=== PATIENT | female | born 1965 | race Caucasian/White ===

== ENCOUNTER 2020-09-10 19:05 | Emergency (ER) | payer BC, SELFPAY | END 2020-09-10 19:37 | disposition left against medical advice (07) | LOC: ANHED 19:25 | DX: Z53.21 Procedure and treatment not carried out due to patient leaving prior to being seen by health care provider (principal) | CPT/HCPCS: 99199 ==

== ENCOUNTER → 2021-09-25 09:57 | Outpatient (CLI) | payer BC, SELFPAY ==
--- NOTE | ~2021-09-25 | MR_ITS ---
EXAMINATION: MR knee LT wo con DATE: 09/25/2021 10:29 INDICATION: Medial left knee pain TECHNIQUE: Magnetic resonance imaging (MRI) of the left knee was performed without intravenous contra st. Sequences included coronal PD-weighted FSE, coronal PD-weighted FS FSE, sagittal T2-weighted FSE , sagittal PD-weighted FS FSE and axial PD weighted fat saturated FSE. COMPARISON: None. FINDINGS: Medial compartment: Complex medial meniscal tear with longitudinal horizontal tear plane extending to the intra-articular surface at the inner third of the posterior horn and posterior body of the medial meniscus. There is a small meniscal flap extending approximately 6 mm anteriorly from the lateral aspect of the posteri or horn along the lateral margin of the anterior weightbearing medial femoral condyle suggesting a se condary tear plane of indeterminate morphology. Partial-thickness chondral fissuring involving approx imately 50% the cartilage thickness along the anterior third of the weightbearing medial femoral cond yle. Cartilage along the medial tibial plateau remains normal. Lateral compartment: Lateral meniscus is normal. Mild partial-thickness chondral fissuring involving less than 50% the car tilage thickness along the posterior aspect lateral tibial plateau. Mild partial-thickness cartilage loss with minimal chondral surface irregularity along the posterior weightbearing lateral femoral con dyle. Patellofemoral compartment: Chondral surface regularity with underlying heterogeneous cartilage signal suggesting deeper fissurin g at the central aspect of the lateral trochlea. Extensive cartilage loss along the patella with scat tered deep fissuring most prominent at the patellar apical ridge where there is mild underlying edema -like marrow signal change. Ligaments and tendons: Anterior and posterior cruciate ligaments are normal. The medial collateral ligament and fibular quin ateral ligament complex are normal. The extensor mechanism is normal. The visualized medial and later al hamstring tendons as well as the iliotibial band are normal. Fluid: Minimal joint effusion at the lateral gutter of the suprapatellar pouch. No loose osteochondral giuseppe s identified. Osseous/other: Normal marrow signal aside from the previous noted tiny foci of minimal subarticular edema-like signa l change at the patella. No fracture or pathologic marrow replacing process. IMPRESSION: 1. Complex tear of the posterior horn of the medial meniscus. 2. 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 Reviewed, dictated and finalized at location A. IMPRESSION: 1. Complex tear of the posterior horn of the medial meniscus. 2. Mild tricompartmental osteoarthritis with moderate to high-grade chondromala yen the patella and regions of moderate grade chondromalacia at the trochlea an d medial lateral compartments.
== END ==
PROVIDERS: PCP Family Medicine; Visit Provider Orthopaedic Surgery
DX: M17.12 Unilateral primary osteoarthritis, left knee (principal); S83.232A Complex tear of medial meniscus, current injury, left knee, initial encounter; X58.XXXA Exposure to other specified factors, initial encounter
CPT/HCPCS: 73721

== ENCOUNTER 2021-11-02 20:33 | Emergency (ER) | payer BC, SELFPAY ==
--- NOTE | ~2021-11-02 | CT_ITS ---
EXAMINATION: CTA chest PE abdomen pel DATE: 11/02/2021 22:14 INDICATION: Low chest pain, upper abdominal pain. Recent surgery. TECHNIQUE: Computed tomography (CT) of the chest, abdomen, and pelvis was performed with 100 CC Omnip aque 350 intravenous contrast. Automated exposure control and iterative reconstruction technique were employed. Exam dose: 1727.24 mGy-cm total exam DLP. COMPARISON: None FINDINGS: CHEST CT: Status post partial right lower lobe lung, left upper lobe and lingular resection. Bilateral pulmonar y discoid atelectasis or more likely scarring. 3 mm calcified left apical pulmonary granuloma (series 6 image 18) 4 mm high attenuation anterior left apical nodule, likely a small calcified pulmonary granuloma (imag e 20). Several millimeter calcified anterior segment right upper lobe pulmonary granuloma (image 55) No pulmonary infiltrate or consolidation or pulmonary mass lesion is noted otherwise. There is mild right lower lobe pulmonary embolism (series 4 images 158-162). Cardiomegaly. No thoracic aortic aneurysm or dissection. No hilar or mediastinal mass lesion or lymphadenopathy. Small pericardial effusion. No pleural effusion. ABDOMEN/PELVIS CT: Status post cholecystectomy. No bile duct or pancreatic duct dilatation. No hepatic or pancreatic spa ce-occupying mass lesion. Normal splenic size. Normal morphology of the adrenal glands. Mild bilateral renal scarring likely due to mild chronic pyelonephritis. Scattered bilateral renal cy sts, measuring up to 15 mm on the right, 14 mm on the left. Status post cystectomy and ileal conduit. No hydronephrosis or hydroureter. Prominent abdominal aortic calcification. No abdominal aortic aneurysm. No intraperitoneal or retrope ritoneal or pelvic mass lesion or adenopathy or ascites. Left colostomy. There is thickening of the wall of the gastric antrum and duodenum, possibly due to gastritis, duoden itis and/or peptic ulcer disease. No bowel obstruction or intraperitoneal free air is detected. Approximately 2 cm wide fat-containing umbilical hernia. Degenerative changes of the lower thoracic and lumbar spine, including severe degenerative disc disea se and minimal retrolisthesis at L5-S1. L3 limbus vertebra. Bilateral hip osteoarthritis. Partial resection of right acetabulum and the resection of right shoulder and inferior pubic ramus. IMPRESSION: Mild right lower lobe pulmonary embolism Status post bilateral lung resections Old pulmonary granulomatous disease Cardiomegaly, small pericardial effusion Status post cholecystectomy Bilateral mild chronic pyelonephritis Bilateral renal cysts Thickening of the wall of the gastric antrum and duodenum suggesting gastritis, duodenitis and/or pep tic ulcer disease Status post diverting ureterostomy/ileal conduit; status post cystectomy Left colostomy Dr. Jean Baptiste telephoned the finding of mild right lower lobe pulmonary embolism to emergency room physici an Dr. Borges on 11/03/2021 at 0842 hours. Reviewed, dictated and finalized at [facility]. Reviewed, dictated and finalized at location B. IMPRESSION: Mild right lower lobe pulmonary embolism Status post bilateral lung resections Old pulmonary granulomatous disease Cardiomegaly, small pericardial effusion Status post cholecystectomy Bilateral mild chronic pyelonephritis Bilateral renal cysts Thickening of the wall of the gastric antrum and duodenum suggesting gastritis, duodenitis and/or peptic ulcer disease Status post diverting ureterostomy/ileal conduit; status post cystectomy Left colostomy Dr. Jean Baptiste telephoned the finding of mild right lower lobe pulmonary embolism to emergency room physician Dr. Borges on 11/03/2021 at 0842 hour
[2021-11-02 20:43] VITALS: BP 122/49; PULSE 65; RESP 14; TEMP 36.4; O2SAT 99
[2021-11-02 21:14] LABS: Basophils Percent Auto 0.3 % (0.2-1.2); Eosinophils Absolute Auto 0.1 K/mm3 (0-0.3); Eosinophils Percent Auto 1.3 % (0-4.4); Hematocrit 40.1 % (37.0-47.0); Immature Granulocyte Absolute 0.04 K/mm3 (0.00-0.031); Immature Granulocyte Percent A 0.5 % (0-0.5); Lymphocytes Absolute Auto 1.77 K/mm3 (0.9-3.2); Lymphocytes Percent Auto 23.6 % (18.3-44.2); Mean Corpuscular HGB Conc 32.4 g/dl (32-36); Mean Corpuscular Hemoglobin 30.5 pg (26-34); Mean Corpuscular Volume 94.1 fl (80-100); Mean Platelet Volume 9.4 fl (7.4-10.4); Monocytes Absolute Auto 0.6 K/mm3 (0.1-0.6); Monocytes Percent Auto 8.4 % (2.6-8.5); Neutrophils Absolute Auto 4.9 K/mm3 (1.3-6.7); Neutrophils Percent Auto 65.9 % (45.5-73.1); Platelet Count Result 298 k/mm3 (150-375); Red Blood Count 4.26 M/mm3 (4.2-5.4); Red Cell Distribution Width 13.4 % (11.5-14.5); White Blood Count 7.5 K/mm3 (4.5-10.0)
[2021-11-02 21:25] LABS: Alanine Aminotransferase 28 U/L (6-35); Albumin Level 4.4 g/dL (3.5-5.1); Alkaline Phosphatase 93 U/L (38-126); Anion Gap 14 mmol/L (8-16); Aspartate Amino Transferase 30 U/L (14-36); Bilirubin,Total 0.5 mg/dL (0.2-1.3); Blood Urea Nitrogen 15 mg/dL (7-17); Calcium 10.8 mg/dL (8.4-10.2); Carbon Dioxide 27 mmol/L (22-30); Chloride 100 mmol/L (98-107); Estimated CRCL calculation 57 ml/min; Estimated Glomerular Filt Rate 57; Glucose 114 mg/dL (65-110); Lipase 47 U/L (23-300); Potassium 4.1 mmol/L (3.4-5.0); Sodium 141 mmol/L (137-145)
[2021-11-02 21:45] VITALS: BP 136/88; PULSE 74; RESP 16; O2SAT 7
--- NOTE | 2021-11-02 21:51 | PC.NURSE ---
PT RELUCTANT TO ALLOW FOR URINE COLLECTION, PT STATED THAT SHE JUST EMPTIED HER COLLECTION BAG.
[2021-11-02 22:14] LABS: Troponin I < 0.012 ng/mL (0.000-0.034)
[2021-11-02 22:23] LABS: Add Urine Microscopic? YES; Appearance Urine Cloudy (Clear); Bilirubin Urine Negative (Negative); Blood Urine 1+ (Negative); Color Urine Yellow (Yellow); Glucose Urine UA Negative (Negative); Ketones Urine Negative (Negative); Leukocyte Esterase Ur 3+ LEU/UL (Negative); Nitrate Urine Positive (Negative); Protein Urine 1+ mg/dL (Negative); Urobilinogen Urine 0.2 mg/dL (<2.0); pH Urine 7.5 (5.0-9.0)
[2021-11-02] MEDS: SODIUM CHLORIDE 0.9% IV 1,000 ML 999 ML IV CONT (22:25)
[2021-11-02] MEDS: MORPHINE SULFATE (*CRX) 4 MG/ML INJ IV PUSH (22:26)
[2021-11-02] MEDS: ONDANSETRON INJ 4 MG/2 ML VIAL IV PUSH (22:26)
[2021-11-02 22:32] LABS: Bacteria Urine Trace /hpf; Mucus Urine Rare /lpf; Squamous Epithelial Cell Urine Rare /hpf (Few); WBC Urine >75 /hpf
[2021-11-02 22:33] VITALS: BP 158/61; PULSE 97; RESP 18; O2SAT 95
--- NOTE | 2021-11-02 22:33 | ED.GENADULT ---
HPI - General Adult General Chief complaint: Abdominal Pain Stated complaint: RLQ pain Time Seen by Provider: 11/02/21 21:19 History of Present Illness HPI narrative: Patient is a 35-year-old female who presents the emergency department with chief complaint of abdominal pain. Patient states that yesterday she started having pain in the epigastric region that she states the pain travels across her transverse colon. Patient states that has a cramping-like pain and also has a sharp component is worse with inspiration and improved with rest. Patient reports that she has had a recent knee surgery on her left knee reports that she is currently not on any anticoagulants is takes an aspirin and reports that she has been wearing compression stockings on her left leg. Patient denies shortness of breath denies vomiting denies diarrhea. Patient reports has had a cholecystectomy and an appendectomy Related Data Allergies Allergy/AdvReac Type Severity Reaction Status Date / Time CHLORPROMAZINE HCL Allergy Other Uncoded 11/02/21 21:08 Review of Systems Review of Systems: A 10 system review of systems was completed on the patient and is negative except for what is stated in the HPI. Nursing and ancillary documentation was reviewed. PMFSH Comments Cholecystectomy, appendectomy, knee surgery Exam Narrative: GENERAL: Well-appearing, well-nourished, and in no acute distress. HEAD: Normocephalic, atraumatic. EYES: PERRLA and EOMI. ENT: Nares clear, no rhinorrhea or epistaxis. Mucous membranes moist. NECK: Supple. CHEST: Clear to auscultation. No respiratory distress. HEART: Regular rate and rhythm. No murmur heard. Normal peripheral pulses. ABDOMEN: Soft, tender to palpation in the epigastric and right upper quadrant, nondistended, normal active bowel sounds. EXTREMITIES: Normal range of motion. No edema. SKIN: Warm, dry, no rash. NEURO: No focal deficits. Alert and oriented x3. PSYCH: Normal mood and affect. Course Vital Signs Vital signs: Vital Signs Temperature 36.4 C 11/02/21 20:43 Pulse Rate 65 11/02/21 20:43 Respiratory Rate 14 11/02/21 20:43 Blood Pressure 122/49 L 11/02/21 20:43 Pulse Oximetry 99 11/02/21 20:43 Oxygen Delivery Room Air 11/02/21 20:43 Temperature 36.4 C 11/02/21 20:43 Pulse Rate 97 11/02/21 22:33 Respiratory Rate 18 11/02/21 22:33 Blood Pressure 158/61 H 11/02/21 22:33 Pulse Oximetry 95 11/02/21 22:33 Oxygen Delivery Room Air 11/02/21 20:43 Medical Decision Making Vital Signs Vital Signs: Vital Signs Temperature 36.4 C 11/02/21 20:43 Pulse Rate 65 11/02/21 20:43 Respiratory Rate 14 11/02/21 20:43 Blood Pressure 122/49 L 11/02/21 20:43 Pulse Oximetry 99 11/02/21 20:43 Oxygen Delivery Room Air 11/02/21 20:43 Temperature 36.4 C 11/02/21 20:43 Pulse Rate 97 11/02/21 22:33 Respiratory Rate 18 11/02/21 22:33 Blood Pressure 158/61 H 11/02/21 22:33 Pulse Oximetry 95 11/02/21 22:33 Oxygen Delivery Room Air 11/02/21 20:43 Lab Data Result diagrams: 11/02/21 21:01 11/02/21 21:01 Labs: Lab Results 11/02/21 11/02/21 11/02/21 Range/Units 21:01 21:01 21:01 WBC 7.5 (4.5-10.0) K/mm3 RBC 4.26 (4.2-5.4) M/mm3 Hgb 13.0 (12.0-15.0) g/dL Hct 40.1 (37.0-47.0) % MCV 94.1 (80-100) fl MCH 30.5 (26-34) pg MCHC 32.4 (32-36) g/dl RDW 13.4 (11.5-14.5) % Plt Count 298 (150-375) k/mm3 MPV 9.4 (7.4-10.4) fl Immature Gran % (Auto) 0.5 (0-0.5) % Neut % (Auto) 65.9 (45.5-73.1) % Lymph % (Auto) 23.6 (18.3-44.2) % [place] % (Auto) 8.4 (2.6-8.5) % Eos % (Auto) 1.3 (0-4.4) % Baso % (Auto) 0.3 (0.2-1.2) % Lymph # (Auto) 1.77 (0.9-3.2) K/mm3 [place] # (Auto) 0.6 (0.1-0.6) K/mm3 Eos # (Auto) 0.1 (0-0.3) K/mm3 Baso # (Auto) 0.0 (0.0-0.1) K/mm3 Abs Immat Gran (auto) 0.04 H (0.00-0.031) K/mm3 Absolute Neuts
--- NOTE | 2021-11-02 23:28 | PC.NURSE ---
Report received from KAYLEE Cordero. Assumed care of patient at this time.
[2021-11-03] MEDS: BELLADONNA ALK/PHENOB ELIX 10 ML, MAG HYDROX/ALUMINUM HYD/SIMETH 30 ML, LIDOCAINE HCL 2... PO (00:08)
[2021-11-03] MEDS: CEPHALEXIN 500 MG CAPSULE PO (00:09)
[2021-11-03 00:45] VITALS: BP 132/69; PULSE 59; RESP 16; O2SAT 93
== END 2021-11-03 00:47 | disposition home or self-care (01) ==
PROVIDERS: Emergency Medicine; Emergency Provider Emergency Medicine
DX: K29.70 Gastritis, unspecified, without bleeding (principal); N39.0 Urinary tract infection, site not specified; I26.99 Other pulmonary embolism without acute cor pulmonale; Z98.890 Other specified postprocedural states; I51.7 Cardiomegaly; N11.9 Chronic tubulo-interstitial nephritis, unspecified; N28.1 Cyst of kidney, acquired; Z93.3 Colostomy status; Z93.6 Other artificial openings of urinary tract status
CPT/HCPCS: 36415; 71275; 74177; 80053; 81001; 83690; 84484; 85025; 87077; 87086; 87186; 96361; 96374; 96375; 99284; A9270; J2270; J2405; J7030; Q9967

== ENCOUNTER 2021-11-03 12:15 | Emergency (ER) | payer BC, SELFPAY ==
--- NOTE | ~2021-11-03 | XR_ITS ---
EXAMINATION: XR chest 2V DATE: 11/03/2021 13:33 INDICATION: Cough, shortness of breath and right-sided chest pain TECHNIQUE: frontal and lateral views of the chest were obtained. COMPARISON: Chest radiograph dated 11/02/2021 FINDINGS: Postoperative changes including a suture line in the right lower lung zone and multiple suture lines in the left mid and upper lung zones. Left sixth rib thoracotomy defect. There are peripheral linear and bandlike opacities in bilateral mid and lower lung zones which on prior CT correspond to residual pleural parenchymal scarring because it was removed and replaced with discoid atelectasis. No pulmon igno edema, pleural effusion or pneumothorax. Mild cardiomegaly. Mild thoracic spondylosis. Cholecyste ctomy clips in right upper quadrant. IMPRESSION: 1. Postoperative changes and pleural parenchymal scarring/atelectasis in the bilateral lungs. 2. Cardiomegaly. Reviewed, dictated and finalized at location A. IMPRESSION: 1. Postoperative changes and pleural parenchymal scarring/atelectasis in the bi lateral lungs. 2. Cardiomegaly.
--- NOTE | ~2021-11-03 | US_ITS ---
EXAMINATION: US venous doppler [facility] DATE: 11/03/2021 14:32 INDICATION: PE . TECHNIQUE: Grayscale images without and with compression and Doppler images of the bilateral lower ex tremity veins were obtained. COMPARISON: None FINDINGS: The right common femoral vein, profunda (deep) femoral vein, femoral vein, popliteal vein, peroneal v ein, posterior tibial veins, gastrocnemius vein, and greater saphenous vein are patent. The left common femoral vein, profunda femoral vein, femoral vein, popliteal vein, peroneal vein, pos terior tibial veins, gastrocnemius vein, and greater saphenous vein are patent. IMPRESSION: 1. Patent bilateral lower extremity veins. No evidence of deep venous thrombosis. Reviewed, dictated and finalized at location K. IMPRESSION: 1. Patent bilateral lower extremity veins. No evidence of deep venous thrombos is.
[2021-11-03 12:17] VITALS: BP 98/50; PULSE 66; RESP 18; TEMP 36.6; O2SAT 99
[2021-11-03 12:33] VITALS: BP 105/54; PULSE 67; RESP 17; O2SAT 96
[2021-11-03 12:36] VITALS: PULSE 66
--- NOTE | 2021-11-03 12:41 | ED.GENADULT ---
HPI - General Adult General Chief complaint: Unspecified Stated complaint: i have a blood clot in my lung Time Seen by Provider: 11/03/21 12:34 History of Present Illness HPI narrative: Pt presents today for follow up after CT overead this morning noted a small PE in RLL. Pt seen here last night for RUQ abdominal pain, had CT abd/pelvis and chest. Pt had recent knee surgery. Pt denies SOB. Pt does have some mild pain in RLL/RUQ area that is unchanged since onset. Related Data Allergies Allergy/AdvReac Type Severity Reaction Status Date / Time CHLORPROMAZINE HCL Allergy Other Uncoded 11/03/21 12:36 Review of Systems Review of Systems: All systems reviewed & are unremarkable except as noted in HPI and below Exam Const: General: cooperative, healthy appearing and no acute distress Orientation/consciousness: patient oriented x3 Chest: Chest palpation & inspection: normal inspection of the chest Resp: Effort & Inspection: normal respiratory effort and able to speak in complete sentences Auscultation: clear to auscultation bilaterally Cardio: Rate: regular rate Rhythm: regular rhythm GI: Inspection: normal to inspection GI Palp: Yes Soft to palpation Percussion: Yes normal to percussion Auscultation: normal bowel sounds Back/Spine/Pelvis: Back: no CVA tenderness Skin: General skin exam: normal color and no rashes or lesions noted Neuro: General: patient oriented x3 and no focal motor deficits Speech: normal speech Motor exam (neuro): 5/5 motor strength present throughout Sensory Exam: normal sensation Extrem: General: normal to inspection and full ROM Psych: Appearance: grossly normal Speech and movement: Normal speech and movement present Affect: normal affect Attitude: cooperative Thought process: Normal thought process present Thought content: Yes Normal thought content present Insight: Good insight present (Psych) Judgement: Good judgement present (Psych) Course Course Emergency Course: discussed with dr Murphy said would like venous dopplers ad BNP and to follow up with dr llanes. discussed with Dr Llanes, will see pt in follow up Vital Signs Vital signs: Vital Signs Temperature 97.9 F 11/03/21 12:17 Pulse Rate 66 11/03/21 12:17 Respiratory Rate 18 11/03/21 12:17 Blood Pressure 98/50 L 11/03/21 12:17 Pulse Oximetry 99 11/03/21 12:17 Oxygen Delivery Room Air 11/03/21 12:17 Temperature 97.9 F 11/03/21 12:17 Pulse Rate 65 11/03/21 15:29 Respiratory Rate 16 11/03/21 15:29 Blood Pressure 100/50 L 11/03/21 15:29 Pulse Oximetry 95 11/03/21 15:29 Oxygen Delivery Room Air 11/03/21 12:33 Medical Decision Making Vital Signs Vital Signs: Vital Signs Temperature 97.9 F 11/03/21 12:17 Pulse Rate 66 11/03/21 12:17 Respiratory Rate 18 11/03/21 12:17 Blood Pressure 98/50 L 11/03/21 12:17 Pulse Oximetry 99 11/03/21 12:17 Oxygen Delivery Room Air 11/03/21 12:17 Temperature 97.9 F 11/03/21 12:17 Pulse Rate 65 11/03/21 15:29 Respiratory Rate 16 11/03/21 15:29 Blood Pressure 100/50 L 11/03/21 15:29 Pulse Oximetry 95 11/03/21 15:29 Oxygen Delivery Room Air 11/03/21 12:33 Lab Data Labs: Lab Results 11/03/21 11/03/21 Range/Units 13:24 13:24 PT 14.2 (11.1-14.7) Seconds INR 1.1 APTT 27.8 (22.3-36.8) SECONDS NT-Pro-B Natriuret Pep 2720 H (5-100) pg/mL Discharge Plan Discharge Clinical Impression: Pulmonary embolus Patient Disposition: Home, Self-Care Condition: Stable Instructions: Antibiotic Form, Pulmonary Embolism (ED) Prescriptions: New Eliquis 5 mg tablet 5 mg PO BID Qty: 60 0RF No Action cephalexin 500 mg capsule 500 mg PO Q12H 7 Days Qty: 14 0RF pantoprazole [Protonix] 40 mg tablet,delayed release (DR/EC) 40 mg PO HS 28 Days Qty: 28 0RF Follow-up/Referrals: Oscar Llanes MD [Physician] - PHYSICIAN NOT ON STAFF,NONSTAFF [Primary C
[2021-11-03] MEDS: ENOXAPARIN 80 MG/0.8 ML SYRINGE SUB-Q (13:11)
[2021-11-03 13:12] VITALS: BP 99/55; PULSE 62; RESP 13; O2SAT 97
[2021-11-03 13:56] LABS: INR 1.1; Prothrombin Time 14.2 Seconds (11.1-14.7)
[2021-11-03 13:57] LABS: Partial Thromboplastin Time 27.8 SECONDS (22.3-36.8)
[2021-11-03 14:08] LABS: NT Pro B Type Natriuretic Pept 2720 pg/mL (5-100)
[2021-11-03 15:29] VITALS: BP 100/50; PULSE 65; RESP 16; O2SAT 95
== END 2021-11-03 15:30 | disposition home or self-care (01) ==
PROVIDERS: Emergency Provider Emergency Medicine
DX: I26.99 Other pulmonary embolism without acute cor pulmonale (principal); I51.7 Cardiomegaly; Z98.890 Other specified postprocedural states
CPT/HCPCS: 36415; 71046; 83880; 85610; 85730; 93970; 99199; J1650

== ENCOUNTER 2021-12-15 01:30 | Day surgery (SDC) | payer BC, SELFPAY ==
[2021-12-11 14:12] VITALS: BMI 31.0
[2021-12-15 11:52] VITALS: BP 125/75; PULSE 79; RESP 18; TEMP 36.6; O2SAT 99; BMI 31.2
[2021-12-15] MEDS: LACTATED RINGERS 1,000 ML 150 ML IV CONT (12:21)
--- NOTE | 2021-12-15 12:40 | WPDANESEPPF ---
Anes - Initial Pre Proc Eval Procedure: Operation Date: 12/15/21 12:30 Proposed Procedures p Esophagogastroduodenoscopy EGD - Alfa Acevedo MD Date/Time: 12/15/21 12:40 Surgeon: Alfa Acevedo MD Pre Op Diagnosis: EPIGASTRIC PAIN, ABNORMAL CT SCAN Patient Data Age: 56 Gender: F Height: 1.63 m Weight: 82.5 kg Last Vital Signs Temp 97.9 F 12/15/21 11:52 Pulse 79 12/15/21 11:52 Resp 18 12/15/21 11:52 BP 125/75 12/15/21 11:52 Pulse Ox 99 12/15/21 11:52 O2 Del Method Room Air 12/15/21 11:52 Allergies Allergy/AdvReac Type Severity Reaction Status Date / Time chlorpromazine Allergy Unknown Unknown Verified 12/15/21 11:50 Home Medications Medication Instructions Recorded Confirmed Type pantoprazole 40 mg tablet,delayed 40 mg PO HS 4 weeks #28 tabs 11/02/21 12/15/21 Rx release (Protonix) aripiprazole 15 mg tablet (Abilify) 15 mg PO DAILY 11/24/21 12/15/21 History atenolol 100 mg tablet 100 mg PO DAILY 11/24/21 12/15/21 History cyanocobalamin (vitamin B-12) 100 mcg subcut MONTHLY 11/24/21 12/15/21 History 1,000 mcg/mL injection solution escitalopram oxalate 20 mg tablet 20 mg PO DAILY 11/24/21 12/15/21 History lamotrigine 100 mg tablet 100 mg PO DAILY 11/24/21 12/15/21 History (Lamictal) apixaban 5 mg tablet (Eliquis) 5 mg PO BID 12/15/21 12/15/21 History spironolactone 25 mg tablet 25 mg PO DAILY 12/15/21 12/15/21 History Patient hx anesthesia problems: none Family hx anesthesia problems: none Results Review: All pre-operative results and documents have been reviewed as part of the pre-operative evaluation. [facility] Past Medical History Medical History Colostomy in place History of blood clots History of cancer metastatic to bone History of malignant neoplasm metastatic to lung Hx of intestinal obstruction Obesity (BMI 30-39.9) Ovarian cancer Personal history of ovarian cancer Postoperative pelvic peritoneal adhesions Pulmonary embolism Tear of meniscus of left knee Surgical History Surgical History Colostomy status History of carpal tunnel surgery History of cholecystectomy History of cholecystectomy Family History Family History Father Heart disease Hypertension Cerebrovascular accident Cancer of kidney Mother Hypertension Heart disease Social History Social History (Updated 11/25/21 @ 10:58 by Katy Odonnell [facility]) Smoking status: Never smoker Second hand tobacco smoke exposure: No Alcohol intake: current Alcohol use details: once a month, maybe; socially only Substance use: never Substance use type: does not use Living arrangements: with family Gender identity (if verbalized by the patient): Female Spiritual care concerns: No Anes - Eval Final PreProcedure Day of Procedure 12/15/21 12:40 Patient weight: obese Heart: regular rate and rhythm Lungs: clear to auscultation Airway: Mallampati scale class II Neurological: alert and oriented Last oral intake: >/= 8 hours ASA classification: III Emergent: no Anesthetic plan: proceed Anesthesia type and monitoring: general GIVS and standard monitoring Results Review: All pre-operative results and documents have been reviewed as part of the pre-operative evaluation. Informed Consent: The patient's anesthetic plan and its attendant risks and benefits were discussed with the patient/family/POA. Questions were solicited and answers provided to the satisfaction of the patient/family/POA.
--- NOTE | 2021-12-15 12:52 | WPDHPUPDATE1 ---
History and Physical Update Update Date/Time: 12/15/21 12:52 History and Physical has been reviewed, including an updated exam of the patient. There are NO changes in the patient's condition. Risks, benefits, and alternatives have been discussed and questions answered. Patient agrees to proceed with procedure.
[2021-12-15 13:06] VITALS: BP 111/66; PULSE 65; RESP 19; O2SAT 99
[2021-12-15 13:16] VITALS: BP 117/64; PULSE 66; RESP 18; O2SAT 96
[2021-12-15 13:26] VITALS: BP 98/75; PULSE 65; RESP 18; O2SAT 96
== END 2021-12-15 13:40 | disposition home or self-care (01) ==
PROVIDERS: PCP Family Medicine; Visit Provider Internal Medicine Gastroenterology
PROC: 0DJ08ZZ Inspection of Upper Intestinal Tract, Via Natural or Artificial Opening Endoscopic (ICD-10-PCS; CPT 43235; principal; 2021-12-15 12:30)
DX: R10.13 Epigastric pain (principal); K29.50 Unspecified chronic gastritis without bleeding; Z79.01 Long term (current) use of anticoagulants; Z86.711 Personal history of pulmonary embolism; Z85.118 Personal history of other malignant neoplasm of bronchus and lung; Z85.830 Personal history of malignant neoplasm of bone; Z93.3 Colostomy status; R10.11 Right upper quadrant pain; I26.99 Other pulmonary embolism without acute cor pulmonale; Z85.43 Personal history of malignant neoplasm of ovary; Z85.89 Personal history of malignant neoplasm of other organs and systems; Z90.49 Acquired absence of other specified parts of digestive tract
CPT/HCPCS: 43239; 88305; 88342; J2704; J3010; J7120

== ENCOUNTER → 2021-12-29 09:00 | Outpatient (CLI) | payer BC, SELFPAY ==
--- NOTE | ~2021-12-29 | XR_ITS ---
XR lumbar spine min 4V DATE: 12/29/2021 09:28 INDICATION: Low back pain TECHNIQUE: AP, bilateral oblique, lateral, coned lateral lumbosacral views COMPARISON: None FINDINGS: There is minimal anterior wedging of L1, which may be due to mild old compression fracture or normal variant. L3 limbus vertebra. Mild degenerative disc disease at L1-2, moderate degenerative disease at L2-3. Mild degenerative dise ase at L3-4 and L4-5. Severe degenerative disc disease at L5-S1. No spondylolysis or spondylolisthesis. Degenerative change including spurring at the sacroiliac joints. Apparent surgical resection of a portion of the right superior pubic ramus and acetabulum. Degenerati ve change at the left hip. Abdominal aortic calcification, without evidence of aneurysm. Radiopaque sutures overlying left mid abdomen. Status post cholecystectomy. IMPRESSION: Multilevel degenerative disc disease, most severe at L5-S1 Reviewed, dictated and finalized at location A.
== END ==
PROVIDERS: PCP Family Medicine; Visit Provider Physician Assistant Medical
DX: M51.37 Other intervertebral disc degeneration, lumbosacral region (principal)
CPT/HCPCS: 72110

== ENCOUNTER 2022-02-03 15:27 | Outpatient (CLI) | payer OTHER, SELFPAY ==
[2022-02-06 02:43] LABS: Homocysteine 13.1 umol/L (<10.4)
[2022-02-06 11:37] LABS: Protein S Antigen, Free 133 % normal (50-147)
[2022-02-06 19:10] LABS: Antithrombin III Activity 80 % normal (80-135)
[2022-02-06 22:21] LABS: Antithrombin III Activity 83 % normal (80-135)
== END 2022-02-03 15:28 | disposition home or self-care (01) ==
PROVIDERS: PCP Family Medicine; Visit Provider Internal Medicine Hematology & Oncology
DX: I26.99 Other pulmonary embolism without acute cor pulmonale (principal)
CPT/HCPCS: 36415; 81240; 81241; 83090; 85300; 85303; 85306; 86146

== ENCOUNTER 2022-03-29 09:06 | Emergency (ER) | payer OTHER, SELFPAY ==
[2022-03-29 09:34] VITALS: BP 129/64; PULSE 70; RESP 16; TEMP 36.9; O2SAT 95
--- NOTE | 2022-03-29 10:34 | ED.ANIMALBIT ---
HPI - Animal Bite General Chief Complaint: Animal Bite Stated Complaint: cat bite yesterday Time Seen by Provider: 03/29/22 09:56 History of Present Illness HPI narrative: Patient is a 56-year-old female who presents ER with infection to the right hand. Patient was bit by her cat yesterday. She now has pus draining from it and is red in the area. She maintains range of motion of her fingers and wrist. No lymphangitic streaking. No fevers or chills or sweats. This is the patient's own cat and is fully vaccinated. Patient is up-to-date on her tetanus vaccination. Related Data Home Medications Medication Instructions Recorded Confirmed aripiprazole 15 mg tablet (Abilify) 15 mg PO DAILY 11/24/21 03/23/22 atenolol 100 mg tablet 100 mg PO DAILY 11/24/21 03/23/22 cyanocobalamin (vitamin B-12) 100 mcg subcut MONTHLY 11/24/21 03/23/22 1,000 mcg/mL injection solution escitalopram oxalate 20 mg tablet 20 mg PO DAILY 11/24/21 03/23/22 lamotrigine 100 mg tablet 100 mg PO DAILY 11/24/21 03/23/22 (Lamictal) spironolactone 25 mg tablet 25 mg PO DAILY 12/15/21 03/23/22 Allergies Allergy/AdvReac Type Severity Reaction Status Date / Time chlorpromazine Allergy Unknown Unknown Verified 03/23/22 14:24 Review of Systems Constitutional: Constitutional: Denies chills and Denies fever(s) Musculoskeletal: Musculoskeletal: Denies arthralgias and Denies joint swelling Integumentary/Breasts: Skin/Breast: Reports erythema Comments: Purulent drainage. [facility] Past Medical History Medical History (Updated 03/29/22 @ 10:34 by Sundar Oslon MD) Colostomy in place History of blood clots History of cancer metastatic to bone History of malignant neoplasm metastatic to lung Hx of intestinal obstruction Lumbar spine pain Obesity (BMI 30-39.9) Ovarian cancer Personal history of ovarian cancer Postoperative pelvic peritoneal adhesions Pulmonary embolism Tear of meniscus of left knee Surgical History Surgical History (Updated 03/23/22 @ 15:13 by Lesley Wilson MD) Colostomy status History of carpal tunnel surgery History of cholecystectomy History of cholecystectomy Status post ileal conduit Cystectomy with ileal conduit related to radiation Family History Family History Father Heart disease Hypertension Cerebrovascular accident Cancer of kidney Mother Hypertension Heart disease Social History Social History Smoking status: Never smoker Second hand tobacco smoke exposure: No Alcohol intake: current Alcohol use details: once a month, maybe; socially only Substance use: never Substance use type: does not use Lack of Transportation: No Lack of Food: Never True Current Housing: I Have Housing Concerned About Future Housing: No Difficulty Paying Gas/Electric Bills: No Difficulty Paying for Meds: No Currently Unemployed: No Education: Master's Degree or Higher Difficulty w/ Childcare or Family Care: No Living arrangements: alone Occupation/Education: retired Gender identity (if verbalized by the patient): Female Spiritual care concerns: No Agree to blood products: Yes Exam Narrative: GENERAL: Well-appearing, well-nourished, and in no acute distress. HEAD: Normocephalic, atraumatic. HEART: Regular rate and rhythm. Normal peripheral pulses. EXTREMITIES: Normal range of motion of the right hand and wrist. No edema. SKIN: Warm, dry, no rash. Developing cellulitis with puncture wound volar aspect of the right hand near the first MTP. Purulent drainage noted. No lymphangitic streaking. NEURO: Alert and oriented x3. PSYCH: Normal mood and affect. Course Vital Signs Vital signs: Vital Signs Temperature 98.5 F 03/29/22 09:34 Pulse Rate 70 03/29/22 09:34 Respiratory Rate 16 03/29/22 09:34 Blood Pressure 129/64 03/29/22 09:34 Pulse Oximetry 95
[2022-03-29 11:30] VITALS: BP 127/64; PULSE 64; RESP 16; TEMP 36.8; O2SAT 98
== END 2022-03-29 11:31 | disposition home or self-care (01) ==
LOC: ANHED 11:05
PROVIDERS: Emergency Provider Emergency Medicine; PCP Family Medicine
DX: S61.451A Open bite of right hand, initial encounter (principal); L08.9 Local infection of the skin and subcutaneous tissue, unspecified; W55.01XA Bitten by cat, initial encounter; Z85.118 Personal history of other malignant neoplasm of bronchus and lung; Z85.43 Personal history of malignant neoplasm of ovary; Z85.830 Personal history of malignant neoplasm of bone; Z86.711 Personal history of pulmonary embolism; E66.9 Obesity, unspecified; Z68.31 Body mass index [BMI] 31.0-31.9, adult; Z93.3 Colostomy status
CPT/HCPCS: 99283

== ENCOUNTER 2022-03-30 12:03 | Emergency (ER) | payer OTHER, SELFPAY ==
[2022-03-30 12:08] VITALS: BP 136/61; PULSE 71; RESP 16; TEMP 36.6; O2SAT 98
[2022-03-30 12:37] VITALS: TEMP 36.6
[2022-03-30 13:34] LABS: Basophils Absolute Auto 0.1 K/mm3 (0.0-0.1); Basophils Percent Auto 0.8 % (0.2-1.2); Eosinophils Absolute Auto 0.1 K/mm3 (0-0.3); Eosinophils Percent Auto 1.8 % (0-4.4); Hematocrit 44.1 % (37.0-47.0); Hemoglobin 14.4 g/dL (12.0-15.0); Immature Granulocyte Absolute 0.03 K/mm3 (0.00-0.031); Immature Granulocyte Percent A 0.5 % (0-0.5); Lymphocytes Absolute Auto 1.46 K/mm3 (0.9-3.2); Lymphocytes Percent Auto 23.7 % (18.3-44.2); Mean Corpuscular HGB Conc 32.7 g/dl (32-36); Mean Corpuscular Hemoglobin 31.2 pg (26-34); Mean Corpuscular Volume 95.5 fl (80-100); Mean Platelet Volume 9.1 fl (7.4-10.4); Monocytes Absolute Auto 0.6 K/mm3 (0.1-0.6); Monocytes Percent Auto 9.7 % (2.6-8.5); Neutrophils Absolute Auto 3.9 K/mm3 (1.3-6.7); Neutrophils Percent Auto 63.5 % (45.5-73.1); Platelet Count Result 253 k/mm3 (150-375); Red Blood Count 4.62 M/mm3 (4.2-5.4); Red Cell Distribution Width 13.5 % (11.5-14.5); White Blood Count 6.2 K/mm3 (4.5-10.0)
[2022-03-30 13:43] LABS: Anion Gap 10 mmol/L (8-16); Blood Urea Nitrogen 13 mg/dL (7-17); Calcium 8.9 mg/dL (8.4-10.2); Carbon Dioxide 24 mmol/L (22-30); Chloride 106 mmol/L (98-107); Estimated CRCL calculation 56 ml/min; Estimated Glomerular Filt Rate 57; Glucose 80 mg/dL (65-110); Potassium 4.1 mmol/L (3.4-5.0); Sodium 140 mmol/L (137-145)
--- NOTE | 2022-03-30 13:52 | ED.ANIMALBIT ---
HPI - Animal Bite General Chief Complaint: Animal Bite Stated Complaint: cat bite Time Seen by Provider: 03/30/22 12:37 History of Present Illness HPI narrative: Patient is a 56-year-old female who presents to the ER with concerns for infection to her right hand. She was bit by her cat couple days ago. She came to the ER yesterday and was placed on Augmentin. She has taken 3 doses with the last dose being this morning. She reports she has some redness and edema to her right hand. She has no lymphangitic streaking up her arm. She has no loss of range of motion to her hand or wrist. No numbness or tingling. She reports that when she woke up this morning the wound had closed itself so she opened it up and got a little bit more pus out but is not currently draining at this time. Patient and cats vaccinations are up-to-date. Patient has been soaking her wound with a warm cloth and trying to drain pus periodically throughout the day. Related Data Home Medications Medication Instructions Recorded Confirmed aripiprazole 15 mg tablet (Abilify) 15 mg PO DAILY 11/24/21 03/23/22 atenolol 100 mg tablet 100 mg PO DAILY 11/24/21 03/23/22 cyanocobalamin (vitamin B-12) 100 mcg subcut MONTHLY 11/24/21 03/23/22 1,000 mcg/mL injection solution escitalopram oxalate 20 mg tablet 20 mg PO DAILY 11/24/21 03/23/22 lamotrigine 100 mg tablet 100 mg PO DAILY 11/24/21 03/23/22 (Lamictal) spironolactone 25 mg tablet 25 mg PO DAILY 12/15/21 03/23/22 Allergies Allergy/AdvReac Type Severity Reaction Status Date / Time chlorpromazine Allergy Unknown Unknown Verified 03/23/22 14:24 Review of Systems Constitutional: Constitutional: Denies chills and Denies fever(s) Musculoskeletal: Musculoskeletal: Denies arthralgias and Denies joint swelling Integumentary/Breasts: Skin/Breast: Denies pruritus, Reports erythema and Denies rash Comments: Bite wound with drainage Neurologic: Denies focal weakness and Denies numbness PMFSH Past Medical History Medical History (Updated 03/30/22 @ 14:55 by Sundar Olson MD) Colostomy in place History of blood clots History of cancer metastatic to bone History of malignant neoplasm metastatic to lung Hx of intestinal obstruction Lumbar spine pain Obesity (BMI 30-39.9) Ovarian cancer Personal history of ovarian cancer Postoperative pelvic peritoneal adhesions Pulmonary embolism Tear of meniscus of left knee Surgical History Surgical History (Updated 03/23/22 @ 15:13 by Lesley Wilson MD) Colostomy status History of carpal tunnel surgery History of cholecystectomy History of cholecystectomy Status post ileal conduit Cystectomy with ileal conduit related to radiation Family History Family History (Reviewed 03/23/22 @ 14:23 by Jackie Ortega [facility]) Father Heart disease Hypertension Cerebrovascular accident Cancer of kidney Mother Hypertension Heart disease Social History Social History (Reviewed 03/23/22 @ 14:23 by Jackie Ortega [facility]) Smoking status: Never smoker Second hand tobacco smoke exposure: No Alcohol intake: current Alcohol use details: once a month, maybe; socially only Substance use: never Substance use type: does not use Lack of Transportation: No Lack of Food: Never True Current Housing: I Have Housing Concerned About Future Housing: No Difficulty Paying Gas/Electric Bills: No Difficulty Paying for Meds: No Currently Unemployed: No Education: Master's Degree or Higher Difficulty w/ Childcare or Family Care: No Living arrangements: alone Occupation/Education: retired Gender identity (if verbalized by the patient): Female Spiritual care concerns: No Agree to blood products: Yes Exam Narrative: GENERAL: Well-appearing, well-nourished, and in no acute distress. HEAD: Normocephalic, atraumatic. EXTREMITIES: Right hand with slight edema. Bite wound over the volar aspect near the first metatarsal. No drainage noted
== END 2022-03-30 15:00 | disposition home or self-care (01) ==
PROVIDERS: Emergency Provider Emergency Medicine; PCP Family Medicine
DX: S61.451A Open bite of right hand, initial encounter (principal); L08.9 Local infection of the skin and subcutaneous tissue, unspecified; E66.9 Obesity, unspecified; Z68.31 Body mass index [BMI] 31.0-31.9, adult; Z85.118 Personal history of other malignant neoplasm of bronchus and lung; Z85.43 Personal history of malignant neoplasm of ovary; Z85.830 Personal history of malignant neoplasm of bone; Z86.711 Personal history of pulmonary embolism; Z93.3 Colostomy status; W55.01XA Bitten by cat, initial encounter
CPT/HCPCS: 36415; 80048; 85025; 99283

== ENCOUNTER 2022-05-20 14:20 | Outpatient (CLI) | payer OTHER, SELFPAY ==
[2022-05-22 15:40] LABS: Homocysteine 9.6 umol/L (<10.4)
[2022-05-26 19:41] LABS: Factor V (Leiden) Mutation NEGATIVE
== END 2022-05-20 14:21 | disposition home or self-care (01) ==
LOC: ANHLAB 14:21
PROVIDERS: PCP Family Medicine; Visit Provider Internal Medicine Hematology & Oncology
DX: I26.99 Other pulmonary embolism without acute cor pulmonale (principal)
CPT/HCPCS: 36415; 81241; 83090

== ENCOUNTER 2022-06-05 10:43 | Outpatient (CLI) | payer OTHER, SELFPAY | END 2022-06-05 10:44 | disposition home or self-care (01) | LOC: ANHLAB 10:45 | PROVIDERS: Physician Assistant Medical; PCP Family Medicine; Visit Provider Internal Medicine Hematology & Oncology | DX: E53.8 Deficiency of other specified B group vitamins (principal) | CPT/HCPCS: 36415; 82607 ==

== ENCOUNTER → 2022-07-17 12:48 | Outpatient (CLI) | payer OTHER, SELFPAY ==
--- NOTE | ~2022-07-17 | XR_ITS ---
EXAMINATION: XR heel LT min 2V DATE: 07/17/2022 13:15 INDICATION: Left heel pain. TECHNIQUE: 2 views of left calcaneus were obtained. COMPARISON: None. FINDINGS: Bone alignment is normal. No fracture. Joint spaces are normal. There are enthesophytes at the posterior and plantar aspects of calcaneal tuberosity. IMPRESSION: 1. Enthesophytes at the posterior and plantar aspects of calcaneal tuberosity. Reviewed, dictated and finalized at location E.
== END ==
PROVIDERS: PCP Family Medicine; Visit Provider Physician Assistant Medical
DX: M79.672 Pain in left foot (principal); M77.52 Other enthesopathy of left foot and ankle
CPT/HCPCS: 73650

== ENCOUNTER → 2022-07-22 10:58 | Outpatient (CLI) | payer OTHER, SELFPAY ==
--- NOTE | ~2022-07-22 | MM_ITS ---
EXAMINATION: MM screening veronica BI w david HISTORY: Screening mammogram TECHNIQUE: Craniocaudal and mediolateral oblique 3-D tomosynthesis images were obtained and synthetic 2-D images were generated. CAD analysis was submitted and interpreted. COMPARISON: No prior mammogram is available for comparison at this institution. BREAST PARENCHYMAL COMPOSITION:There are scattered areas of fibroglandular density. FINDINGS: No suspicious mass, calcification, or architectural distortion are identified in either elda ast to suggest malignancy. IMPRESSION: No mammographic evidence of malignancy. Recommend routine screening mammography in one year. BI-RADS Category 1: Negative Reviewed, dictated and finalized at location .
--- NOTE | ~2022-07-22 | DEXA_ITS ---
Bone Density Report Name: ROJAS RIOS Age: 56 Sex: Female Ethnicity: White Date of : 1965 Indication: postmenopausal; screening for osteoporosis; hysterectomy; Referring Provider: MARISAEBL MARCANO Study: Bone densitometry was performed. Exam Date: July 22, 2022 Accession number: [id number] Bone Density: Region BMD T-score Z-score Classification AP Spine (L1-L4) 1.173 1.1 2.5 Normal Femoral Neck (Left) 0.830 -0.2 1.0 Normal Total Hip (Left) 0.985 0.4 1.2 Normal Femoral Neck (Right) 0.943 0.8 2.1 Normal Total Hip (Right) 0.918 -0.2 0.7 Normal Total Hip Mean 0.952 0.1 1.0 Normal World Health Organization criteria for BMD impression classify patients as: Normal (T-score at or above -1.0), Osteopenia (T-score between -1.0 and -2.5), or Osteoporosis (T-score at or below -2.5). 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 Discussion: BONE DENSITY IS ABOVE THE MINIMUM DESIRABLE LEVEL AT ALL SKELETAL SITES TESTED. This patient?s bone mineral density is above the minimum desirable level (T-score -1.0 or better) at all sites measured. The patient should follow a healthful lifestyle (good nutrition with adequate calcium and vitamin D, and appropriate weight-bearing exercise). Follow-Up: Consider repeating this study in 5 years or sooner if there is some new clinical indication. Reported by: [facility] on 07/22/2022 11:50:00 AM. Reviewed, dictated and finalized at location [facility]ANN
== END ==
PROVIDERS: PCP Family Medicine; Visit Provider Family Medicine
DX: Z12.31 Encounter for screening mammogram for malignant neoplasm of breast (principal); Z78.0 Asymptomatic menopausal state
CPT/HCPCS: 77063; 77067; 77080

== ENCOUNTER → 2022-08-18 08:18 | Outpatient (CLI) | payer OTHER, SELFPAY ==
--- NOTE | ~2022-08-18 | US_ITS ---
US breast RT complete DATE: 08/18/2022 08:59 INDICATION: Right breast pain TECHNIQUE: Real-time imaging of complete right breast: The all 4 quadrants and subareolar area COMPARISON: 07/22/2022 bilateral screening mammogram FINDINGS: No suspicious mass or shadowing is detected. No cyst is noted. IMPRESSION: BI-RADS Category 1: Negative Reviewed, dictated and finalized at Location A. Reviewed, dictated and finalized at location A.
== END ==
PROVIDERS: PCP Family Medicine; Visit Provider Family Medicine
DX: N64.4 Mastodynia (principal)
CPT/HCPCS: 76641

== ENCOUNTER → 2023-03-26 13:16 | Outpatient (CLI) | payer OTHER, SELFPAY ==
--- NOTE | ~2023-03-26 | MR_ITS ---
EXAMINATION: MR brain/brain stem wo/w con DATE: 03/26/2023 14:45 INDICATION: Dizziness and giddiness. TECHNIQUE: Magnetic resonance imaging (MRI) of the brain and brainstem was performed without and with 17 mL MultiHance intravenous contrast. COMPARISON: None. FINDINGS: There are scattered areas of nonspecific increased T2-weighted signal intensity in the cere bral white matter, which is within normal limits for the patient's age. There is no intracranial hemo rrhage, acute infarction, or abnormal intracranial mass lesion. The ventricles are normal in size. Th e orbits are normal. There is mild mucosal thickening in the paranasal sinuses. The mastoid air cells are normal. IMPRESSION: 1. Normal aging brain. Reviewed, dictated and finalized at location E. ATHLETE IMPRESSION: 1. Normal aging brain.
== END ==
PROVIDERS: PCP Family Medicine; Visit Provider Family Medicine
DX: R42 Dizziness and giddiness (principal); Z85.43 Personal history of malignant neoplasm of ovary
CPT/HCPCS: 70553; A9577

== ENCOUNTER 2023-08-14 07:16 | Outpatient (CLI) | payer OTHER, SELFPAY ==
--- NOTE | ~2023-08-14 | US_ITS ---
US abdomen limited DATE: 08/14/2023 07:46 INDICATION: Elevated liver function tests TECHNIQUE: Real-time imaging of the liver, pancreas, gallbladder fossa (status post cholecystectomy), common bile duct COMPARISON: 11/02/2021 CTA chest abdomen pelvis FINDINGS: No hepatic or pancreatic space-occupying mass lesion. Normal hepatopedal portal venous flow direction. The gallbladder is surgically absent. Common bile duct measures 3.8 mm. IMPRESSION: No significant abnormality of the liver or pancreas is demonstrated Status post cholecystectomy Normal common bile duct caliber 3.8 mm Reviewed, dictated and finalized at Location [facility]. Reviewed, dictated and finalized at location A.
== END 2023-08-14 07:17 ==
LOC: MICIMG 07:17
PROVIDERS: PCP Family Medicine; Visit Provider Physician Assistant Medical
DX: R79.89 Other specified abnormal findings of blood chemistry (principal); Z90.49 Acquired absence of other specified parts of digestive tract
CPT/HCPCS: 76705

== ENCOUNTER 2023-09-13 13:14 | Outpatient (CLI) | payer OTHER, SELFPAY ==
[2023-09-13 14:58] LABS: Hepatitis B Surface Antigen Negative (Negative)
[2023-09-13 15:15] LABS: HIV 1/2 Ab P24 Ag Result Negative (Negative); Hepatitis C Virus Antibody Negative (Negative)
== END 2023-09-13 13:15 | disposition home or self-care (01) ==
LOC: ANHLAB 13:20
PROVIDERS: PCP Family Medicine; Visit Provider Family Medicine
DX: T14.8XXA Other injury of unspecified body region, initial encounter (principal); W46.0XXA Contact with hypodermic needle, initial encounter
CPT/HCPCS: 36415; 86703; 86803; 87340; G0432

== ENCOUNTER 2023-11-11 13:08 | Outpatient (CLI) | payer OTHER, SELFPAY ==
--- NOTE | ~2023-11-11 | XR_ITS ---
EXAMINATION: XR lumbar spine 2-3V DATE: 11/11/2023 13:53 INDICATION: Low back pain, unspecified. TECHNIQUE: 3 views of lumbar spine including standing views were obtained. COMPARISON: Lumbar spine radiographs 12/29/2021 FINDINGS: Alignment is normal. Vertebral body heights are normal. There is mildly decreased disc heig ht at L2-L3, L3-L4, and L4-L5 and severely decreased disc height at L5-S1. There is multilevel facet joint osteoarthritis, severe in lower lumbar spine. Surgical clips in the right upper quadrant are stoney cary from cholecystectomy. IMPRESSION: 1. Severe lower lumbar spondylosis. Reviewed, dictated and finalized at location A.
== END 2023-11-11 13:09 | disposition home or self-care (01) ==
LOC: MICIMG 13:09
PROVIDERS: PCP Family Medicine; Visit Provider Student in an Organized Health Care Education/Training Program
DX: M47.896 Other spondylosis, lumbar region (principal)
CPT/HCPCS: 72100

== ENCOUNTER 2023-12-30 17:52 | Emergency (ER) | payer OTHER, SELFPAY ==
--- NOTE | ~2023-12-30 | CT_ITS ---
EXAMINATION: CT brain wo con DATE: 12/30/2023 20:15 INDICATION: Vertigo TECHNIQUE: Computed tomography (CT) of the head was performed without intravenous contrast. Sagittal and coronal reconstructions were performed. The mA was adjusted according to patient size. Iterative reconstruction technique was employed. The dose-length product was 681.00 mGy-cm. COMPARISON: Brain MR dated 03/26/2023 FINDINGS: No acute intracranial hemorrhage, acute infarction or abnormal extra axial fluid collection. Ventricl es are normal and symmetric. No mass/mass effect. The orbits, paranasal sinuses and mastoid air cells are normal. Mild hyperostosis frontalis. IMPRESSION: 1. Normal aging brain. No acute intracranial process. Reviewed, dictated and finalized at location A.
[2023-12-30 18:02] VITALS: BP 109/67; PULSE 66; RESP 16; TEMP 36.6; O2SAT 100
[2023-12-30 18:09] LABS: Glucose Point of Care 120 mg/dl (65-105)
[2023-12-30 19:36] VITALS: PULSE 68
[2023-12-30 19:37] VITALS: BP 104/88; PULSE 62; RESP 18; TEMP 36.6; O2SAT 99
--- NOTE | 2023-12-30 19:47 | ECG_ITS ---
Test Date: 2023-12-30 20:01:57 Measurements Intervals [place] Rate: 55 P: 6 [place]: 146 QRS: 79 QRSD: 86 T: 60 QT: 432 QTc: 416 Interpretive Statements SINUS BRADYCARDIA LOW QRS VOLTAGE IN PRECORDIAL LEADS [QRS DEFLECTION < 1.0 mV IN CHEST LEADS] No previous ECG available for comparison Electronically Signed On 12-31-2023 15:30:04 CDT by Dillan Delgadillo M.D.
[2023-12-30] MEDS: MECLIZINE HCL 25 MG TABLET PO (19:55)
--- NOTE | 2023-12-30 20:12 | ED.DIZZY ---
HPI - Dizziness General Chief Complaint: Dizziness Stated Complaint: dizzy, lightheaded, tingling Time Seen by Provider: 12/30/23 19:32 Source: patient Mode of arrival: ambulatory Limitations: no limitations History of Present Illness HPI Narrative: This is a 58-year-old female, with history of metastatic ovarian cancer, who presents to the emergency department complaining of vertigo beginning approximately 15:50 today. The patient states she was otherwise in her usual state of health when her symptoms began. She denies associated weakness/numbness, chest pain, shortness of breath or loss of consciousness. She states the vertigo is worsened with quick movements or walking. She has no other complaints at this time Related Data Home Medications Medication Instructions Recorded Confirmed cyanocobalamin (vitamin B-12) 100 mcg subcut MONTHLY 11/24/21 11/09/23 1,000 mcg/mL injection solution escitalopram oxalate 5 mg tablet 20 mg PO DAILY 12/30/23 Allergies Allergy/AdvReac Type Severity Reaction Status Date / Time chlorpromazine Allergy Unknown Unknown Verified 12/30/23 17:52 Review of Systems Review of Systems: All systems reviewed & are unremarkable except as noted in HPI and below PMFSH Past Medical History Medical History Colostomy in place History of blood clots History of cancer metastatic to bone History of malignant neoplasm metastatic to lung Hx of intestinal obstruction Lumbar spine pain Obesity (BMI 30-39.9) Ovarian cancer Personal history of ovarian cancer Postoperative pelvic peritoneal adhesions Pulmonary embolism Tear of meniscus of left knee Surgical History Surgical History Colostomy status History of carpal tunnel surgery History of cholecystectomy History of cholecystectomy Status post ileal conduit Cystectomy with ileal conduit related to radiation Family History Family History Father Heart disease Hypertension Cerebrovascular accident Cancer of kidney Mother Hypertension Heart disease Social History Social History Smoking status: Never smoker Second hand tobacco smoke exposure: No Alcohol intake: current Alcohol use details: once a month, maybe; socially only Substance use: never Substance use type: does not use Lack of Transportation: No Lack of Food: Never True Current Housing: I Have Housing Concerned About Future Housing: No Difficulty Paying Gas/Electric Bills: No Difficulty Paying for Meds: No Currently Unemployed: Decline to Answer Education: Master's Degree or Higher Difficulty w/ Childcare or Family Care: No Living arrangements: alone Additional living arrangements comments: Occupation/Education: retired Gender identity (if verbalized by the patient): Female Sexual Orientation (if Verbalized by the Patient): Lesbian, Gill, or Homosexual Spiritual care concerns: No Agree to blood products: Yes Exam Narrative: GENERAL: Well-developed, well-nourished, and in no acute distress. HEAD: Normocephalic, atraumatic. EYES: PERRLA and EOMI. ENT: Nares clear, no rhinorrhea or epistaxis. Mucous membranes moist. Oropharynx without tonsillar hypertrophy exudate or other lesions. Right TM pearly christianson though bulging, left TM pearly christ[place] and nonbulging NECK: Supple. No adenopathy or masses. No carotid bruits or JVD CHEST: Clear to auscultation. No respiratory distress. No wheezes rales or rhonchi HEART: Regular rate and rhythm. No murmur heard. Normal peripheral pulses. ABDOMEN: Soft, nontender, nondistended, normal active bowel sounds. EXTREMITIES: Normal range of motion. No edema. SKIN: Warm, dry, no rash. NEURO: Alert and oriented x3. No focal deficit. Strength 5/5 in the bilateral upper extremities and left lower extremity. Strength 4/5 on flexion of the right hip (the patient's baseline) strength 5/5 on flexion and extension of the right knee and ankle. HINTS exam unremarkable PSYCH: Normal mood and affect. Course Course Emergency Course: 21:27 - CBC unremarkable. Chemistries demonstrate mild hyponatremia sodium is 135 and mild hypomagnesemia of 1.5 but is otherwise unremarkable. CT head unremarkable. EKG unremarkable. The patient's blood pressure improved with IV fluids. She was able to ambulate with a steady gait a complaint of some lightheadedness. I suspect the patient's symptoms are secondary to peripheral vertigo related to viral upper respiratory infection and dehydration. Will discharge with meclizine, recommendations for oral hydration and primary care follow-up. I discussed the findings and recommendations with the patient. Discussed return and emergency precautions including signs/symptoms of ACS, respiratory distress stroke. The patient voiced understanding and agreement with the plan. All questions answered to her satisfaction. Vital Signs Vital signs: Vital Signs Temperature 97.9 F 12/30/23 18:02 Pulse Rate 66 12/30/23 18:02 Respiratory Rate 16 12/30/23 18:02 Blood Pressure 109/67 12/30/23 18:02 Pulse Oximetry 100 12/30/23 18:02 Temperature 97.5 F L 12/30/23 20:55 Pulse Rate 61 12/30/23 20:55 Respiratory Rate 16 12/30/23 20:55 Blood Pressure 137/65 12/30/23 20:55 Pulse Oximetry 99 12/30/23 20:55 MDM - Dizziness MDM Narrative Medical decision making narrative: Plan: Labs, EKG, IV fluids, imaging, reassess Differential Diagnosis Differential diagnosis: Likely benign paroxysmal positional vertigo and other (Viral URI, dehydration, metabolic abnormality, intracranial mass, intracranial hemorrhage, other) Lab Data 12/30/23 20:44 12/30/23 20:44 Labs: Lab Results 12/30/23 12/30/23 Range/Units 18:06 20:44 WBC 8.1 (4.5-10.0) K/mm3 RBC 3.98 L (4.2-5.4) M/mm3 Hgb 12.9 (12.0-15.0) g/dL Hct 37.9 (37.0-47.0) % MCV 95.2 (80-100) fl MCH 32.4 (26-34) pg MCHC 34.0 (32-36) g/dl RDW 13.1 (11.5-14.5) % Plt Count 237 (150-375) k/mm3 MPV 9.5 (7.4-10.4) fl Immature Gran % (Auto) 0.5 (0-0.5) % Neut % (Auto) 62.5 (45.5-73.1) % Lymph % (Auto) 26.5 (18.3-44.2) % [place] % (Auto) 8.4 (2.6-8.5) % Eos % (Auto) 1.6 (0-4.4) % Baso % (Auto) 0.5 (0.2-1.2) % Lymph # (Auto) 2.15 (0.9-3.2) K/mm3 [place] # (Auto) 0.7 H (0.1-0.6) K/mm3 Eos # (Auto) 0.1 (0-0.3) K/mm3 Baso # (Auto) 0.0 (0.0-0.1) K/mm3 Abs Immat Gran (auto) 0.04 H (0.00-0.031) K/mm3 Absolute Neuts (auto) 5.1 (1.3-6.7) K/mm3 Absolute Nucleated RBC 0.000 (0.0-0.012) K/mm3 Nucleated RBC % 0.0 (0.0-0.2) % Sodium 135 L (137-145) mmol/L Potassium 3.8 (3.4-5.0) mmol/L Chloride 102 (98-107) mmol/L Carbon Dioxide 22 (22-30) mmol/L Anion Gap 11 (4-12) mmol/L BUN 20 H (7-17) mg/dL Creatinine 1.00 (0.7-1.0) mg/dL Estim Creat Clear Calc 54 ml/min Estimated GFR 57 L (59 - ) Glucose 104 (65-110) mg/dL POC Capillary Glucose 120 H (65-105) mg/dl Calcium 9.2 (8.4-10.2) mg/dL Magnesium 1.5 L (1.6-2.3) mg/dL Total Bilirubin 0.5 (0.2-1.3) mg/dL AST 32 (14-36) U/L ALT 31 (6-35) U/L Alkaline Phosphatase 60 (38-126) U/L Total Protein 8.0 (6.3-8.2) g/dL Albumin 4.4 (3.5-5.1) g/dL ECG Data EKG #1: Attestation: I personally reviewed and interpreted this ECG as follows: ECG completion date: 12/30/23 ECG completion time: 20:01 Prior ECG tracings: not available for review Interpretation: Sinus bradycardia, rate 55, normal axis, no ST segment elevations or T-wave inversions concerning for ischemia, normal intervals with QTC of 416. Discharge Plan Discharge Clinical Impression: Vertigo, Acute dehydration Patient Disposition: Home, Self-Care Condition: Stable Instructions: Antibiotic Form, Benign Paroxysmal Positional Vertigo (ED) Additional Instructions: You were seen in the emergency department. A CT of the head was not concerning for fracture or bleeding in the brain. An EKG was not concerning for changes heart rhythm. Your liver kidney function tests were normal. Your given IV fluids with improvement of your blood pressure. I suspect your vertigo was related to a viral upper respiratory infection. I recommend decongestants and meclizine for dizziness. If you develop weakness/numbness, loss of consciousness, chest pain, shortness of breath, or if you have other emergent concerns for life, limb, or eyesight, return to the emergency department. Patient Language: Greek Prescriptions: New meclizine 25 mg tablet 25 mg PO TID Qty: 15 0RF No Action cyanocobalamin (vitamin B-12) 1,000 mcg/mL solution 100 mcg subcut MONTHLY atenolol 100 mg tablet 100 mg PO DAILY Qty: 90 2RF escitalopram oxalate 5 mg tablet 20 mg PO DAILY spironolactone 25 mg tablet 25 mg PO DAILY Qty: 90 1RF Rx Instructions: TAKE 1 TABLET BY MOUTH EVERY DAY ergocalciferol (vitamin D2) [Vitamin D2] 1,250 mcg (50,000 unit) capsule 1,250 mcg PO WEEKLY Qty: 12 2RF Follow-up/Referrals: Lesley Wilson MD [Primary Care Provider] - 2 Weeks Time of Disposition: 21:32
[2023-12-30] MEDS: SODIUM CHLORIDE 0.9% IV 1,000 ML 999 ML IV CONT (20:44)
[2023-12-30 20:49] LABS: Basophils Percent Auto 0.5 % (0.2-1.2); Eosinophils Absolute Auto 0.1 K/mm3 (0-0.3); Eosinophils Percent Auto 1.6 % (0-4.4); Hematocrit 37.9 % (37.0-47.0); Hemoglobin 12.9 g/dL (12.0-15.0); Immature Granulocyte Absolute 0.04 K/mm3 (0.00-0.031); Immature Granulocyte Percent A 0.5 % (0-0.5); Lymphocytes Absolute Auto 2.15 K/mm3 (0.9-3.2); Lymphocytes Percent Auto 26.5 % (18.3-44.2); Mean Corpuscular Hemoglobin 32.4 pg (26-34); Mean Corpuscular Volume 95.2 fl (80-100); Mean Platelet Volume 9.5 fl (7.4-10.4); Monocytes Absolute Auto 0.7 K/mm3 (0.1-0.6); Monocytes Percent Auto 8.4 % (2.6-8.5); Neutrophils Absolute Auto 5.1 K/mm3 (1.3-6.7); Neutrophils Percent Auto 62.5 % (45.5-73.1); Platelet Count Result 237 k/mm3 (150-375); Red Blood Count 3.98 M/mm3 (4.2-5.4); Red Cell Distribution Width 13.1 % (11.5-14.5); White Blood Count 8.1 K/mm3 (4.5-10.0)
[2023-12-30 20:55] VITALS: BP 137/65; PULSE 61; RESP 16; TEMP 36.4; O2SAT 99
[2023-12-30 21:08] LABS: Alanine Aminotransferase 31 U/L (6-35); Albumin Level 4.4 g/dL (3.5-5.1); Alkaline Phosphatase 60 U/L (38-126); Anion Gap 11 mmol/L (4-12); Aspartate Amino Transferase 32 U/L (14-36); Bilirubin,Total 0.5 mg/dL (0.2-1.3); Blood Urea Nitrogen 20 mg/dL (7-17); Calcium 9.2 mg/dL (8.4-10.2); Carbon Dioxide 22 mmol/L (22-30); Chloride 102 mmol/L (98-107); Estimated CRCL calculation 54 ml/min; Estimated Glomerular Filt Rate 57; Glucose 104 mg/dL (65-110); Magnesium 1.5 mg/dL (1.6-2.3); Potassium 3.8 mmol/L (3.4-5.0); Sodium 135 mmol/L (137-145)
== END 2023-12-30 21:37 | disposition home or self-care (01) ==
PROVIDERS: Emergency Provider Preventive Medicine Aerospace Medicine; PCP Family Medicine
DX: R42 Dizziness and giddiness (principal); E86.0 Dehydration; Z85.43 Personal history of malignant neoplasm of ovary; Z85.118 Personal history of other malignant neoplasm of bronchus and lung; Z85.830 Personal history of malignant neoplasm of bone; Z86.711 Personal history of pulmonary embolism; Z93.6 Other artificial openings of urinary tract status; Z90.49 Acquired absence of other specified parts of digestive tract; Z90.6 Acquired absence of other parts of urinary tract; Z79.899 Other long term (current) drug therapy; R00.1 Bradycardia, unspecified
CPT/HCPCS: 36415; 70450; 80053; 82948; 83735; 85025; 93005; 96360; 99284; A9270; J7030

== ENCOUNTER 2024-01-18 14:47 | Emergency (ER) | payer OTHER, SELFPAY ==
--- NOTE | ~2024-01-18 | CT_ITS ---
EXAMINATION: CTA chest PE abdomen pel DATE: 01/18/2024 19:06 CUT OFF [facility] INDICATION: Right upper quadrant pain for 48 hours worsening with inspiration with a history of pulmo nary embolus TECHNIQUE: Computed tomographic angiography (CTA) of the chest with contrast-enhanced imaging of the abdomen and pelvis was performed with 100 mL Omnipaque-350 intravenous contrast. The dose-length prod uct was 901.76 mGy-cm. Maximum intensity projection 3D-reconstructions of the aorta and other arterie s were constructed by the technologist on a separate workstation. FINDINGS/OBSERVATIONS: CTA: No filling defect is identified within the main or proximal pulmonary arteries. No filling defect is identified within the segmental or subsegmental branches. The punctate filling defect within the right lower lobe seen on the 2021 examination is no longer vis ualized on today's study. The heart is enlarged, without pericardial effusion. Postoperative changes identified within the bilateral lung roberts, consistent with patient's history. Liver: The liver is not in enlarged, and demonstrates diffuse fatty infiltration, unchanged from April ex . Gallbladder and biliary system: The gallbladder is surgically absent. Pancreas: Subtle irregular focus of decreased attenuation is identified within the body of pancreas, measuring 8.4 mm. This area of the pancreas was not included on the prior study. The remainder of the pancreas otherwise enhances homogeneously without ductal dilatation. Spleen: The spleen enhances homogeneously and is not enlarged measuring 8 cm in longitudinal dimension. Kidneys: Multiple well-circumscribed foci of decreased attenuation are identified within the bilateral kidneys , too small to characterize but likely representing cysts. The remainder of the bilateral kidneys otherwise enhance symmetrically without hydronephrosis or arlyn l calculi. Adrenal glands: Unremarkable. Gastrointestinal tract: Stoma within the left lower quadrant. Appendix: The appendix is not definitively visualized. However, no pericecal inflammatory change is identified suggest the presence of acute appendicitis. Vasculature: Bulky calcifications within the abdominal aorta without aneurysmal dilatation or dissection. Lymph nodes: No pathologically enlarged or morphologically suspicious lymph nodes within the retroperitoneum or at the root of the mesentery. Pelvic structures: Post cystectomy and ileal conduit without hydronephrosis or hydroureter. Ileal conduit exits through the right lower quadrant. The uterus is likely surgically absent. Body wall and musculoskeletal: Dehiscence of the pelvic floor anteriorly with a loop of fluid-filled small bowel herniating through the defect. Small fat-containing umbilical hernia. Moderate degenerative disease within the lower thoracic and lumbosacral spine with osteophyte formati on, disc space narrowing, endplate changes and vacuum phenomena. Facet arthropathy is also noted. IMPRESSION: No pulmonary embolus. No aortic dissection. Postoperative change within the bilateral lung roberts, consistent with patient's history. Right-sided ileal conduit, left-sided diverting colostomy. The presence of the pelvic floor anteriorly with a loop of fluid-filled small bowel herniating throug h the defect, without obstruction. Subcentimeter irregular focus of decreased attenuation within the body of the pancreas, not included on the previous examination for which dedicated CT or MRI of the pancreas may be performed (not emerg ently) with pancreatic mass protocol. Unless, this is a known finding. Reviewed, dictated and finalized at location A. [facility] IMPRESSION: No pulmonary embolus. No aortic dissection. Postoperative change within the bilateral lung roberts, consistent with patient' s history. Right-sided ileal conduit, left-sided diverting colostomy. The presence of the pelvic floor anteriorly with a loop of fluid-filled small b owel herniating through the defect, without obstruction. Subcentimeter irregular focus of decreased attenuation within the body of the p ancreas, not included on the previous examination for which dedicated CT or MRI of the pancreas may be performed (not emergently) with pancreatic mass protoco l. Unless, this is a known finding.
[2024-01-18 14:55] VITALS: BP 117/79; PULSE 69; RESP 16; TEMP 36.4; O2SAT 98
--- NOTE | 2024-01-18 15:22 | ED.ABDPAIN ---
HPI - Abdominal Pain General Chief Complaint: Abdominal Pain <RAFAEL Shannon Last Filed: 01/19/24 11:04> Stated Complaint: RUQ abd pain, pain with inspiration <Hillary Perkins PA-C - Last Filed: 01/19/24 11:04> Time Seen by Provider: 01/18/24 15:23 <Hillary Perkins PA-C - Last Filed: 01/19/24 11:04> Focused HPI: This is a 58 year old female that presents to the ER for right upper quadrant pain. Started about 2 days ago. It is constant in nature. Reports history of cholecystectomy. Pain is worse with inspiration. Reports history of PE. Denies fever, vomiting, diarrhea. GENERAL: Well-appearing, well-nourished, and in no acute distress. HEAD: Normocephalic, atraumatic. CHEST: Clear to auscultation. ?No respiratory distress. HEART: Regular rate and rhythm.? NEURO: ?Alert and oriented x3. Patient screened in triage and initial orders placed.? ?Additional care and disposition to be based upon?diagnostic testing and treatment. <RAFAEL Shannon Last Filed: 01/19/24 11:04> History of Present Illness HPI narrative: 58-year-old female with history of ovarian cancer when she was 13-year-old that resulted in a urostomy and colostomy, hypertension, depression, remote history of PE presents to the emergency department for right lower rib pain/right upper quadrant abdominal pain for the past couple of days. Patient states the pain is worse when she takes a deep breath and bends her torso. She otherwise cannot identify any aggravating or alleviating factors. She reports history of cholecystectomy and appendectomy. He has normal output in her urostomy and colostomy but does feel like she has not eaten well today. She denies fever, shortness of breath, cough or congestion, hemoptysis. She is not currently anticoagulated. <Marisa Hawkins PA-C - Last Filed: 01/19/24 01:14> Related Data Home Medications: Home Medications Medication Instructions Recorded Confirmed cyanocobalamin (vitamin B-12) 100 mcg subcut MONTHLY 11/24/21 11/09/23 1,000 mcg/mL injection solution escitalopram oxalate 5 mg tablet 20 mg PO DAILY 12/30/23 <Hillary Perkins PA-C - Last Filed: 01/19/24 11:04> Allergies/Adverse Reactions: Allergies Allergy/AdvReac Type Severity Reaction Status Date / Time chlorpromazine Allergy Unknown Unknown Verified 01/18/24 14:49 <Hillary Perkins PA-C - Last Filed: 01/19/24 11:04> Review of Systems Review of Systems: All systems reviewed & are unremarkable except as noted in HPI and below <Marisa Hawkins PA-C - Last Filed: 01/19/24 01:14> [facility] Past Medical History Medical History: Medical History Colostomy in place History of blood clots History of cancer metastatic to bone History of malignant neoplasm metastatic to lung Hx of intestinal obstruction Lumbar spine pain Obesity (BMI 30-39.9) Ovarian cancer Personal history of ovarian cancer Postoperative pelvic peritoneal adhesions Pulmonary embolism Tear of meniscus of left knee <Hillary Perkins PA-C - Last Filed: 01/19/24 11:04> Surgical History Surgical History: Surgical History Colostomy status History of carpal tunnel surgery History of cholecystectomy History of cholecystectomy Status post ileal conduit Cystectomy with ileal conduit related to radiation <Hillary Perkins PA-C - Last Filed: 01/19/24 11:04> Family History Family History: Family History Father Heart disease Hypertension Cerebrovascular accident Cancer of kidney Mother Hypertension Heart disease <Hillary Perkins PA-C - Last Filed: 01/19/24 11:04> Social History Social History: Social History Smoking status: Never smoker Second hand tobacco smoke exposure: No Alcohol intake: current Alcohol use details: once a month, maybe; socially only Substance use: never Substance use type: does not use Lack of Transportation: No Lack of Food: Never True Current Housing: I Have Housing Concerned About Future Housing: No Difficulty Paying Gas/Electric Bills: No Difficulty Paying for Meds: No Currently Unemployed: Decline to Answer Education: Master's Degree or Higher Difficulty w/ Childcare or Family Care: No Living arrangements: alone Additional living arrangements comments: Occupation/Education: retired Gender identity (if verbalized by the patient): Female Sexual Orientation (if Verbalized by the Patient): Lesbian, Gill, or Homosexual Spiritual care concerns: No Agree to blood products: Yes <Hillary Pekrins PA-C - Last Filed: 01/19/24 11:04> Exam Narrative: GENERAL: Well-appearing, well-nourished, and in no acute distress. HEAD: Normocephalic, atraumatic. EYES: EOMI. ENT: Nares clear, no rhinorrhea or epistaxis. Mucous membranes moist. NECK: Supple. CHEST: Clear to auscultation. No respiratory distress. HEART: Regular rate and rhythm. No murmur heard. Normal peripheral pulses. ABDOMEN: Normoactive bowel sounds. Abdomen soft tenderness in the right upper quadrant. No rebound, guarding or rigidity. Colostomy bag in the left lower quadrant with no surrounding skin changes and good output. Urostomy bag in the right lower quadrant with no surrounding skin changes and good output with clear yellow urine in the ostomy bag. EXTREMITIES: Normal range of motion. No edema. SKIN: Warm, dry, no rash. NEURO: No focal deficits. Alert and oriented x3 <Marisa Hawkins PA-C - Last Filed: 01/19/24 01:14> Course Vital Signs Vital signs: Vital Signs Temperature 97.6 F 01/18/24 14:55 Pulse Rate 69 01/18/24 14:55 Respiratory Rate 16 01/18/24 14:55 Blood Pressure 117/79 01/18/24 14:55 Pulse Oximetry 98 01/18/24 14:55 Oxygen Delivery Room Air 01/18/24 14:55 Temperature 97.8 F 01/18/24 19:15 Pulse Rate 70 01/18/24 19:15 Respiratory Rate 16 01/18/24 19:15 Blood Pressure 142/75 H 01/18/24 19:15 Pulse Oximetry 100 01/18/24 19:15 Oxygen Delivery Room Air 01/18/24 14:55 <Hillary Perkins PA-C - Last Filed: 01/19/24 11:04> Vital Signs Temperature 97.6 F 01/18/24 14:55 Pulse Rate 69 01/18/24 14:55 Respiratory Rate 16 01/18/24 14:55 Blood Pressure 117/79 01/18/24 14:55 Pulse Oximetry 98 01/18/24 14:55 Oxygen Delivery Room Air 01/18/24 14:55 Temperature 97.8 F 01/18/24 19:15 Pulse Rate 70 01/18/24 19:15 Respiratory Rate 16 01/18/24 19:15 Blood Pressure 142/75 H 01/18/24 19:15 Pulse Oximetry 100 01/18/24 19:15 Oxygen Delivery Room Air 01/18/24 14:55 <Marisa Hawkins PA-C - Last Filed: 01/19/24 01:14> MDM - Abdominal Pain MDM Narrative Medical decision making narrative: 4-year-old female presents to the emergency department for right upper quadrant abdominal pain/right inferior rib pain for the past couple of days. See HPI for further history. Triage vitals are stable. Exam significant for the above. Patient feels most her pain is in the right lower lung field, however on exam she does have more tenderness in the right upper quadrant. She did have lab work obtained in triage which included no leukocytosis or anemia on CBC. Her chemistries were with mild elevation in creatinine at 1.2 and BUN of 21, her creatinine is normally around 1. Will provide fluids. Urinalysis does reveal UTI with positive nitrates. Patient does have ostomy in place and this may be due to chronic contamination, urine culture sent. She did a D-dimer that was within normal limits, however given her history of PE and reported pleuritic right lower lung pain, she is considered high risk will obtain a CTA PE chest for further evaluation. Will also add on a CT of pelvis given abdominal exam findings. CT shows IMPRESSION: No pulmonary embolus. No aortic dissection. Postoperative change within the bilateral lung roberts, consistent with patient's history. Right-sided ileal conduit, left-sided diverting colostomy. Dehiscence of the pelvic floor anteriorly with a loop of fluid-filled small bowel herniating through the defect, without obstruction. Subcentimeter irregular focus of decreased attenuation within the body of the pancreas, not included on the previous examination for which dedicated CT or MRI of the pancreas may be performed (not emergently) with pancreatic mass protocol. Unless, this is a known finding. Patient updated on workup. Prior urine culture results reviewed which shows akbar sensitivity. Will start her on cefdinir, 1st dose provided. Advised to follow closely with her PCP regarding the pancreatic mass on exam for close follow-up. Additionally she has a known rectal prolapse which explains the above findings. Encouraged Tylenol ibuprofen as needed for pain and discuss strict ED return precautions. She is agreeable to plan verbalized understanding. Discharged in stable condition. <Marisa Hawkins PA-C - Last Filed: 01/19/24 01:14> Lab Data Result diagrams: 01/18/24 15:51 01/18/24 15:51 <Hillary Perkins PA-C - Last Filed: 01/19/24 11:04> Labs: Lab Results 01/18/24 Range/Units 15:51 WBC 9.4 (4.5-10.0) K/mm3 RBC 4.16 L (4.2-5.4) M/mm3 Hgb 13.7 (12.0-15.0) g/dL Hct 39.7 (37.0-47.0) % MCV 95.4 (80-100) fl MCH 32.9 (26-34) pg MCHC 34.5 (32-36) g/dl RDW 12.8 (11.5-14.5) % Plt Count 235 (150-375) k/mm3 MPV 9.4 (7.4-10.4) fl Immature Gran % (Auto) 0.7 H (0-0.5) % Neut % (Auto) 62.8 (45.5-73.1) % Lymph % (Auto) 26.9 (18.3-44.2) % [place] % (Auto) 7.9 (2.6-8.5) % Eos % (Auto) 1.2 (0-4.4) % Baso % (Auto) 0.5 (0.2-1.2) % Lymph # (Auto) 2.52 (0.9-3.2) K/mm3 [place]itt # (Auto) 0.7 H (0.1-0.6) K/mm3 Eos # (Auto) 0.1 (0-0.3) K/mm3 Baso # (Auto) 0.1 (0.0-0.1) K/mm3 Abs Immat Gran (auto) 0.07 H (0.00-0.031) K/mm3 Absolute Neuts (auto) 5.9 (1.3-6.7) K/mm3 Absolute Nucleated RBC 0.000 (0.0-0.012) K/mm3 Nucleated RBC % 0.0 (0.0-0.2) % PT 14.1 (11.1-14.7) Seconds INR 1.1 APTT 23.5 (22.3-36.8) Seconds D-Dimer 0.29 (<0.48) ug/mL Sodium 137 (137-145) mmol/L Potassium 4.6 (3.4-5.0) mmol/L Chloride 104 (98-107) mmol/L Carbon Dioxide 21 L (22-30) mmol/L Anion Gap 12 (4-12) mmol/L BUN 21 H (7-17) mg/dL Creatinine 1.20 H (0.7-1.0) mg/dL Estim Creat Clear Calc 45 ml/min Estimated GFR 46 L (59 - ) Glucose 99 (65-110) mg/dL Calcium 9.6 (8.4-10.2) mg/dL Total Bilirubin 0.6 (0.2-1.3) mg/dL AST 36 (14-36) U/L ALT 36 H (6-35) U/L Alkaline Phosphatase 61 (38-126) U/L Total Protein 9.0 H (6.3-8.2) g/dL Albumin 4.6 (3.5-5.1) g/dL Lipase 109 (23-300) U/L Urine Color Yellow (Yellow) Urine Appearance Cloudy H (Clear) Urine pH 6.0 (5.0-9.0) Ur Specific [place] 1.016 (1.001-1.035) Urine Protein 2+ H (Negative) mg/dL Urine Glucose (UA) Negative (Negative) mg/dL Urine Ketones Negative (Negative) mg/dL Ur Blood (Man) Negative (Negative) Urine Nitrate Positive H (Negative) Urine Bilirubin Negative (Negative) Urine Urobilinogen 0.2 (<2.0) mg/dL Add Ur Microanalysis Reviewed Leukocyte Esterase Rfl 1+ H (Negative) PRICILLA/UL Urine RBC 3-5 H (0-2) /hpf Urine WBC 21-50 H (0-3) /hpf Ur Squamous Epith Cells None seen (Few) /hpf Urine Bacteria 1+ H /hpf Urine Casts >20 <Hillary Perkins PA-C - Last Filed: 01/19/24 11:04> Lab Results 01/18/24 Range/Units 15:51 WBC 9.4 (4.5-10.0) K/mm3 RBC 4.16 L (4.2-5.4) M/mm3 Hgb 13.7 (12.0-15.0) g/dL Hct 39.7 (37.0-47.0) % MCV 95.4 (80-100) fl MCH 32.9 (26-34) pg MCHC 34.5 (32-36) g/dl RDW 12.8 (11.5-14.5) % Plt Count 235 (150-375) k/mm3 MPV 9.4 (7.4-10.4) fl Immature Gran % (Auto) 0.7 H (0-0.5) % Neut % (Auto) 62.8 (45.5-73.1) % Lymph % (Auto) 26.9 (18.3-44.2) % Dewitt % (Auto) 7.9 (2.6-8.5) % Eos % (Auto) 1.2 (0-4.4) % Baso % (Auto) 0.5 (0.2-1.2) % Lymph # (Auto) 2.52 (0.9-3.2) K/mm3 Dewitt # (Auto) 0.7 H (0.1-0.6) K/mm3 Eos # (Auto) 0.1 (0-0.3) K/mm3 Baso # (Auto) 0.1 (0.0-0.1) K/mm3 Abs Immat Gran (auto) 0.07 H (0.00-0.031) K/mm3 Absolute Neuts (auto) 5.9 (1.3-6.7) K/mm3 Absolute Nucleated RBC 0.000 (0.0-0.012) K/mm3 Nucleated RBC % 0.0 (0.0-0.2) % PT 14.1 (11.1-14.7) Seconds INR 1.1 APTT 23.5 (22.3-36.8) Seconds D-Dimer 0.29 (<0.48) ug/mL Sodium 137 (137-145) mmol/L Potassium 4.6 (3.4-5.0) mmol/L Chloride 104 (98-107) mmol/L Carbon Dioxide 21 L (22-30) mmol/L Anion Gap 12 (4-12) mmol/L BUN 21 H (7-17) mg/dL Creatinine 1.20 H (0.7-1.0) mg/dL Estim Creat Clear Calc 45 ml/min Estimated GFR 46 L (59 - ) Glucose 99 (65-110) mg/dL Calcium 9.6 (8.4-10.2) mg/dL Total Bilirubin 0.6 (0.2-1.3) mg/dL AST 36 (14-36) U/L ALT 36 H (6-35) U/L Alkaline Phosphatase 61 (38-126) U/L Total Protein 9.0 H (6.3-8.2) g/dL Albumin 4.6 (3.5-5.1) g/dL Lipase 109 (23-300) U/L Urine Color Yellow (Yellow) Urine Appearance Cloudy H (Clear) Urine pH 6.0 (5.0-9.0) Ur Specific [place] 1.016 (1.001-1.035) Urine Protein 2+ H (Negative) mg/dL Urine Glucose (UA) Negative (Negative) mg/dL Urine Ketones Negative (Negative) mg/dL Ur Blood (Man) Negative (Negative) Urine Nitrate Positive H (Negative) Urine Bilirubin Negative (Negative) Urine Urobilinogen 0.2 (<2.0) mg/dL Add Ur Microanalysis Reviewed Leukocyte Esterase Rfl 1+ H (Negative) PRICILLA/UL Urine RBC 3-5 H (0-2) /hpf Urine WBC 21-50 H (0-3) /hpf Ur Squamous Epith Cells None seen (Few) /hpf Urine Bacteria 1+ H /hpf Urine Casts >20 <Marisa Hawkins PA-C - Last Filed: 01/19/24 01:14> Imaging Data Radiologist's impression: ITS Impressions Chest/Abdomen/Pelvis CTA 01/18/24 19:05 IMPRESSION: No pulmonary embolus. No aortic dissection. Postoperative change within the bilateral lung roberts, consistent with patient's history. Right-sided ileal conduit, left-sided diverting colostomy. The presence of the pelvic floor anteriorly with a loop of fluid-filled small bowel herniating through the defect, without obstruction. Subcentimeter irregular focus of decreased attenuation within the body of the pancreas, not included on the previous examination for which dedicated CT or MRI of the pancreas may be performed (not emergently) with pancreatic mass protocol. Unless, this is a known finding. <RAFAEL Shannon Last Filed: 01/19/24 11:04> ITS Impressions Chest/Abdomen/Pelvis CTA 01/18/24 19:05 IMPRESSION: No pulmonary embolus. No aortic dissection. Postoperative change within the bilateral lung roberts, consistent with patient's history. Right-sided ileal conduit, left-sided diverting colostomy. The presence of the pelvic floor anteriorly with a loop of fluid-filled small bowel herniating through the defect, without obstruction. Subcentimeter irregular focus of decreased attenuation within the body of the pancreas, not included on the previous examination for which dedicated CT or MRI of the pancreas may be performed (not emergently) with pancreatic mass protocol. Unless, this is a known finding. <Marisa Hawkins PA-C - Last Filed: 01/19/24 01:14> Critical Care Time Critical Care Time Critical Care Time: No <RAFAEL Shannon Last Filed: 01/19/24 11:04> Discharge Plan Discharge Clinical Impression: Abdominal pain, RUQ, Pancreatic abnormality, UTI (urinary tract infection) <RAFAEL Shannon Last Filed: 01/19/24 11:04> Patient Disposition: Home, Self-Care <RAFAEL Shannon Last Filed: 01/19/24 11:04> Condition: Stable <RAFAEL Shannon Last Filed: 01/19/24 11:04> Instructions: Antibiotic Form, Urinary Tract Infection in Women (ED), Abdominal Pain (ED) <RAFAEL Shannon Last Filed: 01/19/24 11:04> Additional Instructions: Your evaluated in the emergency department for right upper quadrant and right lower rib pain. Your workup was significant for urinary tract infection. Please take antibiotics as directed. Your CT scan shows no evidence of a blood clot. There is evidence of a rectal prolapse which is known to you. Incidentally there was a subcentimeter irregular focus of decreased attenuation within the body of the pancreas which appears new. Please follow-up closely with her PCP regarding this issue may need an MRI or pancreatic mass protocol out on outpatient basis. Take Tylenol as needed for pain. Return to the emergency department if you develop significant worsening pain, chest pain or shortness of breath, fever, you are unable to tolerate food or fluids, or other concerning symptoms. <Hillary Perkins PA-C - Last Filed: 01/19/24 11:04> Prescriptions: New cefdinir 300 mg capsule 300 mg PO Q12H Qty: 14 0RF No Action cyanocobalamin (vitamin B-12) 1,000 mcg/mL solution 100 mcg subcut MONTHLY atenolol 100 mg tablet 100 mg PO DAILY Qty: 90 2RF escitalopram oxalate 5 mg tablet 20 mg PO DAILY meclizine 25 mg tablet 25 mg PO TID Qty: 15 0RF spironolactone 25 mg tablet 25 mg PO DAILY Qty: 90 1RF Rx Instructions: TAKE 1 TABLET BY MOUTH EVERY DAY ergocalciferol (vitamin D2) [Vitamin D2] 1,250 mcg (50,000 unit) capsule 1,250 mcg PO WEEKLY Qty: 12 2RF <Hillary Perkins PA-C - Last Filed: 01/19/24 11:04> Follow-up/Referrals: Lesley Wilson MD [Primary Care Provider] - <Hillary Perkins PA-C - Last Filed: 01/19/24 11:04>
[2024-01-18 15:59] LABS: Basophils Absolute Auto 0.1 K/mm3 (0.0-0.1); Basophils Percent Auto 0.5 % (0.2-1.2); Eosinophils Absolute Auto 0.1 K/mm3 (0-0.3); Eosinophils Percent Auto 1.2 % (0-4.4); Hematocrit 39.7 % (37.0-47.0); Hemoglobin 13.7 g/dL (12.0-15.0); Immature Granulocyte Absolute 0.07 K/mm3 (0.00-0.031); Immature Granulocyte Percent A 0.7 % (0-0.5); Lymphocytes Absolute Auto 2.52 K/mm3 (0.9-3.2); Lymphocytes Percent Auto 26.9 % (18.3-44.2); Mean Corpuscular HGB Conc 34.5 g/dl (32-36); Mean Corpuscular Hemoglobin 32.9 pg (26-34); Mean Corpuscular Volume 95.4 fl (80-100); Mean Platelet Volume 9.4 fl (7.4-10.4); Monocytes Absolute Auto 0.7 K/mm3 (0.1-0.6); Monocytes Percent Auto 7.9 % (2.6-8.5); Neutrophils Absolute Auto 5.9 K/mm3 (1.3-6.7); Neutrophils Percent Auto 62.8 % (45.5-73.1); Platelet Count Result 235 k/mm3 (150-375); Red Blood Count 4.16 M/mm3 (4.2-5.4); Red Cell Distribution Width 12.8 % (11.5-14.5); White Blood Count 9.4 K/mm3 (4.5-10.0)
[2024-01-18 16:08] LABS: Add Urine Microscopic? YES; Appearance Urine Cloudy (Clear); Bacteria Urine 1+ /hpf; Bilirubin Urine Negative (Negative); Blood Urine Negative (Negative); Color Urine Yellow (Yellow); Glucose Urine UA Negative (Negative); Ketones Urine Negative (Negative); Leukocyte Esterase Ur 1+ LEU/UL (Negative); Need Manual Microscopic Reviewed; Nitrate Urine Positive (Negative); Non Pathogenic Casts >20; Protein Urine 2+ mg/dL (Negative); Specific Grav Ur 1.016 (1.001-1.035); Squamous Epithelial Cell Urine None Seen /hpf (Few); Urobilinogen Urine 0.2 mg/dL (<2.0); WBC Urine 21-50 /hpf (0-3)
[2024-01-18 16:11] LABS: Alanine Aminotransferase 36 U/L (6-35); Albumin Level 4.6 g/dL (3.5-5.1); Alkaline Phosphatase 61 U/L (38-126); Anion Gap 12 mmol/L (4-12); Aspartate Amino Transferase 36 U/L (14-36); Bilirubin,Total 0.6 mg/dL (0.2-1.3); Blood Urea Nitrogen 21 mg/dL (7-17); Calcium 9.6 mg/dL (8.4-10.2); Carbon Dioxide 21 mmol/L (22-30); Chloride 104 mmol/L (98-107); Estimated CRCL calculation 45 ml/min; Estimated Glomerular Filt Rate 46; Glucose 99 mg/dL (65-110); Lipase 109 U/L (23-300); Potassium 4.6 mmol/L (3.4-5.0); Sodium 137 mmol/L (137-145)
[2024-01-18 16:21] LABS: INR 1.1; Prothrombin Time 14.1 Seconds (11.1-14.7)
[2024-01-18 16:22] LABS: Partial Thromboplastin Time 23.5 Seconds (22.3-36.8)
[2024-01-18 16:37] LABS: D Dimer 0.29 ug/mL (<0.48)
[2024-01-18 18:02] VITALS: BP 118/77; PULSE 66; RESP 18; O2SAT 99
[2024-01-18] MEDS: SODIUM CHLORIDE 0.9% IV 1,000 ML 999 ML IV CONT (18:45)
[2024-01-18 19:15] VITALS: BP 142/75; PULSE 70; RESP 16; TEMP 36.6; O2SAT 100
[2024-01-18] MEDS: CEFDINIR 300 MG CAPSULE PO (20:37)
== END 2024-01-18 20:41 | disposition home or self-care (01) ==
PROVIDERS: Physician Assistant; Emergency Provider Physician Assistant; PCP Family Medicine
DX: R10.11 Right upper quadrant pain (principal); D37.8 Neoplasm of uncertain behavior of other specified digestive organs; N39.0 Urinary tract infection, site not specified; Z93.3 Colostomy status; Z85.43 Personal history of malignant neoplasm of ovary; Z85.118 Personal history of other malignant neoplasm of bronchus and lung; Z85.830 Personal history of malignant neoplasm of bone; Z86.711 Personal history of pulmonary embolism
CPT/HCPCS: 36415; 71275; 74177; 80053; 81001; 83690; 85025; 85380; 85610; 85730; 87086; 96360; 99284; A9270; J7030; Q9967

== ENCOUNTER 2024-02-29 15:17 | Emergency (ER) | payer OTHER, SELFPAY ==
--- NOTE | ~2024-02-29 | XR_ITS ---
HISTORY: right 3rd toe pain/injury COMPARISON: None TECHNIQUE: 3 views of the right foot were performed FINDINGS: No acute or subacute fracture. Joint spaces are preserved and alignment is unremarkable. Soft tissues are unremarkable without foreign body or significant calcification. Normal mineralization. IMPRESSION: No acute or subacute fracture. Reviewed, dictated and finalized at location A. ITAL CLEANING SPECIALIST
--- NOTE | 2024-02-29 15:25 | ED_ITS ---
HPI - Extremity Injury (Lower) General Chief Complaint: Extremity Injury, Lower Stated Complaint: Injured Toe Right Foot Time Seen by Provider: 02/29/24 15:35 Source: patient Mode of arrival: ambulatory Limitations: no limitations History of Present Illness HPI Narrative: Wanda is a 58-year-old female patient presenting to the clinic today with complaints of a right 3rd toe injury. She reports yesterday she was walking and accidentally stubbed her toe on a piece of furniture. Has bruising and swelling to the distal right 3rd toe. Pain with flexion/extension over the PIP joint Related Data Home Medications ?Medication ?Instructions ?Recorded ?Confirmed ?Last Taken ?Type cyanocobalamin (vitamin B-12) 100 mcg subcut MONTHLY 11/24/21 01/27/24 Unknown History 1,000 mcg/mL injection solution escitalopram oxalate 5 mg tablet 20 mg PO DAILY 12/30/23 01/27/24 12/30/23 History Allergies Allergy/AdvReac Type Severity Reaction Status Date / Time chlorpromazine Allergy Unknown Unknown Verified 02/18/24 09:14 Review of Systems Review of Systems: Pertinent positives per HPI. Patient denies any fever, chills, rash, headache, visual changes, dizziness, cough, runny nose, sore throat, shortness of breath, chest pain, palpitations, nausea, vomiting, diarrhea, constipation, abdominal pain, or any urinary issues. FOR[facility], [facility] Past Medical History Medical History Colostomy in place History of blood clots History of cancer metastatic to bone History of malignant neoplasm metastatic to lung Hx of intestinal obstruction Lumbar spine pain Obesity (BMI 30-39.9) Ovarian cancer Personal history of ovarian cancer Postoperative pelvic peritoneal adhesions Pulmonary embolism Tear of meniscus of left knee Surgical History Surgical History Colostomy status History of carpal tunnel surgery History of cholecystectomy History of cholecystectomy Status post ileal conduit Cystectomy with ileal conduit related to radiation Family History Family History Father Heart disease Hypertension Cerebrovascular accident Cancer of kidney Mother Hypertension Heart disease Social History Social History Smoking status: Never smoker Second hand tobacco smoke exposure: No Alcohol intake: current Alcohol use details: once a month, maybe; socially only Substance use: never Substance use type: does not use Lack of Transportation: No Lack of Food: Never True Current Housing: I Have Housing Concerned About Future Housing: No Difficulty Paying Gas/Electric Bills: No Difficulty Paying for Meds: No Currently Unemployed: Decline to Answer Education: Master's Degree or Higher Difficulty w/ Childcare or Family Care: No Living arrangements: alone Additional living arrangements comments: Occupation/Education: retired Gender identity (if verbalized by the patient): Female Sexual Orientation (if Verbalized by the Patient): Lesbian, Gill, or Homosexual Spiritual care concerns: No Agree to blood products: Yes Comments At the time of my signature, I reviewed and agree with the nursing past medical, surgical, social, and family history. There is no relevant family history pertinent to the patient complaint. Exam Narrative: General: Well-developed, well nourished, in no apparent distress Head: Normocephalic, atraumatic. Cardio: Regular rate and rhythm, s1 and s2 normal, no murmur appreciated. Resp: Clear to auscultation bilaterally, no rhonchi, rales, wheezing or rubs. Musculoskeletal: No deformity, bruising and mild swelling noted over the right 3rd distal toe, tender to palpation over the dorsal distal right 3rd toe, pain with extension over the PIP joint against resistance, grossly normal range of motion, muscle strength strong and equal, peripheral pulse strong, no cyanosis, normal gait and station Course Course Emergency Course: Portions of this record may have been created with voice recognition software. Level of Care: Express Care Visit Vital Signs Vital signs: Vital Signs Temperature 36.4 C 02/29/24 15:26 Pulse Rate 65 02/29/24 15:26 Respiratory Rate 16 02/29/24 15:26 Blood Pressure 126/70 02/29/24 15:26 Pulse Oximetry 100 02/29/24 15:26 Temperature 36.4 C 02/29/24 15:26 Pulse Rate 65 02/29/24 15:26 Respiratory Rate 16 02/29/24 15:26 Blood Pressure 126/70 02/29/24 15:26 Pulse Oximetry 100 02/29/24 15:26 Vital signs reviewed MDM - Extremity Injury (Lower) MDM Narrative Medical decision making narrative: At the time of visit patient is resting comfortably on the exam table. Patient appears to be nontoxic. Diagnostics: X-ray of the right foot was performed and negative for any sign of fracture or malalignment. Plan: I suspect the patient has right 3rd toe contusion. Supportive measures were discussed with the patient and they voiced understanding discharge instructions and agrees to treatment plan. Return precautions reviewed Differential Diagnosis Differential diagnosis: Likely fracture of toe and other (Contusion, soft tissue injury, avulsion fracture) Imaging Data Radiologist's impression: ITS Impressions Foot X-Ray 02/29/24 16:11 IMPRESSION: No acute or subacute fracture. Discharge Plan Discharge Clinical Impression: Contusion of toe Qualifiers: Encounter type: initial encounter Toe: lesser toe Damage to nail status: without damage Laterality: right Qualified Code(s): S90.121A - Contusion of right lesser toe(s) without damage to nail, initial encounter Patient Disposition: Home, Self-Care Condition: Stable Instructions: Antibiotic Form, Contusion in Adults (ED) Additional Instructions: X-rays negative for any sign of fracture or malalignment of the right foot Rest, ice, elevate Tylenol/motrin for pain as discussed. Gradually bear weight No running or sports until healed. Follow up with your PCP if symptoms persist more than 1 week. Patient Language: Luxembourgish Prescriptions: No Action cyanocobalamin (vitamin B-12) 1,000 mcg/mL solution 100 mcg subcut MONTHLY atenolol 100 mg tablet 100 mg PO DAILY Qty: 90 2RF escitalopram oxalate 5 mg tablet 20 mg PO DAILY spironolactone 25 mg tablet 25 mg PO DAILY Qty: 90 1RF Rx Instructions: TAKE 1 TABLET BY MOUTH EVERY DAY ergocalciferol (vitamin D2) [Vitamin D2] 1,250 mcg (50,000 unit) capsule 1,250 mcg PO WEEKLY Qty: 12 2RF Follow-up/Referrals: Lesley Wilson MD [Primary Care Provider] - Time of Disposition: 16:26 Quality NIHSS Nursing Documentation ED NIHSS nursing documentation: reviewed/agree
[2024-02-29 15:26] VITALS: BP 126/70; PULSE 65; RESP 16; TEMP 36.4; O2SAT 100
== END 2024-02-29 16:30 | disposition home or self-care (01) ==
PROVIDERS: Emergency Provider Nurse Practitioner Family; PCP Family Medicine
DX: S90.121A Contusion of right lesser toe(s) without damage to nail, initial encounter (principal); W22.03XA Walked into furniture, initial encounter; Z86.711 Personal history of pulmonary embolism; Z85.43 Personal history of malignant neoplasm of ovary; Z85.830 Personal history of malignant neoplasm of bone
CPT/HCPCS: 73630; 99213; G0463

== ENCOUNTER 2024-05-02 14:11 | Outpatient (CLI) | payer OTHER, SELFPAY ==
--- NOTE | ~2024-05-02 | XR_ITS ---
AP view of the pelvis Clinical history: Pain COMPARISON: 08/08/2010 Findings: No acute fracture or dislocation is seen. Most of the right ischium and inferior pubic shahram s, as well as the lateral portion of the right superior pubic ramus are all absent, stable from prior exam. Bilateral hip joint spaces are preserved, with mild degenerative changes. There is minimal SI joint degenerative change bilaterally. Soft tissues are unremarkable. Impression: No acute abnormality. 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 This is stable dating back to 2010. Mild bilateral hip joint degenerative change. Reviewed, dictated and finalized at location M. N RESOURCES EXECUTIVE Impression: No acute abnormality. 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 This is stable dating back to 2010. Mild bilateral hip joint degenerative change.
== END 2024-05-02 14:12 | disposition home or self-care (01) ==
LOC: MICIMG 14:12
PROVIDERS: PCP Family Medicine; Visit Provider Student in an Organized Health Care Education/Training Program
DX: M16.0 Bilateral primary osteoarthritis of hip (principal)
CPT/HCPCS: 72170

== ENCOUNTER 2024-06-22 20:14 | Emergency (ER) | payer OTHER, SELFPAY ==
--- NOTE | ~2024-06-22 | CT_ITS ---
CT of the Abdomen and Pelvis: Indication: Right flank pain Technique: 2.5 mm axial scans were obtained through the abdomen and pelvis following intravenous adm inistration of 100 cc of Omnipaque 350. Dose reduction technique was used on this scan by utilizing a utomated exposure control and iterative reconstruction technique. The dose-length product (DLP) was 5 16.37 mGy-cm. COMPARISON: 01/18/2024 Findings: Scans through the lung bases demonstrate bibasilar areas of pulmonary scarring. The liver, spleen, pancreas, adrenals and kidneys are within normal limits, aside from renal cysts. C holecystectomy clips are present. There are atherosclerotic calcifications of the aorta. No lymphade nopathy. No bowel obstruction or bowel wall thickening. Evidence of distal colectomy with left lower quadrant ostomy. There is a 2.5 x 2.2 cm enhancing mass in the left pelvic sidewall region, possibly arising f rom or abutting the distal sigmoid colon (axial image 144). Images through the pelvis were performed. Urinary bladder absent. Probable ileal conduit present. No ascites. Impression: No acute abnormality. 2.5 x 2.2 cm mass likely arising from the sigmoid colon the left pelvis, as detailed above. This is s table in appearance since 11/02/2021, therefore likely benign. Status post cystectomy with ileal conduit. Status post partial colectomy with left lower quadrant ost craig. Reviewed, dictated and finalized at location . Impression: No acute abnormality. 2.5 x 2.2 cm mass likely arising from the sigmoid colon the left pelvis, as det aisha above. This is stable in appearance since 11/02/2021, therefore likely ana laura ign. Status post cystectomy with ileal conduit. Status post partial colectomy with l eft lower quadrant ostomy.
--- OUTSIDE RECORDS SUMMARY | 2024-06-22 20:16 | XMS_ITS | Clinical Summary ---
Author Organization [facility] Address [address] [address] Care Team Providers Care Scheduling Analyst Name Role Phone Lesley Wilson MD Primary Care Provider [phone] Source Comments [facility],non-owned Affiliates and Associated Physician Practices is amultiple site organization consisting of ambulatory clinics and hospital sitesin [place], [place], [place] and [place]. This disclosure is being madepursuant to the Care Everywhere program and may not contain all information available regarding this patient. Last updated 17.[facility] Allergies Active Allergy Reactions Criticality Noted Date Comments Chlorpromazine Myalgias,Unknown,Other Medium 9 Reaction: EYES ROLLED BACK-NO NECK CONTROL, lethargic Reaction: EYES ROLLED BACK-NO NECK CONTROL, , lethargic Other reaction(s): Fatigue Reaction: EYES ROLLED BACK-NO NECK CONTROL, lethargic Medications * Be aware that medications may not be up to date on this document. Alwaysverify current medications with the patient. Atenolol (TENORMIN PO) Active escitalopram (Lexapro) 10 MG tablet Take 2 (two) tablets by mouth once daily Active LaMICtal 100 MG tablet Take 1 tablet every day by oral route. Active spironolactone (Aldactone) 25 MG tablet Take 1 (one) tablet by mouth once daily Active vitamin D, ergocalciferol, (Drisdol) 1.25 MG (62262 UT) capsule Take 1 (one) capsule by mouth every 7 days 4 Active Cyanocobalamin (B-12 IJ) by Injection route every 30 days Active Encounters Date Type Department Care Team Description 04/17/2024 1:30 PM ACCOUNTS PAYABLE PAYROLL COORDINATOR - 04/17/2024 11:59 PM ACCOUNTS PAYABLE PAYROLL COORDINATOR Hospital Encounter [facility] CAT SCAN [address] [place] [id number] Agustin Posadas MD Discharge Disposition: Home or Self Care from Last 3 Months Social History Tobacco Use Types Packs/Day Years Used Date Smoking Tobacco: Never Smokeless Tobacco: Never Tobacco Cessation:Counseling Given: Not Answered Alcohol Use Standard Drinks/Week Comments Yes 0 (1 standard drink = 0.6 oz pur e alcohol) occ Comments No Sex and Gender Information Value Date Recorded Sex Assigned at Not on file Legal Sex Female 6:29 AM CDT Gender Identity Not on file Sexual Orientation Not on file Last Filed Vital Signs Vital Sign Reading Time Taken Comments Blood Pressure 115/75 03/10/2024 10:50 AM ACCOUNTS PAYABLE PAYROLL COORDINATOR Pulse 59 03/10/2024 10:50 AM ACCOUNTS PAYABLE PAYROLL COORDINATOR Temperature 36.8 C (98.3 F) 03/10/2024 10:21 AM ACCOUNTS PAYABLE PAYROLL COORDINATOR Respiratory Rate 20 03/10/2024 10:50 AM ACCOUNTS PAYABLE PAYROLL COORDINATOR Oxygen Saturation 94% 03/10/2024 10:50 AM ACCOUNTS PAYABLE PAYROLL COORDINATOR Inhaled Oxygen Concentration - - Weight 78.5 kg (173 lb) 03/10/2024 8:28 AM ACCOUNTS PAYABLE PAYROLL COORDINATOR Height 162.6 cm (5' 4 ) 03/10/2024 8:28 AM ACCOUNTS PAYABLE PAYROLL COORDINATOR Body Mass Index 29.7 03/10/2024 8:28 AM ACCOUNTS PAYABLE PAYROLL COORDINATOR Plan of Treatment Health Maintenance Due Date Last Done Comments COLOGUARD (AGES 45-75) - COL ON CA SCREENING [address] COLONOGRAPHY - COLON CA SCREENING 1963 FIT - COLON CA SCREENING 1963 FLEX SIG - COLON CA SCREENING 1963 LIPID TESTING 1965 MAMMOGRAM 1963 PAP SMEAR 1963 HIV SCREENING 12/08/1978 HEPATITIS C SCREENING 12/04/1981 DTAP/TDAP/TD VACCINES (1 - Tdap) 12/08/1982 PNEUMOCOCCAL VACCINE 50+ (1 of 1 - PCV) 12/08/2013 ZOSTER VACCINE (1 of 2) 12/08/2013 COVID-19 VACCINE (1 - 2023-2 5 season) 2023 DEPRESSION SCREENING 03/08/2024 INFLUENZA VACCINE (Season Ended) 2024 12/21/19 COLONOSCOPY - COLON CA SCREENING 08/28/2032 08/29/19 Colorectal Cancer Screening 08/28/2032 Respiratory Syncytial Virus (RSV) Vaccine Pt: or over 60 yrs (1 - 1-dose 75+ series) 12/08/2038 HEPATITIS B VACCINE Aged Out No longe r eligible based on patient's age to complete this topic HIB VACCINE Aged Out No longer eligi ble based on patient's age to complete this topic HPV VACCINE Aged Out No longer eligi ble based on patient's age to complete this topic MENINGOCOCCAL (Group B) VACC INE SHARED DECISION-MAKING Aged Out No longer eligibl e based on patient's age to complete this topic MENINGOCOCCAL GROUPS A/C/Y/W VACCINE Aged Out No longer eligible b ased on patient's age to complete this topic Procedures Procedure Name Priority Date/Time Associated Diagnosis Comments CT PANCREAS WWO CONTRAST Routine 04/17/2024 2:26 PM ACCOUNTS PAYABLE PAYROLL COORDINATOR Lesion of pancreas Abnormal finding of diagnostic imaging CREATININE - POCT INTERFACED Routine 04/17/2024 1:45 PM ACCOUNTS PAYABLE PAYROLL COORDINATOR from Last 3 Months Results * CT Pancreas Wwo Contrast (04/17/2024 2:26 PM ACCOUNTS PAYABLE PAYROLL COORDINATOR) Anatomical Region Laterality Modality Abdomen Computed Tomogra phy 04/17/2024 3:46 PM ACCOUNTS PAYABLE PAYROLL COORDINATOR Impressions 04/17/2024 6:01 PM ACCOUNTS PAYABLE PAYROLL COORDINATOR Impression: 1.Mild atrophy of the pancreatic tail with fatty infiltration. Otherwise, no discrete pancreatic lesion is seen. There is no pancreatic ductal dilatation. The comparison exams are not available at this time and an addendum can be performed if made available. > Dictated by Damian Moore MD, (vice president business & corporate development). I, Jay Khan MD have personally reviewed and interpreted this examination/study. > Interpreting Provider: Jay Khan MD on 04/17/2024 6:01 PM Narrative 04/17/2024 6:01 PM ACCOUNTS PAYABLE PAYROLL COORDINATOR PROCEDURE: CT PANCREAS WWO CONTRAST, DATE/TIME OF EXAM: 04/17/2024 2:26 PM, LOCATION [facility] INDICATION: K86.9: Lesion of pancreas (HCC) R93.89: Abnormal finding of diagnostic imaging ADDITIONAL CLINICAL INFORMATION: Ordering Provider Reason For Exam: surveillance for pancreas cyst Additional history: EUS 03/10/2024 normal pancreas. Gastric polyp. COMPARISON: Prior images are not available for comparison. TECHNIQUE: CT of the abdomen was performed prior to and following the uneventful administration of 100 mL of Isovue 370 intravenous contrast according to a pancreas protocol. Findings: Lower Chest: Bilateral subsegmental atelectasis. Emphysematous changes at lung bases. Liver: The liver appears normal without focal hepatic lesions. Gallbladder and Bile Ducts: The gallbladder is absent. There is no intra or extrahepatic bile duct dilatation. Spleen: Normal. Pancreas Pancreas morphology: Normal. Pancreatic lesions: There is mild atrophy of the pancreatic tail with fatty infiltration. No discrete pancreatic lesion is seen. There is an ill-defined hypoattenuating area in the body of the pancreas (image 32, series 4) without evidence of pancreatic ductal dilatation, likely representing fatty infiltration. Subcentimeter peripancreatic lymph nodes are seen (image 90, series 7). Adrenals: Normal. Kidneys: Multiple variable sized simple appearing renal cysts. Bilateral renal cortical scarring is seen. Gastrointestinal: Changes of partial colectomy with right anterior abdominal wall colostomy, partially imaged. There is also suggestion of ostomy in the left lower quadrant incompletely visualized. The appendix is not seen; however, no inflammatory changes are seen in the right lower quadrant. Mesentery/Peritoneum/Retroperitoneum: Subcentimeter periportal and portacaval lymph nodes are seen measuring up to 1 cm (image 99, series 7). There is a fat-containing umbilical hernia. Abdominal Vasculature: Atherosclerotic calcification of the aorta and its branch vessels. Bones: Bone windows demonstrate no suspicious lytic or blastic lesions. The visible osseous structures are intact. Degenerative changes are present in the lower thoracic and lumbar spine. Significant narrowing of the L5/S1 disc space. Soft tissues: Normal. Procedure Note Mouna Khan MD - 04/17/2024 PROCEDURE: CT PANCREAS WWO CONTRAST, DATE/TIME OF EXAM: 04/17/2024 2:26 PM, LOCATION [facility] INDICATION: K86.9: Lesion of pancreas (HCC) R93.89: Abnormal finding of diagnostic imaging ADDITIONAL CLINICAL INFORMATION: Ordering Provider Reason For Exam: surveillance for pancreas cyst Additional history: EUS 03/10/2024 normal pancreas. Gastric polyp. COMPARISON: Prior images are not available for comparison. TECHNIQUE: CT of the abdomen was performed prior to and following the uneventful administration of 100 mL of Isovue 370 intravenous contrast according to a pancreas protocol. Findings: Lower Chest: Bilateral subsegmental atelectasis. Emphysematous changes at lung bases. Liver: The liver appears normal without focal hepatic lesions. Gallbladder and Bile Ducts: The gallbladder is absent. There is no intra or extrahepatic bile duct dilatation. Spleen: Normal. Pancreas Pancreas morphology: Normal. Pancreatic lesions: There is mild atrophy of the pancreatic tail withfatty infiltration. No discrete pancreatic lesion is seen. There is an ill-defined hypoattenuating area in the body of the pancreas (image 32, series 4) without evidence of pancreatic ductal dilatation, likely representing fatty infiltration. Subcentimeter peripancreatic lymphnodes are seen (image 90, series 7). Adrenals: Normal. Kidneys: Multiple variable sized simple appearing renal cysts. Bilateral renal cortical scarring is seen. Gastrointestinal: Changes of partial colectomy with right anterior abdominal wallcolostomy, partially imaged. There is also suggestion of ostomy in the left lower quadrant incompletely visualized. The appendix is not seen; however, no inflammatory changes are seen in the right lower quadrant. Mesentery/Peritoneum/Retroperitoneum: Subcentimeter periportal and portacaval lymph nodes are seen measuringup to 1 cm (image 99, series 7). There is a fat-containing umbilicalhernia. Abdominal Vasculature: Atherosclerotic calcification of the aorta and its branch vessels. Bones: Bone windows demonstrate no suspicious lytic or blastic lesions. The visible osseous structures are intact. Degenerative changes are presentin the lower thoracic and lumbar spine. Significant narrowing of the L5/S1 disc space. Soft tissues: Normal. Impression: 1.Mild atrophy of the pancreatic tail with fatty infiltration.Otherwise, no discrete pancreatic lesion is seen. There is no pancreatic ductal dilatation. The comparison exams are not available at this time and an addendum can be performed if made available. > Dictated by Damian Moore MD, (vice president business & corporate development). IJay MD have personally reviewed and interpreted this examination/study. > Interpreting Provider: Jay Khan MD on 04/17/2024 6:01 PM Agustin Osman MD CT ORDERABLES Gretta l Result * (ABNORMAL) CREATININE - POCT INTERFACED (04/17/2024 1:45 PM ACCOUNTS PAYABLE PAYROLL COORDINATOR) [facility] Creatinine POCT 1.33(H) 0.30 - 1.30 mg/dL 04/17/2024 1:46 PM ACCOUNTS PAYABLE PAYROLL COORDINATOR [facility] eGFR 46(L) >=90 mL/min/1.7 3 m2 04/17/2024 1:46 PM ACCOUNTS PAYABLE PAYROLL COORDINATOR [facility] Blood BLOOD SPECIMEN / Unknown 04/17/2024 1:45 PM ACCOUNTS PAYABLE PAYROLL COORDINATOR 04/17/2024 1:46 PM ACCOUNTS PAYABLE PAYROLL COORDINATOR Agustin Osman MD LAB - POINT OF CARE ORDERABLES Final Result Performing Organization Address City/State/[facility] de Phone Number [facility] [address] [place] [address], [facility] [phone] from Last 3 Months Insurance [employer] Care Teams Scheduling Analyst Relationship Specialty Start Date End Date Lesley Wilson MD [address] [place] [address] PCP - General 12/30/21
--- OUTSIDE RECORDS SUMMARY | 2024-06-22 20:16 | XMS_ITS | Clinical Summary ---
Author Organization [address] Address [address] [place] [id number] Care Team Providers Care Inoculator Name Role Phone Ady Lock MD Unavailable [phone] Lesley Wilson MD Primary Care Provider [phone] Allergies Active Allergy Reactions Criticality Noted Date Comments Chlorpromazine Fatigue,Other (See comments) Medium 10/26/2018 Reaction: EYES ROLLED BACK-NO NECK CONTROL, lethargic Reaction: EYES ROLLED BACK-NO NECK CONTROL, , lethargic Other reaction(s): Fatigue Reaction: EYES ROLLED BACK-NO NECK CONTROL, lethargic Medications atenoloL (TENORMIN) 100 mg tablet Take 1 tablet (100 mg total) by mouth daily Active spironolactone (ALDACTONE) 25 mg tablet Take 1 tablet (25 mg total) by mouth daily Active escitalopram (LEXAPRO) 10 mg tablet Take 1 tablet (10 mg total) by mouth daily Active ARIPiprazole (ABILIFY) 15 mg tablet Take 15 mg by mouth daily 2 Active lamoTRIgine (LaMICtal) 200 mg tablet Take 1 tablet (200 mg total) by mouth nightly 2 Active cyanocobalamin, vitamin B-12, 1,000 mcg/mL kitIndications: Prevention of Vitamin B12 Deficiency Inject 1,000 mcg as directed every 30 (thirty) days 1 kit 12 2 Active Additional Information Patient not taking.Reported on 06/15/2024 Vraylar 1.5 mg capsule Take by mouth daily 3 Active aspirin 81 mg chewable tablet aspirin 81 mg chewable tablet TAKE 1 TABLET BY MOUTH TWICE DAILY Active ergocalciferol (VITAMIN D) 50,000 unit capsule TAKE 1 CAPSULE BY MOUTH WEEKLY 3 Active apixaban (ELIQUIS) 5 mg tablet 1 tablet (5 mg total) Active cyclobenzaprine (FLEXERIL) 5 mg tablet Take 1 tablet (5 mg total) by mouth 3 (three) times a day as needed Active Active Problems Problem Noted Date Diagnosed Date 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 Hx of recurrence in 1986 ans 1994. in remission. 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 (06/12/2016): Anal sphincter incontinence Polyp of colon 08/30/2014 Overview (06/12/2016): Colon polyp Encounters Date Type Department Care Team Description 06/15/2024 2:15 PM CDT Office Visit [facility] Surgery [address] [place] [phone] Andrew Sue MD Colostomy in place (HCC) (Primary Dx); Complication of colostomy (HCC); Pseudoepitheliomatou s hyperplasia from Last 3 Months Immunizations Immunization Administration Dates Next Due Hep B Vaccine 01/18/2007 Influenza, Quadrivalent, Wendy l Culture-based MDCK, Preservative Free, Antibiotic Free, Intramuscular 12/21/2019 Tdap 08/23/2021 Surgical History Surgery Date Site/Laterality Comments HYSTERECTOMY BLADDER SURGERY 04/08/1980 - 05/05/1980 urostomy done at time of pelvic exenteration COLONOSCOPY COLON SURGERY THORACOTOMY 11/06/1986 - 12/05/1986 Right ovarian cancer met HEMIPELVECTOMY 09/05/1986 - 10/05/1986 Right ovarian cancer met to right socket and ischium - had removal of ischium and 2/3 of acetabulum (partial internal hemiplvectomy) with repeat surgery needed for post-op skin necrosis of incision. chronic right thigh numbness and weakness to hip as residual CARPAL TUNNEL RELEASE Bilateral 02/2006, 03/2006 CHOLECYSTECTOMY 08/06/1993 - 09/04/1993 SHOULDER ARTHROSCOPY 03/08/2020 - 03/07/2021 Right Intra-substance supraspinatus tear - Dr. Wolf APPENDECTOMY done during prior surgeries for ovarian cancers COLOSTOMY 03/08/2012 - 03/07/2013 bowel degreaded due to late complication of priro pelvic radiation. surgery by Dr. Sue at [facility] LAPAROTOMY OOPHERECTOMY 08/07/1979 - 09/05/1979 x2 w/ D xof ovarian cancer PELVIC EXENTERATION 04/08/1980 - 05/05/1980 anterior pelvic exenteration at [facility] w/ surgery needed for post-op bowel obstruction THORACOTOMY 08/06/1994 - 09/04/1994 Left recurrent ovarian cancer met SHOULDER ARTHROSCOPY 03/08/2021 - 03/07/2022 biceps reattachement after prior post-op rupture. - dr. Wolf Medical History Medical History Date Comments Ovarian cancer (HCC) 08/1979 at age 13. surgery w/ 6 lb ovarian cyst, but had post-op bleeding and on repeat surgery found ovarian cancer. Chemo August-Nov 1979 (cisplatin and adriamycin). Radiation dec-feb 1980 Colon polyp Hypertension Asthma Anxiety and depression Colostomy present (HCC) History of urostomy Family History Medical History Relation Name Comments Atrial fibrillation Father Stroke Father Valvular heart disease Father Breast cancer Maternal Grandmother Benign Breast Condition Mother Valvular heart disease Mother Breast cancer Paternal Grandmother Relation Name Status Comments Father Maternal Grandmother Mother Paternal Grandmother Social History Tobacco Use Types Packs/Day Years Used Date Smoking Tobacco: Never Smokeless Tobacco: Never Alcohol Use Standard Drinks/Week Comments Yes 0 (1 standard drink = 0.6 oz pur e alcohol) AUDIT-C Answer Date Recorded Q1: How often do you have a drink containing alc ohol? Monthly or less 06/15/2024 Q2: How many drinks containi ng alcohol do you have on a typical day when you are drinking? 1 or 2 06/15/2024 Q3: How often do you have si x or more drinks on one occasion? Never 06/15/2024 PHQ-2 Answer Date Recorded PHQ-2 Total Score (If total score is 3 or more points, staff should administer the PHQ-9) 1 10/14/2021 Personal Safety Answer Date Recorded Have you ever been in or are you currently in a harmful physical or emotional relationship or is someone making you feel afraid or unsafe? 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 Gender Identity Not on file Sexual Orientation Not on file Obstetrics History Last Filed Vital Signs Vital Sign Reading Time Taken Comments Blood Pressure 123/76 06/15/2024 2:37 PM CDT Pulse 76 06/15/2024 2:37 PM CDT Temperature 36.8 C (98.2 F) 06/15/2024 2:37 PM CDT Respiratory Rate 17 08/28/2022 12:5 0 PM CDT Oxygen Saturation 97% 08/28/2022 12: 50 PM CDT Inhaled Oxygen Concentration - - Weight 78.3 kg (172 lb 11.2 oz) 06/15/2024 2:37 PM CDT Height 162.6 cm (5' 4 ) 06/15/2024 2:37 PM CDT Body Mass Index 29.64 06/15/2024 2:37 PM CDT Plan of Treatment Health Maintenance Due Date Last Done Comments Breast Cancer Screening-Mammogram 1965 Hepatitis C Screening 1965 Regular Well Visit/Exam 18-64 12/08/1981 Zoster Vaccine (1 of 2) 12/08/2013 Depression Screening 10/14/2022 10/14/2021 Covid-19 Vaccine ( season) 2023 01/11/2021, 04/27/2020, 03/30/2020 Influenza Vaccine (Season Ended) 2024 12/21/2019 Colon Cancer Screening-Colonoscopy 08/29/2027 08/28/2022, 09/15/2019 DTaP/Tdap/Td Vaccine (2 - Td or Tdap) 08/24/2031 08/23/2021 Hepatitis B Screening Completed 01/18/2007 Colon Cancer Screening-CT Colonography Discontinued 08/28/2022 Colon Cancer Screening-DNA Stool Discontinued 08/28/2022 Colon Cancer Screening-FIT Discontinued 08/28/2022 Colon Cancer Screening-Sigmoidoscopy Discontinued 08/28/2022 Pneumococcal vaccine <65 Aged Out No longer eligible based on patient's age to complete this topic Procedures Procedure Name Priority Date/Time Associated Diagnosis Comments COLONOSCOPY 08/28/2022 11:44 AM CDT from Last 3 Months or Most Recently Relevant to Health Maintenance Results * COLONOSCOPY (08/28/2022 11:44 AM CDT) Anatomical Region Laterality Modality Other Narrative Procedure Note Andrew Sue MD - 08/28/2022 11:44 AM CDT ENDOSCOPY LAB Patient Name: Wanda Nolen Procedure Date: 08/28/2022 11:44 AM Admit Type: Outpatient Room: [facility] 2 Date of : 1965 Instrument Name: [id number]-[id number] Gender: Female Note Status: Finalized Procedure: Colonoscopy via Stoma with Endoscopy of HartmannPouch Providers: Andrew Sue M.D. Referring MD: Lesley Wilson M.D. Estimated Blood Loss: Estimated blood loss was minimal. Estimated blood loss was minimal. Procedure: After obtaining informed consent, the endoscope was passed under direct vision. Throughout theprocedure, the patient's blood pressure, pulse, and oxygen saturations were monitored continuously. The Colonoscope was introduced through the descending colostomy and advanced to the cecum, identified by appendiceal orifice and ileocecal valve. Impression: - No specimens collected. Electronically signed by Andrew Sue M.D. Andrew Sue M.D. 08/28/2022 12:33:29 PM Number of Addenda: 0 Note Initiated On: 08/28/2022 11:44 AM Scope In: Scope Out: Andrew Sue MD ENDOSCOPY PROCEDURES Fin al Result from Last 3 Months or Most Recently Relevant to Health Maintenance Insurance [facility] [place] [address] Advance Directives For more information, please contact: [phone] * Full Code (Latest Code Status on File) Date Activated Date Inactivated Comments 08/28/2022 11:10 AM 08/28/2022 5:18 PM * Full Code Date Activated Date Inactivated Comments 09/15/2019 10:08 AM 09/15/2019 6:13 PM Care Teams Inoculator Relationship Specialty Start Date End Date Lesley Wilson MD [address] [place] [address] PCP - General Family Medicine 08/19/22 Ady Lock MD [address] [place] [address] Referring Physician Psychiatry 10/14/21
--- OUTSIDE RECORDS SUMMARY | 2024-06-22 20:16 | XMS_ITS | Referral Summary ---
Author Organization [facility] [address] Address [address] [place] [address] Care Team Providers Care Transport Corps Officer Name Role Phone Ady Lock MD Unavailable [phone] Lesley Wilson MD Primary Care Provider [phone] Encounters Date Type Department Care Team Description 06/15/2024 2:15 PM CDT Office Visit [facility] Surgery [address] [place] [address] Andrew Sue MD Colostomy in place (HCC) (Primary Dx); Complication of colostomy (HCC); Pseudoepitheliomatou s hyperplasia from Last 3 Months Allergies Active Allergy Reactions Criticality Noted Date [...] (08/09/2019): Added automatically from request for surgery [id number] Incontinence of sphincter ani 08/30/2014 Overview (06/12/2016): Anal sphincter incontinence Polyp of colon 08/30/2014 Overview (06/12/2016): Colon polyp Immunizations Immunization Administration Dates Next Due Hep B Vaccine 01/18/2007 Influenza, Quadrivalent, Wendy l Culture-based MDCK, Preservative Free, Antibiotic Free, Intramuscular 12/21/2019 Tdap 08/23/2021 Social History Tobacco Use Types Packs/Day Years [...] on file 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 Date of : 1965 Instrument Name: [id number]-[id number] [...] Most Recently Relevant to Health Maintenance Insurance [facility] Advance Directives For more information, please contact: [phone] * Full Code (Latest Code Status on File) Date Activated Date Inactivated Comments 08/28/2022 11:10 AM 08/28/2022 5:18 PM * Full Code Date Activated Date Inactivated Comments 09/15/2019 10:08 AM 09/15/2019 6:13 PM Care Teams Transport Corps Officer Relationship Specialty Start Date End Date Lesley Wilson MD [address] [place], [place] [id number] PCP - General Family Medicine 08/19/22 Ady Lock MD [address] [place] [address] Referring Physician Psychiatry 10/14/21
--- OUTSIDE RECORDS SUMMARY | 2024-06-22 20:17 | XMS_ITS | Data Portability ---
Author Organization [employer] Address [address] [place] [phone] Assessment No assessment recorded. Plan of Treatment Reminders Order Date Submit Date Provider Last Modified By Organization Details Last Modified Time Details Appointments None record ed. Lab None record ed. Referral None record ed. Procedures None record ed. Surgeries None record ed. Imaging XR, calcan eus, 2 or more view 023 09/11/19 23 [email or web address] Not available 3 08:35:39 Medication Orders None record ed. Patient TargetsNo targets recorded. Patient InstructionsNo instructions recorded. Reason for Referral None Reported. Results Created Date Observation Date Name Description Value Unit Range Abnormal Flag Note LastModifiedBy Organization Detail LastModifiedTime 10/09/19 23 10/13/2022 CBC (INCL UDES DIFF/ PLT) white blood cell count 5.9 thous and/u L 3.8-10 .8 normal Not Available [employer] [address], [address], 10/13/2022 15:52:16 10/09/19 23 10/13/2022 CBC (INCL UDES DIFF/ PLT) red blood cell count 4.27 isaac on/uL 3.80-5 .10 normal Not Available [employer] [address], [address], 10/13/2022 15:52:16 10/09/19 23 10/13/2022 CBC (INCL UDES DIFF/ PLT) hemoglobin 13.7 g/dL 11.7-1 5.5 normal Not Available [employer] [address], [address], 10/13/2022 15:52:16 10/09/19 23 10/13/2022 CBC (INCL UDES DIFF/ PLT) hematocrit 40.0 % 35.0-4 5.0 normal Not Available [address], [address], 10/13/2022 15:52:16 10/09/19 23 10/13/2022 CBC (INCL UDES DIFF/ PLT) MCV 93.7 fL 80.0-1 00.0 normal Not Available [address], [address], 10/13/2022 15:52:16 10/09/19 23 10/13/2022 CBC (INCL UDES DIFF/ PLT) MCH 32.1 pg 27.0-3 3.0 normal Not Available [address], [address], 10/13/2022 15:52:16 10/09/19 23 10/13/2022 CBC (INCL UDES DIFF/ PLT) MCHC 34.3 g/dL 32.0-3 6.0 normal Not Available [address], [address], 10/13/2022 15:52:16 10/09/19 23 10/13/2022 CBC (INCL UDES DIFF/ PLT) RDW 12.4 % 11.0-1 5.0 normal Not Available [address], [address], 10/13/2022 15:52:16 10/09/19 23 10/13/2022 CBC (INCL UDES DIFF/ PLT) platelet count 221 thous and/u L 140-40 0 normal Not Available [address], [address], 10/13/2022 15:52:16 10/09/19 23 10/13/2022 CBC (INCL UDES DIFF/ PLT) MPV 9.7 fL 7.5-12 .5 normal Not Available [address], [address], 10/13/2022 15:52:16 10/09/19 23 10/13/2022 CBC (INCL UDES DIFF/ PLT) absolute neutrophils 3747 cells /uL 1500-7 800 normal Not Available [address], [address], 10/13/2022 15:52:16 10/09/19 23 10/13/2022 CBC (INCL UDES DIFF/ PLT) absolute lymphocytes 1534 cells /uL 850-39 00 normal Not Available [address], [address], 10/13/2022 15:52:16 10/09/19 23 10/13/2022 CBC (INCL UDES DIFF/ PLT) absolute monocytes 531 cells /uL 200-95 0 normal Not Available [address], [address], 10/13/2022 15:52:16 10/09/19 23 10/13/2022 CBC (INCL UDES DIFF/ PLT) absolute eosinophils 71 cells /uL 15-500 normal Not Available [facility] [address], [address], 10/13/2022 15:52:16 10/09/19 23 10/13/2022 CBC (INCL UDES DIFF/ PLT) absolute basophils 18 cells /uL 0-200 normal Not Available [facility] [address], [address], 10/13/2022 15:52:16 10/09/19 23 10/13/2022 CBC (INCL UDES DIFF/ PLT) neutrophils 63.5 % normal Not Available [address], [address], 10/13/2022 15:52:16 10/09/19 23 10/13/2022 CBC (INCL UDES DIFF/ PLT) lymphocytes 26.0 % normal Not Available [address], [address], 10/13/2022 15:52:16 10/09/19 23 10/13/2022 CBC (INCL UDES DIFF/ PLT) monocytes 9.0 % normal Not Available [address], [address], 10/13/2022 15:52:16 10/09/19 23 10/13/2022 CBC (INCL UDES DIFF/ PLT) eosinophils 1.2 % normal Not Available [address], [address], 10/13/2022 15:52:16 10/09/19 23 10/13/2022 CBC (INCL UDES DIFF/ PLT) basophils 0.3 % normal Not Available [address], [address], 10/13/2022 15:52:16 10/09/1910/13/2022 HS CRP hs CRP 5.7 mg/L high Refer ence Range Optim al <1.0 Laila BOSTON et al. Endoc r Pract .2017 ;23(S uppl 2):1- 87. For ages >17 Years : hs-CR P mg/L Risk Accor ding to AHA/C DC Guide lines <1.0 Lower relat meliza cardi ovasc ular risk. 1.0-3 .0 Parks ge relat meliza cardi ovasc ular risk. 3.1-1 0.0 Highe r relat meliza cardi ovasc ular risk. Consi mohnider retes ting in 1 to 2 weeks to exclu de a benig n trans ient eleva tion in the basel ine CRP value secon leroy to infec tion or infla mmati on. >10.0 Persi stent eleva tion, upon retes ting, may be assoc iated with infec tion and infla mmati on. Not Available [facility] [address] [place], [address], 10/13/2022 15:52:16 10/09/19 23 10/13/2022 VITAM IN D,25- OH,TO OMAR,I A vitamin D,25-oh,tota l,ia 36 NG/mL 30-100 normal Vitam in D Statu s 25-OH Vitam in D: Defic iency : <20 ng/mL Insuf ficie ncy: 20 - 29 ng/mL Optim al: > or = 30 ng/mL For 25-OH Vitam in D testi ng on patie nts on D2-johnson pplem entat ion and patie nts for whom quant itati on of D2 and D3 fract ions is requi red, the [facility] Assur eD(TM ) 25-OH VIT D, (D2,D 3), LC/MS /MS is recom matthew d: order code 23413 (major ents >2yrs ). See Note 1 Note 1 For addit ional infor jeni simon e refer to http: //[facility] heath Floyd stDia gnost ics.c om/fa q/FAQ 199 (This link is being provi ded for infor javed hitchcock/ educbobby roy l purpo ses only. ) Not Available [facility] [address] [place], [address], 10/13/2022 15:52:17 10/09/19 23 10/13/2022 HEMOG LOBIN A1C hemoglobin A1C 5.4 %_of_ total _HGB <5.7 normal For the purpo se of scree easton for the prese nce of diabe yanni: <5.7% Consi stent with the absen ce of diabe yanni 5.7-6 .4% Consi stent with incre ased risk for diabe yanni (pred iabet es) > or =6.5% Consi stent with diabe yanni This assay resul t is consi stent with a decre ased risk of diabe yanni. Curre ntly, no conse nsus exist s regar ding use of hemog lobin A1c for diagn osis of diabe yanni in child sarahi. Accor ding to Ameri can Diabe yanni Assoc iatio n (ADA) guide lines , hemog lobin A1c <7.0% repre sents optim al contr ol in non-p regna nt diabe tic patie nts. Diffe rent metri cs may apply to speci fic patie nt popul ation s. Stand ards of Medic al Care in Diabe yanni(A DA). Not Available [facility] [address] [place], [address], 10/13/2022 15:52:17 10/09/19 23 10/13/2022 TESTO STERO NE, FREE (DIAL YSIS) AND TOTAL ,MS testosterone , total, MS 17 NG/dL 2-45 For addit ional infor matjuliet njeni e refer to https ://ed ati on.qu samuelSoundstache. com/f aq/FA Q165 (This link is being provi ded for infor matio nal/e ducat ional purpo ses only. ) (Note ) This test was devel oped and its simran tical perfo rmanc e marii cteri stics have been deter mined by [employer]. It has not been clear ed or appro dena by the FDA. This assay has been valid ated pursu ant to the CLIA regul ation s and is used for clini conrado purpo ses. Not Available [facility] [address] [place], [address], 10/13/2022 15:52:18 10/09/19 23 10/13/2022 TESTO STERO NE, FREE (DIAL YSIS) AND TOTAL ,MS testosterone , free 2.6 pg/mL 0.1-6. 4 (Note ) This test was devel oped and its simran tical perfo rmanc e marii cteri stics have been deter mined by [employer]. It has not been clear ed or appro dean by the FDA. This assay has been valid ated pursu ant to the CLIA regul ation s and is used for clini conrado purpo ses. [facility] med fusio n [address] [facility] [address] [place] [address] [phone] Luther rivas MD Not Available [employer] [address], [place], [address], 10/13/2022 15:52:18 09/12/19 23 08/11/2022 MRI, ankle + foot, w/o contr ast No observ ation record ed. [facility] Not Available 2022 08:51:34 Result Notes None recorded. Problems No Known Problems Procedures Surgical History None recorded. Imaging Results Imaging Date Name Status LastModified by Organiz ation Details LastModified Time 08/11/2022 MRI, ankle + foot, w/o contrast completed [facility] Information not available 09/11/2022 08:51:34 Procedure Notes None recorded. Medical Equipment None Reported. Allergies No known drug allergies Medications Name Sig Start Date Stop Date Status Note LastModified by Organization Details LastModified Time lamotrigine 200 mg tablet TAKE 1 TABLET BY MOUTH ONCE A DAY active Not Available Not Available No t Available atenolol 100 mg tablet TAKE 1 TABLET BY MOUTH DAILY active Not Available Not Available No t Available hydrocodone 10 mg-acetaminophe n 325 mg tablet TAKE 1 TABLET BY MOUTH EVERY 8 HOURS NEEDED FOR 7 DAYS active Not Available Not Available No t Available spironolactone 25 mg tablet TAKE 1 TABLET BY MOUTH EVERY DAY active Not Available Not Available No t Available Lamictal 100 mg tablet Take 1 tablet every day by oral route. active Not Available Not Available No t Available ergocalciferol (vitamin D2) 1,250 mcg (50,000 unit) capsule TAKE 1 CAPSULE BY MOUTH WEEKLY active Not Available Not Available No t Available escitalopram 20 mg tablet TAKE 1 TABLET BY MOUTH EVERY DAY active Not Available Not Available No t Available spironolactone active Not Available No t Available Not Available atenolol active Not Available Not Avai lable Not Available B12 active Not Available Not Availa ble Not Available Multi Vitamin active Not Available Not Available Not Available Vraylar 1.5 mg capsule Take 1 capsule every day by oral route. active Not Available Not Available No t Available Vraylar 3 mg capsule TAKE 1 CAPSULE BY MOUTH EVERY DAY active Not Available Not Available No t Available aspirin 81 mg capsule Take 1 capsule every day by oral route. active Not Available Not Available No t Available vit D3 50 mcg-vitamin K1 500 mcg-MK4 1,500 mcg-MK7 180 mcg capsule Take by oral route. active Not Available Not Available No t Available Vitals Date Recorded Heart rate Systolic blood pressure Diastolic blood pressure Provider Name and Address Organization Details Last Updated DateTime 12/28/2022 65 /min 125 mm[Hg] 71 mm[Hg] Maty Romo [facility] [employer] [facility] 12/28/2022 16:24:00 Social History None recorded. Functional Status None recorded. Mental Status None recorded. Family History Nothing Reported. Medical History No medical history recorded. Gynecological HistoryNo gynecological history recorded. Obstetrics History GPAL:G 0 P 0 0 0 0 Past Encounters Encounter ID Performer Location Encounter Start Date Encounter Closed Date Diagnosis/Indication Diagnosis SNOMED-CT Code Diagnosis ICD10 Code Diagnosis Note [id number] [facility] [address] [place] [id number] 09/10/2022 15:46:02 09/11/2022 08:35:39 Pain of left heel 5668490085 [id number] M79.672 [id number] [facility] [address] [place] [id number] 12/28/2022 16:06:27 12/29/2022 09:05:49 Health Concerns Section Related Observation LastModified by Organization Detai ls LastModified Time None Recorded Concern Status LastModified by Organization Details LastModified Time None Recorded Advance Directives Directive None Recorded Payers Encounter Date Sequence Insurance Name Policy Number Policy Bella Covered Member ID Bella Member ID Guarantor Name 09/10/2022 1 [employer] - CHOICE (POS II) [id number] Wanda Nolen [id number] Wanda Nolen 12/28/2022 1 [employer] - CHOICE (POS II) [id number] Wanda Nolen [id number] Wanda Nolen OBGyn Episode No OBEpisode recorded.
--- OUTSIDE RECORDS SUMMARY | 2024-06-22 20:17 | XMS_ITS | Clinical Summary ---
Author Organization [address] Address [address] [place] [address] Care Team Providers Care Take Away Attendant Name Role Phone Lesley Wilson MD Primary Care Provider [phone] Allergies Active Allergy Reactions Criticality Noted Date Comments Chlorpromazine Other (See Comments) Medium 10/26/2018 Reaction: EYES ROLLED BACK-NO NECK CONTROL, , lethargic Other reaction(s): Fatigue Reaction: EYES ROLLED BACK-NO NECK CONTROL, lethargic Medications atenoloL (TENORMIN) 100 mg tablet atenolol 100 mg tablet 1 Active spironolactone (ALDACTONE) 25 mg tablet spironolactone 25 mg tablet 1 Active escitalopram oxalate (Lexapro) 20 mg tablet every 24 hours. Acti ve apixaban (Eliquis) 5 mg tablet Eliquis 5 mg tablet TAKE 1 TABLET BY MOUTH TWICE DAILY Active lamoTRIgine (LaMICtal) 200 mg tablet lamotrigine 200 mg tablet TAKE 1 TABLET BY MOUTH EVERY NIGHT AT BEDTIME Active cyclobenzaprin e (FLEXERIL) 5 mg Tablet Take 5 mg by mouth 3 times daily as needed for Spasm. Active cariprazine (Vraylar) 1.5 mg Capsule capsule Take by mouth daily. Active Active Problems Problem Noted Date Diagnosed Date Acute pulmonary embolism 12/05/2021 Family History Medical History Relation Name Comments Heart Disease Father Hypertension Father Kidney Disease Father Stroke Father Unknown Maternal Grandfather Breast Cancer Maternal Grandmother Stroke Maternal Grandmother Heart Disease Mother Hypertension Mother Unknown Paternal Grandfather Breast Cancer Paternal Grandmother No Known Problems Sister Relation Name Status Comments Father Maternal Grandfather Maternal Grandmother Mother Paternal Grandfather Paternal Grandmother Sister Alive Social History Tobacco Use Types Packs/Day Years Used Date Smoking Tobacco: Never Smokeless Tobacco: Never Tobacco Cessation:Counseling Given: Not Answered Alcohol Use Standard Drinks/Week Comments Yes 0 (1 standard drink = 0.6 oz pur e alcohol) occasionally Comments Unknown Sex and Gender Information Value Date Recorded Sex Assigned at Not on file Legal Sex Female 10:52 PM CDT Gender Identity Not on file Sexual Orientation Not on file Last Filed Vital Signs Vital Sign Reading Time Taken Comments Blood Pressure 114/66 06/05/2022 10:17 AM CDT Pulse 65 06/05/2022 10:17 AM CDT Temperature 36.1 C (97 F) 06/05/2022 10:17 AM CDT Respiratory Rate 10 06/05/2022 10:17 AM CDT Oxygen Saturation 95% 06/05/2022 10:17 AM CDT Inhaled Oxygen Concentration - - Weight 87.1 kg (192 lb) 06/05/2022 10:17 AM CDT Height 162.6 cm (5' 4 ) 01/05/2022 2:15 PM CDT Body Mass Index 32.96 01/05/2022 2:15 PM CDT Plan of Treatment Health Maintenance Due Date Last Done Comments BREAST CANCER SCREENING 2003 COLORECTAL SCREENING 12/08/2008 Colorectal Cancer Screening 12/08/2008 FIT-DNA Q 3 years 12/08/2008 FIT/FOBT Q 1 year 12/08/2008 Flex Sig/CT Colonography Q 5 years 12/08/2008 ZOSTER VACCINE (1 of 2) 12/08/2013 INFLUENZA VACCINE (#1) 2023 12/21/2019 RSV VACCINE (60+ or ) (1 - Risk 60-74 years 1-dose series) 2023 DTAP/TDAP/TD VACCINES (2 - T d or Tdap) 08/24/2031 08/23/2021 HEPATITIS B VACCINES Aged Out 01/18/2007 No long er eligible based on patient's age to complete this topic Insurance AETNA CHOICE POS II AETNA CHOICE POS II Care Teams Take Away Attendant Relationship Specialty Start Date End Date Lesley Wilson MD [address] [place] [address] PCP - [facility] Family [facility] 12/05/21
--- OUTSIDE RECORDS SUMMARY | 2024-06-22 20:17 | XMS_ITS | Data Portability ---
Author Organization [place] [facility], Main Office Address [address] [place] [address] Assessment Encounter Date Assessment Date Assessment LastModified by Organization Details LastModified Time 11/12/2023 11/12/2023 57 yo patient presents today with right shoulder pain that has been going on for about 4-6 months. She denies any injury, but did have surgery on this shoulder twice in the past for rotator cuff repair and biceps tenodesis. She states that she has a sharp pain and snapping in the front of the shoulder when she does repetitive movements like driving. The pain is relieved with rest. She also uses ice and ibuprofen, which sometimes helps. She is right handed. She states she never regained her strength in this arm after her surgeries. Imaging: Xrays reviewed show no acute bony abnormality or fracture. Preserved joint space. Physical exam: Tenderness with palpitation over biceps tendon. No issues with ROM. 5/5 rotator cuff strength. Sensation intact. We will start with a course of shoulder therapy exercises. She does not want to attend therapy so we will provide her with a handout. We will also order meloxicam for anti-inflammat ories. We can see her back as needed for pain. [email or web address] Not available 11/12/2023 10:00:36 Plan of Treatment Reminders Order Date Submit Date Provider Last Modified By Organization Details Last Modified Time Details Appointments None recorded. Lab None recorded. Referral None recorded. Procedures None recorded. Surgeries None recorded. Imaging XR, shoulder, 2 or more view 2023 024 [email or web address] [facility] [place], [address], [place], [address], 4 12:13:39 Medication Orders meloxicam 15 mg tablet 2023 024 [facility] [id number] [facility], [address], [place], [address], 4 10:00:50 Patient TargetsNo targets recorded. Patient InstructionsNo instructions recorded. Reason for Referral None Reported. Results Created Date Observation Date Name Description Value Unit Range Abnormal Flag Note LastModifiedBy Organization Detail LastModifiedTime 09/26/19 22 09/25/2021 MRI, shoul mohinder, w/o contr ast No observ ation record ed. [id number] [facility] [address] [facility], [place], [address], 05/06/2022 20:24:13 09/27/19 22 09/25/2021 MRI, knee, w/o contr ast No observ ation record ed. [id number] Not Available 05/06/2022 20:24:13 11/12/19 24 XR, shoul mohinder, 2 or more view No observ ation record ed. [email or web address] [facility] [place] [address], [place], [address], 11/12/2023 10:00:45 Result Notes None recorded. Problems Name Problem SNOMED Code Status Onset Date Resolution Date Notes Provider Name and Address Organization Details Recorded Time Pain of right shoulder joint 6223230861582 9100 Active 2021 Not Available [facility] 3 20:23:14 Partial thickness rotator cuff tear 199808740 Active 2021 Not Available [facility] 3 20:23:14 Tear of medial meniscus of knee 921111036 Active 2021 Not Available [facility] 3 20:23:14 Osteoarthr itis 253462300 Active Not Available [facility] 3 20:23:14 Pain of left knee joint 9846261042488 07 Active 2021 Not Available [facility] 3 20:23:15 Problem Notes None recorded. Procedures Surgical History Date Name Laterality Status Provider Name and Address Organization Details Recorded Time Shoulder joint surgery completed Leela EMI Vinson [place] [facility] [employer] [facility] 11/12/2023 09:07:51 Carpal tunnel surgery completed EMI Moreno [facility] 11/12/2023 09:09:08 Imaging Results Imaging Date Name Status LastModified by [facility]iz [facility] Details LastModified Time 09/25/2021 MRI, knee, w/o contrast completed [id number] Information not available 05/06/2022 20:24:13 09/25/2021 MRI, shoulder, w/o contrast completed [id number] [facility] [address], [place], [address], 05/06/2022 20:24:13 11/12/2023 XR, shoulder, 2 or more view completed [email or web address] [facility] [place] [address], [place], [address], 11/12/2023 10:00:45 Procedure Notes None recorded. Medical Equipment None Reported. Allergies Allergen ID Allergen Name Allergen Category Reaction Reaction Severity Criticality Documentation Date Start Date Code Code System Note Provider Name and Address Organization Details Recorded Time 54222 chlorprom azine hydrochlo ride medicatio n Not available Not available Not available 05/06/2022 11283 8 RxNorm Not Available [facility] 20:24:09 Medications Name Sig Start Date Stop Date Status Note LastModified by Organization Details LastModified Time quetiapine 25 mg tablet Take one or two tablets at bedtime for insomnia 06/10 completed Not Available Not Available Not Available cyclobenzap rine 10 mg tablet TAKE 1 TABLET BY MOUHT THREE TIMES A DAY NEEDED FOR MUSCLE SPASM active Not Available Not Available No t Available buspirone 5 mg tablet TAKE 1 TABLET BY MOUTH EVERY 12 HOURS DAILY. 05/22 completed Not Available Not Available Not Available lamotrigine 200 mg tablet TAKE 1 TABLET BY MOUTH EVERY NIGHT AT BEDTIME 11/11 completed Not Available Not Available Not Available nabumetone 750 mg tablet TAKE 1 TABLET EVERY 12 HOURS DAILY. 06/10 completed Not Available Not Available Not Available trazodone 50 mg tablet TAKE 1 TABLET AT BEDTIME. 05/22 completed Not Available Not Available Not Available atenolol 100 mg tablet TAKE 1 TABLET BY MOUTH EVERY DAY 11/11 completed Not Available Not Available Not Available hydrocodone 5 mg-acetamin ophen 325 mg tablet TAKE 1 TABLET BY MOUTH EVERY 4 HOURS NEEDED 11/11 completed Not Available Not Available Not Available meloxicam 15 mg tablet TAKE 1 TABLET BY MOUTH EVERY DAY active Not Available Not Available No t Available prednisone 20 mg tablet 05/22 completed Not Available Not Available Not Available dextroamphe tamine-amph etamine 10 mg tablet Take 1 tablet twice a day 06/10 completed Not Available Not Available Not Available methylpheni date ER 10 mg tablet,exte nded release TAKE 1 TABLET DAILY 06/10 completed Not Available Not Available Not Available ciprofloxac in 250 mg tablet TAKE 1 TABLET BY MOUTH TWO TIMES A DAY 06/10 completed Not Available Not Available Not Available ciprofloxac in 500 mg tablet TAKE 1 TABLET TWO TIMES A DAY 06/10 completed Not Available Not Available Not Available sulfamethox azole 800 mg-trimetho prim 160 mg tablet TAKE 1 TABLET TWICE DAILY UNTIL FINISHED. 05/22 completed Not Available Not Available Not Available tramadol 50 mg tablet TAKE 1 TABLET BY MOUTH EVERY SIX HOURS NEEDED PAIN 06/10 completed Not Available Not Available Not Available triamterene 37.5 mg-hydrochl orothiazide 25 mg capsule 05/22 completed Not Available Not Available Not Available triamcinolo ne acetonide 0.1 % topical cream APPLY AND RUB IN A THIN FILM TO AFFECTED AREAS TWICE DAILY.(AM AND PM). 05/22 completed Not Available Not Available Not Available spironolact one 25 mg tablet TAKE 1 TABLET BY MOUTH EVERY DAY 11/11 completed Not Available Not Available Not Available lamotrigine 25 mg tablet TAKE 1 TABLET BY MOUTH DAILY FOR 30 DAYS active Not Available Not Available No t Available amoxicillin 875 mg tablet TAKE 1 TABLET BY MOUTH TWICE A DAY active Not Available Not Available No t Available potassium chloride ER 20 mEq tablet,exte nded release(par t/cryst) 05/22 completed Not Available Not Available Not Available lorazepam 0.5 mg tablet TAKE 1 TABLET TWO TIMES A DAY NEEDED FOR ANXIETY 05/22 completed Not Available Not Available Not Available Kenalog 10 mg/mL suspension for injection In office injection administe red by the provider 09/15 completed [facility]: 0003- 0494- 20 Not Available Not Available Not Available meclizine 25 mg tablet TAKE 1 TABLET BY MOUTH THREE TIMES A DAY NEEDED FOR DIZZINESS active Not Available Not Available No t Available doxycycline monohydrate 100 mg capsule 05/22 completed Not Available Not Available Not Available hydrocodone 7.5 mg-acetamin ophen 325 mg tablet Take 1 tablet every 6 hours by oral route. active Not Available Not Available No t Available cephalexin 500 mg capsule TAKE 1 CAPSULE BY MOUTH EVERY 12 HOURS FOR 7 DAYS 11/11 completed Not Available Not Available Not Available pantoprazol e 40 mg tablet,raina yed release TAKE 1 TABLET BY MOUTH AT BEDTIME FOR 4 WEEKS 11/11 completed Not Available Not Available Not Available buspirone 10 mg tablet 05/22 completed Not Available Not Available Not Available clotrimazol e-betametha sone 1 %-0.05 % topical cream APPLY AND RUB IN A THIN FILM TO AFFECTED AREAS TWICE DAILY.(AM AND PM). 05/22 completed Not Available Not Available Not Available aspirin 81 mg chewable tablet TAKE 1 TABLET BY MOUTH TWICE DAILY 11/11 completed Not Available Not Available Not Available mupirocin 2 % topical ointment APPLY SPARINGLY TO AFFECTED AREA(S) 3 TIMES A DAY 05/22 completed Not Available Not Available Not Available zolpidem 5 mg tablet 05/22 completed Not Available Not Available Not Available furosemide 20 mg tablet 05/22 completed Not Available Not Available Not Available ergocalcife rol (vitamin D2) 1,250 mcg (50,000 unit) capsule TAKE 1 CAPSULE BY MOUTH WEEKLY active Not Available Not Available No t Available methylpredn isolone 4 mg tablets in a dose pack Take medrol dose pack as directed 06/26 completed Not Available Not Available Not Available cefdinir 300 mg capsule TAKE 1 CAPSULE BY MOUTH TWICE A DAY FOR 7 DAYS active Not Available Not Available No t Available fluoxetine 20 mg capsule 05/22 completed Not Available Not Available Not Available lamotrigine 100 mg tablet Take 1 tablet every night at bedtime active Not Available Not Available No t Available naproxen 500 mg tablet TAKE 1 TABLET BY MOUTH TWO TIMES A DAY 06/10 completed Not Available Not Available Not Available amoxicillin 875 mg-potassiu m clavulanate 125 mg tablet 05/22 completed Not Available Not Available Not Available escitalopra m 10 mg tablet TAKE 2 TABLETS BY MOUTH DAILY active Not Available Not Available No t Available escitalopra m 20 mg tablet TAKE 1 TABLET BY MOUTH EVERY DAY 11/11 completed Not Available Not Available Not Available aripiprazol e 10 mg tablet TAKE 1 TABLET BY MOUTH EVERY DAY 10/03 completed Not Available Not Available Not Available aripiprazol e 15 mg tablet TAKE 1 TABLET BY MOUTH EVERY DAY 11/11 completed Not Available Not Available Not Available cyclobenzap rine 5 mg tablet TAKE 1 TABLET BY MOUTH THREE TIMES A DAY NEEDED 06/10 completed Not Available Not Available Not Available aripiprazol e 5 mg tablet TAKE 1 TABLET DAILY 10/03 completed Not Available Not Available Not Available escitalopra m 5 mg tablet TAKE 1 TABLET BY MOUTH EVERY DAY active Not Available Not Available No t Available lidocaine (PF) 10 mg/mL (1 %) injection solution In office injection administe red by the provider 06/10 completed [facility]: 0409- 4276- 17 Not Available Not Available Not Available lidocaine (PF) 5 mg/mL (0.5 %) injection solution In office injection administe red by the provider 09/15 completed Not Available Not Available Not Available ProAir HFA 90 mcg/actuati on aerosol inhaler INHALE 2 PUFFS EVERY 4-6 HOURS NEEDED. 05/22 completed Not Available Not Available Not Available Symbicort 80 mcg-4.5 mcg/actuati on HFA aerosol inhaler USE 2 PUFFS TWO TIMES A DAY 05/22 completed Not Available Not Available Not Available diclofenac 1 % topical gel 4 GM OF GEL TO AFFECTED AREA 4 TIMES DAILY. DO NOT APPLY MORE THAN 16 GM DAILY TO ANY ONE AFFECTED JOINT. 05/22 completed Not Available Not Available Not Available quetiapine ER 50 mg tablet,exte nded release 24 hr Take 1 tablet at bedtime for two days and then increase to two tablets at bedtime 06/10 completed Not Available Not Available Not Available Eliquis 5 mg tablet TAKE 1 TABLET BY MOUTH TWICE DAILY 11/11 completed Not Available Not Available Not Available Vraylar 3 mg capsule TAKE 1 CAPSULE BY MOUTH EVERY DAY active Not Available Not Available No t Available Vitals Date Recorded Body mass index (BMI) Body height Body weight Provider Name and Address Organization Details Last Updated DateTime 10/03/2021 31.4 kg/m2 162.56 cm 03492.4 g Not Available [facility] 05/06/2022 20:23:02 Date Recorded Body height Provider Name an d Address Organization Details Last Updated DateTime 09/15/2021 160.02 cm Not Available [facility] 3 20:23:01 Date Recorded Body height Provider Name an d Address Organization Details Last Updated DateTime 09/19/2021 160.02 cm Not Available [facility] 3 20:23:01 Date Recorded Body height Provider Name an d Address Organization Details Last Updated DateTime 11/07/2021 162.56 cm Not Available [facility] 3 20:23:01 Date Recorded Body height Body mass index (BMI) Body weight Pain severity - 0-10 verbal numeric rating [Score] - Reported Provider Name and Address Organization Details Last Updated DateTime 11/12/2023 162.56 cm 29.4 kg/m2 38281.3 g 0 EMI Moreno [place] [facility] [place] [employer] [facility] 11/12/2023 09:00:53 Social History Question Answer Notes LastModified by Organizat ion Details LastModified Time Tobacco Smoking Status Never Smoker Not Available [facility] 05/06/2022 20:22:36 What Is Your Level Of Alcohol Consumption? Occasional [id number] Information not available 05/06/2022 What Was The Date Of Your Most Recent Tobacco Screening? 11/12/2023 [email or web address] Information not available 11/12/2023 Sex: Unknown Functional Status None recorded. Mental Status None recorded. Family History Relationship Description Onset Age of this Age Resolved Age Notes LastModified by Organization Details LastModified Time Father Family history of stroke [id number] Not available 05/06/2022 20:22:40 Father Family history of malignant neoplasm [id number] Not available 05/06/2022 20:22:40 Father Hypertensive disorder [id number] Not available 05/06/2022 20:22:40 Mother Hypertensive disorder [id number] Not available 05/06/2022 20:22:40 Medical History Condition Response CANCER: SPECIFY Y HYPERTENSION Y Gynecological HistoryNo gynecological history recorded. Obstetrics History GPAL:G 0 P 0 0 0 0 Past Encounters Encounter ID Performer Location Encounter Start Date Encounter Closed Date Diagnosis/Indication Diagnosis SNOMED-CT Code Diagnosis ICD10 Code Diagnosis Note [id number] [facility] [address] [place] [address] 05/22/2020 00:00:00 05/22/2020 12:20:15 [id number] [facility] [address] [place] [address] 06/12/2020 00:00:00 06/13/2020 11:38:37 [id number] [facility] [address] [place] [address] 06/26/2020 00:00:00 07/21/2020 18:54:36 [id number] [facility] [address] [address] 06/26/2020 00:00:00 06/26/2020 17:07:43 [id number] [facility] [address] [place] [address] 07/23/2020 00:00:00 07/23/2020 15:32:23 [id number] [facility] [address] [place] [address] 08/27/2020 00:00:00 08/27/2020 16:32:14 [id number] [facility] [address] [place] [address] 09/03/2020 00:00:00 09/03/2020 15:01:01 [id number] [facility] [address] [place] [address] 10/01/2020 00:00:00 10/01/2020 17:02:48 [id number] [facility] [address] [place] [address] 11/12/2020 00:00:00 11/12/2020 16:25:48 [id number] [facility] [address] [place] [address] 12/24/2020 00:00:00 12/24/2020 16:58:37 [id number] [facility] [address] [place] [address] 02/18/2021 00:00:00 02/18/2021 16:35:04 [id number] [facility] [address] [place] [address] 03/19/2021 00:00:00 03/19/2021 16:50:17 [id number] [facility] [address] [place] [address] 03/26/2021 00:00:00 03/26/2021 17:03:06 [id number] [facility] [address] [place] [address] 04/02/2021 00:00:00 04/02/2021 14:23:10 [id number] [facility] [address] [place] [address] 04/29/2021 00:00:00 04/29/2021 16:52:58 [id number] [facility] [address] [place] [address] 06/10/2021 00:00:00 06/10/2021 16:58:55 [id number] [facility] [address] [place] [address] 07/22/2021 00:00:00 07/22/2021 17:02:27 [id number] [facility] [address] [place] [address] 08/13/2021 00:00:00 08/14/2021 15:13:10 [id number] [facility] [address] [place] [address] 09/15/2021 00:00:00 09/15/2021 15:31:39 [id number] [facility] [address] [place] [address] 09/19/2021 00:00:00 09/19/2021 09:28:33 [id number] [facility] [address] [place] [address] 10/03/2021 00:00:00 10/04/2021 18:36:00 [id number] [facility] [address] [place] [address] 11/07/2021 00:00:00 11/07/2021 10:31:04 [id number] Rosie Chawla, TERRITORY REPRESENTATIVE [facility] [address] [place] [address] 11/12/2023 08:59:06 11/12/2023 09:57:20 Pain of right shoulder joint 1874919739 6982463 M25.511 Partial th ickness rotator cuff tear 757265268 M75.101 Health Concerns Section Related Observation LastModified by Organization Detai ls LastModified Time None Recorded Concern Status LastModified by Organization Details LastModified Time None Recorded Advance Directives Directive None Recorded Payers Encounter Date Sequence Insurance Name Policy Number Policy Bella Covered Member ID Bella Member ID Guarantor Name 11/12/2023 1 [employer] [id number] Wanda Nolen [id number] Wanda Nolen OBGyn Episode No OBEpisode recorded.
[2024-06-22 20:19] VITALS: BP 120/52; PULSE 68; RESP 17; TEMP 36.4; O2SAT 96
--- NOTE | 2024-06-22 21:56 | ED.GENADULT ---
HPI - General Adult General Chief complaint: Unspecified Stated complaint: kidney pain Time Seen by Provider: 06/22/24 21:34 History of Present Illness HPI narrative: Patient is a 58-year-old female who presents to the emergency department this evening complaining of right flank pain for the past week. Patient went to her primary care physician and had a UA performed revealing no evidence of urinary tract infection. Patient states that the culture came back normal. Patient states that she continues to have the right flank pain and finally she decided to come to the emergency department for further evaluation. Patient states that she has both a urostomy and colostomy and has had them for a long time after developing ovarian cancer as a child. Patient denies any fevers or chills at home, any nausea vomiting or abdominal pain. No additional symptoms or concerns at this time. Related Data Home Medications ?Medication ?Instructions ?Recorded ?Confirmed ?Last Taken ?Type cyanocobalamin (vitamin B-12) 100 mcg subcut MONTHLY 11/24/21 01/27/24 Unknown History 1,000 mcg/mL injection solution escitalopram oxalate 5 mg tablet 20 mg PO DAILY 12/30/23 01/27/24 12/30/23 History lamotrigine 200 mg tablet 200 mg PO DAILY 05/02/24 Unknown History Allergies Allergy/AdvReac Type Severity Reaction Status Date / Time chlorpromazine Allergy Unknown Unknown Verified 06/22/24 20:15 Review of Systems Review of Systems: All systems are reviewed and are negative unless stated otherwise in the HPI. [facility] Past Medical History Medical History Lumbar spine pain Tear of meniscus of left knee Postoperative pelvic peritoneal adhesions Hx of intestinal obstruction History of malignant neoplasm metastatic to lung History of cancer metastatic to bone Personal history of ovarian cancer Obesity (BMI 30-39.9) Pulmonary embolism Colostomy in place Ovarian cancer History of blood clots Surgical History Surgical History Status post ileal conduit Cystectomy with ileal conduit related to radiation History of cholecystectomy Colostomy status History of carpal tunnel surgery History of cholecystectomy Family History Family History Father Heart disease Hypertension Cerebrovascular accident Cancer of kidney Mother Hypertension Heart disease Social History Social History Smoking status: Never smoker Second hand tobacco smoke exposure: No Alcohol intake: current Alcohol use details: once a month, maybe; socially only Substance use: never Substance use type: does not use Lack of Transportation: No Lack of Food: Never True Current Housing: I Have Housing Concerned About Future Housing: No Difficulty Paying Gas/Electric Bills: No Difficulty Paying for Meds: No Currently Unemployed: Decline to Answer Education: Master's Degree or Higher Difficulty w/ Childcare or Family Care: No Living arrangements: alone Additional living arrangements comments: Occupation/Education: retired Gender identity (if verbalized by the patient): Female Sexual Orientation (if Verbalized by the Patient): Lesbian, Gill, or Homosexual Spiritual care concerns: No Agree to blood products: Yes Exam Narrative: General: Alert, awake, afebrile, in no acute distress. HEENT: PERRL, no rhinorrhea, no post nasal drip, oropharynx clear. Neck: Trachea midline, no JVD, no lymphadenopathy. Cardiovascular: Regular rate and rhythm, no murmurs, rubs or gallops, no peripheral edema. Respiratory: Clear to auscultation bilaterally, no tachypnea, no wheezing, no rhonchi, no rubs, no respiratory distress. Abdomen: Soft, nontender, nondistended, no rebound, no guarding, no peritoneal signs. Musculoskeletal: No joint swelling or deformity, normal muscle tone. Skin: No rashes or petechia, no signs of infection. Psychiatric: Alert and oriented, normal behavior and judgment for situation. Neurological: Alert and oriented to person, place, and time. Follows all commands. No focal deficits, speech is clear and fluent. Course Vital Signs Vital signs: Vital Signs Temperature 97.5 F L 06/22/24 20:19 Pulse Rate 68 06/22/24 20:19 Respiratory Rate 17 06/22/24 20:19 Blood Pressure 120/52 L 06/22/24 20:19 Pulse Oximetry 96 06/22/24 20:19 Oxygen Delivery Room Air 06/22/24 20:19 Temperature 97.5 F L 06/22/24 20:19 Pulse Rate 76 06/23/24 00:25 Respiratory Rate 14 06/23/24 00:25 Blood Pressure 110/55 L 06/23/24 00:25 Pulse Oximetry 97 06/23/24 00:25 Oxygen Delivery Room Air 06/22/24 20:19 Medical Decision Making MDM Narrative Medical decision making narrative: The patient was evaluated by myself in the emergency department. History is obtained from patient who is an independent historian and physical exam was performed. External medical records were reviewed at this time. IV was established and pertinent tests were ordered. Patient was administered 1 L IV fluid bolus with normal saline. Laboratory results obtained revealing no acute process. Urinalysis revealed nitrate positive urine with 6-10 white blood cells. Imaging studies obtained included CT abdomen pelvis with IV contrast which was independently interpreted by me revealing: Mildly nodular contour of the liver concerning for cirrhosis, otherwise remaining solid organs are within normal limits. No bowel obstruction. Bilateral lower quadrant ostomies are noted. No fractures. Patient was informed of these findings at bedside, denies an history of cirrhosis. Differential diagnosis considerations include urinary tract infection, pyelonephritis, musculoskeletal strain, sciatica. Comorbidities impacting this visit include none. I have evaluated and discussed social determinants of health with the patient that could potentially impact subsequent diagnosis and treatment plans. On repeat assessment of the patient, reevaluation revealed that the patient is doing well and is in no acute distress. Patient symptoms have improved since she arrived to our emergency department. Repeat vital signs were all reviewed and noted to be stable. Differential diagnosis and treatment plan were discussed with the patient at bedside. Patient agrees with discussion and after shared medical decision making agrees with discharge. All questions were answered to the patient's satisfaction. Patient will follow up with her PCP in 3-5 days. A script for cephalexin was sent to patient's pharmacy to take as prescribed for UTI. Patient was provided with strict return precautions and instructed to return to the emergency department if any new or worsening symptoms develop. The patient was discharged in stable condition. Vital Signs Vital Signs: Vital Signs Temperature 97.5 F L 06/22/24 20:19 Pulse Rate 68 06/22/24 20:19 Respiratory Rate 17 06/22/24 20:19 Blood Pressure 120/52 L 06/22/24 20:19 Pulse Oximetry 96 06/22/24 20:19 Oxygen Delivery Room Air 06/22/24 20:19 Temperature 97.5 F L 06/22/24 20:19 Pulse Rate 76 06/23/24 00:25 Respiratory Rate 14 06/23/24 00:25 Blood Pressure 110/55 L 06/23/24 00:25 Pulse Oximetry 97 06/23/24 00:25 Oxygen Delivery Room Air 06/22/24 20:19 Lab Data 06/22/24 21:53 06/22/24 21:53 Labs: Lab Results 06/22/24 Range/Units 21:53 WBC 7.0 (4.5-10.0) K/mm3 RBC 4.05 L (4.2-5.4) M/mm3 Hgb 12.7 (12.0-15.0) g/dL Hct 39.1 (37.0-47.0) % MCV 96.5 (80-100) fl MCH 31.4 (26-34) pg MCHC 32.5 (32-36) g/dl RDW 12.6 (11.5-14.5) % Plt Count 209 (150-375) k/mm3 MPV 9.3 (7.4-10.4) fl Immature Gran % (Auto) 0.6 H (0-0.5) % Neut % (Auto) 58.5 (45.5-73.1) % Lymph % (Auto) 28.3 (18.3-44.2) % Windham % (Auto) 10.6 H (2.6-8.5) % Eos % (Auto) 1.6 (0-4.4) % Baso % (Auto) 0.4 (0.2-1.2) % Lymph # (Auto) 1.98 (0.9-3.2) K/mm3 Windham # (Auto) 0.7 H (0.1-0.6) K/mm3 Eos # (Auto) 0.1 (0-0.3) K/mm3 Baso # (Auto) 0.0 (0.0-0.1) K/mm3 Abs Immat Gran (auto) 0.04 H (0.00-0.031) K/mm3 Absolute Neuts (auto) 4.1 (1.3-6.7) K/mm3 Absolute Nucleated RBC 0.000 (0.0-0.012) K/mm3 Nucleated RBC % 0.0 (0.0-0.2) % Sodium 138 (137-145) mmol/L Potassium 4.3 (3.4-5.0) mmol/L Chloride 104 (98-107) mmol/L Carbon Dioxide 22 (22-30) mmol/L Anion Gap 12 (4-12) mmol/L BUN 26 H (7-17) mg/dL Creatinine 0.98 (0.7-1.0) mg/dL Estim Creat Clear Calc 54 ml/min Estimated GFR 58 L (59 - ) Glucose 98 (65-110) mg/dL Calcium 8.8 (8.4-10.2) mg/dL Total Bilirubin 0.4 (0.2-1.3) mg/dL AST 34 (14-36) U/L ALT 42 H (6-35) U/L Alkaline Phosphatase 61 (38-126) U/L Total Protein 8.0 (6.3-8.2) g/dL Albumin 4.4 (3.5-5.1) g/dL Lipase 95 (23-300) U/L Urine Color Yellow (Yellow) Urine Appearance Clear (Clear) Urine pH 8.5 (5.0-9.0) Ur Specific Dresser 1.014 (1.001-1.035) Urine Protein Trace (Negative) mg/dL Urine Glucose (UA) Negative (Negative) mg/dL Urine Ketones Negative (Negative) mg/dL Ur Blood (Man) Negative (Negative) Urine Nitrate Positive H (Negative) Urine Bilirubin Negative (Negative) Urine Urobilinogen 0.2 (<2.0) mg/dL Leukocyte Esterase Rfl Negative (Negative) PRICILLA/UL Urine RBC 0-2 (0-2) /hpf Urine WBC 6-10 H (0-3) /hpf Ur Squamous Epith Cells None seen (Few) /hpf Urine Bacteria Rare /hpf Urine Casts 0-2 Discharge Plan Discharge Clinical Impression: Acute right flank pain, UTI (urinary tract infection) Patient Disposition: Home Condition: Improved Instructions: Antibiotic Form, Urinary Tract Infection in Women (ED), Flank Pain (ED) Additional Instructions: Please follow-up with your family doctor within the next 3-5 days. Return to the emergency department if any new or worsening symptoms develop. Please take the prescribed antibiotic as instructed for UTI. Patient Language: Northern Irish Prescriptions: New cephalexin 500 mg capsule 500 mg PO Q12H 7 Days Qty: 14 0RF No Action cyanocobalamin (vitamin B-12) 1,000 mcg/mL solution 100 mcg subcut MONTHLY lamotrigine 200 mg tablet 200 mg PO DAILY nitrofurantoin monohyd/m-cryst [Macrobid] 100 mg capsule 100 mg PO Q12H 7 Days Qty: 14 0RF Rx Instructions: must administer with a meal/food escitalopram oxalate 5 mg tablet 20 mg PO DAILY ergocalciferol (vitamin D2) [Vitamin D2] 1,250 mcg (50,000 unit) capsule 1,250 mcg PO WEEKLY Qty: 12 2RF spironolactone 25 mg tablet 25 mg PO DAILY Qty: 90 1RF Rx Instructions: TAKE 1 TABLET BY MOUTH EVERY DAY atenolol 100 mg tablet 100 mg PO DAILY Qty: 90 2RF Follow-up/Referrals: Lesley Wilson MD [Primary Care Provider] - 3 Days Time of Disposition: 05:10
[2024-06-22 21:57] VITALS: PULSE 61; RESP 15; O2SAT 97
[2024-06-22 21:59] LABS: Basophils Percent Auto 0.4 % (0.2-1.2); Eosinophils Absolute Auto 0.1 K/mm3 (0-0.3); Eosinophils Percent Auto 1.6 % (0-4.4); Hematocrit 39.1 % (37.0-47.0); Hemoglobin 12.7 g/dL (12.0-15.0); Immature Granulocyte Absolute 0.04 K/mm3 (0.00-0.031); Immature Granulocyte Percent A 0.6 % (0-0.5); Lymphocytes Absolute Auto 1.98 K/mm3 (0.9-3.2); Lymphocytes Percent Auto 28.3 % (18.3-44.2); Mean Corpuscular HGB Conc 32.5 g/dl (32-36); Mean Corpuscular Hemoglobin 31.4 pg (26-34); Mean Corpuscular Volume 96.5 fl (80-100); Mean Platelet Volume 9.3 fl (7.4-10.4); Monocytes Absolute Auto 0.7 K/mm3 (0.1-0.6); Monocytes Percent Auto 10.6 % (2.6-8.5); Neutrophils Absolute Auto 4.1 K/mm3 (1.3-6.7); Neutrophils Percent Auto 58.5 % (45.5-73.1); Platelet Count Result 209 k/mm3 (150-375); Red Blood Count 4.05 M/mm3 (4.2-5.4); Red Cell Distribution Width 12.6 % (11.5-14.5)
[2024-06-22 22:04] LABS: Add Urine Microscopic? YES; Appearance Urine Clear (Clear); Bacteria Urine Rare /hpf; Bilirubin Urine Negative (Negative); Blood Urine Negative (Negative); Color Urine Yellow (Yellow); Glucose Urine UA Negative (Negative); Ketones Urine Negative (Negative); Leukocyte Esterase Ur Negative LEU/UL (Negative); Nitrate Urine Positive (Negative); Non Pathogenic Casts 0-2; Protein Urine Trace mg/dL (Negative); RBC Urine 0-2 /hpf (0-2); Specific Grav Ur 1.014 (1.001-1.035); Squamous Epithelial Cell Urine None Seen /hpf (Few); Urobilinogen Urine 0.2 mg/dL (<2.0); pH Urine 8.5 (5.0-9.0)
[2024-06-22 22:13] LABS: Alanine Aminotransferase 42 U/L (6-35); Albumin Level 4.4 g/dL (3.5-5.1); Alkaline Phosphatase 61 U/L (38-126); Anion Gap 12 mmol/L (4-12); Aspartate Amino Transferase 34 U/L (14-36); Bilirubin,Total 0.4 mg/dL (0.2-1.3); Blood Urea Nitrogen 26 mg/dL (7-17); Calcium 8.8 mg/dL (8.4-10.2); Carbon Dioxide 22 mmol/L (22-30); Chloride 104 mmol/L (98-107); Estimated CRCL calculation 54 ml/min; Estimated Glomerular Filt Rate 58; Glucose 98 mg/dL (65-110); Lipase 95 U/L (23-300); Potassium 4.3 mmol/L (3.4-5.0); Sodium 138 mmol/L (137-145)
[2024-06-22] MEDS: SODIUM CHLORIDE 0.9% IV 1,000 ML 999 ML IV CONT (22:22)
--- OUTSIDE RECORDS SUMMARY | 2024-06-22 22:28 | XMS_ITS | Referral Summary ---
Author Organization [facility] [address] Address [address] [place] [address] Care Team Providers Care Automatic Blocker Name Role Phone Ady Lock MD Unavailable [phone] Lseley Wilson MD Primary Care Provider [phone] Encounters Date Type Department Care Team Description 06/15/2024 2:15 PM CDT Office Visit [facility] Surgery [address] [place] [address] Andrew Sue MD Colostomy in [...] (08/09/2019): Added automatically from request for surgery [id number] Incontinence of sphincter ani 08/30/2014 Overview (06/12/2016): [...] on file 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 Date of : 1965 Instrument Name: [id number] [...] Most Recently Relevant to Health Maintenance Insurance [facility] Advance Directives For more information, please contact: [phone] * Full Code (Latest Code Status on File) Date Activated Date Inactivated Comments 08/28/2022 11:10 AM 08/28/2022 5:18 PM * Full Code Date Activated Date Inactivated Comments 09/15/2019 10:08 AM 09/15/2019 6:13 PM Care Teams Automatic Blocker Relationship Specialty Start Date End Date Lesley Wilson MD [address] [place], [place] [id number] PCP - General Family Medicine 08/19/22 Ady Lock MD [address] [place] [address] Referring Physician Psychiatry 10/14/21
--- OUTSIDE RECORDS SUMMARY | 2024-06-22 22:28 | XMS_ITS | Clinical Summary ---
Author Organization [address] Address [address] [place] [address] Care Team Providers Care Director Of Managed Care Name Role Phone Lesley Wilson MD Primary Care Provider [phone] Allergies Active Allergy Reactions Criticality Noted Date [...] II [employer] CHOICE POS II Care Teams Director Of Managed Care Relationship Specialty Start Date End Date Lesley Wilson MD [address] [place] [address] PCP - General Family Practice 12/05/21
--- OUTSIDE RECORDS SUMMARY | 2024-06-22 22:28 | XMS_ITS | Clinical Summary ---
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 surgery by Dr. 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 Gender Identity Not on file Sexual Orientation [...] 08/28/2022 11:44 AM Admit Type: Outpatient Room: [facility] 2 Date of : 1965 Instrument [...] Most Recently Relevant to Health Maintenance Insurance [facility] [place] [id number] Advance Directives For more information, please contact: [phone] * Full Code (Latest Code Status on File) Date Activated Date Inactivated Comments 08/28/2022 11:10 AM 08/28/2022 5:18 PM * Full Code Date Activated Date Inactivated Comments 09/15/2019 10:08 AM 09/15/2019 6:13 PM Care Teams Research Professor Relationship Specialty Start Date End Date Lesley Wilson MD [address] [place] [address] PCP - General Family Medicine 08/19/22 Ady Lock MD [address] [place] [address] Referring Physician Psychiatry 10/14/21
--- OUTSIDE RECORDS SUMMARY | 2024-06-22 22:28 | XMS_ITS | Clinical Summary ---
Author Organization [facility] Address [address] [place] [address] Care Team Providers Care Small Order Cutter Name Role Phone Lesley Wilson MD Primary Care Provider [phone] Source Comments [facility],non-owned Affiliates and Associated Physician Practices is amultiple site organization consisting of ambulatory clinics and hospital sitesin [place], [place], [place] and [place]. This disclosure is being madepursuant to the Care Everywhere program and may not contain all information available regarding this patient. Last updated 17.[facility] Allergies Active Allergy Reactions Criticality Noted Date [...] Active vitamin D, ergocalciferol, (Drisdol) 1.25 MG (34251 UT) capsule Take 1 (one) capsule by mouth every 7 days 4 Active Cyanocobalamin (B-12 IJ) by Injection route every 30 days Active Encounters Date Type Department Care Team Description 04/17/2024 1:30 PM TEMPERING MACHINE OPERATOR - 04/17/2024 11:59 PM TEMPERING MACHINE OPERATOR Hospital Encounter [facility] [address] [place] [id number] Agustin Posadas MD Discharge Disposition: Home or [...] Comments Blood Pressure 115/75 03/10/2024 10:50 AM TEMPERING MACHINE OPERATOR Pulse 59 03/10/2024 10:50 AM TEMPERING MACHINE OPERATOR Temperature 36.8 C (98.3 F) 03/10/2024 10:21 AM TEMPERING MACHINE OPERATOR Respiratory Rate 20 03/10/2024 10:50 AM TEMPERING MACHINE OPERATOR Oxygen Saturation 94% 03/10/2024 10:50 AM TEMPERING MACHINE OPERATOR Inhaled Oxygen Concentration - - Weight 78.5 kg (173 lb) 03/10/2024 8:28 AM TEMPERING MACHINE OPERATOR Height 162.6 cm (5' 4 ) 03/10/2024 8:28 AM TEMPERING MACHINE OPERATOR Body Mass Index 29.7 03/10/2024 8:28 AM TEMPERING MACHINE OPERATOR Plan of Treatment Health Maintenance Due Date [...] PANCREAS WWO CONTRAST Routine 04/17/2024 2:26 PM TEMPERING MACHINE OPERATOR Lesion of pancreas Abnormal finding of diagnostic imaging CREATININE - POCT INTERFACED Routine 04/17/2024 1:45 PM TEMPERING MACHINE OPERATOR from Last 3 Months Results * CT Pancreas Wwo Contrast (04/17/2024 2:26 PM TEMPERING MACHINE OPERATOR) Anatomical Region Laterality Modality Abdomen Computed Tomogra phy 04/17/2024 3:46 PM TEMPERING MACHINE OPERATOR Impressions 04/17/2024 6:01 PM TEMPERING MACHINE OPERATOR Impression: 1.Mild atrophy of the pancreatic tail with fatty infiltration. Otherwise, no discrete pancreatic lesion is seen. There is no pancreatic ductal dilatation. The comparison exams are not available at this time and an addendum can be performed if made available. > Dictated by Damian Moore MD, (residential green building designer). I, Jay Khan MD have personally reviewed and interpreted this examination/study. > Interpreting Provider: Jay Khan MD on 04/17/2024 6:01 PM Narrative 04/17/2024 6:01 PM TEMPERING MACHINE OPERATOR PROCEDURE: CT PANCREAS WWO CONTRAST, DATE/TIME OF EXAM: 04/17/2024 2:26 PM, LOCATION [facility] INDICATION: K86.9: Lesion of pancreas (HCC) R93.89: [...] DATE/TIME OF EXAM: 04/17/2024 2:26 PM, LOCATION [facility] INDICATION: K86.9: Lesion of pancreas (HCC) R93.89: [...] available. > Dictated by Damian Moore MD, (residential green building designer). IJay MD have personally reviewed and interpreted this examination/study. > Interpreting Provider: Jay Khan MD on 04/17/2024 6:01 PM Agustin Osman MD CT ORDERABLES Gretta l Result * (ABNORMAL) CREATININE - POCT INTERFACED (04/17/2024 1:45 PM TEMPERING MACHINE OPERATOR) [facility] Creatinine POCT 1.33(H) 0.30 - 1.30 mg/dL 04/17/2024 1:46 PM TEMPERING MACHINE OPERATOR [facility] eGFR 46(L) >=90 mL/min/1.7 3 m2 04/17/2024 1:46 PM TEMPERING MACHINE OPERATOR [facility] Blood BLOOD SPECIMEN / Unknown 04/17/2024 1:45 PM TEMPERING MACHINE OPERATOR 04/17/2024 1:46 PM TEMPERING MACHINE OPERATOR Agustin Osman MD LAB - POINT OF CARE ORDERABLES Final Result Performing Organization Address City/State/[facility] de Phone Number [facility] [address] [place] [address], [facility] [phone] from Last 3 Months Insurance [employer] Care Teams Small Order Cutter Relationship Specialty Start Date End Date Lesley Wilson MD [address] [place] [address] PCP - General 12/30/21
[2024-06-23 00:25] VITALS: BP 110/55; PULSE 76; RESP 14; O2SAT 97
== END 2024-06-23 03:00 | disposition home or self-care (01) ==
PROVIDERS: Emergency Provider Emergency Medicine; PCP Family Medicine
DX: R10.9 Unspecified abdominal pain (principal); N39.0 Urinary tract infection, site not specified; Z85.43 Personal history of malignant neoplasm of ovary; Z86.711 Personal history of pulmonary embolism; Z85.118 Personal history of other malignant neoplasm of bronchus and lung; Z85.830 Personal history of malignant neoplasm of bone
CPT/HCPCS: 36415; 74177; 80053; 81001; 83690; 85025; 87086; 96360; 99284; A9270; J7030; Q9967

== ENCOUNTER 2024-07-27 11:42 | Outpatient (CLI) | payer OTHER, SELFPAY ==
--- NOTE | ~2024-07-27 | MM_ITS ---
EXAMINATION: MM screening veronica BI w david HISTORY: Screening TECHNIQUE: Craniocaudal and mediolateral oblique 3-D tomosynthesis images were obtained and synthetic 2-D images were generated. CAD analysis was submitted and interpreted. COMPARISON: 07/22/2022 BREAST PARENCHYMAL COMPOSITION: Not dense: There are scattered areas of fibroglandular density. FINDINGS: There is no evidence of suspicious mass, calcification, or architectural distortion to sugg est malignancy in either breast. There has been no suspicious interval change. IMPRESSION: 1. No mammographic evidence of malignancy. 2. Recommend routine screening mammography in one year. BI-RADS Category 1: Negative Reviewed, dictated and finalized at location B.
--- NOTE | ~2024-07-27 | DEXA_ITS ---
Bone Density Report Name: ROJAS RIOS Age: 58 Sex: Female Ethnicity: White Date of : 1965 Indication: hyperparathyroidism; height loss; inflammatory bowel disease; cancer; asthma or emphysema; end stage renal disease; hysterectomy; Referring Provider: BOBBY MILLER Study: Bone densitometry was performed. Exam Date: July 27, 2024 Accession number: [id number] Bone Density: Region BMD T-score Z-score Classification AP Spine(L1-L4) 1.202 1.4 2.9 Normal Femoral Neck (Left) 0.868 0.2 1.5 Normal Total Hip (Left) 1.002 0.5 1.5 Normal Femoral Neck (Right) 0.945 0.9 2.2 Normal Total Hip (Right) 1.017 0.6 1.6 Normal Femoral Neck Mean 0.906 0.5 1.8 Normal Total Hip Mean 1.010 0.6 1.5 Normal World Health Organization criteria for BMD impression classify patients as: Normal (T-score at or above -1.0), Osteopenia (T-score between -1.0 and -2.5), or Osteoporosis (T-score at or below -2.5). 10-year Fracture Risk: FRAX not reported because: All T-scores for Spine Total, Hip Total, Femoral Neck at or above -1.0 Clinical Information Provided by Patient: Has used the following medications: Vitamin D Has the following medical conditions: Asthma or Emphysema, Cancer, End stage renal disease, Inflammatory bowel diseases, Hyperparathyroidism, Hysterectomy Patient maximum height was 69 No regular weight bearing exercise Drinks caffeinated beverages Onset of menses at age 8 Number of children 0 Impression: The patient has normal bone mass. Discussion: BONE DENSITY IS ABOVE THE MINIMUM DESIRABLE LEVEL AT ALL SKELETAL SITES TESTED. This patient?s bone mineral density is above the minimum desirable level (T-score -1.0 or better) at all sites measured. The patient should follow a healthful lifestyle (good nutrition with adequate calcium and vitamin D, and appropriate weight-bearing exercise). Follow-Up: Consider repeating this study in 5 years or sooner if there is some new clinical indication. Reported by: JANEEN on 07/27/2024 12:39:00 PM. Reviewed, dictated and finalized at location A.
--- OUTSIDE RECORDS SUMMARY | 2024-07-27 11:44 | XMS_ITS | Clinical Summary ---
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 surgery by Dr. 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 Gender Identity Not on file Sexual Orientation [...] 08/28/2022 11:44 AM Admit Type: Outpatient Room: [facility] 2 Date of : 1965 Instrument Name: [...] Most Recently Relevant to Health Maintenance Insurance [facility] [place] [id number] Advance Directives For more information, please contact: [phone] * Full Code (Latest Code Status on File) Date Activated Date Inactivated Comments 08/28/2022 11:10 AM 08/28/2022 5:18 PM * Full Code Date Activated Date Inactivated Comments 09/15/2019 10:08 AM 09/15/2019 6:13 PM Care Teams Fire Hydrant Operator Relationship Specialty Start Date End Date Lesley Wilson MD [address] [place] [address] PCP - General Family Medicine 08/19/22 Ady Lock MD [address] [facility] [facility] [facility] [place] [address] Referring Physician Psychiatry 10/14/21
--- OUTSIDE RECORDS SUMMARY | 2024-07-27 11:44 | XMS_ITS | Clinical Summary ---
Author Organization [facility] Address [address] [place] [address] Care Team Providers Care Water/Wastewater Engineer Name Role Phone Lesley Wilson MD Primary Care Provider [phone] Source Comments [facility],non-owned Affiliates and Associated Physician Practices is amultiple site organization consisting of ambulatory clinics and hospital sitesin [place], [place], [place] and [place]. This disclosure is being madepursuant to the Care Everywhere program and may not contain all information available regarding this patient. Last updated 17.[facility] Allergies Active Allergy Reactions Criticality Noted Date [...] Active vitamin D, ergocalciferol, (Drisdol) 1.25 MG (99982 UT) capsule Take 1 (one) capsule by mouth every 7 days 4 Active Cyanocobalamin (B-12 IJ) by Injection route every 30 days Active Social History Tobacco Use Types Packs/Day Years [...] Comments Blood Pressure 115/75 03/10/2024 10:50 AM EDUCATIONAL ADVISOR Pulse 59 03/10/2024 10:50 AM EDUCATIONAL ADVISOR Temperature 36.8 C (98.3 F) 03/10/2024 10:21 AM EDUCATIONAL ADVISOR Respiratory Rate 20 03/10/2024 10:50 AM EDUCATIONAL ADVISOR Oxygen Saturation 94% 03/10/2024 10:50 AM EDUCATIONAL ADVISOR Inhaled Oxygen Concentration - - Weight 78.5 kg (173 lb) 03/10/2024 8:28 AM EDUCATIONAL ADVISOR Height 162.6 cm (5' 4 ) 03/10/2024 8:28 AM EDUCATIONAL ADVISOR Body Mass Index 29.7 03/10/2024 8:28 AM EDUCATIONAL ADVISOR Plan of Treatment Health Maintenance Due Date [...] VACCINE (1 of 2) 12/08/2013 COVID-19 VACCINE ( - 2023-2 5 season) 2023 DEPRESSION SCREENING [...] age to complete this topic Insurance AETNA Care Teams Water/Wastewater Engineer Relationship Specialty Start Date End Date Lesley Wilson MD [address] [place] [address] PCP - General 12/30/21
--- OUTSIDE RECORDS SUMMARY | 2024-07-27 11:45 | XMS_ITS | Data Portability ---
Author Organization [place] - [facility] [employer], Main Office Address [address] [place] [address] Assessment Encounter Date Assessment Date Assessment LastModified [...] 2 or more view 2023 024 [email or web address] [facility] [place], [address], [place], [address], 4 12:13:39 Medication Orders meloxicam 15 mg tablet 2023 024 [facility] [address] In [facility], [address], [place], [address], 4 10:00:50 Patient TargetsNo targets recorded. Patient InstructionsNo instructions recorded. Reason for Referral None Reported. Results Created Date Observation Date Name Description Value Unit Range Abnormal Flag Note LastModifiedBy Organization Detail LastModifiedTime 09/26/19 22 09/25/2021 MRI, shoul mohinder, w/o contr ast No observ ation record ed. [id number] [facility] 2022 [address] Fern[address]dez [facility], [place], [address], 05/06/2022 20:24:13 09/27/19 22 09/25/2021 MRI, knee, w/o contr ast No observ ation record ed. [id number] Not Available 05/06/2022 20:24:13 11/12/19 24 XR, shoul mohinder, 2 or more view No observ ation record ed. [email or web address] [facility] [place] [address], [place], [address], 11/12/2023 10:00:45 Result Notes None recorded. Problems Name Problem SNOMED Code Status Onset Date Resolution Date Notes Provider Name and Address Organization Details Recorded Time Pain of right shoulder joint 0222165278559 9100 Active 2021 Not Available [facility] 3 20:23:14 Partial thickness rotator cuff tear 999794248 Active 2021 Not Available [facility] 3 20:23:14 Tear of medial meniscus of knee 547741370 Active 2021 Not Available [facility] 3 20:23:14 Osteoarthr itis 316468795 Active Not Available [facility] 3 20:23:14 Pain of left knee joint 0961380495095 07 Active 2021 Not Available [facility] 3 20:23:15 Problem Notes None recorded. Procedures Surgical History Date Name Laterality Status Provider Name and Address Organization Details Recorded Time Shoulder joint surgery completed Leela EMI Vinson [place] - [facility] [employer] [facility] 11/12/2023 09:07:51 Carpal tunnel surgery completed EMI Moreno [facility] 11/12/2023 09:09:08 Imaging Results Imaging Date Name Status LastModified by [facility] Details LastModified Time 09/25/2021 MRI, knee, w/o contrast completed [id number] Information not available 05/06/2022 20:24:13 09/25/2021 MRI, shoulder, w/o contrast completed [id number] [facility] [address], [place], [address], 05/06/2022 20:24:13 11/12/2023 XR, shoulder, 2 or more view completed [email or web address] [facility] [place] [address], [place], [address], 11/12/2023 10:00:45 Procedure Notes None recorded. Medical Equipment None Reported. Allergies Allergen ID Allergen Name Allergen Category Reaction Reaction Severity Criticality Documentation Date Start Date Code Code System Note Provider Name and Address Organization Details Recorded Time 00345 chlorprom azine hydrochlo ride medicatio n Not available Not available Not available 05/06/2022 09765 8 RxNorm Not Available [facility] 20:24:09 Medications Name Sig Start [...] administe red by the provider 09/15 completed [facility]: 0003- 0494- 20 Not Available Not Available [...] administe red by the provider 06/10 completed [facility]: 0409- 4276- 17 Not Available Not Available [...] Updated DateTime 10/03/2021 31.4 kg/m2 162.56 cm 59463.4 g Not Available [facility] 05/06/2022 20:23:02 Date Recorded Body height Provider Name an d Address Organization Details Last Updated DateTime 09/15/2021 160.02 cm Not Available [facility] 3 20:23:01 Date Recorded Body height Provider Name an d Address Organization Details Last Updated DateTime 09/19/2021 160.02 cm Not Available [facility] 3 20:23:01 Date Recorded Body height Provider Name an d Address Organization Details Last Updated DateTime 11/07/2021 162.56 cm Not Available [facility] 3 20:23:01 Date Recorded Body height Body mass index (BMI) Body weight Provider Name and Address Organization Details Last Updated DateTime 11/12/2023 162.56 cm 29.4 kg/m2 32147.3 g EMI Moreno [place] [facility] [place] [employer] [facility] 11/12/2023 09:00:30 Social History Question Answer Notes LastModified by CONEXANCE MD Details LastModified Time Tobacco Smoking Status Never Smoker Not Available [facility] 05/06/2022 20:22:36 What Was The Date Of Your Most Recent Tobacco Screening? 11/12/2023 [email or web address] Information not available 11/12/2023 Sex: Unknown Functional Status Question Answer Note LastModified by CONEXANCE MD Details LastModified Time What is your level of alcohol consumption? Occasional [id number] Information not available 05/06/2022 Mental Status None recorded. Family History Relationship Description Onset Age of this Age Resolved Age Notes LastModified by Organization Details LastModified Time Father Family history of stroke [id number] Not available 05/06/2022 20:22:40 Father Family history of malignant neoplasm [id number] Not available 05/06/2022 20:22:40 Father Hypertensive disorder [id number] Not available 05/06/2022 20:22:40 Mother Hypertensive disorder [id number] Not available 05/06/2022 20:22:40 Medical History Condition Response HYPERTENSION Y CANCER: SPECIFY Y Gynecological HistoryNo gynecological history recorded. Obstetrics History GPAL:G 0 P 0 0 0 0 Past Encounters Encounter ID Performer Location Encounter Start Date Encounter Closed Date Diagnosis/Indication Diagnosis SNOMED-CT Code Diagnosis ICD10 Code Diagnosis Note [id number] Gregorio Ruby MD [facility] [place] [address] [place] [address] 05/22/2020 00:00:00 05/22/2020 12:20:15 [id number] Gregorio Ruby MD [facility] [place] [address] [place] [address] 06/12/2020 00:00:00 06/13/2020 11:38:37 [id number] Gregorio Ruby MD [facility] [place] [address] [place] [address] 06/26/2020 00:00:00 07/21/2020 18:54:36 [id number] Percy Wolf MD [facility]_[address] [address] 06/26/2020 00:00:00 06/26/2020 17:07:43 [id number] Percy Wolf MD [facility] [place] [address] [place] [address] 07/23/2020 00:00:00 07/23/2020 15:32:23 [id number] Percy Wolf MD [facility] [place] [address] [place] [address] 08/27/2020 00:00:00 08/27/2020 16:32:14 [id number] Percy Wolf MD [facility] [place] [address] [place] [address] 09/03/2020 00:00:00 09/03/2020 15:01:01 [id number] Percy Wolf MD [facility] [place] [address] [place] [address] 10/01/2020 00:00:00 10/01/2020 17:02:48 [id number] Percy Wolf MD [facility] [place] [address] [place] [address] 11/12/2020 00:00:00 11/12/2020 16:25:48 [id number] Percy Wolf MD [facility] [place] [address] [place] [address] 12/24/2020 00:00:00 12/24/2020 16:58:37 [id number] Percy Wolf MD [facility] [place] [address] [place] [address] 02/18/2021 00:00:00 02/18/2021 16:35:04 [id number] Percy Wolf MD [facility] [place] [address] [place] [address] 03/19/2021 00:00:00 03/19/2021 16:50:17 [id number] Percy Wolf MD [facility] [place] [address] [place] [address] 03/26/2021 00:00:00 03/26/2021 17:03:06 [id number] Percy Wolf MD [facility] [place] [address] [place] [address] 04/02/2021 00:00:00 04/02/2021 14:23:10 [id number] Percy Wolf MD [facility] [place] [address] [place] [address] 04/29/2021 00:00:00 04/29/2021 16:52:58 [id number] MD SILVINO [facility] [place] [address] [place] [address] 06/10/2021 00:00:00 06/10/2021 16:58:55 [id number] Percy Wolf MD [facility] [place] [address] [place] [address] 07/22/2021 00:00:00 07/22/2021 17:02:27 [id number] Gregorio Ruby MD [facility] [place] [address] [place] [address] 08/13/2021 00:00:00 08/14/2021 15:13:10 [id number] Gregorio Ruby MD [facility] [place] [address] [place] [address] 09/15/2021 00:00:00 09/15/2021 15:31:39 [id number] Percy Wolf MD [facility] [place] [address] [place] [address] 09/19/2021 00:00:00 09/19/2021 09:28:33 [id number] Gregorio Ruby MD [facility] [place] [address] [place] [address] 10/03/2021 00:00:00 10/04/2021 18:36:00 [id number] Gregorio Ruby MD [facility] [place] [address] [place] [address] 11/07/2021 00:00:00 11/07/2021 10:31:04 [id number] Ilia Romero MD [facility] [place] [address] [place] [address] 11/12/2023 08:59:06 11/12/2023 09:57:20 Pain of right shoulder joint 7656676831 5916716 M25.511 Partial th ickness rotator cuff tear 268308744 M75.101 Health Concerns Section Related Observation LastModified by Organization Detai ls LastModified Time None Recorded Concern Status LastModified by Organization Details LastModified Time None Recorded Advance Directives Directive None Recorded Payers Encounter Date Sequence Insurance Name Policy Number Policy Bella Covered Member ID Bella Member ID Guarantor Name 11/12/2023 1 [employer] [id number] Wanda Nolen [id number] Wanda Nolen OBGyn Episode No OBEpisode recorded.
--- OUTSIDE RECORDS SUMMARY | 2024-07-27 11:45 | XMS_ITS | Data Portability ---
Author Organization [employer], [facility] Address [address] [place] [address] Assessment No assessment recorded. Plan of Treatment [...] and/u L 3.8-10 .8 normal Not Available [email or web address] [address], [address], 10/13/2022 15:52:16 10/09/19 23 10/13/2022 CBC (INCL UDES DIFF/ PLT) red blood cell count 4.27 isaac on/uL 3.80-5 .10 normal Not Available [email or web address] [address], [address], 10/13/2022 15:52:16 10/09/19 23 10/13/2022 CBC (INCL UDES DIFF/ PLT) hemoglobin 13.7 g/dL 11.7-1 5.5 normal Not Available [email or web address] [address], [address], 10/13/2022 15:52:16 10/09/19 23 10/13/2022 CBC (INCL UDES DIFF/ PLT) hematocrit 40.0 % 35.0-4 5.0 normal Not Available [address], [address], 10/13/2022 15:52:16 10/09/19 23 10/13/2022 CBC (INCL UDES DIFF/ PLT) MCV 93.7 fL 80.0-1 00.0 normal Not Available [address], [address], 10/13/2022 15:52:16 10/09/19 23 10/13/2022 CBC (INCL UDES DIFF/ PLT) MCH 32.1 pg 27.0-3 3.0 normal Not Available [address], [address], 10/13/2022 15:52:16 10/09/19 23 10/13/2022 CBC (INCL UDES DIFF/ PLT) MCHC 34.3 g/dL 32.0-3 6.0 normal Not Available [address], [address], 10/13/2022 15:52:16 10/09/19 23 10/13/2022 CBC (INCL UDES DIFF/ PLT) RDW 12.4 % 11.0-1 5.0 normal Not Available [address], [address], 10/13/2022 15:52:16 10/09/19 23 10/13/2022 CBC (INCL UDES DIFF/ PLT) platelet count 221 thous and/u L 140-40 0 normal Not Available [address], [address], 10/13/2022 15:52:16 10/09/19 23 10/13/2022 CBC (INCL UDES DIFF/ PLT) MPV 9.7 fL 7.5-12 .5 normal Not Available [address], [address], 10/13/2022 15:52:16 10/09/19 23 10/13/2022 CBC (INCL UDES DIFF/ PLT) absolute neutrophils 3747 cells /uL 1500-7 800 normal Not Available [address], [address], 10/13/2022 15:52:16 10/09/19 23 10/13/2022 CBC (INCL UDES DIFF/ PLT) absolute lymphocytes 1534 cells /uL 850-39 00 normal Not Available [address], [address], 10/13/2022 15:52:16 10/09/19 23 10/13/2022 CBC (INCL UDES DIFF/ PLT) absolute monocytes 531 cells /uL 200-95 0 normal Not Available [address], [address], 10/13/2022 15:52:16 10/09/19 23 10/13/2022 CBC (INCL UDES DIFF/ PLT) absolute eosinophils 71 cells /uL 15-500 normal Not Available [facility] [address], [address], 10/13/2022 15:52:16 10/09/19 23 10/13/2022 CBC (INCL UDES DIFF/ PLT) absolute basophils 18 cells /uL 0-200 normal Not Available [facility] [address], [address], 10/13/2022 15:52:16 10/09/19 23 10/13/2022 CBC (INCL UDES DIFF/ PLT) neutrophils 63.5 % normal Not Available [address], [address], 10/13/2022 15:52:16 10/09/19 23 10/13/2022 CBC (INCL UDES DIFF/ PLT) lymphocytes 26.0 % normal Not Available [address], [address], 10/13/2022 15:52:16 10/09/19 23 10/13/2022 CBC (INCL UDES DIFF/ PLT) monocytes 9.0 % normal Not Available [address], [address], 10/13/2022 15:52:16 10/09/19 23 10/13/2022 CBC (INCL UDES DIFF/ PLT) eosinophils 1.2 % normal Not Available [address], [address], 10/13/2022 15:52:16 10/09/19 23 10/13/2022 CBC (INCL UDES DIFF/ PLT) basophils 0.3 % normal Not Available [address], [address], 10/13/2022 15:52:16 10/09/1910/13/2022 HS CRP hs CRP 5.7 mg/L high Refer ence Range Optim al <1.0 Laila BOSTON et al. Endoc r Pract .2017 ;23(S uppl 2):1- 87. For ages >17 Years : hs-CR P mg/L Risk Accor ding to AHA/C DC Guide lines <1.0 Lower relat meliza cardi ovasc ular risk. 1.0-3 .0 Reva ge relat meliza cardi ovasc ular risk. 3.1-1 0.0 Highe r relat meliza cardi ovasc ular risk. Consi mohinder retes ting in 1 to 2 weeks to exclu de a benig n trans ient eleva tion in the basel ine CRP value secon leroy to infec tion or infla mmati on. >10.0 Persi stent eleva tion, upon retes ting, may be assoc iated with infec tion and infla mmati on. Not Available [facility] [address] [place], [address], 10/13/2022 15:52:16 10/09/19 23 10/13/2022 VITAM IN [...] /MS is recom matthew d: order code 11842 (major ents >2yrs ). See Note 1 Note 1 For addit ional infor jeni simon e refer to http: //[facility] Floyd stDia gnost ics.c om/fa q/FAQ 199 (This link is being provi ded for infor javed hitchcock/ educbobby roy l purpo ses only. ) Not Available [facility] [address] [place], [address], 10/13/2022 15:52:17 10/09/19 23 10/13/2022 HEMOG LOBIN [...] Diabe yanni(A DA). Not Available [facility] [address] [place], [address], 10/13/2022 15:52:17 10/09/19 23 10/13/2022 TESTO STERO NE, FREE (DIAL YSIS) AND TOTAL ,MS testosterone , total, MS 17 NG/dL 2-45 For addit ional infor matjuliet njeni e refer to https ://ed ati on.qu samuelWundrbar. com/f aq/FA Q165 (This link is being provi ded for infor matio nal/e ducat ional purpo ses only. ) (Note ) This test was devel oped and its simran tical perfo rmanc e marii cteri stics have been deter mined by [employer]. It has not been clear ed or appro dean by the FDA. This assay has been valid ated pursu ant to the CLIA regul ation s and is used for clini conrado purpo ses. Not Available [facility] [address], [place], [address], 10/13/2022 15:52:18 10/09/19 23 10/13/2022 TESTO STERO [...] purpo ses. MDF med fusio n [address] [place] [address] [phone] Luther rivas MD Not Available [email or web address] [facility] [address], [place], [address], 10/13/2022 15:52:18 09/12/19 23 08/11/2022 MRI, ankle [...] /min 125 mm[Hg] 71 mm[Hg] Maty Romo [facility] [employer] [facility] 12/28/2022 16:24:00 Social History None recorded. Functional Status None recorded. Mental Status None recorded. Family History Nothing Reported. Medical History No medical history recorded. Gynecological HistoryNo gynecological history recorded. Obstetrics History GPAL:G 0 P 0 0 0 0 Past Encounters Encounter ID Performer Location Encounter Start Date Encounter Closed Date Diagnosis/Indication Diagnosis SNOMED-CT Code Diagnosis ICD10 Code Diagnosis Note [id number] Erwin Sánchez MD [facility] [address] [facility] [place] [place] [address] 09/10/2022 15:46:02 09/11/2022 08:35:39 Pain of left heel 1661291680 197961 M79.672 [id number] Erwin Sánchez MD [facility] [address] [facility] [address] [place] [address] 12/28/2022 16:06:27 12/29/2022 09:05:49 Health Concerns Section Related Observation LastModified by Organization Detai ls LastModified Time None Recorded Concern Status LastModified by Organization Details LastModified Time None Recorded Advance Directives Directive None Recorded Payers Encounter Date Sequence Insurance Name Policy Number Policy Bella Covered Member ID Bella Member ID Guarantor Name 09/10/2022 1 [employer] - CHOICE (POS II) [id number] Wanda Nolen [id number] Wanda Nolen 12/28/2022 1 [employer] - CHOICE (POS II) [id number] Wanda Nolen [id number] Wanda Nolen OBGyn Episode No OBEpisode recorded.
--- OUTSIDE RECORDS SUMMARY | 2024-07-27 11:45 | XMS_ITS | Clinical Summary ---
Author Organization [employer] Address [address] [place] [address] Care Team Providers Care Utilities Estimator And Drafter Name Role Phone Lesley Wilson MD Primary Care Provider [phone] Allergies Active Allergy Reactions Criticality Noted Date [...] 2) 12/08/2013 INFLUENZA VACCINE (#1) 2023 12/21/2019 DTAP/TDAP/TD VACCINES (2 - T d or Tdap) 08/24/2031 08/23/2021 RSV VACCINE (60+ or ) (1 - 1-dose 75+ series) 12/08/2038 HEPATITIS B VACCINES Aged Out 01/18/2007 No long er eligible based on patient's age to complete this topic Insurance [employer]ET[employer] CHOICE POS II AETNA CHOICE POS II Care Teams Utilities Estimator And Drafter Relationship Specialty Start Date End Date Lesley Wilson MD [address] [place] [address] PCP - General Family Practice 12/05/21
--- OUTSIDE RECORDS SUMMARY | 2024-07-27 11:45 | XMS_ITS | Referral Summary ---
Author Organization [facility] [address] Address [address] [place] [address] Care Team Providers Care Public Affairs Specialist Name Role Phone Ady Lock MD Unavailable [phone] Lesley [place] MD Primary Care Provider [phone] Encounters Date Type Department Care Team Description 06/15/2024 2:15 PM CDT Office Visit [facility] [address] [place] [address] Andrew Sue MD Colostomy in [...] (08/09/2019): Added automatically from request for surgery [id number] Incontinence of sphincter ani 08/30/2014 Overview (06/12/2016): [...] on file 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 Gender Identity Not on file Sexual Orientation [...] 08/28/2022 11:44 AM Admit Type: Outpatient Room: [facility] Date of : 1965 Instrument Name: [id number] [...] Most Recently Relevant to Health Maintenance Insurance [facility] Advance Directives For more information, please contact: [phone] * Full Code (Latest Code Status on File) Date Activated Date Inactivated Comments 08/28/2022 11:10 AM 08/28/2022 5:18 PM * Full Code Date Activated Date Inactivated Comments 09/15/2019 10:08 AM 09/15/2019 6:13 PM Care Teams Public Affairs Specialist Relationship Specialty Start Date End Date Lesley Wilson MD [address] [place], [place] [id number] PCP - General Family Medicine 08/19/22 Ady Lock MD [address] [place] [place] [address] Referring Physician Psychiatry 10/14/21
== END 2024-07-27 11:43 | disposition home or self-care (01) ==
LOC: CHSIMG 11:43
PROVIDERS: PCP Family Medicine; Visit Provider Student in an Organized Health Care Education/Training Program
DX: Z12.31 Encounter for screening mammogram for malignant neoplasm of breast (principal); Z78.0 Asymptomatic menopausal state
CPT/HCPCS: 77063; 77067; 77080

== ENCOUNTER 2024-09-25 11:20 | Outpatient (CLI) | payer OTHER, SELFPAY ==
--- NOTE | ~2024-09-25 | XR_ITS ---
EXAM/ PROCEDURE: XR hand RT 2V - 09/25/2024 11:26 CDT HISTORY: 58 years old Female with M79.641 - Pain in right hand COMPARISON: None available TECHNIQUE: Three view(s) FINDINGS/ IMPRESSION: There are no fractures or dislocations.Joint space narrowing, subchondral sclerosis, subchondral cyst formation and osteophyte formation, compatible with mild osteoarthritis. Reviewed, dictated and finalized at location A.
--- NOTE | ~2024-09-25 | XR_ITS ---
XR hand LT 2V 09/25/2024 11:46 Indication: Right hand pain Procedure: 2 views right hand Comparison: No prior studies for comparison. Findings: No fracture, subluxation or dislocation. There is mild polyarticular osteoarthritis. No sof t tissue abnormality. No foreign bodies. Impression: 1: No acute fracture. 2 1 mild polyarticular osteoarthritis. Reviewed, dictated and finalized at location A. Impression: 1: No acute fracture. 2 1 mild polyarticular osteoarthritis.
== END 2024-09-25 11:21 | disposition home or self-care (01) ==
LOC: MICIMG 11:22
PROVIDERS: PCP Family Medicine; Visit Provider Student in an Organized Health Care Education/Training Program
DX: M79.641 Pain in right hand (principal); M19.042 Primary osteoarthritis, left hand
CPT/HCPCS: 73120

== ENCOUNTER 2024-12-12 18:06 | Emergency (ER) | payer OTHER, SELFPAY ==
[2024-12-12] VITALS (29 sets, daily range): BP systolic 98–126; BP diastolic 70–92; PULSE 73–86; RESP 12–25; O2SAT 94–100
--- NOTE | ~2024-12-12 | XR_ITS ---
Examination: XR chest 1V portable Clinical History: AMS Comparison: CTA chest 01/18/2024 Technique: Portable AP Findings: Heart size normal. Bilateral operative changes with associated scarring. No acute bony abnormality. IMPRESSION: 1. No acute cardiopulmonary findings given portable technique. Reviewed, dictated and finalized at location R.
--- NOTE | 2024-12-12 18:43 | PC.NURSE ---
patient has a urostomy and colostomy; at this time patient stated that she does not have enough output to collect a UA.
[2024-12-12 19:13] LABS: Hematocrit 42.2 % (37.0-47.0); Hemoglobin 14.5 g/dL (12.0-15.0); Immature Granulocyte Percent A 0.4 % (0-0.5); Lymphocytes Absolute Auto 1.24 K/mm3 (0.9-3.2); Mean Corpuscular HGB Conc 34.4 g/dl (32-36); Mean Corpuscular Hemoglobin 31.7 pg (26-34); Mean Corpuscular Volume 92.3 fl (80-100); Nucleated Red Blood Cells Absolute Auto 0.000 K/mm3 (0.0-0.012); Nucleated Red Blood Cells Perc 0.0 % (0.0-0.2); Platelet Count Result 262 k/mm3 (150-375); Red Blood Count 4.57 M/mm3 (4.2-5.4); White Blood Count 10.9 K/mm3 (4.5-10.0)
--- NOTE | 2024-12-12 19:18 | ED.GENADULT ---
HPI - General Adult General Chief complaint: Weakness <Giancarlo Polo MD - Last Filed: 12/13/24 17:44> Stated complaint: decreased urine output, altered mental status <Giancarlo Polo MD - Last Filed: 12/13/24 17:44> Time Seen by Provider: 12/12/24 18:14 <Giancarlo Polo MD - Last Filed: 12/13/24 17:44> History of Present Illness HPI narrative: 59-year-old female presents to the emergency department for evaluation for suspected dehydration. Patient reports she has had diarrhea/increased output from her ostomy over the last 24 hours. She states she began having some increased generalized weakness last night and since that time she has been drinking water and has had very watery ostomy output. Patient states she does have intermittent abdominal cramping but denies any significant abdominal pain. Patient reports she has had decreased urostomy output. Patient is tired appearing but in no distress at time of evaluation. In 1979 patient did have a history of cancer and did receive radiation therapy so this was the cause of requiring a urostomy. Patient was then having many side effects and rectal incontinence and and 2012 she had the colostomy placed. <Giancarlo Polo MD - Last Filed: 12/13/24 17:44> 59-year-old female presents emergency department for evaluation for suspected dehydration. Patient reports she has had diarrhea/increased output from her ostomy over the last 24 hours. She states she began having some increased generalized weakness last night and since that time she has been drinking water and has had very watery ostomy output. Patient states he does have intermittent abdominal cramping but denies any significant abdominal pain. Patient reports she has had decreased urostomy output. Patient is tired appearing but in no distress at time of evaluation. In 1979 patient did have a history of cancer and did receive radiation therapy so this was the cause of requiring a urostomy. Patient was then having many side effects and rectal incontinence and and 2012 she had the colostomy placed. <Hillary Perkins PA-C - Last Filed: 12/13/24 00:02> Related Data Home medications: Home Medications ?Medication ?Instructions ?Recorded ?Confirmed ?Last Taken ?Type cyanocobalamin (vitamin B-12) 100 mcg subcut MONTHLY 11/24/21 09/20/24 Unknown History 1,000 mcg/mL injection solution escitalopram oxalate 5 mg tablet 20 mg PO DAILY 12/30/23 09/20/24 12/30/23 History lamotrigine 200 mg tablet 200 mg PO DAILY 05/02/24 09/20/24 Unknown History <Giancarlo Polo MD - Last Filed: 12/13/24 17:44> Allergies/adverse reactions: Allergies Allergy/AdvReac Type Severity Reaction Status Date / Time chlorpromazine Allergy Unknown Unknown Verified 09/20/24 10:04 <Giancarlo Polo MD - Last Filed: 12/13/24 17:44> Review of Systems Review of Systems: All systems reviewed & are unremarkable except as noted in HPI and below <Giancarlo Polo MD - Last Filed: 12/13/24 17:44> PMFSH Past Medical History Medical History: Medical History (Updated 12/13/24 @ 00:01 by Hillary Perkins PA-C) Lumbar spine pain Tear of meniscus of left knee Postoperative pelvic peritoneal adhesions Hx of intestinal obstruction History of malignant neoplasm metastatic to lung History of cancer metastatic to bone Personal history of ovarian cancer Obesity (BMI 30-39.9) Pulmonary embolism Colostomy in place Ovarian cancer History of blood clots <Giancarlo Polo MD - Last Filed: 12/13/24 17:44> Surgical History Surgical History: Surgical History (Updated 07/24/24 @ 11:20 by Addis Wright PA-C) H/O hysterectomy with oophorectomy ~ Status post ileal conduit Cystectomy with ileal conduit related to radiation History of cholecystectomy Colostomy status History of carpal tunnel surgery History of cholecystectomy <Giancarlo Polo MD - Last Filed: 12/13/24 17:44> Family History Family History: Family History Father Heart disease Hypertension Cerebrovascular accident Cancer of kidney Mother Hypertension Heart disease <Giancarlo Polo MD - Last Filed: 12/13/24 17:44> Social History Social History: Social History Smoking status: Never smoker Second hand tobacco smoke exposure: No Alcohol intake: current Alcohol use details: once a month, maybe; socially only Substance use: never Substance use type: does not use Lack of Transportation: No Lack of Food: Never True Current Housing: I Have Housing Concerned About Future Housing: No Difficulty Paying Gas/Electric Bills: No Difficulty Paying for Meds: No Currently Unemployed: Decline to Answer Education: Master's Degree or Higher Difficulty w/ Childcare or Family Care: No Living arrangements: alone Additional living arrangements comments: Occupation/Education: retired Gender identity (if verbalized by the patient): Female Sexual Orientation (if Verbalized by the Patient): Lesbian, Gill, or Homosexual Spiritual care concerns: No Agree to blood products: Yes <Giancarlo Polo MD - Last Filed: 12/13/24 17:44> Exam Narrative: APPEARANCE: Well appearing, no pain, no distress, well-nourished. HEAD: normocephalic, atraumatic. EYES: PERRLA/EOMI, conjunctivae clear. NOSE: Normal no drainage EARS:TMS clear with good light reflex. THROAT: Pharynx clear, no exudate. NECK: Supple. No adenopathy, no masses. RESPIRATORY: Airway patent, respirations nonlabored. Clear to auscultation bilaterally, no rales, rhonchi, wheezing. CARDIOVASCULAR: Regular rate and rhythm without murmurs rubs or gallops. ABDOMINAL: Soft, nontender, nondistended, normal bowel sounds MUSCULOSKELETAL: Moves all extremities. Strength/ROM intact, No edema, No calf tenderness. NEURO: Alert. Cranial nerves II through XII intact. Grossly int SKIN: Warm, dry. Normal Color <Giancarlo Polo MD - Last Filed: 12/13/24 17:44> Course Course Emergency Course: Care taken over at shift change pending repeat metabolic panel, re-evaluation. Patient feeling much better at this time. Ambulatory in the ED with a steady gait. Blood work is improved. Reports she would like to be discharged <Hillary Perkins PA-C - Last Filed: 12/13/24 00:02> Vital Signs Vital signs: Vital Signs Pulse Rate 80 12/12/24 18:18 Respiratory Rate 16 12/12/24 18:18 Blood Pressure 98/86 L 12/12/24 18:18 Pulse Oximetry 100 12/12/24 18:18 Oxygen Delivery Room Air 12/12/24 18:18 Pulse Rate 81 12/13/24 00:02 Respiratory Rate 12 12/13/24 00:02 Blood Pressure 120/86 12/13/24 00:02 Pulse Oximetry 98 12/13/24 00:02 Oxygen Delivery Room Air 12/12/24 18:18 <Giancarlo Polo MD - Last Filed: 12/13/24 17:44> Vital Signs Pulse Rate 80 12/12/24 18:18 Respiratory Rate 16 12/12/24 18:18 Blood Pressure 98/86 L 12/12/24 18:18 Pulse Oximetry 100 12/12/24 18:18 Oxygen Delivery Room Air 12/12/24 18:18 Pulse Rate 81 12/13/24 00:02 Respiratory Rate 12 12/13/24 00:02 Blood Pressure 120/86 12/13/24 00:02 Pulse Oximetry 98 12/13/24 00:02 Oxygen Delivery Room Air 12/12/24 18:18 <Hillary Perkins PA-C - Last Filed: 12/13/24 00:02> Medical Decision Making [facility] Narrative Medical decision making narrative: 59-year-old female presents emergency department for evaluation for increased ostomy output and dehydration. Patient is currently afebrile but does have a leukocytosis of 10.9 hemoglobin 14.5. Patient has an INR of 1.2. Patient does have a mild hyponatremia with a sodium of 130, creatinine of 2.03 but a repeat of 1.67 after rehydration. Patient's urine was nitrite negative but did have leukocyte Estrace. Red and white blood cells with +4 bacteria, urine culture was ordered, sample was collected from her ostomy and could represent colonization, patient will not be treated for a UTI and till the cultures resulted. Patient was negative for C diff. Patient was negative for influenza RSV and for COVID pending re-evaluation patient states she does feel improved. Patient's blood pressure was improved. Patient was educated on reasons to return to the emergency department. All questions concerns were addressed. Patient's potassium was replaced both IV and p.o.. <Giancarlo Polo MD - Last Filed: 12/13/24 17:44> Differential Diagnosis Differential Diagnosis: Colitis, diverticulitis, UTI, COVID, RSV, influenza, dehydration <Giancarlo Polo MD - Last Filed: 12/13/24 17:44> Vital Signs Vital Signs: Vital Signs Pulse Rate 80 12/12/24 18:18 Respiratory Rate 16 12/12/24 18:18 Blood Pressure 98/86 L 12/12/24 18:18 Pulse Oximetry 100 12/12/24 18:18 Oxygen Delivery Room Air 12/12/24 18:18 Pulse Rate 81 12/13/24 00:02 Respiratory Rate 12 12/13/24 00:02 Blood Pressure 120/86 12/13/24 00:02 Pulse Oximetry 98 12/13/24 00:02 Oxygen Delivery Room Air 12/12/24 18:18 <Giancarlo Polo MD - Last Filed: 12/13/24 17:44> Vital Signs Pulse Rate 80 12/12/24 18:18 Respiratory Rate 16 12/12/24 18:18 Blood Pressure 98/86 L 12/12/24 18:18 Pulse Oximetry 100 12/12/24 18:18 Oxygen Delivery Room Air 12/12/24 18:18 Pulse Rate 81 12/13/24 00:02 Respiratory Rate 12 12/13/24 00:02 Blood Pressure 120/86 12/13/24 00:02 Pulse Oximetry 98 12/13/24 00:02 Oxygen Delivery Room Air 12/12/24 18:18 <Hillary Perkins PA-C - Last Filed: 12/13/24 00:02> Lab Data Lab results reviewed: Yes I reviewed the patient's lab results. <Hillary Perkins PA-C - Last Filed: 12/13/24 00:02> Result diagrams: 12/12/24 18:47 12/12/24 23:39 <Giancarlo Polo MD - Last Filed: 12/13/24 17:44> Labs: Lab Results 12/12/24 12/12/24 12/12/24 Range/Units 18:47 18:49 19:35 WBC 10.9 H (4.5-10.0) K/mm3 RBC 4.57 (4.2-5.4) M/mm3 Hgb 14.5 (12.0-15.0) g/dL Hct 42.2 (37.0-47.0) % MCV 92.3 (80-100) fl MCH 31.7 (26-34) pg MCHC 34.4 (32-36) g/dl RDW 12.8 (11.5-14.5) % Plt Count 262 (150-375) k/mm3 MPV 9.4 (7.4-10.4) fl Immature Gran % (Auto) 0.4 (0-0.5) % Neut % (Auto) 82.0 H (45.5-73.1) % Lymph % (Auto) 11.4 L (18.3-44.2) % [place] % (Auto) 5.9 (2.6-8.5) % Eos % (Auto) 0.0 (0-4.4) % Baso % (Auto) 0.3 (0.2-1.2) % Lymph # (Auto) 1.24 (0.9-3.2) K/mm3 [place] # (Auto) 0.6 (0.1-0.6) K/mm3 Eos # (Auto) 0.0 (0-0.3) K/mm3 Baso # (Auto) 0.0 (0.0-0.1) K/mm3 Abs Immat Gran (auto) 0.04 H (0.00-0.031) K/mm3 Absolute Neuts (auto) 8.9 H (1.3-6.7) K/mm3 Absolute Nucleated RBC 0.000 (0.0-0.012) K/mm3 Nucleated RBC % 0.0 (0.0-0.2) % PT 14.8 H (11.1-14.7) Seconds INR 1.2 APTT 27.9 (22.3-36.8) Seconds Sodium 130 L (137-145) mmol/L Potassium 3.0 L (3.4-5.0) mmol/L Chloride 92 L (98-107) mmol/L Carbon Dioxide 20 L (22-30) mmol/L Anion Gap 18 H (4-12) mmol/L BUN 25 H (7-17) mg/dL Creatinine 2.03 H (0.7-1.0) mg/dL Estim Creat Clear Calc 26 ml/min Estimated GFR 25 L (59 - ) Glucose 136 H (65-110) mg/dL Calcium 9.7 (8.4-10.2) mg/dL Total Bilirubin 1.2 (0.2-1.3) mg/dL AST 40 H (14-36) U/L ALT 37 H (6-35) U/L Alkaline Phosphatase 66 (38-126) U/L Total Protein 9.7 H (6.3-8.2) g/dL Albumin 5.0 (3.5-5.1) g/dL Urine Color (Yellow) Urine Appearance (Clear) Urine pH (5.0-9.0) Ur Specific [place] (1.001-1.035) Urine Protein (Negative) mg/dL Urine Glucose (UA) (Negative) mg/dL Urine Ketones (Negative) mg/dL Ur Blood (Man) (Negative) Urine Nitrate (Negative) Urine Bilirubin (Negative) Urine Urobilinogen (<2.0) mg/dL Add Ur Microanalysis Leukocyte Esterase Rfl (Negative) PRICILLA/UL Urine RBC (0-2) /hpf Urine WBC (0-3) /hpf Ur Squamous Epith Cells (Few) /hpf Triple Phos Crystals (None) /hpf Amorphous Sediment (None) Urine Bacteria /hpf Urine Casts C. difficile (PCR) Negative (NEGATIVE) Influenza A (RT-PCR) Negative (Negative) Influenza B (RT-PCR) Negative (Negative) RSV (RT-PCR) Negative (Negative) SARS-CoV-2 RNA (RT-PCR) Negative (Negative) 12/12/24 12/12/24 Range/Units 19:44 23:39 WBC (4.5-10.0) K/mm3 RBC (4.2-5.4) M/mm3 Hgb (12.0-15.0) g/dL Hct (37.0-47.0) % MCV (80-100) fl MCH (26-34) pg MCHC (32-36) g/dl RDW (11.5-14.5) % Plt Count (150-375) k/mm3 MPV (7.4-10.4) fl Immature Gran % (Auto) (0-0.5) % Neut % (Auto) (45.5-73.1) % Lymph % (Auto) (18.3-44.2) % [place] % (Auto) (2.6-8.5) % Eos % (Auto) (0-4.4) % Baso % (Auto) (0.2-1.2) % Lymph # (Auto) (0.9-3.2) K/mm3 [place] # (Auto) (0.1-0.6) K/mm3 Eos # (Auto) (0-0.3) K/mm3 Baso # (Auto) (0.0-0.1) K/mm3 Abs Immat Gran (auto) (0.00-0.031) K/mm3 Absolute Neuts (auto) (1.3-6.7) K/mm3 Absolute Nucleated RBC (0.0-0.012) K/mm3 Nucleated RBC % (0.0-0.2) % PT (11.1-14.7) Seconds INR APTT (22.3-36.8) Seconds Sodium 130 L (137-145) mmol/L Potassium 3.9 (3.4-5.0) mmol/L Chloride 95 L (98-107) mmol/L Carbon Dioxide 21 L (22-30) mmol/L Anion Gap 14 H (4-12) mmol/L BUN 26 H (7-17) mg/dL Creatinine 1.67 H (0.7-1.0) mg/dL Estim Creat Clear Calc 31 ml/min Estimated GFR 31 L (59 - ) Glucose 132 H (65-110) mg/dL Calcium 9.2 (8.4-10.2) mg/dL Total Bilirubin (0.2-1.3) mg/dL AST (14-36) U/L ALT (6-35) U/L Alkaline Phosphatase (38-126) U/L Total Protein (6.3-8.2) g/dL Albumin (3.5-5.1) g/dL Urine Color Dark yellow (Yellow) Urine Appearance Turbid H (Clear) Urine pH >=9.0 H (5.0-9.0) Ur Specific [place] 1.017 (1.001-1.035) Urine Protein 3+ H (Negative) mg/dL Urine Glucose (UA) Trace H (Negative) mg/dL Urine Ketones Negative (Negative) mg/dL Ur Blood (Man) Negative (Negative) Urine Nitrate Negative (Negative) Urine Bilirubin Negative (Negative) Urine Urobilinogen 1.0 (<2.0) mg/dL Add Ur Microanalysis Reviewed Leukocyte Esterase Rfl 2+ H (Negative) PRICILLA/UL Urine RBC 6-10 H (0-2) /hpf Urine WBC 6-10 H (0-3) /hpf Ur Squamous Epith Cells Occasional (Few) /hpf Triple Phos Crystals Present H (None) /hpf Amorphous Sediment Moderate H (None) Urine Bacteria 4+ H /hpf Urine Casts >20 C. difficile (PCR) (NEGATIVE) Influenza A (RT-PCR) (Negative) Influenza B (RT-PCR) (Negative) RSV (RT-PCR) (Negative) SARS-CoV-2 RNA (RT-PCR) (Negative) <Giancarlo Polo MD - Last Filed: 12/13/24 17:44> Lab Results 12/12/24 12/12/24 12/12/24 Range/Units 18:47 18:49 19:35 WBC 10.9 H (4.5-10.0) K/mm3 RBC 4.57 (4.2-5.4) M/mm3 Hgb 14.5 (12.0-15.0) g/dL Hct 42.2 (37.0-47.0) % MCV 92.3 (80-100) fl MCH 31.7 (26-34) pg MCHC 34.4 (32-36) g/dl RDW 12.8 (11.5-14.5) % Plt Count 262 (150-375) k/mm3 MPV 9.4 (7.4-10.4) fl Immature Gran % (Auto) 0.4 (0-0.5) % Neut % (Auto) 82.0 H (45.5-73.1) % Lymph % (Auto) 11.4 L (18.3-44.2) % [place] % (Auto) 5.9 (2.6-8.5) % Eos % (Auto) 0.0 (0-4.4) % Baso % (Auto) 0.3 (0.2-1.2) % Lymph # (Auto) 1.24 (0.9-3.2) K/mm3 [place] # (Auto) 0.6 (0.1-0.6) K/mm3 Eos # (Auto) 0.0 (0-0.3) K/mm3 Baso # (Auto) 0.0 (0.0-0.1) K/mm3 Abs Immat Gran (auto) 0.04 H (0.00-0.031) K/mm3 Absolute Neuts (auto) 8.9 H (1.3-6.7) K/mm3 Absolute Nucleated RBC 0.000 (0.0-0.012) K/mm3 Nucleated RBC % 0.0 (0.0-0.2) % PT 14.8 H (11.1-14.7) Seconds INR 1.2 APTT 27.9 (22.3-36.8) Seconds Sodium 130 L (137-145) mmol/L Potassium 3.0 L (3.4-5.0) mmol/L Chloride 92 L (98-107) mmol/L Carbon Dioxide 20 L (22-30) mmol/L Anion Gap 18 H (4-12) mmol/L BUN 25 H (7-17) mg/dL Creatinine 2.03 H (0.7-1.0) mg/dL Estim Creat Clear Calc 26 ml/min Estimated GFR 25 L (59 - ) Glucose 136 H (65-110) mg/dL Calcium 9.7 (8.4-10.2) mg/dL Total Bilirubin 1.2 (0.2-1.3) mg/dL AST 40 H (14-36) U/L ALT 37 H (6-35) U/L Alkaline Phosphatase 66 (38-126) U/L Total Protein 9.7 H (6.3-8.2) g/dL Albumin 5.0 (3.5-5.1) g/dL Urine Color (Yellow) Urine Appearance (Clear) Urine pH (5.0-9.0) Ur Specific [place] (1.001-1.035) Urine Protein (Negative) mg/dL Urine Glucose (UA) (Negative) mg/dL Urine Ketones (Negative) mg/dL Ur Blood (Man) (Negative) Urine Nitrate (Negative) Urine Bilirubin (Negative) Urine Urobilinogen (<2.0) mg/dL Add Ur Microanalysis Leukocyte Esterase Rfl (Negative) PRICILLA/UL Urine RBC (0-2) /hpf Urine WBC (0-3) /hpf Ur Squamous Epith Cells (Few) /hpf Triple Phos Crystals (None) /hpf Amorphous Sediment (None) Urine Bacteria /hpf Urine Casts C. difficile (PCR) Negative (NEGATIVE) Influenza A (RT-PCR) Negative (Negative) Influenza B (RT-PCR) Negative (Negative) RSV (RT-PCR) Negative (Negative) SARS-CoV-2 RNA (RT-PCR) Negative (Negative) 12/12/24 12/12/24 Range/Units 19:44 23:39 WBC (4.5-10.0) K/mm3 RBC (4.2-5.4) M/mm3 Hgb (12.0-15.0) g/dL Hct (37.0-47.0) % MCV (80-100) fl MCH (26-34) pg MCHC (32-36) g/dl RDW (11.5-14.5) % Plt Count (150-375) k/mm3 MPV (7.4-10.4) fl Immature Gran % (Auto) (0-0.5) % Neut % (Auto) (45.5-73.1) % Lymph % (Auto) (18.3-44.2) % [place] % (Auto) (2.6-8.5) % Eos % (Auto) (0-4.4) % Baso % (Auto) (0.2-1.2) % Lymph # (Auto) (0.9-3.2) K/mm3 [place] # (Auto) (0.1-0.6) K/mm3 Eos # (Auto) (0-0.3) K/mm3 Baso # (Auto) (0.0-0.1) K/mm3 Abs Immat Gran (auto) (0.00-0.031) K/mm3 Absolute Neuts (auto) (1.3-6.7) K/mm3 Absolute Nucleated RBC (0.0-0.012) K/mm3 Nucleated RBC % (0.0-0.2) % PT (11.1-14.7) Seconds INR APTT (22.3-36.8) Seconds Sodium 130 L (137-145) mmol/L Potassium 3.9 (3.4-5.0) mmol/L Chloride 95 L (98-107) mmol/L Carbon Dioxide 21 L (22-30) mmol/L Anion Gap 14 H (4-12) mmol/L BUN 26 H (7-17) mg/dL Creatinine 1.67 H (0.7-1.0) mg/dL Estim Creat Clear Calc 31 ml/min Estimated GFR 31 L (59 - ) Glucose 132 H (65-110) mg/dL Calcium 9.2 (8.4-10.2) mg/dL Total Bilirubin (0.2-1.3) mg/dL AST (14-36) U/L ALT (6-35) U/L Alkaline Phosphatase (38-126) U/L Total Protein (6.3-8.2) g/dL Albumin (3.5-5.1) g/dL Urine Color Dark yellow (Yellow) Urine Appearance Turbid H (Clear) Urine pH >=9.0 H (5.0-9.0) Ur Specific [place] 1.017 (1.001-1.035) Urine Protein 3+ H (Negative) mg/dL Urine Glucose (UA) Trace H (Negative) mg/dL Urine Ketones Negative (Negative) mg/dL Ur Blood (Man) Negative (Negative) Urine Nitrate Negative (Negative) Urine Bilirubin Negative (Negative) Urine Urobilinogen 1.0 (<2.0) mg/dL Add Ur Microanalysis Reviewed Leukocyte Esterase Rfl 2+ H (Negative) PRICILLA/UL Urine RBC 6-10 H (0-2) /hpf Urine WBC 6-10 H (0-3) /hpf Ur Squamous Epith Cells Occasional (Few) /hpf Triple Phos Crystals Present H (None) /hpf Amorphous Sediment Moderate H (None) Urine Bacteria 4+ H /hpf Urine Casts >20 C. difficile (PCR) (NEGATIVE) Influenza A (RT-PCR) (Negative) Influenza B (RT-PCR) (Negative) RSV (RT-PCR) (Negative) SARS-CoV-2 RNA (RT-PCR) (Negative) <Hillary Perkins PA-C - Last Filed: 12/13/24 00:02> Imaging Data Radiologist's impression: Impressions Chest X-Ray 12/12/24 18:55 IMPRESSION: 1. No acute cardiopulmonary findings given portable technique. <Giancarlo Polo MD - Last Filed: 12/13/24 17:44> Critical Care Time Critical Care Time Critical Care Time: No <Hillary Perkins PA-C - Last Filed: 12/13/24 00:02> Discharge Plan Discharge Clinical Impression: Acute dehydration, Hypokalemia <Giancarlo Polo MD - Last Filed: 12/13/24 17:44> Patient Disposition: Home <Giancarlo Polo MD - Last Filed: 12/13/24 17:44> Condition: Improved <Giancarlo Polo MD - Last Filed: 12/13/24 17:44> Instructions: Dehydration (ED), Hypokalemia (ED) <Giancarlo Polo MD - Last Filed: 12/13/24 17:44> Additional Instructions: Return to the ER if you experience fever, abdominal pain with nausea and vomiting, you are unable to keep down liquids or solids, or any other symptoms that are concerning to you Remain well hydrated Follow up with primary care doctor <Giancarlo Polo MD - Last Filed: 12/13/24 17:44> Patient Language: Stateless <Giancarlo Polo MD - Last Filed: 12/13/24 17:44> Prescriptions: No Action cyanocobalamin (vitamin B-12) 1,000 mcg/mL solution 100 mcg subcut MONTHLY lamotrigine 200 mg tablet 200 mg PO DAILY nystatin 100,000 unit/gram powder 1 applic topical BID Qty: 30 0RF escitalopram oxalate 5 mg tablet 20 mg PO DAILY atenolol 100 mg tablet 100 mg PO DAILY Qty: 90 2RF ergocalciferol (vitamin D2) [Vitamin D2] 1,250 mcg (50,000 unit) capsule 1,250 mcg PO WEEKLY Qty: 12 2RF spironolactone 25 mg tablet See Rx Instructions .ROUTE .COMPLEX Qty: 90 1RF Dose Instruction: TAKE 1 TABLET BY MOUTH EVERY DAY Rx Instructions: TAKE 1 TABLET BY MOUTH EVERY DAY <Giancarlo Polo MD - Last Filed: 12/13/24 17:44> Follow-up/Referrals: Lesley Wilson MD [Primary Care Provider, Family Practice] <Giancarlo Ploo MD - Last Filed: 12/13/24 17:44>
[2024-12-12 19:24] LABS: Alanine Aminotransferase 37 U/L (6-35); Albumin Level 5.0 g/dL (3.5-5.1); Alkaline Phosphatase 66 U/L (38-126); Anion Gap 18 mmol/L (4-12); Aspartate Amino Transferase 40 U/L (14-36); Bilirubin,Total 1.2 mg/dL (0.2-1.3); Blood Urea Nitrogen 25 mg/dL (7-17); Calcium 9.7 mg/dL (8.4-10.2); Carbon Dioxide 20 mmol/L (22-30); Chloride 92 mmol/L (98-107); Estimated CRCL calculation 26 ml/min; Estimated Glomerular Filt Rate 25; Glucose 136 mg/dL (65-110); Potassium 3.0 mmol/L (3.4-5.0); Sodium 130 mmol/L (137-145); Total Protein 9.7 g/dL (6.3-8.2)
[2024-12-12 19:34] LABS: INR 1.2; Partial Thromboplastin Time 27.9 Seconds (22.3-36.8); Prothrombin Time 14.8 Seconds (11.1-14.7)
[2024-12-12 19:44] LABS: Influenza A QL RT-PCR Negative (Negative); Influenza B QL RT-PCR Negative (Negative); RSV RNA, RT-PCR Negative (Negative); SARS-CoV-2 RNA PCR Negative (Negative)
[2024-12-12] MEDS: LACTATED RINGERS 1,000 ML 999 ML IV CONT ×2 (19:53→20:27)
[2024-12-12] MEDS: KCL 20 MEQ/SW 100 ML 100 ML 50 MEQ IVPB (19:53)
--- OUTSIDE RECORDS SUMMARY | 2024-12-12 20:09 | XMS_ITS | Clinical Summary ---
Author Organization [address] Address [address] 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 Name Role Phone Lesley Wilson MD Primary Care Provider [phone] Allergies Active Allergy Reactions Criticality Noted Date [...] 10:17 AM CDT Height 162.6 cm (5' 4) 01/05/2022 2:15 PM CDT Body Mass Index 32.96 01/05/2022 2:15 PM CDT Plan of Treatment Health Maintenance Due Date Last Done Comments BREAST CANCER SCREENING 2003 COLORECTAL SCREENING 12/08/2008 Colorectal Cancer Screening 12/08/2008 FIT-DNA Q 3 years 12/08/2008 FIT/FOBT Q 1 year 12/08/2008 Flex Sig/CT Colonography Q 5 years 12/08/2008 ZOSTER VACCINE (1 of 2) 12/08/2013 INFLUENZA VACCINE (#1) 2024 12/21/2019 DTAP/TDAP/TD VACCINES (2 - Td or Tdap) 08/24/2031 RSV VACCINE (60+ or ) (1 - 1-dose 75+ series) 12/08/2038 Insurance [employer] CHOICE POS II [employer] CHOICE POS II Care Teams [employer]age Plant Att[employer] Relationship Specialty Start Date End Date Lesley Wilson MD [address] [place] [id number] PCP - General Family Practice 12/05/21
--- OUTSIDE RECORDS SUMMARY | 2024-12-12 20:09 | XMS_ITS | Data Portability ---
Author Organization [place] [facility] [place], Main Office Address [address] [place] [address] Assessment Encounter Date Assessment Date Assessment LastModified [...] 2 or more view 2023 024 [email or web address] [facility] [place], [address], [place], [address], 09/06/202 4 12:13:39 Medication Orders meloxicam 15 mg tablet 2023 024 [place] [id number] In [facility], [address], [place], [address], 4 10:00:50 Patient TargetsNo targets recorded. Patient InstructionsNo instructions recorded. Reason for Referral None Reported. Results Created Date Observation Date Name Description Value Unit Range Abnormal Flag Note LastModifiedBy Organization Detail LastModifiedTime 09/26/19 22 09/25/2021 MRI, shoul mohinder, w/o contr ast No observ ation record ed. [id number] [facility] [address] [address], [place], [address], 05/06/2022 20:24:13 09/27/19 22 09/25/2021 MRI, knee, w/o contr ast No observ ation record ed. [id number] Not Available 05/06/2022 20:24:13 11/12/19 24 XR, shoul mohinder, 2 or more view No observ ation record ed. [email or web address] [facility] [place] [address], [place], [address], 11/12/2023 10:00:45 Result Notes None recorded. Problems Name Problem SNOMED Code Status Onset Date Resolution Date Notes Provider Name and Address Organization Details Recorded Time Osteoarthr itis 393723727 Active Not Available [facility] 3 20:23:14 Pain of right shoulder joint 3768024770930 9100 Active 2021 Not Available [facility] 3 20:23:14 Partial thickness rotator cuff tear 857788514 Active 2021 Not Available [facility] 3 20:23:14 Pain of left knee joint 5395615502940 07 Active 2021 Not Available [facility] 3 20:23:15 Tear of medial meniscus of knee 635015661 Active 2021 Not Available [facility] 3 20:23:14 Problem Notes None recorded. Procedures Surgical History Date Name Laterality Status Provider Name and Address Organization Details Recorded Time Shoulder joint surgery completed Leela EMI Vinson [facility] [employer] [facility] 11/12/2023 09:07:51 Carpal tunnel surgery completed Leela EMI Vinson [facility] [employer] [facility] 11/12/2023 09:09:08 Imaging Results None recorded. Procedure Notes None recorded. Medical Equipment None Reported. Allergies Allergen ID Allergen Name Allergen Category Reaction Reaction Severity Criticality Documentation Date Start Date Code Code System Note Provider Name and Address Organization Details Recorded Time 95330 chlorprom azine hydrochlo ride medicatio n Not available Not available Not available 05/06/2022 54195 8 RxNorm Not Available [facility] 20:24:09 Medications Name Sig Start Date Stop [...] administe red by the provider 09/15 completed [facility]: 0003- 0494- 20 Not Available Not Available [...] administe red by the provider 06/10 completed [facility]: 0409- 4276- 17 Not Available Not Available [...] No t Available Vitals Date Recorded Body height Provider Name an d Address Organization Details Last Updated DateTime 09/15/2021 160.02 cm Not Available [facility] 3 20:23:01 Date Recorded Body height Provider Name an d Address Organization Details Last Updated DateTime 09/19/2021 160.02 cm Not Available [facility] 3 20:23:01 Date Recorded Body mass index (BMI) Body height Body weight Provider Name and Address Organization Details Last Updated DateTime 10/03/2021 31.4 kg/m2 162.56 cm 99375.4 g Not Available [facility] 05/06/2022 20:23:02 Date Recorded Body height Provider Name an d Address Organization Details Last Updated DateTime 11/07/2021 162.56 cm Not Available [facility] 20:23:01 Date Recorded Body height Body mass index (BMI) Body weight Pain severity - 0-10 verbal numeric rating [Score] - Reported Provider Name and Address Organization Details Last Updated DateTime 11/12/2023 162.56 cm 29.4 kg/m2 18861.3 g 0 EMI Moreno [place] [facility] 11/12/2023 09:00:53 Social History Question Answer Notes LastModified by [employer] Details LastModified Time Tobacco Smoking Status Never Smoker Not Available [facility] 05/06/2022 20:22:36 What Was The Date Of Your Most Recent Tobacco Screening? 11/12/2023 [email or web address] Information not available 11/12/2023 Sex: Unknown Functional Status Question Answer Note LastModified by [employer] Details LastModified Time What is your level of alcohol consumption? Occasional [id number] Information not available 05/06/2022 Mental Status None recorded. Family History Relationship Description Onset Age of this Age Resolved Age Notes LastModified by Organization Details LastModified Time Father Family history of stroke [email or web address] [id number] Not available 05/06/2022 20:22:40 Father Family history of malignant neoplasm [email or web address] [id number] Not available 05/06/2022 20:22:40 Father Hypertensive disorder [id number] Not available 05/06/2022 20:22:40 Mother Hypertensive disorder [id number] Not available 05/06/2022 20:22:40 Medical History Condition Response CANCER: SPECIFY Y HYPERTENSION Y Gynecological HistoryNo gynecological history recorded. Obstetrics History GPAL:G 0 P 0 0 0 0 Past Encounters Encounter ID Performer Location Encounter Start Date Encounter Closed Date Diagnosis/Indication Diagnosis SNOMED-CT Code Diagnosis ICD10 Code Diagnosis IMO Codes Diagnosis Note [id number] Gregorio Ruby MD [facility] [place] [address] [place] [address] 05/22/2020 00:00:00 05/22/2020 12:20:15 [id number] Gregorio Ruby MD [facility] [place] [address] [place] [address] 06/12/2020 00:00:00 06/13/2020 11:38:37 [id number] Gregorio Ruby MD [facility] [place] [address] [place] [address] 06/26/2020 00:00:00 07/21/2020 18:54:36 [id number] Percy Wolf MD [facility] [address] [place] [address] 06/26/2020 00:00:00 06/26/2020 17:07:43 [id number] MD SILVINO [facility] [place] [address] [place] [address] 07/23/2020 00:00:00 07/23/2020 15:32:23 [id number] Percy Wolf MD [facility] [place] [address] [place] [address] 08/27/2020 00:00:00 08/27/2020 16:32:14 [id number] MD SILVINO [facility] [place] [address] [place] [address] 09/03/2020 00:00:00 09/03/2020 15:01:01 [id number] Percy Wolf MD [facility] [place] [address] [place] [address] 10/01/2020 00:00:00 10/01/2020 17:02:48 [id number] MD SILVINO [facility] [place] [address] [place] [address] 11/12/2020 00:00:00 11/12/2020 16:25:48 [id number] MD SILVINO [facility] [place] [address] [place] [address] 12/24/2020 00:00:00 12/24/2020 16:58:37 [id number] Percy Wolf MD [facility] [place] [address] [place] [address] 02/18/2021 00:00:00 02/18/2021 16:35:04 [id number] Percy Wolf MD [facility] [place] [address] [place] [address] 03/19/2021 00:00:00 03/19/2021 16:50:17 [id number] Percy Wolf MD [facility] [place] [address] [place] [address] 03/26/2021 00:00:00 03/26/2021 17:03:06 [id number] Percy Wolf MD [facility] [place] [address] [place] [address] 04/02/2021 00:00:00 04/02/2021 14:23:10 [id number] Percy Wolf MD [facility] [place] [address] [place] [address] 04/29/2021 00:00:00 04/29/2021 16:52:58 [id number] Percy Wolf MD [facility] [place] [address] [place] [address] 06/10/2021 00:00:00 06/10/2021 16:58:55 [id number] Percy Wolf MD [facility] [place] [address] [place] [address] 07/22/2021 00:00:00 07/22/2021 17:02:27 [id number] Gregorio Ruby MD [facility] [place] [address] [place] [address] 08/13/2021 00:00:00 08/14/2021 15:13:10 [id number] Gregorio Ruby MD [facility] [place] [address] [place] [address] 09/15/2021 00:00:00 09/15/2021 15:31:39 [id number] Percy Wolf MD [facility] [place] [address] [place] [address] 09/19/2021 00:00:00 09/19/2021 09:28:33 [id number] Gregorio Ruby MD [facility] [place] [address] [place] [address] 10/03/2021 00:00:00 10/04/2021 18:36:00 [id number] Gregorio Ruby MD [facility] [place] [address] [place] [address] 11/07/2021 00:00:00 11/07/2021 10:31:04 [id number] Ilia Romero MD [facility] [place] [address] [place] [address] 11/12/2023 08:59:06 11/12/2023 09:57:20 Pain of right shoulder joint 0458806460 7370638 M25.511 Partial th ickness rotator cuff tear 568269043 M75.101 Health Concerns Section Related Observation LastModified by Organization Detai ls LastModified Time None Recorded Concern Status LastModified by Organization Details LastModified Time None Recorded Advance Directives Directive None Recorded Payers Insurance Date Sequence Insurance Name Policy Number Policy Bella Covered Member ID Bella Member ID Guarantor Name 11/12/2023 1 [place] [id number] Wanda Nolen [id number] Wanda Nolen 11/12/2023 1 [employer] [id number] Wanda Nolen [id number] Wanda Nolen OBGyn Episode No OBEpisode recorded.
--- OUTSIDE RECORDS SUMMARY | 2024-12-12 20:09 | XMS_ITS | Clinical Summary ---
Author Organization [address] Address [address] [place] [address] Care Team Providers Care Salvage Engineering Technician Name Role Phone Ady Lock MD Unavailable [phone] Lesley Wilson MD Primary Care Provider [phone] Allergies Active Allergy Reactions Criticality Noted Date [...] (08/09/2019): Added automatically from request for surgery [id number] Incontinence of sphincter ani 08/30/2014 Overview (06/12/2016): [...] pelvic radiation. surgery by Dr. 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 Gender Identity Not on file Sexual [...] 2:37 PM CDT Height 162.6 cm (5' 4) 06/15/2024 2:37 PM CDT Body Mass Index 29.64 06/15/2024 2:37 PM CDT Plan of Treatment Health Maintenance Due Date Last Done Comments Breast Cancer Screening-Mammogram 1965 Hepatitis C Screening 1965 Regular Well Visit/Exam 18-64 12/08/1981 Zoster Vaccine (1 of 2) 12/08/2013 Depression Screening 10/14/2022 10/14/2021 Covid-19 Vaccine ( season) 2024 01/11/2021, 04/27/2020, 03/30/2020 Influenza Vaccine (#1) 2024 12/21/2019 Colon Cancer Screening-Colonoscopy 08/29/2027 08/28/2022, [...] 08/28/2022 11:44 AM Admit Type: Outpatient Room: [facility] Date of : 1965 Instrument Name: [id number]-[id number] [...] Most Recently Relevant to Health Maintenance Insurance [facility] H[facility]/PPO Address: [facility] [id number] [place] [id number] [facility] Advance Directives For more information, please contact: [phone] * Full Code (Latest Code Status on File) Date Activated Date Inactivated Comments 08/28/2022 11:10 AM 08/28/2022 5:18 PM * Full Code Date Activated Date Inactivated Comments 09/15/2019 10:08 AM 09/15/2019 6:13 PM Care Teams Salvage Engineering Technician Relationship Specialty Start Date End Date Lesley Wilson MD [address] [place] [address] PCP - General Family Medicine 08/19/22 Ady Lock MD [address] [place] [address] Referring Physician Psychiatry 10/14/21
[2024-12-12 20:14] LABS: Add Urine Microscopic? YES; Appearance Urine Turbid (Clear); Glucose Urine UA Trace mg/dL (Negative); Leukocyte Esterase Ur 2+ LEU/UL (Negative); Need Manual Microscopic Reviewed; Nitrate Urine Negative (Negative); Non Pathogenic Casts >20; Specific Grav Ur 1.017 (1.001-1.035)
[2024-12-12] MEDS: POTASSIUM CHLORIDE 20 MEQ PACKET (FOR LIQUID) 40 MEQ PO (20:27)
[2024-12-12 20:32] LABS: Toxigenic C. Diff NEGATIVE (NEGATIVE)
[2024-12-12 23:52] LABS: Anion Gap 14 mmol/L (4-12); Blood Urea Nitrogen 26 mg/dL (7-17); Calcium 9.2 mg/dL (8.4-10.2); Carbon Dioxide 21 mmol/L (22-30); Chloride 95 mmol/L (98-107); Estimated CRCL calculation 31 ml/min; Estimated Glomerular Filt Rate 31; Glucose 132 mg/dL (65-110); Potassium 3.9 mmol/L (3.4-5.0); Sodium 130 mmol/L (137-145)
[2024-12-13] VITALS: PULSE 76; RESP 24; O2SAT 92
[2024-12-13 00:02] VITALS: BP 120/86; PULSE 81; RESP 12; O2SAT 98
== END 2024-12-13 00:20 | disposition home or self-care (01) ==
PROVIDERS: Emergency Provider Emergency Medicine; PCP Family Medicine
DX: E86.0 Dehydration (principal); E87.6 Hypokalemia; Z20.822 Contact with and (suspected) exposure to COVID-19; Z93.3 Colostomy status; Z93.6 Other artificial openings of urinary tract status; Z92.3 Personal history of irradiation; Z85.43 Personal history of malignant neoplasm of ovary; Z85.118 Personal history of other malignant neoplasm of bronchus and lung; Z85.830 Personal history of malignant neoplasm of bone; Z86.711 Personal history of pulmonary embolism; Z90.710 Acquired absence of both cervix and uterus; Z90.49 Acquired absence of other specified parts of digestive tract; Z79.899 Other long term (current) drug therapy
CPT/HCPCS: 36415; 71045; 80048; 80053; 81001; 85025; 85610; 85730; 87045; 87046; 87086; 87427; 87493; 87637; 96365; 96366; 99284; A9270; J3480; J7120

== ENCOUNTER 2024-12-14 09:37 | Inpatient (IN) | payer OTHER, SELFPAY ==
[2024-12-14] VITALS (7 sets, daily range): BP systolic 84–123; BP diastolic 56–110; PULSE 61–73; RESP 14–22; TEMP 35–36.6; O2SAT 95–99; BMI 26.1
--- NOTE | ~2024-12-14 | CT_ITS ---
CT ABDOMEN AND PELVIS WITHOUT CONTRAST Clinical History: Abdominal discomfort, diarrhea Comparison: 06/22/2024 Technique: Unenhanced axial images lung bases to symphysis pubis Coronal, sagittal reformats CT images acquired with automatic exposure control for dose reduction DLP: 341 mGy-cm Findings: Without intravenous contrast, sensitivity for detecting visceral parenchymal abnormalities decreased. Lung bases: Scarring. Visualized heart and pericardium: Small pericardial fluid. Liver: Cirrhosis. Gallbladder: Removed. Spleen: Unremarkable. Pancreas: Unremarkable. Adrenal glands: Unremarkable. Kidneys: Right kidney- No hydronephrosis. No renal stones. A few cysts. Left kidney- No hydronephrosis. No renal stones. Cyst. Distal esophagus/stomach: Unremarkable. Small bowel loops: Normal caliber and wall thickness. Right lower quadrant neobladder. Right lower quadrant abdominal wall urostomy. Colon: Denis pouch. Unchanged left hemipelvis sigmoid diverticula with a few gas locules. Left lower quadrant end colostomy. Diffuse colonic wall thickening. Nodes: No enlarged nodes. Peritoneum: No ascites. No free intraperitoneal air. Urinary bladder: Absent. Reproductive organs: Absent. Bones: Absent right posterior hemipelvis as before, with significant hip degenerative changes. Soft tissues: Unremarkable. Unopacified abdominal aorta: No aneurysmal dilatation. Atherosclerotic disease. IMPRESSION: 1. Colitis of remnant proximal colon. 2. No other acute abnormality. 3. Additional findings as above. Reviewed, dictated and finalized at location R.
--- NOTE | ~2024-12-14 | XR_ITS ---
Examination: XR chest 2V Clinical History: weakness Comparison: 12/12/2024 Technique: PA and Lateral Findings: Cardiomediastinal silhouette normal size and configuration. Bilateral operative changes with associated scarring. No acute bony abnormality. IMPRESSION: 1. No acute cardiopulmonary findings. Reviewed, dictated and finalized at location R.
--- NOTE | 2024-12-14 10:31 | ECG_ITS ---
Test Date: 2024-12-14 11:21:39 Measurements Intervals [place] Rate: 73 P: 57 NH: 162 QRS: 71 QRSD: 78 T: 37 QT: 409 QTc: 451 Interpretive Statements SINUS RHYTHM CONSIDER INFERIOR INFARCT, AGE INDETERMINATE BORDERLINE ST-T WAVE ABNORMALITY- ANTERIOR LEADS BASELINE WANDER- AVR, AVF ABNORMAL ECG Compared to ECG 12/30/2023 20:01:57 HEART RATE HAS INCREASED Electronically Signed On 12-14-2024 11:45:57 CDT by Nate Ness D.O.
--- OUTSIDE RECORDS SUMMARY | 2024-12-14 11:54 | XMS_ITS | Clinical Summary ---
Author Organization [address] Address [address] [place] [address] Care Team Providers Care Part Maker Name Role Phone Ady Lock MD Unavailable [phone] Lesley Wilson MD Primary Care Provider [phone] Allergies Active Allergy Reactions Criticality Noted Date [...] (08/09/2019): Added automatically from request for surgery [id number] Incontinence of sphincter ani 08/30/2014 Overview (06/12/2016): [...] pelvic radiation. surgery by [facility]. 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 Gender Identity Not on file Sexual Orientation [...] 08/28/2022 11:44 AM Admit Type: Outpatient Room: [facility] Date of : 1965 Instrument [...] Most Recently Relevant to Health Maintenance Insurance [facility] Advance Directives For more information, please contact: [phone] * Full Code (Latest Code Status on File) Date Activated Date Inactivated Comments 08/28/2022 11:10 AM 08/28/2022 5:18 PM * Full Code Date Activated Date Inactivated Comments 09/15/2019 10:08 AM 09/15/2019 6:13 PM Care Teams Part Maker Relationship Specialty Start Date End Date Lesley Wilson MD [address] [place] [address] PCP - General Family Medicine 08/19/22 Ady Lock MD [address] [place] [address] Referring Physician Psychiatry 10/14/21
--- OUTSIDE RECORDS SUMMARY | 2024-12-14 11:55 | XMS_ITS | Clinical Summary ---
Author Organization [address] Address [address] [place] [address] Care Team Providers Care Crew Attendant Name Role Phone Lesley Wlison MD Primary Care Provider [phone] Allergies Active Allergy Reactions Criticality Noted Date [...] II [employer] CHOICE POS II Care Teams Crew Attendant Relationship Specialty Start Date End Date Lesley Wilson MD [address] [place] [address] PCP - General Family Practice 12/05/21
--- NOTE | 2024-12-14 12:11 | ED.GENADULT ---
HPI - General Adult General Chief complaint: Weakness Stated complaint: dehydration Time Seen by Provider: 12/14/24 11:44 History of Present Illness HPI narrative: 59-year-old female presents to the emergency department for evaluation for persistent generalized weakness. Patient states that she did feel improved with treatment during her last visit but after she got home she was still having persistent colostomy output. Patient states that she has dropped weight again. Patient denies any right flank pain that be consistent with a typical urinary tract infection for her. Urine cultures pending from her last urinalysis. Patient denies any abdominal pain. Patient denies any cough or congestion. Related Data Home Medications ?Medication ?Instructions ?Recorded ?Confirmed ?Last Taken ?Type cyanocobalamin (vitamin B-12) 100 mcg subcut MONTHLY 11/24/21 12/14/24 11/22/24 History 1,000 mcg/mL injection solution escitalopram oxalate 5 mg tablet 10 mg PO DAILY 12/30/23 12/14/24 12/13/24 History lamotrigine 200 mg tablet 200 mg PO DAILY 05/02/24 12/14/24 12/13/24 History Allergies Allergy/AdvReac Type Severity Reaction Status Date / Time chlorpromazine Allergy Unknown Unknown Verified 12/14/24 16:33 Review of Systems Review of Systems: All systems reviewed & are unremarkable except as noted in HPI and below PMFSH Past Medical History Medical History (Updated 12/14/24 @ 15:14 by Laisha Johnston, LEAD SEWAGE PLANT OPERATOR) Lumbar spine pain Tear of meniscus of left knee Postoperative pelvic peritoneal adhesions Hx of intestinal obstruction History of malignant neoplasm metastatic to lung History of cancer metastatic to bone Personal history of ovarian cancer Obesity (BMI 30-39.9) Pulmonary embolism Colostomy in place Ovarian cancer History of blood clots Surgical History Surgical History (Updated 07/24/24 @ 11:20 by Addis Wright PA-C) H/O hysterectomy with oophorectomy ~1980s Status post ileal conduit Cystectomy with ileal conduit related to radiation History of cholecystectomy Colostomy status History of carpal tunnel surgery History of cholecystectomy Family History Family History Father Heart disease Hypertension Cerebrovascular accident Cancer of kidney Mother Hypertension Heart disease Social History Social History Smoking status: Never smoker Second hand tobacco smoke exposure: No Alcohol intake: current Alcohol use details: once a month, maybe; socially only Substance use: never Substance use type: does not use Lack of Transportation: No Lack of Food: Never True Current Housing: I Have Housing Concerned About Future Housing: No Difficulty Paying Gas/Electric Bills: No Difficulty Paying for Meds: No Currently Unemployed: Decline to Answer Education: Master's Degree or Higher Difficulty w/ Childcare or Family Care: No Living arrangements: alone Additional living arrangements comments: Occupation/Education: retired Gender identity (if verbalized by the patient): Female Sexual Orientation (if Verbalized by the Patient): Lesbian, Gill, or Homosexual Spiritual care concerns: No Agree to blood products: Yes Exam Narrative: APPEARANCE: Well appearing, no pain, no distress, well-nourished. HEAD: normocephalic, atraumatic. EYES: PERRLA/EOMI, conjunctivae clear. NOSE: Normal no drainage EARS:TMS clear with good light reflex. THROAT: Pharynx clear, no exudate. NECK: Supple. No adenopathy, no masses. RESPIRATORY: Airway patent, respirations nonlabored. Clear to auscultation bilaterally, no rales, rhonchi, wheezing. CARDIOVASCULAR: Regular rate and rhythm without murmurs rubs or gallops. ABDOMINAL: Soft, nontender, nondistended, normal bowel sounds MUSCULOSKELETAL: Moves all extremities. Strength/ROM intact, No edema, No calf tenderness. NEURO: Alert. Cranial nerves II through XII intact. Good gait. Good coordination SKIN: Warm, dry. Normal Color Course Vital Signs Vital signs: Vital Signs Temperature 95.0 F L 12/14/24 10:10 Pulse Rate 73 12/14/24 10:10 Respiratory Rate 22 H 12/14/24 10:10 Blood Pressure 123/110 H 12/14/24 10:10 Pulse Oximetry 96 12/14/24 10:10 Temperature 97.5 F L 12/14/24 10:24 Pulse Rate 62 12/14/24 14:23 Respiratory Rate 17 12/14/24 14:23 Blood Pressure 102/76 12/14/24 12:59 Pulse Oximetry 95 12/14/24 14:23 Oxygen Delivery Room Air 12/14/24 17:06 Medical Decision Making MDM Narrative Medical decision making narrative: 59-year-old female return to the emergency department for evaluation for decreased p.o. intake and high ostomy output with associated lightheaded dizziness. Patient is currently afebrile with no leukocytosis hemoglobin of 15.7 which by represents hemoconcentration from her most recent values. Patient does have worsening kidney function with a creatinine of 3.72 BUN of 77. Patient's urine is still concerning for urinary tract infection. Patient denies any right flank pain. CT scan was ordered without contrast, contrast could not be used due to her acute kidney injury. CT scan does show evidence of colitis. Patient was started on IV Rocephin for the UTI and IV Flagyl was added to also cover for the potential colitis. Case was discussed with hospitalist patient was accepted for admission. Patient was updated the results of workup and she was comfortable the plan for admission. All questions concerns were addressed. Differential Diagnosis Differential Diagnosis: Colitis, diverticulitis, urinary tract infection, acute kidney injury, chronic kidney disease, C diff Vital Signs Vital Signs: Vital Signs Temperature 95.0 F L 12/14/24 10:10 Pulse Rate 73 12/14/24 10:10 Respiratory Rate 22 H 12/14/24 10:10 Blood Pressure 123/110 H 12/14/24 10:10 Pulse Oximetry 96 12/14/24 10:10 Temperature 97.5 F L 12/14/24 10:24 Pulse Rate 62 12/14/24 14:23 Respiratory Rate 17 12/14/24 14:23 Blood Pressure 102/76 12/14/24 12:59 Pulse Oximetry 95 12/14/24 14:23 Oxygen Delivery Room Air 12/14/24 17:06 Lab Data Lab results reviewed: Yes I reviewed the patient's lab results. 12/14/24 12:24 12/14/24 12:24 Labs: Lab Results 12/14/24 12/14/24 Range/Units 12:24 12:25 WBC 8.9 (4.5-10.0) K/mm3 RBC 4.95 (4.2-5.4) M/mm3 Hgb 15.7 H (12.0-15.0) g/dL Hct 44.2 (37.0-47.0) % MCV 89.3 (80-100) fl MCH 31.7 (26-34) pg MCHC 35.5 (32-36) g/dl RDW 12.7 (11.5-14.5) % Plt Count 297 (150-375) k/mm3 MPV 9.5 (7.4-10.4) fl Immature Gran % (Auto) 0.6 H (0-0.5) % Neut % (Auto) 66.4 (45.5-73.1) % Lymph % (Auto) 18.9 (18.3-44.2) % [place] % (Auto) 13.5 H (2.6-8.5) % Eos % (Auto) 0.2 (0-4.4) % Baso % (Auto) 0.4 (0.2-1.2) % Lymph # (Auto) 1.69 (0.9-3.2) K/mm3 [place] # (Auto) 1.2 H (0.1-0.6) K/mm3 Eos # (Auto) 0.0 (0-0.3) K/mm3 Baso # (Auto) 0.0 (0.0-0.1) K/mm3 Abs Immat Gran (auto) 0.05 H (0.00-0.031) K/mm3 Absolute Neuts (auto) 5.9 (1.3-6.7) K/mm3 Absolute Nucleated RBC 0.000 (0.0-0.012) K/mm3 Nucleated RBC % 0.0 (0.0-0.2) % Sodium 133 L (137-145) mmol/L Potassium 3.6 (3.4-5.0) mmol/L Chloride 91 L (98-107) mmol/L Carbon Dioxide 19 L (22-30) mmol/L Anion Gap 23 H (4-12) mmol/L BUN 44 H D (7-17) mg/dL Creatinine 3.72 H (0.7-1.0) mg/dL Estim Creat Clear Calc 13 ml/min Estimated GFR 12 L (59 - ) Glucose 140 H (65-110) mg/dL Calcium 9.8 (8.4-10.2) mg/dL Total Bilirubin 1.3 (0.2-1.3) mg/dL AST 44 H (14-36) U/L ALT 40 H (6-35) U/L Alkaline Phosphatase 80 (38-126) U/L Total Protein 10.5 H (6.3-8.2) g/dL Albumin 5.0 (3.5-5.1) g/dL Urine Color Dark yellow (Yellow) Urine Appearance Turbid H (Clear) Urine pH 8.5 (5.0-9.0) Ur Specific [place] 1.018 (1.001-1.035) Urine Protein 3+ H (Negative) mg/dL Urine Glucose (UA) Negative (Negative) mg/dL Urine Ketones Trace H (Negative) mg/dL Ur Blood (Man) Negative (Negative) Urine Nitrate Negative (Negative) Urine Bilirubin 1+ H (Negative) Urine Urobilinogen 1.0 (<2.0) mg/dL Leukocyte Esterase Rfl 2+ H (Negative) PRICILLA/UL Urine RBC 3-5 H (0-2) /hpf Urine WBC 21-50 H (0-3) /hpf Ur Squamous Epith Cells Occasional (Few) /hpf Cystine Crystals Present H (None) /hpf Urine Bacteria 4+ H /hpf Urine Casts >20 Imaging Data Radiologist's impression: Impressions Chest X-Ray 12/14/24 10:49 IMPRESSION: 1. No acute cardiopulmonary findings. Abdomen/Pelvis CT 12/14/24 13:10 IMPRESSION: 1. Colitis of remnant proximal colon. 2. No other acute abnormality. 3. Additional findings as above. Discharge Plan Discharge Clinical Impression: CHARLI (acute kidney injury), UTI (urinary tract infection), Dehydration, Colitis Patient Disposition: Still a Patient Condition: Stable
[2024-12-14] MEDS: LACTATED RINGERS 1,000 ML 999 ML IV CONT ×2 (12:32→14:23)
[2024-12-14 12:38] LABS: Hematocrit 44.2 % (37.0-47.0); Hemoglobin 15.7 g/dL (12.0-15.0); Immature Granulocyte Percent A 0.6 % (0-0.5); Lymphocytes Absolute Auto 1.69 K/mm3 (0.9-3.2); Mean Corpuscular HGB Conc 35.5 g/dl (32-36); Mean Corpuscular Hemoglobin 31.7 pg (26-34); Mean Corpuscular Volume 89.3 fl (80-100); Nucleated Red Blood Cells Absolute Auto 0.000 K/mm3 (0.0-0.012); Nucleated Red Blood Cells Perc 0.0 % (0.0-0.2); Platelet Count Result 297 k/mm3 (150-375); Red Blood Count 4.95 M/mm3 (4.2-5.4); White Blood Count 8.9 K/mm3 (4.5-10.0)
[2024-12-14 12:48] LABS: Alanine Aminotransferase 40 U/L (6-35); Albumin Level 5.0 g/dL (3.5-5.1); Alkaline Phosphatase 80 U/L (38-126); Anion Gap 23 mmol/L (4-12); Aspartate Amino Transferase 44 U/L (14-36); Bilirubin,Total 1.3 mg/dL (0.2-1.3); Blood Urea Nitrogen 44 mg/dL (7-17); Calcium 9.8 mg/dL (8.4-10.2); Carbon Dioxide 19 mmol/L (22-30); Chloride 91 mmol/L (98-107); Estimated CRCL calculation 13 ml/min; Estimated Glomerular Filt Rate 12; Glucose 140 mg/dL (65-110); Potassium 3.6 mmol/L (3.4-5.0); Sodium 133 mmol/L (137-145); Total Protein 10.5 g/dL (6.3-8.2)
[2024-12-14 12:59] LABS: Add Urine Microscopic? YES; Appearance Urine Turbid (Clear); Glucose Urine UA Negative (Negative); Leukocyte Esterase Ur 2+ LEU/UL (Negative); Nitrate Urine Negative (Negative); Non Pathogenic Casts >20; Specific Grav Ur 1.018 (1.001-1.035)
[2024-12-14 13:08] LABS: Cystine Crystals Urine Present /hpf
[2024-12-14] MEDS: cefTRIAXone 1 GM in SODIUM CHLORIDE 0.9% IV 50 ML 100 ML IVPB (13:39)
--- OUTSIDE RECORDS SUMMARY | 2024-12-14 14:27 | XMS_ITS | Clinical Summary ---
Author Organization [address] Address [address] [place] [id number] Care Team Providers Care Triage Licensed Practical Nurse Name Role Phone Ady Lock MD Unavailable [phone] Lesley Wilson MD Primary Care Provider [phone] Allergies Active Allergy Reactions Criticality Noted Date [...] (08/09/2019): Added automatically from request for surgery [id number] Incontinence of sphincter ani 08/30/2014 Overview (06/12/2016): [...] pelvic radiation. surgery by Dr. Sue at [facility] LAPAROTOMY OOPHERECTOMY 08/07/1979 - 09/05/1979 x2 w/ D xof ovarian cancer PELVIC EXENTERATION 04/08/1980 - 05/05/1980 anterior pelvic exenteration at [facility] w/ surgery needed for post-op bowel [...] on file Legal Sex Female 11:03 PM [employer] Gender Identity Not on file Sexual Orientation [...] 08/28/2022 11:44 AM Admit Type: Outpatient Room: [facility] Date of : 1965 Instrument [...] Most Recently Relevant to Health Maintenance Insurance [facility] Advance Directives For more information, please contact: [phone] * Full Code (Latest Code Status on File) Date Activated Date Inactivated Comments 08/28/2022 11:10 AM 08/28/2022 5:18 PM * Full Code Date Activated Date Inactivated Comments 09/15/2019 10:08 AM 09/15/2019 6:13 PM Care Teams Triage Licensed Practical Nurse Relationship Specialty Start Date End Date Lesley Wilson MD [address] [place] [address] PCP - General Family Medicine 08/19/22 Ady Lock MD [address] [place] [address] Referring Physician Psychiatry 10/14/21
--- OUTSIDE RECORDS SUMMARY | 2024-12-14 14:28 | XMS_ITS | Clinical Summary ---
Author Organization [address] Address [address] [place] [address] Care Team Providers Care Gluing Crew Leader Name Role Phone Lesley Wilson MD Primary Care Provider [phone] Allergies Active Allergy Reactions Criticality Noted Date [...] II [employer] CHOICE POS II Care Teams Gluing Crew Leader Relationship Specialty Start Date End Date Lesley Wilson MD [address] [place] [id number] PCP - General Family Practice 12/05/21
--- NOTE | 2024-12-14 14:41 | P.HP_ITS ---
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 Patient was in the ED on December 12, 2024 with the same complaints she received IV hydration and felt better so she went home. Now she states she is unable to tolerate oral intake. Patient states that she had no urine output this morning. Patient states that she often has abdominal cramping after eating with rapid transit time. She states she has a known known history of colitis. Denies fevers chills. Lab work shows hyponatremia at 133, carbon dioxide 19, anion gap 23, BUN of 44 creatinine 3.72 with baseline being about 1.00, estimated GFR 12, glucose 140, AST 44 ALT 40, UA is turbid with 2+ leukocyte esterase, and 4+ bacteria, culture and sensitivity from December [address] shows colitis in the proximal colon. Patient was started on Rocephin and Flagyl given IV fluids. Review of Systems Review of Systems: 12 systems were reviewed and are negativ e except for as per HPI. [facility] Past Medical History Medical History (Updated 12/14/24 @ 15:14 by Laisha Johnston, [employer]) Lumbar spine pain Tear of meniscus of left knee Postoperative pelvic peritoneal adhesions Hx of intestinal obstruction History of malignant neoplasm metastatic to lung History of cancer metastatic to bone Personal history of ovarian cancer Obesity (BMI 30-39.9) Pulmonary embolism Colostomy in place Ovarian cancer History of blood clots Surgical History Surgical History (Updated 07/24/24 @ 11:20 by Addis Wright PA-C) H/O hysterectomy with oophorectomy ~1980s Status post ileal conduit Cystectomy with ileal conduit related to radiation History of cholecystectomy Colostomy status History of carpal tunnel surgery History of cholecystectomy Family History Family History Father Heart disease Hypertension Cerebrovascular accident Cancer of kidney Mother Hypertension Heart disease Social History Social History Smoking status: Never smoker Second hand tobacco smoke exposure: No Alcohol intake: current Alcohol use details: once a month, maybe; socially only Substance use: never Substance use type: does not use Lack of Transportation: No Lack of Food: Never True Current Housing: I Have Housing Concerned About Future Housing: No Difficulty Paying Gas/Electric Bills: No Difficulty Paying for Meds: No Currently Unemployed: Decline to Answer Education: Master's Degree or Higher Difficulty w/ Childcare or Family Care: No Living arrangements: alone Additional living arrangements comments: Occupation/Education: retired Gender identity (if verbalized by the patient): Female Sexual Orientation (if Verbalized by the Patient): Lesbian, Gill, or Homosexual Spiritual care concerns: No Agree to blood products: Yes Meds Home Medications and Allergies Home Medications ?Medication ?Instructions ?Recorded ?Confirmed ?Type cyanocobalamin (vitamin B-12) 100 mcg subcut MONTHLY 0 11/24/21 12/14/24 History 1,000 mcg/mL injection solution escitalopram oxalate 5 mg tablet 10 mg PO DAILY 12/14/24 History lamotrigine 200 mg tablet 200 mg PO DAILY 05/02/2411/30 History atenolol 100 mg tablet 100 mg PO DAILY #90 tabs 12/14/24 Rx ergocalciferol (vitamin D2) 1,250 1,250 mcg PO WEEKLY #12 caps 10/08/24 12/14/24 Rx mcg (50,000 unit) capsule (Vitamin D2) spironolactone 25 mg tablet See Rx Instructions .Route 12/07/24 12/14/24 Rx .COMPLEX #90 tabs Allergies Allergy/AdvReac Type Severity Reaction Status Date / Time chlorpromazine Allergy Unknown Unknown Verified 12/14/24 16:33 Vital Signs Vital Signs - 24 hr 12/14/24 10:10 12/14/24 10:24 12/14/24 11:09 Temperature 95.0 F L 97.5 F L Pulse Rate 73 67 Respiratory Rate 22 H 16 Blood Pressure 123/110 H 114/56 L 84/74 L Pulse Oximetry 96 97 Oxygen Delivery Room Air 12/14/24 12:59 12/14/24 14:23 Temperature Pulse Rate 66 62 Respiratory Rate 14 17 Blood Pressure 102/76 Pulse Oximetry 99 95 Oxygen Delivery Exam Narrative: General: well appearing, appears stated age. HEENT: normocephalic, atraumatic. Mucous membranes moist. EOMI, PERRLA, willis ateral sclera anicteric, no conjunctival injection. Neck supple without JVD, lymphadenopathy, or bruit. Respiratory: clear to ascultation bilaterally. No rales/rhonic/wheezes. Cardiovascular: Regular rate and rhythm, normal S1-S2 upon ascultation. No murmurs, rubs, or clicks. PMI is nondisplaced, capillary refill less than 3 second. Abdomen: Soft, round, no pulsatile masses, nondistended and nontender. No rebound, no guarding. No CVA tenderness, no hepatosplenomegaly. Bowel sounds present to all four quadrants. No high pitch or tinkling sounds, resonant to percussion. Extremities: No cyanosis, clubbing, or edema present. Pulses are palpable 2/2. Active ROM to all four extremities. Neuro: Alert and orientated x 4. PERRLA. Cranial nerves 2-12 intact without focal deficit. Skin: Warm, dry, and intact, without rash, erythema, or lesion. Psych: pleasant, cooperative, normal speech, normal affect, no hallucinations, no dysarthia H&P: Results Labs Labs: Short CBC 12/14/24 Range/Units 12:24 WBC 8.9 (4.5-10.0) K/mm3 Hgb 15.7 H (12.0-15.0) g/dL Hct 44.2 (37.0-47.0) % Plt Count 297 (150-375) k/mm3 BMP 12/14/24 12:24 Sodium 133 L Potassium 3.6 Chloride 91 L Carbon Dioxide 19 L BUN 44 H D Creatinine 3.72 H Glucose 140 H Calcium 9.8 Liver Function 12/14/24 Range/Units 12:24 Total Bilirubin 1.3 (0.2-1.3) mg/dL AST 44 H (14-36) U/L ALT 40 H (6-35) U/L Alkaline Phosphatase 80 (38-126) U/L Albumin 5.0 (3.5-5.1) g/dL Urine 12/14/24 Range/Units 12:25 Urine Color Dark yellow (Yellow) Urine Appearance Turbid H (Clear) Urine pH 8.5 (5.0-9.0) Ur Specific [place] 1.018 (1.001-1.035) Urine Protein 3+ H (Negative) mg/dL Urine Glucose (UA) Negative (Negative) mg/dL Assessment and Plan Assessment and plan (1) Colitis: Code(s): K52.9 - Noninfective gastroenteritis and colitis, unspecified Status: Acute Assessment and Plan: GI consulted IV Flagyl Fluid bolus in IVF for hydration Okay for clear liquid diet (2) CHARLI (acute kidney injury): Code(s): N17.9 - Acute kidney failure, unspecified Status: Acute Assessment and Plan: Nephrology consulted IVF BMP in the morning (3) Dehydration: Code(s): E86.0 - Dehydration Status: Acute Assessment and Plan: 3 L fluid bolus given in ED followed by IVF at 125 (4) UTI (urinary tract infection): Code(s): N39.0 - Urinary tract infection, site not specified Status: Acute Assessment and Plan: IV Rocephin Culture and sensitivity pending (5) Elevated liver function tests: Code(s): R79.89 - Other specified abnormal findings of blood chemistry Status: Acute Assessment and Plan: CMP in the morning (6) Depression: Code(s): F32.A - Depression, unspecified Status: Acute Assessment and Plan: Continue citalopram, Lamictal and Lexapro (7) Hypertension: Code(s): I10 - Essential (primary) hypertension Status: Acute Assessment and Plan: Currently holding spironolactone due to acute dehydration Quality VTE Prophylaxis VTE prophylaxis: mechanical ordered and pharmacologic ordered Hospitalist MIPS Advance Care Plan I have confirmed that the patient's Advanced Care Plan is present, code status is documented, or surrogate decision maker is listed in patient medical record.: Yes Medication Reconciliation I have utilized all available resources to obtain, update and review the patients current medications (includes all prescriptions, OTC, herbals, cannabis, and nutritional supplements).: Yes
[2024-12-14] MEDS: LACTATED RINGERS 1,000 ML 125 ML IV CONT (16:32)
[2024-12-14] MEDS: metroNIDAZOLE 500 MG/ISO 100ML 500 MG/100 ML BAG 100 MG IVPB ×2 (16:32→21:29)
--- NOTE | 2024-12-14 16:47 | ADMGEN ---
This patient, aWnda Nolen, was admitted to Medical Room 347-. Patient/family oriented to hospital policies and general routines including ID bracelet, bed and alarms, visiting hours, pain management, procedures, bathroom and other care routines, personal items, smoking policy, room service/diet, and visiting hours. Information on how to activate the Rapid Response Team has been discussed. Patient/Family are encouraged to report perceived risks to care and to ask questions if they do not understand what they are told or what they should do.
[2024-12-15] VITALS (9 sets, daily range): BP systolic 90–105; BP diastolic 52–65; PULSE 62–78; RESP 16–18; TEMP 36.7–36.8; O2SAT 97–98
[2024-12-15] MEDS: ACETAMINOPHEN 325 MG TABLET 650 MG PO ×2 (00:14→06:38)
[2024-12-15] MEDS: ESCITALOPRAM OXALATE 10 MG TABLET PO ×2 (00:18→20:32)
[2024-12-15] MEDS: LACTATED RINGERS 1,000 ML 125 ML IV CONT ×2 (00:18→21:39)
[2024-12-15] MEDS: SODIUM CHLORIDE 0.9% IV 1,000 ML 999 ML IV CONT (00:18)
[2024-12-15 06:17] LABS: Hematocrit 33.8 % (37.0-47.0); Hemoglobin 11.7 g/dL (12.0-15.0); Immature Granulocyte Percent A 0.3 % (0-0.5); Lymphocytes Absolute Auto 1.47 K/mm3 (0.9-3.2); Mean Corpuscular HGB Conc 34.6 g/dl (32-36); Mean Corpuscular Hemoglobin 31.6 pg (26-34); Mean Corpuscular Volume 91.4 fl (80-100); Nucleated Red Blood Cells Absolute Auto 0.000 K/mm3 (0.0-0.012); Nucleated Red Blood Cells Perc 0.0 % (0.0-0.2); Platelet Count Result 207 k/mm3 (150-375); Red Blood Count 3.70 M/mm3 (4.2-5.4); White Blood Count 6.2 K/mm3 (4.5-10.0)
--- NOTE | 2024-12-15 06:32 | PC.NURSE ---
[address] Onofre regarding consult.
[2024-12-15] MEDS: metroNIDAZOLE 500 MG/ISO 100ML 500 MG/100 ML BAG 100 MG IVPB ×3 (06:34→21:39)
[2024-12-15 06:44] LABS: Alanine Aminotransferase 27 U/L (6-35); Albumin Level 3.8 g/dL (3.5-5.1); Alkaline Phosphatase 61 U/L (38-126); Anion Gap 13 mmol/L (4-12); Aspartate Amino Transferase 29 U/L (14-36); Bilirubin,Total 0.8 mg/dL (0.2-1.3); Blood Urea Nitrogen 35 mg/dL (7-17); Calcium 8.7 mg/dL (8.4-10.2); Carbon Dioxide 25 mmol/L (22-30); Chloride 94 mmol/L (98-107); Estimated CRCL calculation 22 ml/min; Estimated Glomerular Filt Rate 24; Glucose 114 mg/dL (65-110); Potassium 2.8 mmol/L (3.4-5.0); Sodium 132 mmol/L (137-145); Total Protein 7.1 g/dL (6.3-8.2)
[2024-12-15 07:14] LABS: Magnesium 1.6 mg/dL (1.6-2.3)
--- NOTE | 2024-12-15 08:11 | WPDGICN ---
Assessment and Plan Assessment and plan (1) Abnormal digestive system diagnostic imaging: Code(s): R93.3 - Abnormal findings on diagnostic imaging of other parts of digestive tract <Kenya Canada APRN - Last Filed: 12/15/24 15:03> Status: Acute <Kenya Canada APRN - Last Filed: 12/15/24 15:03> (2) Colitis: Code(s): K52.9 - Noninfective gastroenteritis and colitis, unspecified <Kenya Canada APRN - Last Filed: 12/15/24 15:03> Status: Acute <Kenya Canada APRN - Last Filed: 12/15/24 15:03> (3) Hepatic steatosis: Code(s): K76.0 - Fatty (change of) liver, not elsewhere classified <Kenya Canada TILT WALL SUPERVISOR - Last Filed: 12/15/24 15:03> Status: Acute <Kenya Canada [employer] W[employer] SUPER[employer] - Last Filed: 12/15/24 15:03> (4) Cirrhosis: Qualifiers: Hepatic cirrhosis type: other cirrhosis Qualified Code(s): K74.69 - Other cirrhosis of liver <Kenya Canada APRN - Last Filed: 12/15/24 15:03> Code(s): K74.60 - Unspecified cirrhosis of liver <Kenya Canada APRN - Last Filed: 12/15/24 15:03> Status: Acute <Kenya Canada APRN - Last Filed: 12/15/24 15:03> (5) Elevated liver transaminase level: Code(s): R74.01 - Elevation of levels of liver transaminase levels <Kenya Canada APRN - Last Filed: 12/15/24 15:03> Status: Acute <Kenya Canada APRN - Last Filed: 12/15/24 15:03> Assessment and Plan: 1. Abnormal imaging digestive-colitis: Last colonoscopy via colostomy 08/28/2022 was normal. Patient S/P colostomy performed July 2012. Patient presented to the ER 3 times over the past 6 months for dehydration and UTI's. She presented yesterday with complaints of weakness and was admitted for CHARLI, UTI, dehydration and colitis. CT colon findings include: Denis pouch. Unchanged left hemipelvis sigmoid diverticula with a few gas locules. Left lower quadrant end colostomy. Diffuse colonic wall thickening. C-Diff PCR negative. Patient does admit to recent right sided dull abdominal pain and increased colostomy output a few days prior to her admission. No prior HX of colitis so findings on CT are likely secondary to an acute infectious/inflammatory cause Currently on Rocephin and Flagyl, continue 2. Hepatic steatosis/cirrhosis/elevated liver transaminase: EUS done 03/10/2024 portion of the liver (left lobe) with changes suggestive of fatty liver. CT this admission showed cirrhosis. No prior Hx of bilirubin and Alk Phos elevation, mild AST elevation this admission but is otherwise normal, and Hx of chronic mild ALT elevation. Cirrhosis is a new diagnosis for the patient. As mentioned previously she had been diagnosed with hepatic steatosis in the past which may have progressed to cirrhosis. She is a nondrinker. Patient advised to follow up with me outpatient for management and further workup We will discuss liver workup and FibroScan during her next visit Thank you very much for allowing me to share in the care of this very nice patient. This report may have been done utilizing a voice recognition system. Attempts have been made to correct errors. However, there may be uncorrected grammatical, spelling, and recognition errors present. 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 Patient presented to the ER yesterday with complaints of weakness and was admitted for CHARLI, UTI, dehydration and colitis. ER visit 12/12/2024 with complaints of AMS and decreased urine output and diagnosed with acute dehydration and hypokalemia. ER visit 06/22/2024 for right flank pain Dx with UTI. Patient states that recently she had right sided abdominal discomfort that she describes as a dull ache. This pain typically is around for a few minutes and then resolves without intervention. She does admit that prior to this hospitalization she was having increased frequency and colostomy output. She does have chronically loose stools but states that at times her stools can be more formed based on which she is eaten that day. She currently denies any abdominal pain, nausea, vomiting, bloating, odynophagia, dysphagia, reflux, regurgitation, early satiety, appetite or weight loss. Denies constipation, hematochezia, or melena. ENDOSCOPY HISTORY: EGD/EUS: 03/10/[address] Funk Normal esophagus One 3 mm polyp on the greater curvature of the gastric body, removed with cold snare. Stomach o/w normal Normal examined duodenum, including papillary views Recommended repeat CT with pancreas protocol in 1 month EUS: History this portion of the liver (left lobe) with changes suggestive of fatty liver Normal common bile duct Normal pancreas. Nondilated pancreatic duct. No pancreatic mass or cyst visualized Bx Results: Focal foveolar hyperplasia EGD: 12/15/[address] Espinoza for epigastric pain and abnormal CT Findings: The esophagus was examined mucosa was normal with a normal Z-line and no ulcers or masses. No esophagitis or Rdz's. Weight line was located 37 cm from the incisors Mild to moderate erosive gastritis was seen in the antrum. The gastritis had erythematous and erosive changes, no other lesion. There was no mucosal bleeding. Bx taken The ampulla, bulb and 2nd portion of the duodenum was normal with no ulcers or masses. No duodenitis Bx results: Stomach, biopsy: - Gastric mucosa with mild chronic inflammation - Negative for acute inflammation or H. pylori by IHC stain COLONOSCOPY: 08/28/[address] Sue Findings: Colonoscopy via Stoma with endoscopy Denis Normal COLONOSCOPY: 07/18/[address] Sue Findings: Colonoscopy via Stoma with endoscopy Denis Normal LABS AND STOOL STUDIES: Labs 12/15/2024: Sodium 132, potassium 2.8, BUN 35, creatinine 2.09, GFR 24, calcium 8.7, mag 1.6 WBC 6, Hgb 12, Hct 34, MCV 91, platelets 207 Total bilirubin 0.8, AST 29, ALT 27, Alkaline Phos 61, albumin 3.8 Labs 12/12/2024: WBC 9, Hgb 16, Hct 44, MCV 89, platelets 297, INR 1.2 Sodium 130, potassium 3.0, BUN 25, creatinine 2.03, GFR 25, calcium 9.7 Total bilirubin 1.2, AST 40, ALT 37, Alkaline Phos 66, albumin 5.0 Stool studies: C-diff PCR negative (12/12/2024) IMAGING: CT abd/pelvis w/contrast 12/14/2024: Liver: Cirrhosis. Gallbladder: Removed. Spleen: Unremarkable. Pancreas: Unremarkable. Adrenal glands: Unremarkable. Distal esophagus/stomach: Unremarkable. Small bowel loops: Normal caliber and wall thickness. Right lower quadrant neobladder. Right lower quadrant abdominal wall urostomy. Colon: Denis pouch. Unchanged left hemipelvis sigmoid diverticula with a few gas locules. Left lower quadrant end colostomy. Diffuse colonic wall thickening. IMPRESSION: 1. Colitis of remnant proximal colon. 2. No other acute abnormality. 3. Additional findings as above. CT abd/pelvis w/contrast 06/23/2024: The liver, spleen, pancreas, adrenals and kidneys are within normal limits, aside from renal cysts. Cholecystectomy clips are present. There are atherosclerotic calcifications of the aorta. No lymphadenopathy. No bowel obstruction or bowel wall thickening. Evidence of distal colectomy with left lower quadrant ostomy. There is a 2.5 x 2.2 cm enhancing mass in the left pelvic sidewall region, possibly arising from or abutting the distal sigmoid colon (axial image 144). Impression: No acute abnormality. 2.5 x 2.2 cm mass likely arising from the sigmoid colon the left pelvis, as detailed above. This is stable in appearance since 11/02/2021, therefore likely benign. Status post cystectomy with ileal conduit. Status post partial colectomy with left lower quadrant ostomy Abdominal Ultrasound 08/14/2023: No hepatic or pancreatic space-occupying mass lesion. Normal hepatopedal portal venous flow direction. The gallbladder is surgically absent. Common bile duct measures 3.8 mm. IMPRESSION: No significant abnormality of the liver or pancreas is demonstrated Status post cholecystectomy Normal common bile duct caliber 3.8 mm <Kenya Canada APRN - Last Filed: 12/15/24 15:03> Review of Systems Constitutional: Constitutional: Reports as per HPI <Kenya Canada APRN - Last Filed: 12/15/24 15:03> ENT: Reports as per HPI <Kenya Canada APRN - Last Filed: 12/15/24 15:03> Cardiovascular: Cardiovascular: Reports as per HPI, Denies chest pain and Denies dyspnea <Kenya Canada APRN - Last Filed: 12/15/24 15:03> Respiratory: Respiratory: Denies cough and Denies dyspnea <Kenya Canada APRN - Last Filed: 12/15/24 15:03> Gastrointestinal: Gastrointestinal: Reports as per HPI <Kenya Canada APRN - Last Filed: 12/15/24 15:03> Genitourinary: Comments: Recent decreased output from urostomy <Kenya Canada APRN - Last Filed: 12/15/24 15:03> Musculoskeletal: Musculoskeletal: Reports as per HPI <Kenya Canada APRN - Last Filed: 12/15/24 15:03> Integumentary/Breasts: Skin/Breast: Reports as per HPI <Kenya Canada APRN - Last Filed: 12/15/24 15:03> Psychiatric: Psychiatric: Reports as per HPI <Kenya Canada APRN - Last Filed: 12/15/24 15:03> Endocrine: Endocrine: Reports no additional endocrine complaints <Kenya Canada APRN - Last Filed: 12/15/24 15:03> Hematologic/Lymphatic: Hematologic/Lymphatic: Reports no additional hematologic/lymphatic complaints <Kenya Canada APRN - Last Filed: 12/15/24 15:03> [facility] Past Medical History Medical History: Medical History (Updated 12/15/24 @ 12:51 by Kenya Canada APRN) Lumbar spine pain Tear of meniscus of left knee Postoperative pelvic peritoneal adhesions Hx of intestinal obstruction History of malignant neoplasm metastatic to lung History of cancer metastatic to bone Personal history of ovarian cancer Obesity (BMI 30-39.9) Pulmonary embolism Colostomy in place Ovarian cancer History of blood clots <Kenya Canada APRN - Last Filed: 12/15/24 15:03> Surgical History Surgical History: Surgical History (Updated 07/24/24 @ 11:20 by Addis Wright PA-C) H/O hysterectomy with oophorectomy ~ Status post ileal conduit Cystectomy with ileal conduit related to radiation History of cholecystectomy Colostomy status History of carpal tunnel surgery History of cholecystectomy <Kenya Canada APRN - Last Filed: 12/15/24 15:03> Family History Family History: Family History Father Heart disease Hypertension Cerebrovascular accident Cancer of kidney Mother Hypertension Heart disease <Kenya Canada APRN - Last Filed: 12/15/24 15:03> Social History Social History: Social History Smoking status: Never smoker Second hand tobacco smoke exposure: No Alcohol intake: current Alcohol use details: once a month, maybe; socially only Substance use: never Substance use type: does not use Lack of Transportation: No Lack of Food: Never True Current Housing: I Have Housing Concerned About Future Housing: No Difficulty Paying Gas/Electric Bills: No Difficulty Paying for Meds: No Currently Unemployed: Decline to Answer Education: Master's Degree or Higher Difficulty w/ Childcare or Family Care: No Living arrangements: alone Additional living arrangements comments: Occupation/Education: retired Gender identity (if verbalized by the patient): Female Sexual Orientation (if Verbalized by the Patient): Lesbian, Gill, or Homosexual Spiritual care concerns: No Agree to blood products: Yes <Kenya Canada APRN - Last Filed: 12/15/24 15:03> Meds Home Medications and Allergies Home medications: Home Medications ?Medication ?Instructions ?Recorded ?Confirmed ?Type cyanocobalamin (vitamin B-12) 100 mcg subcut MONTHLY 11/24/21 12/14/24 History 1,000 mcg/mL injection solution escitalopram oxalate 5 mg tablet 10 mg PO DAILY 12/30/23 12/14/24 History lamotrigine 200 mg tablet 200 mg PO DAILY 05/02/24 12/14/24 History atenolol 100 mg tablet 100 mg PO DAILY #90 tabs 05/29/24 12/14/24 Rx ergocalciferol (vitamin D2) 1,250 1,250 mcg PO WEEKLY #12 caps 10/08/24 12/14/24 Rx mcg (50,000 unit) capsule (Vitamin D2) spironolactone 25 mg tablet See Rx Instructions .Route 12/07/24 12/14/24 Rx .COMPLEX #90 tabs <Kenya Canada APRN - Last Filed: 12/15/24 15:03> Allergies/Adverse reactions: Allergies Allergy/AdvReac Type Severity Reaction Status Date / Time chlorpromazine Allergy Unknown Unknown Verified 12/14/24 16:33 <Kenya Canada APRN - Last Filed: 12/15/24 15:03> Vital Signs Vital Signs - 24 hr 12/14/24 10:10 12/14/24 10:24 12/14/24 11:09 Temperature 95.0 F L 97.5 F L Pulse Rate 73 67 Respiratory Rate 22 H 16 Blood Pressure 123/110 H 114/56 L 84/74 L Pulse Oximetry 96 97 Oxygen Delivery Room Air 12/14/24 12:59 12/14/24 14:23 12/14/24 17:06 Temperature Pulse Rate 66 62 Respiratory Rate 14 17 Blood Pressure 102/76 Pulse Oximetry 99 95 Oxygen Delivery Room Air 12/14/24 20:00 12/14/24 21:08 12/14/24 21:14 Temperature 97.9 F Pulse Rate 61 Respiratory Rate 18 Blood Pressure 100/62 Pulse Oximetry 96 96 Oxygen Delivery Room Air Room Air 12/15/24 05:07 Temperature 98.0 F Pulse Rate 71 Respiratory Rate 18 Blood Pressure 103/65 Pulse Oximetry 97 Oxygen Delivery <Kenya Canada APRN - Last Filed: 12/15/24 15:03> Exam Const: General: cooperative, healthy appearing, comfortable, no acute distress and well developed <Kenya Canada APRN Last Filed: 12/15/24 15:03> Orientation/consciousness: oriented to person, oriented to place, oriented to time and patient oriented x3 <Kenya Canada APRN Last Filed: 12/15/24 15:03> HENMT: Head: normal to inspection, normocephalic and atraumatic <[facility] Last Filed: 12/15/24 15:03> Mouth: Yes Normal oral and palatal mucosa present and Yes moist mucous membranes <Kenyajolanta Canada [facility] Last Filed: 12/15/24 15:03> Eyes: General: appearance normal, both eyes and all related structures <Kenya Canada APRN Last Filed: 12/15/24 15:03> Conjunctivae: conjunctivae normal <[facility] Last Filed: 12/15/24 15:03> Sclera: sclerae normal <[facility]anta [facility] Last Filed: 12/15/24 15:03> Pupils: Equal, round and reactive pupils present <Kenyajolanta Canada APRN Last Filed: 12/15/24 15:03> Neck: Neck: normal visual inspection <Kenya Canada APRN Last Filed: 12/15/24 15:03> Chest: Chest palpation & inspection: normal inspection of the chest <Kenya Canada APRN Last Filed: 12/15/24 15:03> Resp: Effort & Inspection: normal respiratory effort and able to speak in complete sentences <[facility]anta [facility] Last Filed: 12/15/24 15:03> Auscultation: clear to auscultation bilaterally <Kenya Canada APRN Last Filed: 12/15/24 15:03> Cardio: Jugular venous distension: no JVD <Kenya Canada APRN Last Filed: 12/15/24 15:03> Rate: regular rate <Kenya Canada APRN Last Filed: 12/15/24 15:03> Rhythm: regular rhythm <Kenya Canada [employer] W[employer] SUPER[employer] Last Filed: 12/15/24 15:03> Heart sounds: S1 normal heart sound present and S2 normal heart sound present <Kenya CanadaGISELA Last Filed: 12/15/24 15:03> GI: Inspection: normal to inspection <Kenya Valenciaedgard [employer] SUPERVISOR Last Filed: 12/15/24 15:03> GI Palp: Yes Soft to palpation and Yes No hepatosplenomegaly present <Kenya Valenciaedgard [employer]IL[employer] WALL SUPER[employer] Last Filed: 12/15/24 15:03> Auscultation: normal bowel sounds <Kenya ValenciaGISELA rene Last Filed: 12/15/24 15:03> Rectal Exam: deferred <Kenya ValenciaGISELA rene Last Filed: 12/15/24 15:03> Skin: General skin exam: normal color and no rashes or lesions noted <Kenya ValenciaGISELA rene Last Filed: 12/15/24 15:03> Neuro: General: oriented to person, oriented to place, oriented to time and patient oriented x3 <Kenya ValenciaGISELA rene Last Filed: 12/15/24 15:03> Cranial nerves: Yes Equal, round and reactive pupils present <Kenya ValenciaGISELA rene Last Filed: 12/15/24 15:03> Speech: normal speech <Kenya ValenciaGISELA rene Last Filed: 12/15/24 15:03> Extrem: General: normal to inspection and no clubbing, cyanosis or edema <Kenya ValenciaGISELA rene Last Filed: 12/15/24 15:03> Psych: Appearance: grossly normal and well kempt <Kenya Montilla GISELA [place] Last Filed: 12/15/24 15:03> Affect: normal affect <Kenya Montilla GISELA [place] Last Filed: 12/15/24 15:03> Results Labs CBC & Chem 7: 12/15/24 06:00 12/15/24 06:00 <Kenya Montilla GISELA [place] - Last Filed: 12/15/24 15:03> Labs: Short CBC 12/14/24 12/15/24 Range/Units 12:24 06:00 WBC 8.9 6.2 (4.5-10.0) K/mm3 Hgb 15.7 H 11.7 L D (12.0-15.0) g/dL Hct 44.2 33.8 L (37.0-47.0) % Plt Count 297 207 (150-375) k/mm3 BMP 12/14/24 12/15/24 12:24 06:00 Sodium 133 L 132 L Potassium 3.6 2.8 L* Chloride 91 L 94 L Carbon Dioxide 19 L 25 BUN 44 H D 35 H Creatinine 3.72 H 2.09 H Glucose 140 H 114 H Calcium 9.8 8.7 Liver Function 12/14/24 12/15/24 Range/Units 12:24 06:00 Total Bilirubin 1.3 0.8 (0.2-1.3) mg/dL AST 44 H 29 (14-36) U/L ALT 40 H 27 (6-35) U/L Alkaline Phosphatase 80 61 (38-126) U/L Albumin 5.0 3.8 (3.5-5.1) g/dL Urine 12/14/24 Range/Units 12:25 Urine Color Dark yellow (Yellow) Urine Appearance Turbid H (Clear) Urine pH 8.5 (5.0-9.0) Ur Specific [place] 1.018 (1.001-1.035) Urine Protein 3+ H (Negative) mg/dL Urine Glucose (UA) Negative (Negative) mg/dL <Kenya Canada APRN - Last Filed: 12/15/24 15:03> Attestation Supervising Provider Attestation briefly, she has history of 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 She is here with increase ostomy output, decrease urine by urostomy and generalized weakness, denies nausea or abdominal pain. Diagnosed with UTI and dehydration with charli, also low K. Doing much better now, she would like to eat more, CT scan also showed cirrhosis and colitis in remmant colon. Will advance diet, continue with hydration and monitor renal function/lytes <Alfa Acevedo MD - Last Filed: 12/15/24 14:47>
[2024-12-15] MEDS: POTASSIUM CHLORIDE INJ 40 MEQ in SODIUM CHLORIDE 0.9% IV 500 ML 130 MEQ IVPB (09:00)
[2024-12-15] MEDS: POTASSIUM CHLORIDE 20 MEQ ER TABLET PO (09:02)
--- NOTE | 2024-12-15 10:30 | P.CONNP_ITS ---
Assessment and Plan Assessment and plan (1) Acute kidney injury: Code(s): N17.9 - Acute kidney failure, unspecified Status: Acute Assessment and Plan: * as noted by admission labs (creatinine of 3.72mg/dL) * however, was noted 48 hours prior to admission by previous ER visit - creatinine 2.03mg/dL at that time * baseline creatinine runs around 0.98 - 1.2mg/dL in the last year or so * multifactorial etiology: * prerenal factors * infection (UTI + colitis) * diuretic use (spironolactone) * other (?) * improvement noted with interventions to date * CT of A/P without hydronephrosis * check urine studies and CPK * continue IVF resuscitation * follow trend of repeat labs and UOP (2) Hypokalemia: Code(s): E87.6 - Hypokalemia Status: Acute Assessment and Plan: * noted by labs done earlier on 12/15 * due to GI loss/increased colostomy output(?) * IV and oral replacement given * holding of spironolactone playing a role (?) * follow magnesium * follow repeat K+ levels (3) Colitis: Code(s): K52.9 - Noninfective gastroenteritis and colitis, unspecified Status: Acute Assessment and Plan: * as suggested by admission CT scan * GI recommendations noted * advance diet as tolerated * follow culture data * continue antibiotics (4) UTI (urinary tract infection): Code(s): N39.0 - Urinary tract infection, site not specified Status: Acute Assessment and Plan: * admission UA highly suggestive * however, she is know to have an ileostomy * follow culture data * on antibiotics (5) Elevated liver function tests: Code(s): R79.89 - Other specified abnormal findings of blood chemistry Status: Acute Assessment and Plan: * admission CT suggesting liver cirrhosis - new finding * noted plan for outpatient testing per GI * follow trend of LFTs (6) Hypertension: Code(s): I10 - Essential (primary) hypertension Status: Acute Assessment and Plan: * soft BP on admission * holding BP medications at this time * follow trend of hemodynamics I will continue to follow the patient with you while she remains hospitalized and make further recommendations as deemed necessary. Thank you for allowing me to participate in the care of this patient. L History of Present Illness Reason for Consult Consult date: 12/15/24 Reason for consult: acute renal failure Chief Complaint Chief complaint: CHARLI/UTI/Colitis History of Present Illness Narrative: Patient is a very pleasant 59-year-old female with extensive past medical history as outlined below who presented to [facility] Emergency Room with worsening generalized weakness. the patient initially presented to the ER about 2-3 days ago with similar complaints. Testing at that time demonstrated evidence of acute kidney injury thought to be secondary to volume depletion / dehydration due to increased colostomy output in conjunction with diminished oral intake. She received aggressive IV fluid hydration and repeat labs showed improvement in her renal function and the patient felt that she would be okay going home and pushing oral intake/hydration. Unfortunately, since she went home, her oral intake has worsened and she still has increased output from her colostomy In conjunction with decreased urine output from her ileostomy. Given these clinical symptoms, she presented back to the emergency room for further assessment. Workup and evaluation emergency room demonstrated the patient be hemodynamically stable and afebrile. Subsequent testing noted mild hyponatremia at 133, carbon dioxide 19, BUN of 44, creatinine 3.72,glucose 140, AST 44, and ALT 40. Her UA was turbid with 2+ leukocyte esterase, and 4+ bacteria. Subsequent CT of the abdomen/pelvis showed colitis in the proximal colon and evidence liver cirrhosis. after appropriate cultures were obtained, she was initiated on IV fluids well as IV antibiotics and subsequently admitted to the hospital further evaluation therapy. Since her admission to hospital, her renal function has improved with ongoing therapy/interventions and she is noted an increase in urine output as well. Renal consultation was requested due to her acute kidney injury/ acute renal failure. From review of records her baseline creatinine normally runs around 0.98 - 1.2 mg/dL. Of she has a known history cystectomy and subsequent urostomy her overall renal function seems to be relatively preserved. She is quite mindful of her stool and urine output via her colostomy and urostomy and as already mentioned, was quite concerned when she got have any significant urine output via ileostomy in the last 24-48 hours prior to her presentation to the emergency. Furthermore, she symptoms likely feels better with IV fluid resuscitation as well as IV antibiotic therapy as well Currently, the time my evaluation she appears to no acute distress. Review of Systems 2 Review of Systems: As per HPI. [facility] Past Medical History Medical History (Updated 12/15/24 @ 18:13 by Mikael Onofre MD) Hypokalemia Lumbar spine pain Tear of meniscus of left knee Postoperative pelvic peritoneal adhesions Hx of intestinal obstruction History of malignant neoplasm metastatic to lung History of cancer metastatic to bone Personal history of ovarian cancer Obesity (BMI 30-39.9) Pulmonary embolism Colostomy in place Ovarian cancer History of blood clots Surgical History Surgical History (Updated 07/24/24 @ 11:20 by Addis Wright PA-C) H/O hysterectomy with oophorectomy ~ Status post ileal conduit Cystectomy with ileal conduit related to radiation History of cholecystectomy Colostomy status History of carpal tunnel surgery History of cholecystectomy Family History Family History Father Heart disease Hypertension Cerebrovascular accident Cancer of kidney Mother Hypertension Heart disease Social History Social History Smoking status: Never smoker Second hand tobacco smoke exposure: No Alcohol intake: current Alcohol use details: once a month, maybe; socially only Substance use: never Substance use type: does not use Lack of Transportation: No Lack of Food: Never True Current Housing: I Have Housing Concerned About Future Housing: No Difficulty Paying Gas/Electric Bills: No Difficulty Paying for Meds: No Currently Unemployed: Decline to Answer Education: Master's Degree or Higher Difficulty w/ Childcare or Family Care: No Living arrangements: alone Additional living arrangements comments: Occupation/Education: retired Gender identity (if verbalized by the patient): Female Sexual Orientation (if Verbalized by the Patient): Lesbian, Gill, or Homosexual Spiritual care concerns: No Agree to blood products: Yes Meds Home Medications and Allergies Home Medications ?Medication ?Instructions ?Recorded ?Confirmed ?Type cyanocobalamin (vitamin B-12) 100 mcg subcut MONTHLY 0 11/24/21 12/14/24 History 1,000 mcg/mL injection solution escitalopram oxalate 5 mg tablet 10 mg PO DAILY 12/14/24 History lamotrigine 200 mg tablet 200 mg PO DAILY 05/02/2411/30 History atenolol 100 mg tablet 100 mg PO DAILY #90 tabs 12/14/24 Rx ergocalciferol (vitamin D2) 1,250 1,250 mcg PO WEEKLY #12 caps 10/08/24 12/14/24 Rx mcg (50,000 unit) capsule (Vitamin D2) spironolactone 25 mg tablet See Rx Instructions .Route 12/07/24 12/14/24 Rx .COMPLEX #90 tabs Allergies Allergy/AdvReac Type Severity Reaction Status Date / Time chlorpromazine Allergy Unknown Unknown Verified 12/14/24 16:33 Vital Signs Vital Signs Temp Pulse Resp BP Pulse Ox O2 Del Method 12/15/24 09:00 68 12/15/24 08:00 62 12/15/24 08:00 Room Air 12/15/24 05:07 98.0 F 71 18 103/65 97 12/14/24 21:14 97.9 F 61 18 100/62 96 12/14/24 21:08 96 Room Air 12/14/24 20:00 Room Air Exam 2 Narrative: GENERAL APPEARANCE: well developed well nourished female in no acute distress HEENT: normocephalic, atraumatic, normal conjunctiva and sclera, nares patient NECK: no lymphadenopathy, thyromegaly, or JVD MOUTH: normal lips, teeth, and gums CARDIOVASCULAR: RRR, normal S1 and S2, no rub RESPIRATORY: clear to auscultation bilaterally ABDOMEN: soft, nontender, nondistended, positive bowel sounds present; + colostomy & urostomy bag present EXTREMITIES: no evidence of cyanosis, clubbing, or edema NEUROLOGICAL: alert and oriented x 3; CN II - XII intact bilaterally; no focal deficits noted Results Lab Results 12/15/24 06:00 12/15/24 06:00 Lab results: Most recent lab results Calcium 8.7 mg/dL (8.4-10.2) 12/15/24 06:00 Magnesium 1.6 mg/dL (1.6-2.3) 12/15/24 06:00 Urine Creatinine 99.9 mg/dL 12/15/24 16:34 Urine Creatinine 100.0 mg/dL 12/15/24 16:34
[2024-12-15] MEDS: LIDOCAINE 1% PF INJ 5 ML VIAL INFILTRATE (15:20)
--- NOTE | 2024-12-15 15:32 | P.PNIM_ITS ---
Progress Note: A&P Assessment and Plan (1) Colitis: Code(s): K52.9 - Noninfective gastroenteritis and colitis, unspecified Status: Acute Assessment and Plan: GI consulted IV Flagyl Fluid bolus in IVF for hydration Okay for clear liquid diet gi consulted, appreciate recommendations (2) CHARLI (acute kidney injury): Code(s): N17.9 - Acute kidney failure, unspecified Status: Acute Assessment and Plan: Nephrology consulted IVF BMP in the morning nephrology following IV fluids (3) Dehydration: Code(s): E86.0 - Dehydration Status: Acute Assessment and Plan: 3 L fluid bolus given in ED followed by IVF at 125 continue iv fluids (4) UTI (urinary tract infection): Code(s): N39.0 - Urinary tract infection, site not specified Status: Acute Assessment and Plan: IV Rocephin Culture and sensitivity pending (5) Elevated liver function tests: Code(s): R79.89 - Other specified abnormal findings of blood chemistry Status: Acute Assessment and Plan: CMP in the morning daily labs (6) Depression: Code(s): F32.A - Depression, unspecified Status: Acute Assessment and Plan: Continue citalopram, Lamictal and Lexapro (7) Hypertension: Code(s): I10 - Essential (primary) hypertension Status: Acute Assessment and Plan: Currently holding spironolactone due to acute dehydration Time Spent With Patient Time with patient: 25 - 35 minutes Subjective Date/time seen: 12/15/24 15:32 Interval history: 59-year-old female with past medical history of ovarian cancer with bowel and bladder removal with urostomy and 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 Patient was in the ED on December 12, 2024 with the same com plaints she received IV hydration and felt better so she went home. Now she states she is unable to tolerate oral intake. Patient states that she had no urine output this morning. Patient states that she often has abdominal cramping after eating with rapid transit time. She states she has a known known history of colitis. Denies fevers chills. Lab work shows hyponatremia at 133, carbon dioxide 19, anion gap 23, BUN of 44 creatinine 3.72 with baseline being about 1.00, estimated GFR 12, glucose 140, AST 44 ALT 40, UA is turbid with 2+ leukocyte esterase, and 4+ bacteria, culture and sensitivity from December [address] shows colitis in the proximal colon. Patient was started on Rocephin and Flagyl given IV fluids pt is seen and examined. gi/nephrology consulted rocephin flagyl Review of Systems Review of Systems: 12 systems were reviewed and are negativ e except for as per HPI. Exam Narrative: General: well appearing, appears stated age. HEENT: normocephalic, atraumatic. Mucous membranes moist. EOMI, PERRLA, bilateral sclera anicteric, no conjunctival injection. Neck supple without JVD, lymphadenopathy, or bruit. Respiratory: clear to ascultation bilaterally. No rales/rhonic/wheezes. Cardiovascular: Regular rate and rhythm, normal S1-S2 upon ascultation. No murmurs, rubs, or clicks. PMI is nondisplaced, capillary refill less than 3 second. Abdomen: Soft, round, no pulsatile masses, nondistended and nontender. No rebound, no guarding. No CVA tenderness, no hepatosplenomegaly. Bowel sounds present to all four quadrants. No high pitch or tinkling sounds, resonant to percussion. Extremities: No cyanosis, clubbing, or edema present. Pulses are palpable 2/2. Active ROM to all four extremities. Neuro: Alert and orientated x 4. PERRLA. Cranial nerves 2-12 intact without focal deficit. Skin: Warm, dry, and intact, without rash, erythema, or lesion. Psych: pleasant, cooperative, normal speech, normal affect, no hallucinations, no dysarthia Objective Data Vital Signs Vital Signs: Vital Signs - 24 hr 12/14/24 17:06 12/14/24 20:00 12/14/24 21:08 Temperature Pulse Rate Respiratory Rate Blood Pressure Pulse Oximetry 96 Oxygen Delivery Room Air Room Air Room Air 12/14/24 21:14 12/15/24 05:07 12/15/24 08:00 Temperature 97.9 F 98.0 F Pulse Rate 61 71 Respiratory Rate 18 18 Blood Pressure 100/62 103/65 Pulse Oximetry 96 97 Oxygen Delivery Room Air 12/15/24 09:00 12/15/24 14:00 Temperature 98.2 F Pulse Rate 68 78 Respiratory Rate 18 Blood Pressure 105/62 Pulse Oximetry 98 Oxygen Delivery Intake/Output Intake/Output: Intake & Output 12/12/24 12/13/24 12/14/24 12/15/24 23:59 23:59 23:59 23:59 Intake Total 1870 1568.8 Output Total 230 1885 Balance 1640 -316.2 Meds/Results Medications: Active Medications Generic Name Dose Route Start Last Admin Trade Name Freq PRN Reason Stop Dose Admin Acetaminophen 650 mg 12/14/24 15:13 12/15/24 06:38 Acetaminophen 325 Mg Tablet PO 650 mg Q4H PRN Administration Mild Pain (1-3) or Fever Hydrocodone Bitart/Acetaminophen 1 tab 12/14/24 15:13 Hydrocodone/Acetaminophen (*Crx) 5-325 Mg Tablet PO Q4H PRN Moderate Pain (4-6) Atenolol 100 mg 12/15/24 09:00 12/15/24 09:00 Atenolol 50 Mg Tablet PO 100 mg DAILY YAHAIRA Administration Escitalopram Oxalate 10 mg 12/15/24 21:00 Escitalopram Oxalate 10 Mg Tablet PO [facility] Heparin Sodium (Porcine) 5,000 units 12/15/24 09:00 12/15/24 09:03 Heparin Sodium 5,000 Units/Ml Vial SUB-Q 5,000 units Q12HR [facility] Administration Ceftriaxone Sodium 1 gm/ 50 mls @ 100 mls/hr 12/15/24 13:00 Sodium Chloride IVPB Q24H YAHAIRA Metronidazole 500 mg in 100 mls @ 100 mls/hr 12/14/24 22:00 12/15/24 06:34 Flagyl 500 Mg/Iso Soln 100 Ml IVPB 100 mls/hr Q8H YAHAIRA Administration Lactated Ringer's 1,000 mls @ 125 mls/hr 12/14/24 14:25 12/15/24 09:04 Lr - Lactated Ringers Iv IV CONT Not Given .Q8H [facility] Lamotrigine 200 mg 12/15/24 21:00 Lamotrigine 100 Mg Tablet PO HS [facility] Radiology Results: ITS Impressions Chest X-Ray 12/14/24 10:49 IMPRESSION: 1. No acute cardiopulmonary findings. Abdomen/Pelvis CT 12/14/24 13:10 IMPRESSION: 1. Colitis of remnant proximal colon. 2. No other acute abnormality. 3. Additional findings as above. Labs Labs: Laboratory Results - last 24 hr 12/15/24 06:00 WBC 6.2 RBC 3.70 L Hgb 11.7 L D Hct 33.8 L MCV 91.4 MCH 31.6 MCHC 34.6 RDW 12.4 Plt Count 207 MPV 9.3 Immature Gran % (Auto) 0.3 Neut % (Auto) 60.4 Lymph % (Auto) 23.6 [place] % (Auto) 13.9 H Eos % (Auto) 1.3 Baso % (Auto) 0.5 Lymph # (Auto) 1.47 [place] # (Auto) 0.9 H Eos # (Auto) 0.1 Baso # (Auto) 0.0 Abs Immat Gran (auto) 0.02 Absolute Neuts (auto) 3.8 Absolute Nucleated RBC 0.000 Nucleated RBC % 0.0 Sodium 132 L Potassium 2.8 L* Chloride 94 L Carbon Dioxide 25 Anion Gap 13 H BUN 35 H Creatinine 2.09 H Estim Creat Clear Calc 22 Estimated GFR 24 L Glucose 114 H Calcium 8.7 Magnesium 1.6 Total Bilirubin 0.8 AST 29 ALT 27 Alkaline Phosphatase 61 Total Protein 7.1 Albumin 3.8 Quality VTE Prophylaxis VTE prophylaxis: mechanical ordered and pharmacologic ordered
[2024-12-15] MEDS: cefTRIAXone 1 GM in SODIUM CHLORIDE 0.9% IV 50 ML 100 ML IVPB (16:04)
[2024-12-15 16:50] LABS: Total Protein Urine Random 32 mg/dL; Ur Ttl Prot Creatinine Ratio 0.32 mg/mg (0-0.20)
[2024-12-15 16:54] LABS: Urea Random Urine 550 MG/DL
[2024-12-15 16:56] LABS: Urine Eos QC 2nd Tech Confirmed
[2024-12-15] MEDS: CENTRAL LINE FLUSH 10 ML IV PUSH (21:39)
[2024-12-16] VITALS (9 sets, daily range): BP systolic 98–110; BP diastolic 52–62; PULSE 56–73; RESP 16–18; TEMP 35.8–36.8; O2SAT 97–100
[2024-12-16] MEDS: ACETAMINOPHEN 325 MG TABLET 650 MG PO ×2 (04:57→21:16)
[2024-12-16] MEDS: metroNIDAZOLE 500 MG/ISO 100ML 500 MG/100 ML BAG 100 MG IVPB ×3 (05:00→21:12)
[2024-12-16] MEDS: CENTRAL LINE FLUSH 10 ML IV PUSH ×3 (05:01→21:12)
[2024-12-16 05:04] LABS: Creatine Kinase 85 U/L (30-135)
[2024-12-16 05:28] LABS: Alanine Aminotransferase 28 U/L (6-35); Albumin Level 3.7 g/dL (3.5-5.1); Alkaline Phosphatase 61 U/L (38-126); Anion Gap 10 mmol/L (4-12); Aspartate Amino Transferase 28 U/L (14-36); Bilirubin,Total 0.4 mg/dL (0.2-1.3); Blood Urea Nitrogen 25 mg/dL (7-17); Calcium 8.7 mg/dL (8.4-10.2); Carbon Dioxide 27 mmol/L (22-30); Chloride 95 mmol/L (98-107); Estimated CRCL calculation 34 ml/min; Estimated Glomerular Filt Rate 40; Glucose 107 mg/dL (65-110); Potassium 3.1 mmol/L (3.4-5.0); Sodium 132 mmol/L (137-145); Total Protein 7.0 g/dL (6.3-8.2)
[2024-12-16 05:30] LABS: Hematocrit 32.1 % (37.0-47.0); Hemoglobin 11.1 g/dL (12.0-15.0); Immature Granulocyte Percent A 0.5 % (0-0.5); Lymphocytes Absolute Auto 1.68 K/mm3 (0.9-3.2); Mean Corpuscular HGB Conc 34.6 g/dl (32-36); Mean Corpuscular Hemoglobin 31.8 pg (26-34); Mean Corpuscular Volume 92.0 fl (80-100); Nucleated Red Blood Cells Absolute Auto 0.000 K/mm3 (0.0-0.012); Nucleated Red Blood Cells Perc 0.0 % (0.0-0.2); Platelet Count Result 201 k/mm3 (150-375); Red Blood Count 3.49 M/mm3 (4.2-5.4); White Blood Count 6.7 K/mm3 (4.5-10.0)
[2024-12-16 05:35] LABS: Thyroid Stimulating Hormone Reflex 1.220 uIU/mL (0.465-4.68)
[2024-12-16] MEDS: POTASSIUM CHLORIDE 20 MEQ ER TABLET 40 MEQ PO (07:24)
[2024-12-16] MEDS: POTASSIUM CHLORIDE INJ 40 MEQ in SODIUM CHLORIDE 0.9% IV 500 ML 130 MEQ IVPB (09:05)
[2024-12-16] MEDS: MAGNESIUM OXIDE 400 MG TABLET PO (09:06)
[2024-12-16] MEDS: LACTATED RINGERS 1,000 ML 125 ML IV CONT ×2 (10:14→20:02)
--- NOTE | 2024-12-16 11:15 | P.PNNP_ITS ---
Progress Note: A&P Assessment and Plan (1) Acute kidney injury: Code(s): N17.9 - Acute kidney failure, unspecified Status: Acute Assessment and Plan: * as noted by admission labs (creatinine of 3.72mg/dL) * however, was noted 48 hours prior to admission by previous ER visit - creatinine 2.03mg/dL at that time * baseline creatinine runs around 0.98 - 1.2mg/dL in the last year or so * multifactorial etiology: * prerenal factors * infection (UTI + colitis) * diuretic use (spironolactone) * other (?) * creatinine has come down from 3.7-1.36. * CT of A/P without hydronephrosis * Urine sodium is low consistent with prerenal azotemia from GI fluid losses. * CK is normal * urine output has improved * continue IVFs for another day * follow trend of repeat labs and UOP (2) Hypokalemia: Code(s): E87.6 - Hypokalemia Status: Acute Assessment and Plan: * noted by labs done earlier on 12/15 * due to GI loss/increased colostomy output(?) * IV and oral replacement given * holding of spironolactone playing a role (?) * magnesium level okay yesterday. Will check another tomorrow. * follow repeat K+ levels (3) Colitis: Code(s): K52.9 - Noninfective gastroenteritis and colitis, unspecified Status: Acute Assessment and Plan: * as suggested by admission CT scan * GI recommendations noted * advance diet as tolerated * follow culture data * continue antibiotics (4) UTI (urinary tract infection): Code(s): N39.0 - Urinary tract infection, site not specified Status: Acute Assessment and Plan: * admission UA highly suggestive * however, she is know to have an ileostomy * follow culture data * on Ceftriaxone and Flagyl (5) Elevated liver function tests: Code(s): R79.89 - Other specified abnormal findings of blood chemistry Status: Acute Assessment and Plan: * admission CT suggesting liver cirrhosis - new finding * noted plan for outpatient testing per GI * liver enzymes are normal (6) Hypertension: Code(s): I10 - Essential (primary) hypertension Status: Acute Assessment and Plan: * systolic still running 90-110 * holding BP medications at this time * follow trend of hemodynamics Subjective Date/time seen: 12/16/24 11:15 Interval history: patient is awake. No chest pain or shortness of breath eating very well. Still has somewhat high volume output from her ostomy Review of Systems Cardiovascular: Cardiovascular: Reports no additional cardiovascular complaints Respiratory: Respiratory: Reports no additional respiratory complaints Gastrointestinal: Gastrointestinal: Reports no additional gastrointestinal complaints Genitourinary: Genitourinary: Reports no additional female genitourinary complaints Exam Narrative: WDWN in NAD skin no rash head ncat lungs clear cor reg no rub abd BS+ nontender and soft ext no edema. Objective Data Vital Signs Vital Signs: Vital Signs - 24 hr 12/15/24 12:00 12/15/24 14:00 12/15/24 16:00 Temperature 98.2 F Pulse Rate 62 78 63 Respiratory Rate 18 Blood Pressure 105/62 Pulse Oximetry 98 Oxygen Delivery 12/15/24 20:00 12/15/24 20:00 12/15/24 20:23 Temperature 98.2 F Pulse Rate 72 63 Respiratory Rate 16 Blood Pressure Pulse Oximetry 98 Oxygen Delivery Room Air 12/15/24 20:25 12/16/24 00:00 12/16/24 04:18 Temperature 98.2 F Pulse Rate 71 59 L Respiratory Rate 16 Blood Pressure 90/52 L 110/62 Pulse Oximetry 97 Oxygen Delivery 12/16/24 08:00 12/16/24 09:05 Temperature Pulse Rate 60 Respiratory Rate Blood Pressure Pulse Oximetry Oxygen Delivery Room Air Intake/Output Intake/Output: Intake & Output 12/13/24 12/14/24 12/15/24 12/16/24 23:59 23:59 23:59 23:59 Intake Total 1870 4188.8 1780 Output Total 230 2395 850 Balance 1640 1793.8 930 Meds/Results Medications: Active Medications Generic Name Dose Route Start Last Admin Trade Name Lionelq PRN Reason Stop Dose Admin Acetaminophen 650 mg 12/14/24 15:13 12/16/24 04:57 Acetaminophen 325 Mg Tablet PO 650 mg Q4H PRN Administration Mild Pain (1-3) or Fever Hydrocodone Bitart/Acetaminophen 1 tab 12/14/24 15:13 Hydrocodone/Acetaminophen (*Crx) 5-325 Mg Tablet PO Q4H PRN Moderate Pain (4-6) Atenolol 100 mg 12/15/24 09:00 12/16/24 09:05 Atenolol 50 Mg Tablet PO 100 mg DAILY YAHAIRA Administration Escitalopram Oxalate 10 mg 12/15/24 21:00 12/15/24 20:32 Escitalopram Oxalate 10 Mg Tablet PO 10 mg HS YAHAIRA Administration Heparin Sodium (Porcine) 5,000 units 12/15/24 09:00 12/16/24 09:06 Heparin Sodium 5,000 Units/Ml Vial SUB-Q 5,000 units Q12HR YAHAIRA Administration Ceftriaxone Sodium 1 gm/ 50 mls @ 100 mls/hr 12/15/24 13:00 12/15/24 16:04 Sodium Chloride IVPB 100 mls/hr Q24H YAHAIRA Administration Metronidazole 500 mg in 100 mls @ 100 mls/hr 12/14/24 22:00 12/16/24 05:00 Flagyl 500 Mg/Iso Soln 100 Ml IVPB 100 mls/hr Q8H YAHAIRA Administration Lactated Ringer's 1,000 mls @ 125 mls/hr 12/14/24 14:25 12/16/24 10:14 Lr - Lactated Ringers Iv IV CONT 125 mls/hr .Q8H YAHAIRA Administration Potassium Chloride 40 meq/ 520 mls @ 130 mls/hr 12/16/24 07:38 12/16/24 09:05 Sodium Chloride IVPB 12/16/24 11:37 130 mls/hr ONCE ONE Administration Lamotrigine 200 mg 12/15/24 21:00 12/15/24 20:30 Lamotrigine 100 Mg Tablet PO 200 mg HS YAHAIRA Administration Magnesium Oxide 400 mg 12/16/24 09:00 12/16/24 09:06 Magnesium Oxide 400 Mg Tablet PO 400 mg DAILY YAHAIRA Administration Sodium Chloride 10 ml 12/15/24 22:00 12/16/24 05:01 Central Line Flush IV PUSH 10 ml Q8HR YAHAIRA Administration Sodium Chloride 10 ml 12/15/24 15:56 Central Line Flush IV PUSH PRN PRN with TPN bag changes Sodium Chloride 20 ml 12/15/24 15:56 Central Line Flush IV PUSH PRN PRN after blood draws Radiology Results: ITS Impressions Chest X-Ray 12/14/24 10:49 IMPRESSION: 1. No acute cardiopulmonary findings. Abdomen/Pelvis CT 12/14/24 13:10 IMPRESSION: 1. Colitis of remnant proximal colon. 2. No other acute abnormality. 3. Additional findings as above. Labs Labs: Laboratory Results - last 24 hr 12/15/24 12/15/24 12/16/24 16:34 16:34 04:44 WBC RBC Hgb Hct MCV MCH MCHC RDW Plt Count MPV Immature Gran % (Auto) Neut % (Auto) Lymph % (Auto) [place] % (Auto) Eos % (Auto) Baso % (Auto) Lymph # (Auto) [place] # (Auto) Eos # (Auto) Baso # (Auto) Abs Immat Gran (auto) Absolute Neuts (auto) Absolute Nucleated RBC Nucleated RBC % Sodium 132 L Potassium 3.1 L Chloride 95 L Carbon Dioxide 27 Anion Gap 10 BUN 25 H D Creatinine 1.36 H Estim Creat Clear Calc 34 Estimated GFR 40 L Glucose 107 Calcium 8.7 Total Bilirubin 0.4 AST 28 ALT 28 Alkaline Phosphatase 61 Total Creatine Kinase 85 Total Protein 7.0 Albumin 3.7 TSH (Reflex) 1.220 Urine Eosinophils None seen U Random Total Protein 32 Ur Random Sodium 13 Ur Random Urea 550 Urine Creatinine 100.0 99.9 Protein/Creat Ratio 2 0.32 H 12/16/24 05:25 WBC 6.7 RBC 3.49 L Hgb 11.1 L Hct 32.1 L MCV 92.0 MCH 31.8 MCHC 34.6 RDW 12.5 Plt Count 201 MPV 9.0 Immature Gran % (Auto) 0.5 Neut % (Auto) 59.8 Lymph % (Auto) 25.3 [place] % (Auto) 12.6 H Eos % (Auto) 1.2 Baso % (Auto) 0.6 Lymph # (Auto) 1.68 [place] # (Auto) 0.8 H Eos # (Auto) 0.1 Baso # (Auto) 0.0 Abs Immat Gran (auto) 0.03 Absolute Neuts (auto) 4.0 Absolute Nucleated RBC 0.000 Nucleated RBC % 0.0 Sodium Potassium Chloride Carbon Dioxide Anion Gap BUN Creatinine Estim Creat Clear Calc Estimated GFR Glucose Calcium Total Bilirubin AST ALT Alkaline Phosphatase Total Creatine Kinase Total Protein Albumin TSH (Reflex) Urine Eosinophils U Random Total Protein Ur Random Sodium Ur Random Urea Urine Creatinine Protein/Creat Ratio 2
--- NOTE | 2024-12-16 11:39 | P.PNIM_ITS ---
Progress Note: A&P Assessment and Plan (1) Colitis: Code(s): K52.9 - Noninfective gastroenteritis and colitis, unspecified Status: Acute Assessment and Plan: GI consulted IV Flagyl Fluid bolus in IVF for hydration Okay for clear liquid diet gi consulted, appreciate recommendations -no inpt interventiosn will f/u as an oupt (2) CHARLI (acute kidney injury): Code(s): N17.9 - Acute kidney failure, unspecified Status: Acute Assessment and Plan: Nephrology consulted IVF BMP in the morning nephrology following IV fluids 12/16- nephrology note reviewed * CT of A/P without hydronephrosis * Urine sodium is low consistent with prerenal azotemia from GI fluid losses. * * urine output has improved * continue IVFs for another day * follow trend of repeat labs and UOP (3) Dehydration: Code(s): E86.0 - Dehydration Status: Acute Assessment and Plan: 3 L fluid bolus given in ED followed by IVF at 125 continue iv fluids for another day (4) UTI (urinary tract infection): Code(s): N39.0 - Urinary tract infection, site not specified Status: Acute Assessment and Plan: IV Rocephin Culture and sensitivity pending iv replacement ordered mg replacement ordered (5) Elevated liver function tests: Code(s): R79.89 - Other specified abnormal findings of blood chemistry Status: Acute Assessment and Plan: CMP in the morning daily labs (6) Depression: Code(s): F32.A - Depression, unspecified Status: Acute Assessment and Plan: Continue citalopram, Lamictal and Lexapro (7) Hypertension: Code(s): I10 - Essential (primary) hypertension Status: Acute Assessment and Plan: Currently holding spironolactone due to acute dehydration Time Spent With Patient Time with patient: 25 - 35 minutes Subjective Date/time seen: 12/16/24 11:39 Interval history: 59-year-old female with past medical history of ovarian cancer with bowel and bladder removal with urostomy and 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 12/16-pt is seen and examined. She is eating very well. Still has somewhat high volume output from her ostomy. labs improving. She is feeling about 60-70% back to her baseline. Review of Systems Review of Systems: 12 systems were reviewed and are negativ e except for as per HPI. Exam Narrative: General: well appearing, appears stated age. HEENT: normocephalic, atraumatic. Mucous membranes moist. EOMI, PERRLA, bilateral sclera anicteric, no conjunctival injection. Neck supple without JVD, lymphadenopathy, or bruit. Respiratory: clear to ascultation bilaterally. No rales/rhonic/wheezes. Cardiovascular: Regular rate and rhythm, normal S1-S2 upon ascultation. No murmurs, rubs, or clicks. PMI is nondisplaced, capillary refill less than 3 second. Abdomen: Soft, round, no pulsatile masses, nondistended and nontender. No rebound, no guarding. No CVA tenderness, no hepatosplenomegaly. Bowel sounds present to all four quadrants. No high pitch or tinkling sounds, resonant to percussion. Extremities: No cyanosis, clubbing, or edema present. Pulses are palpable 2/2. Active ROM to all four extremities. Neuro: Alert and orientated x 4. PERRLA. Cranial nerves 2-12 intact without foc al deficit. Skin: Warm, dry, and intact, without rash, erythema, or lesion. Psych: pleasant, cooperative, normal speech, normal affect, no hallucinations, no dysarthia Const: General: comfortable Objective Data Vital Signs Vital Signs: Vital Signs - 24 hr 12/15/24 12:00 12/15/24 14:00 12/15/24 16:00 Temperature 98.2 F Pulse Rate 62 78 63 Respiratory Rate 18 Blood Pressure 105/62 Pulse Oximetry 98 Oxygen Delivery 12/15/24 20:00 12/15/24 20:00 12/15/24 20:23 Temperature 98.2 F Pulse Rate 72 63 Respiratory Rate 16 Blood Pressure Pulse Oximetry 98 Oxygen Delivery Room Air 12/15/24 20:25 12/16/24 00:00 12/16/24 04:18 Temperature 98.2 F Pulse Rate 71 59 L Respiratory Rate 16 Blood Pressure 90/52 L 110/62 Pulse Oximetry 97 Oxygen Delivery 12/16/24 08:00 12/16/24 09:05 Temperature Pulse Rate 60 Respiratory Rate Blood Pressure Pulse Oximetry Oxygen Delivery Room Air Intake/Output Intake/Output: Intake & Output 12/13/24 12/14/24 12/15/24 12/16/24 23:59 23:59 23:59 23:59 Intake Total 1870 4188.8 1780 Output Total 230 2395 850 Balance 1640 1793.8 930 Meds/Results Medications: Active Medications Generic Name Dose Route Start Last Admin Trade Name Freq PRN Reason Stop Dose Admin Acetaminophen 650 mg 12/14/24 15:13 12/16/24 04:57 Acetaminophen 325 Mg Tablet PO 650 mg Q4H PRN Administration Mild Pain (1-3) or Fever Hydrocodone Bitart/Acetaminophen 1 tab 12/14/24 15:13 Hydrocodone/Acetaminophen (*Crx) 5-325 Mg Tablet PO Q4H PRN Moderate Pain (4-6) Atenolol 100 mg 12/15/24 09:00 12/16/24 09:05 Atenolol 50 Mg Tablet PO 100 mg DAILY YAHAIRA Administration Escitalopram Oxalate 10 mg 12/15/24 21:00 12/15/24 20:32 Escitalopram Oxalate 10 Mg Tablet PO 10 mg HS YAHAIRA Administration Heparin Sodium (Porcine) 5,000 units 12/15/24 09:00 12/16/24 09:06 Heparin Sodium 5,000 Units/Ml Vial SUB-Q 5,000 units Q12HR YAHAIRA Administration Ceftriaxone Sodium 1 gm/ 50 mls @ 100 mls/hr 12/15/24 13:00 12/15/24 16:04 Sodium Chloride IVPB 100 mls/hr Q24H YAHAIRA Administration Metronidazole 500 mg in 100 mls @ 100 mls/hr 12/14/24 22:00 12/16/24 05:00 Flagyl 500 Mg/Iso Soln 100 Ml IVPB 100 mls/hr Q8H YAHAIRA Administration Lactated Ringer's 1,000 mls @ 125 mls/hr 12/14/24 14:25 12/16/24 10:14 Lr - Lactated Ringers Iv IV CONT 125 mls/hr .Q8H YAHAIRA Administration Lamotrigine 200 mg 12/15/24 21:00 12/15/24 20:30 Lamotrigine 100 Mg Tablet PO 200 mg HS YAHAIRA Administration Magnesium Oxide 400 mg 12/16/24 09:00 12/16/24 09:06 Magnesium Oxide 400 Mg Tablet PO 400 mg DAILY YAHAIRA Administration Sodium Chloride 10 ml 12/15/24 22:00 12/16/24 05:01 Central Line Flush IV PUSH 10 ml Q8HR YAHAIRA Administration Sodium Chloride 10 ml 12/15/24 15:56 Central Line Flush IV PUSH PRN PRN with TPN bag changes Sodium Chloride 20 ml 12/15/24 15:56 Central Line Flush IV PUSH PRN PRN after blood draws Radiology Results: ITS Impressions Chest X-Ray 12/14/24 10:49 IMPRESSION: 1. No acute cardiopulmonary findings. Abdomen/Pelvis CT 12/14/24 13:10 IMPRESSION: 1. Colitis of remnant proximal colon. 2. No other acute abnormality. 3. Additional findings as above. Labs Labs: Laboratory Results - last 24 hr 12/15/24 12/15/24 12/16/24 16:34 16:34 04:44 WBC RBC Hgb Hct MCV MCH MCHC RDW Plt Count MPV Immature Gran % (Auto) Neut % (Auto) Lymph % (Auto) [place] % (Auto) Eos % (Auto) Baso % (Auto) Lymph # (Auto) [place] # (Auto) Eos # (Auto) Baso # (Auto) Abs Immat Gran (auto) Absolute Neuts (auto) Absolute Nucleated RBC Nucleated RBC % Sodium 132 L Potassium 3.1 L Chloride 95 L Carbon Dioxide 27 Anion Gap 10 BUN 25 H D Creatinine 1.36 H Estim Creat Clear Calc 34 Estimated GFR 40 L Glucose 107 Calcium 8.7 Total Bilirubin 0.4 AST 28 ALT 28 Alkaline Phosphatase 61 Total Creatine Kinase 85 Total Protein 7.0 Albumin 3.7 TSH (Reflex) 1.220 Urine Eosinophils None seen U Random Total Protein 32 Ur Random Sodium 13 Ur Random Urea 550 Urine Creatinine 100.0 99.9 Protein/Creat Ratio 2 0.32 H 12/16/24 05:25 WBC 6.7 RBC 3.49 L Hgb 11.1 L Hct 32.1 L MCV 92.0 MCH 31.8 MCHC 34.6 RDW 12.5 Plt Count 201 MPV 9.0 Immature Gran % (Auto) 0.5 Neut % (Auto) 59.8 Lymph % (Auto) 25.3 [place] % (Auto) 12.6 H Eos % (Auto) 1.2 Baso % (Auto) 0.6 Lymph # (Auto) 1.68 [place] # (Auto) 0.8 H Eos # (Auto) 0.1 Baso # (Auto) 0.0 Abs Immat Gran (auto) 0.03 Absolute Neuts (auto) 4.0 Absolute Nucleated RBC 0.000 Nucleated RBC % 0.0 Sodium Potassium Chloride Carbon Dioxide Anion Gap BUN Creatinine Estim Creat Clear Calc Estimated GFR Glucose Calcium Total Bilirubin AST ALT Alkaline Phosphatase Total Creatine Kinase Total Protein Albumin TSH (Reflex) Urine Eosinophils U Random Total Protein Ur Random Sodium Ur Random Urea Urine Creatinine Protein/Creat Ratio 2 Quality VTE Prophylaxis VTE prophylaxis: mechanical ordered and pharmacologic ordered
[2024-12-16] MEDS: cefTRIAXone 1 GM in SODIUM CHLORIDE 0.9% IV 50 ML 100 ML IVPB (13:23)
--- NOTE | 2024-12-16 16:49 | WPDGIPROGNO ---
Progress Note: A&P Assessment and Plan (1) Dehydration: Code(s): E86.0 - Dehydration Status: Acute Assessment and Plan: admitted with significant dehydration (hemoconcentrated, charli, hypokalemia, generalized weakness) better after fluid resuscitation and replacement k eating more noted uti, also possible colitis but denies any abdominal pain or nausea continue with medical support will follow as needed (2) Colitis: Code(s): K52.9 - Noninfective gastroenteritis and colitis, unspecified Status: Acute Assessment and Plan: no pain on medical treatment and better (3) Cirrhosis: Qualifiers: Hepatic cirrhosis type: other cirrhosis Qualified Code(s): K74.69 - Other cirrhosis of liver Code(s): K74.60 - Unspecified cirrhosis of liver Status: Acute Assessment and Plan: noted in imaging had mild elevated liver enzymes but normalized after hydration she will follow-up in office (4) Elevated liver function tests: Code(s): R79.89 - Other specified abnormal findings of blood chemistry Status: Acute (5) CHARLI (acute kidney injury): Code(s): N17.9 - Acute kidney failure, unspecified Status: Acute Assessment and Plan: improving (6) Hypokalemia: Code(s): E87.6 - Hypokalemia Status: Acute Assessment and Plan: repleting (7) Colostomy in place: Code(s): Z93.3 - Colostomy status Status: Acute Assessment and Plan: after XRT and previous surgeries she underwent colostomy years ago (8) Personal history of ovarian cancer: Code(s): Z85.43 - Personal history of malignant neoplasm of ovary Status: Acute Subjective Date/time seen: 12/16/24 16:49 Interval history: no changes, eating more and more output through urostomy Review of Systems Review of Systems: All systems reviewed & are unremarkable except as noted in HPI and below Exam Const: General: comfortable and no acute distress HENMT: Face/Nose/Sinus: Normal nares present Eyes: General: appearance normal, both eyes and all related structures Neck: Neck: supple Resp: Auscultation: clear to auscultation bilaterally Cardio: Rate: regular rate Rhythm: regular rhythm GI: Inspection: non-distended GI Palp: Yes Soft to palpation and No Tenderness to palpation present (GI) Other: ostomy and urostomy bag, no pain Skin: General skin exam: normal color Neuro: Speech: normal speech Motor exam (neuro): 5/5 motor strength present throughout Extrem: General: normal to inspection Psych: Mental Status: mental status grossly normal Objective Data Vital Signs Vital Signs: Vital Signs - 24 hr 12/15/24 20:00 12/15/24 20:00 12/15/24 20:23 Temperature 98.2 F Pulse Rate 72 63 Respiratory Rate 16 Blood Pressure Pulse Oximetry 98 Oxygen Delivery Room Air 12/15/24 20:12/16/24 00:00 12/16/24 04:18 Temperature 98.2 F Pulse Rate 71 59 L Respiratory Rate 16 Blood Pressure 90/52 L 110/62 Pulse Oximetry 97 Oxygen Delivery 12/16/24 08:00 12/16/24 08:00 12/16/24 09:05 Temperature Pulse Rate 57 L 60 Respiratory Rate Blood Pressure Pulse Oximetry Oxygen Delivery Room Air 12/16/24 12:00 12/16/24 14:00 Temperature 98.2 F Pulse Rate 56 L 67 Respiratory Rate 16 Blood Pressure 98/52 L Pulse Oximetry 98 Oxygen Delivery Intake/Output Intake/Output: Intake & Output 12/13/24 12/14/24 12/15/24 12/16/24 23:59 23:59 23:59 23:59 Intake Total 1870 4238.8 2120 Output Total 230 2395 850 Balance 1640 1843.8 1270 Meds/Results Medications: Active Medications Generic Name Dose Route Start Last Admin Trade Name Freq PRN Reason Stop Dose Admin Acetaminophen 650 mg 12/14/24 15:13 12/16/24 04:57 Acetaminophen 325 Mg Tablet PO 650 mg Q4H PRN Administration Mild Pain (1-3) or Fever Hydrocodone Bitart/Acetaminophen 1 tab 12/14/24 15:13 Hydrocodone/Acetaminophen (*Crx) 5-325 Mg Tablet PO Q4H PRN Moderate Pain (4-6) Atenolol 100 mg 12/15/24 09:00 12/16/24 09:05 Atenolol 50 Mg Tablet PO 100 mg DAILY YAHAIRA Administration Escitalopram Oxalate 10 mg 12/15/24 21:00 12/15/24 20:32 Escitalopram Oxalate 10 Mg Tablet PO 10 mg HS YAHAIRA Administration Heparin Sodium (Porcine) 5,000 units 12/15/24 09:00 12/16/24 09:06 Heparin Sodium 5,000 Units/Ml Vial SUB-Q 5,000 units Q12HR YAHIARA Administration Ceftriaxone Sodium 1 gm/ 50 mls @ 100 mls/hr 12/15/24 13:00 12/16/24 13:23 Sodium Chloride IVPB 100 mls/hr Q24H YAHAIRA Administration Metronidazole 500 mg in 100 mls @ 100 mls/hr 12/14/24 22:00 12/16/24 14:25 Flagyl 500 Mg/Iso Soln 100 Ml IVPB 100 mls/hr Q8H YAHAIRA Administration Lactated Ringer's 1,000 mls @ 125 mls/hr 12/14/24 14:25 12/16/24 10:14 Lr - Lactated Ringers Iv IV CONT 125 mls/hr .Q8H YAHAIRA Administration Lamotrigine 200 mg 12/15/24 21:00 12/15/24 20:30 Lamotrigine 100 Mg Tablet PO 200 mg HS YAHAIRA Administration Magnesium Oxide 400 mg 12/16/24 09:00 12/16/24 09:06 Magnesium Oxide 400 Mg Tablet PO 400 mg DAILY YAHAIRA Administration Sodium Chloride 10 ml 12/15/24 22:00 12/16/24 14:26 Central Line Flush IV PUSH 10 ml Q8HR YAHAIRA Administration Sodium Chloride 10 ml 12/15/24 15:56 Central Line Flush IV PUSH PRN PRN with TPN bag changes Sodium Chloride 20 ml 12/15/24 15:56 Central Line Flush IV PUSH PRN PRN after blood draws Radiology Results: ITS Impressions Chest X-Ray 12/14/24 10:49 IMPRESSION: 1. No acute cardiopulmonary findings. Abdomen/Pelvis CT 12/14/24 13:10 IMPRESSION: 1. Colitis of remnant proximal colon. 2. No other acute abnormality. 3. Additional findings as above. Labs Labs: Laboratory Results - last 24 hr 12/15/24 12/15/24 12/16/24 16:34 16:34 04:44 WBC RBC Hgb Hct MCV MCH MCHC RDW Plt Count MPV Immature Gran % (Auto) Neut % (Auto) Lymph % (Auto) [place] % (Auto) Eos % (Auto) Baso % (Auto) Lymph # (Auto) [place] # (Auto) Eos # (Auto) Baso # (Auto) Abs Immat Gran (auto) Absolute Neuts (auto) Absolute Nucleated RBC Nucleated RBC % Sodium 132 L Potassium 3.1 L Chloride 95 L Carbon Dioxide 27 Anion Gap 10 BUN 25 H D Creatinine 1.36 H Estim Creat Clear Calc 34 Estimated GFR 40 L Glucose 107 Calcium 8.7 Total Bilirubin 0.4 AST 28 ALT 28 Alkaline Phosphatase 61 Total Creatine Kinase 85 Total Protein 7.0 Albumin 3.7 TSH (Reflex) 1.220 Urine Eosinophils None seen U Random Total Protein 32 Ur Random Sodium 13 Ur Random Urea 550 Urine Creatinine 100.0 99.9 Protein/Creat Ratio 2 0.32 H 12/16/24 05:25 WBC 6.7 RBC 3.49 L Hgb 11.1 L Hct 32.1 L MCV 92.0 MCH 31.8 MCHC 34.6 RDW 12.5 Plt Count 201 MPV 9.0 Immature Gran % (Auto) 0.5 Neut % (Auto) 59.8 Lymph % (Auto) 25.3 [place] % (Auto) 12.6 H Eos % (Auto) 1.2 Baso % (Auto) 0.6 Lymph # (Auto) 1.68 [place] # (Auto) 0.8 H Eos # (Auto) 0.1 Baso # (Auto) 0.0 Abs Immat Gran (auto) 0.03 Absolute Neuts (auto) 4.0 Absolute Nucleated RBC 0.000 Nucleated RBC % 0.0 Sodium Potassium Chloride Carbon Dioxide Anion Gap BUN Creatinine Estim Creat Clear Calc Estimated GFR Glucose Calcium Total Bilirubin AST ALT Alkaline Phosphatase Total Creatine Kinase Total Protein Albumin TSH (Reflex) Urine Eosinophils U Random Total Protein Ur Random Sodium Ur Random Urea Urine Creatinine Protein/Creat Ratio 2
[2024-12-16] MEDS: ESCITALOPRAM OXALATE 10 MG TABLET PO (20:31)
[2024-12-17] VITALS (10 sets, daily range): BP systolic 91–124; BP diastolic 47–64; PULSE 51–70; RESP 18–20; TEMP 36.6–36.7; O2SAT 98–99
[2024-12-17] MEDS: LACTATED RINGERS 1,000 ML 125 ML IV CONT (04:59)
[2024-12-17] MEDS: CENTRAL LINE FLUSH 20 ML IV PUSH (06:21)
[2024-12-17] MEDS: metroNIDAZOLE 500 MG/ISO 100ML 500 MG/100 ML BAG 100 MG IVPB ×3 (06:21→22:41)
[2024-12-17] MEDS: CENTRAL LINE FLUSH 10 ML IV PUSH ×3 (06:21→22:40)
[2024-12-17 06:32] LABS: Hematocrit 32.1 % (37.0-47.0); Hemoglobin 10.7 g/dL (12.0-15.0); Mean Corpuscular HGB Conc 33.3 g/dl (32-36); Mean Corpuscular Hemoglobin 31.6 pg (26-34); Mean Corpuscular Volume 94.7 fl (80-100); Platelet Count Result 184 k/mm3 (150-375); Red Blood Count 3.39 M/mm3 (4.2-5.4); White Blood Count 5.3 K/mm3 (4.5-10.0)
[2024-12-17 06:50] LABS: Albumin Level 3.3 g/dL (3.5-5.1); Anion Gap 7 mmol/L (4-12); Blood Urea Nitrogen 17 mg/dL (7-17); Calcium 8.3 mg/dL (8.4-10.2); Carbon Dioxide 29 mmol/L (22-30); Chloride 100 mmol/L (98-107); Estimated CRCL calculation 42 ml/min; Estimated Glomerular Filt Rate 51; Glucose 91 mg/dL (65-110); Magnesium 1.4 mg/dL (1.6-2.3); Potassium 3.9 mmol/L (3.4-5.0); Sodium 136 mmol/L (137-145)
[2024-12-17] MEDS: MAGNESIUM OXIDE 400 MG TABLET PO (08:44)
--- NOTE | 2024-12-17 09:07 | P.PNNP_ITS ---
Progress Note: A&P Assessment and Plan (1) Acute kidney injury: Code(s): N17.9 - Acute kidney failure, unspecified Status: Acute Assessment and Plan: * as noted by admission labs (creatinine of 3.72mg/dL) * however, was noted 48 hours prior to admission by previous ER visit - creatinine 2.03mg/dL at that time * baseline creatinine runs around 0.98 - 1.2mg/dL in the last year or so * multifactorial etiology: * prerenal factors * infection (UTI + colitis) * diuretic use (spironolactone) * other (?) * creatinine has come down from 3.7-1.09 * CT of A/P without hydronephrosis * Urine sodium is low consistent with prerenal azotemia from GI fluid losses. * CK is normal * urine output has improved * will stop IV fluids. * Check labs in the morning to be sure there still getting better. Okay for discharge tomorrow things are okay. (2) Hypokalemia: Code(s): E87.6 - Hypokalemia Status: Acute Assessment and Plan: * noted by labs done earlier on 12/15 * due to GI loss/increased colostomy output(?) * Received IV potassium yesterday. * potassium okay today * she was on spironolactone as an outpatient, but unclear why. may be due to potassium loss from the stool? She never had low potassium in the past. * Will see how the potassium is in the morning. If it is low she should probably get a workup for hypokalemia In the case she has a hormonal issue causing low potassium and high blood pressure. (3) Colitis: Code(s): K52.9 - Noninfective gastroenteritis and colitis, unspecified Status: Acute Assessment and Plan: * as suggested by admission CT scan * GI recommendations noted * advance diet as tolerated * follow culture data * continue antibiotics (4) UTI (urinary tract infection): Code(s): N39.0 - Urinary tract infection, site not specified Status: Acute Assessment and Plan: * admission UA highly suggestive * however, she is know to have an ileostomy * follow culture data * on ceftriaxone and Flagyl (5) Elevated liver function tests: Code(s): R79.89 - Other specified abnormal findings of blood chemistry Status: Acute Assessment and Plan: * admission CT suggesting liver cirrhosis - new finding * noted plan for outpatient testing per GI * liver enzymes are normal (6) Hypertension: Code(s): I10 - Essential (primary) hypertension Status: Acute Assessment and Plan: * systolic still running 90-110 * holding BP medications at this time Subjective Date/time seen: 12/17/24 09:07 Interval history: Patient is alert. She feels good. Eating well Exam Narrative: WDWN in NAD skin no rash or subQ nodules head ncat lungs clear cor reg no rub abd BS+ nontender and soft ext no edema or cyanosis. Objective Data Vital Signs Vital Signs: Vital Signs - 24 hr 12/16/24 12:00 12/16/24 14:00 12/16/24 16:00 Temperature 98.2 F Pulse Rate 56 L 67 73 Respiratory Rate 16 Blood Pressure 98/52 L Pulse Oximetry 98 12/16/24 20:00 12/16/24 20:57 12/17/24 00:00 Temperature 96.4 F L Pulse Rate 57 L 56 L 62 Respiratory Rate 18 Blood Pressure 103/55 L Pulse Oximetry 100 12/17/24 04:00 12/17/24 05:10 12/17/24 08:43 Temperature 98.0 F Pulse Rate 65 62 59 L Respiratory Rate 18 Blood Pressure 124/48 L Pulse Oximetry 98 Intake/Output Intake/Output: Intake & Output 12/14/24 12/15/24 12/16/24 12/17/24 23:59 23:59 23:59 23:59 Intake Total 1870 4238.8 5300 1600 Output Total 230 2395 1325 700 Balance 1640 1843.8 3975 900 Meds/Results Medications: Active Medications Generic Name Dose Route Start Last Admin Trade Name Freq PRN Reason Stop Dose Admin Acetaminophen 650 mg 12/14/24 15:13 12/16/24 21:16 Acetaminophen 325 Mg Tablet PO 650 mg Q4H PRN Administration Mild Pain (1-3) or Fever Hydrocodone Bitart/Acetaminophen 1 tab 12/14/24 15:13 Hydrocodone/Acetaminophen (*Crx) 5-325 Mg Tablet PO Q4H PRN Moderate Pain (4-6) Atenolol 100 mg 12/15/24 09:00 12/17/24 08:43 Atenolol 50 Mg Tablet PO 100 mg DAILY YAHAIRA Administration Escitalopram Oxalate 10 mg 12/15/24 21:00 12/16/24 20:31 Escitalopram Oxalate 10 Mg Tablet PO 10 mg HS YAHAIRA Administration Heparin Sodium (Porcine) 5,000 units 12/15/24 09:00 12/17/24 08:44 Heparin Sodium 5,000 Units/Ml Vial SUB-Q 5,000 units Q12HR YAHAIRA Administration Ceftriaxone Sodium 1 gm/ 50 mls @ 100 mls/hr 12/15/24 13:00 12/16/24 13:23 Sodium Chloride IVPB 100 mls/hr Q24H YAHAIRA Administration Metronidazole 500 mg in 100 mls @ 100 mls/hr 12/14/24 22:00 12/17/24 06:21 Flagyl 500 Mg/Iso Soln 100 Ml IVPB 100 mls/hr Q8H YAHAIRA Administration Lactated Ringer's 1,000 mls @ 125 mls/hr 12/14/24 14:25 12/17/24 04:59 Lr - Lactated Ringers Iv IV CONT 125 mls/hr .Q8H YAHAIRA Administration Lamotrigine 200 mg 12/15/24 21:00 12/16/24 20:31 Lamotrigine 100 Mg Tablet PO 200 mg HS YAHAIRA Administration Magnesium Oxide 400 mg 12/16/24 09:00 12/17/24 08:44 Magnesium Oxide 400 Mg Tablet PO 400 mg DAILY YAHAIRA Administration Sodium Chloride 10 ml 12/15/24 22:00 12/17/24 06:21 Central Line Flush IV PUSH 10 ml Q8HR YAHAIRA Administration Sodium Chloride 10 ml 12/15/24 15:56 Central Line Flush IV PUSH PRN PRN with TPN bag changes Sodium Chloride 20 ml 12/15/24 15:56 12/17/24 06:21 Central Line Flush IV PUSH 20 ml PRN PRN Administration after blood draws Radiology Results: ITS Impressions Chest X-Ray 12/14/24 10:49 IMPRESSION: 1. No acute cardiopulmonary findings. Abdomen/Pelvis CT 12/14/24 13:10 IMPRESSION: 1. Colitis of remnant proximal colon. 2. No other acute abnormality. 3. Additional findings as above. Labs Labs: Laboratory Results - last 24 hr 12/17/24 06:13 WBC 5.3 RBC 3.39 L Hgb 10.7 L Hct 32.1 L MCV 94.7 MCH 31.6 MCHC 33.3 RDW 12.4 Plt Count 184 MPV 9.2 Sodium 136 L Potassium 3.9 Chloride 100 Carbon Dioxide 29 Anion Gap 7 BUN 17 Creatinine 1.09 H Estim Creat Clear Calc 42 Estimated GFR 51 L Glucose 91 Calcium 8.3 L Phosphorus 2.7 Magnesium 1.4 L Albumin 3.3 L
--- NOTE | 2024-12-17 12:23 | P.PNIM_ITS ---
Progress Note: A&P Assessment and Plan (1) Colitis: Code(s): K52.9 - Noninfective gastroenteritis and colitis, unspecified Status: Acute Assessment and Plan: GI consulted IV Flagyl Fluid bolus in IVF for hydration Okay for clear liquid diet gi consulted, appreciate recommendations -no inpt intervention will f/u as an oupt (2) CHARLI (acute kidney injury): Code(s): N17.9 - Acute kidney failure, unspecified Status: Acute Assessment and Plan: Nephrology consulted IVF BMP in the morning nephrology following IV fluids 12/16- nephrology note reviewed * CT of A/P without hydronephrosis * Urine sodium is low consistent with prerenal azotemia from GI fluid losses. * * urine output has improved * continue IVFs for another day * follow trend of repeat labs and UOP cr/bun- .11/22 today improving (3) Dehydration: Code(s): E86.0 - Dehydration Status: Acute Assessment and Plan: 3 L fluid bolus given in ED followed by IVF at 125 continue iv fluids for another day doing well- drinking and eating, ok to stop IV fluids (4) UTI (urinary tract infection): Code(s): N39.0 - Urinary tract infection, site not specified Status: Acute Assessment and Plan: IV Rocephin Culture and sensitivity pending iv replacement ordered mg replacement ordered (5) Elevated liver function tests: Code(s): R79.89 - Other specified abnormal findings of blood chemistry Status: Acute Assessment and Plan: CMP in the morning daily labs (6) Depression: Code(s): F32.A - Depression, unspecified Status: Acute Assessment and Plan: Continue citalopram, Lamictal and Lexapro (7) Hypertension: Code(s): I10 - Essential (primary) hypertension Status: Acute Assessment and Plan: Currently holding spironolactone due to acute dehydration Plan K is better today Time Spent With Patient Time with patient: 25 - 35 minutes Subjective Date/time seen: 12/17/24 12:23 Interval history: Patient is alert. She feels good. nephrology is following- ok to stop iv fluids today anticipate discharge home tomorrow. Review of Systems Review of Systems: 12 systems were reviewed and are negativ e except for as per HPI. Exam Narrative: General: well appearing, appears stated age. HEENT: normocephalic, atraumatic. Mucous membranes moist. EOMI, PERRLA, bilateral sclera anicteric, no conjunctival injection. Neck supple without JVD, lymphadenopathy, or bruit. Respiratory: clear to ascultation bilaterally. No rales/rhonic/wheezes. Cardiovascular: Regular rate and rhythm, normal S1-S2 upon ascultation. No murmurs, rubs, or clicks. PMI is nondisplaced, capillary refill less than 3 second. Abdomen: Soft, round, no pulsatile masses, nondistended and nontender. No rebound, no guarding. No CVA tenderness, no hepatosplenomegaly. Bowel sounds present to all four quadrants. No high pitch or tinkling sounds, resonant to percussion. Extremities: No cyanosis, clubbing, or edema present. Pulses are palpable 2/2. Active ROM to all four extremities. Neuro: Alert and orientated x 4. PERRLA. Cranial nerves 2-12 intact without focal deficit. Skin: Warm, dry, and intact, without rash, erythema, or lesion. Psych: pleasant, cooperative, normal speech, normal affect, no hallucinations, no dysarthia Const: General: comfortable Objective Data Vital Signs Vital Signs: Vital Signs - 24 hr 12/16/24 14:00 12/16/24 16:00 12/16/24 20:00 Temperature 98.2 F Pulse Rate 67 73 57 L Respiratory Rate 16 Blood Pressure 98/52 L Pulse Oximetry 98 Oxygen Delivery 12/16/24 20:57 12/17/24 00:00 12/17/24 04:00 Temperature 96.4 F L Pulse Rate 56 L 62 65 Respiratory Rate 18 Blood Pressure 103/55 L Pulse Oximetry 100 Oxygen Delivery 12/17/24 05:10 12/17/24 08:00 12/17/24 08:00 Temperature 98.0 F Pulse Rate 62 56 L Respiratory Rate 18 Blood Pressure 124/48 L Pulse Oximetry 98 Oxygen Delivery Room Air 12/17/24 08:43 Temperature Pulse Rate 59 L Respiratory Rate Blood Pressure Pulse Oximetry Oxygen Delivery Intake/Output Intake/Output: Intake & Output 12/14/24 12/15/24 12/16/24 12/17/24 23:59 23:59 23:59 23:59 Intake Total 1870 4238.8 5300 2080 Output Total 230 2395 1325 700 Balance 1640 1843.8 3975 1380 Meds/Results Medications: Active Medications Generic Name Dose Route Start Last Admin Trade Name Freq PRN Reason Stop Dose Admin Acetaminophen 650 mg 12/14/24 15:13 12/16/24 21:16 Acetaminophen 325 Mg Tablet PO 650 mg Q4H PRN Administration Mild Pain (1-3) or Fever Hydrocodone Bitart/Acetaminophen 1 tab 12/14/24 15:13 Hydrocodone/Acetaminophen (*Crx) 5-325 Mg Tablet PO Q4H PRN Moderate Pain (4-6) Atenolol 100 mg 12/15/24 09:00 12/17/24 08:43 Atenolol 50 Mg Tablet PO 100 mg DAILY YAHAIRA Administration Escitalopram Oxalate 10 mg 12/15/24 21:00 12/16/24 20:31 Escitalopram Oxalate 10 Mg Tablet PO 10 mg HS YAHAIRA Administration Heparin Sodium (Porcine) 5,000 units 12/15/24 09:00 12/17/24 08:44 Heparin Sodium 5,000 Units/Ml Vial SUB-Q 5,000 units Q12HR YAHAIRA Administration Ceftriaxone Sodium 1 gm/ 50 mls @ 100 mls/hr 12/15/24 13:00 12/16/24 13:23 Sodium Chloride IVPB 100 mls/hr Q24H YAHAIRA Administration Metronidazole 500 mg in 100 mls @ 100 mls/hr 12/14/24 22:00 12/17/24 06:21 Flagyl 500 Mg/Iso Soln 100 Ml IVPB 100 mls/hr Q8H YAHAIRA Administration Lamotrigine 200 mg 12/15/24 21:00 12/16/24 20:31 Lamotrigine 100 Mg Tablet PO 200 mg HS YAHAIRA Administration Magnesium Oxide 400 mg 12/16/24 09:00 12/17/24 08:44 Magnesium Oxide 400 Mg Tablet PO 400 mg DAILY YAHAIRA Administration Sodium Chloride 10 ml 12/15/24 22:00 12/17/24 06:21 Central Line Flush IV PUSH 10 ml Q8HR YAHAIRA Administration Sodium Chloride 10 ml 12/15/24 15:56 Central Line Flush IV PUSH PRN PRN with TPN bag changes Sodium Chloride 20 ml 12/15/24 15:56 12/17/24 06:21 Central Line Flush IV PUSH 20 ml PRN PRN Administration after blood draws Radiology Results: ITS Impressions Chest X-Ray 12/14/24 10:49 IMPRESSION: 1. No acute cardiopulmonary findings. Abdomen/Pelvis CT 12/14/24 13:10 IMPRESSION: 1. Colitis of remnant proximal colon. 2. No other acute abnormality. 3. Additional findings as above. Labs Labs: Laboratory Results - last 24 hr 12/17/24 06:13 WBC 5.3 RBC 3.39 L Hgb 10.7 L Hct 32.1 L MCV 94.7 MCH 31.6 MCHC 33.3 RDW 12.4 Plt Count 184 MPV 9.2 Sodium 136 L Potassium 3.9 Chloride 100 Carbon Dioxide 29 Anion Gap 7 BUN 17 Creatinine 1.09 H Estim Creat Clear Calc 42 Estimated GFR 51 L Glucose 91 Calcium 8.3 L Phosphorus 2.7 Magnesium 1.4 L Albumin 3.3 L Quality VTE Prophylaxis VTE prophylaxis: mechanical ordered and pharmacologic ordered
[2024-12-17] MEDS: cefTRIAXone 1 GM in SODIUM CHLORIDE 0.9% IV 50 ML 100 ML IVPB (13:43)
[2024-12-17] MEDS: SODIUM CHLORIDE 0.9% IV 1,000 ML 999 ML IV CONT (18:34)
[2024-12-17] MEDS: ESCITALOPRAM OXALATE 10 MG TABLET PO (22:38)
[2024-12-18 06:00] VITALS: BP 105/53; PULSE 63; RESP 18; TEMP 36.6; O2SAT 97
[2024-12-18] MEDS: CENTRAL LINE FLUSH 10 ML IV PUSH ×2 (06:21→14:30)
[2024-12-18] MEDS: metroNIDAZOLE 500 MG/ISO 100ML 500 MG/100 ML BAG 100 MG IVPB (06:21)
[2024-12-18 07:42] LABS: Anion Gap 6 mmol/L (4-12); Blood Urea Nitrogen 12 mg/dL (7-17); Calcium 8.0 mg/dL (8.4-10.2); Carbon Dioxide 29 mmol/L (22-30); Chloride 102 mmol/L (98-107); Estimated CRCL calculation 47 ml/min; Estimated Glomerular Filt Rate 59; Glucose 92 mg/dL (65-110); Magnesium 1.2 mg/dL (1.6-2.3); Potassium 3.9 mmol/L (3.4-5.0); Sodium 137 mmol/L (137-145)
[2024-12-18] MEDS: MAGNESIUM OXIDE 400 MG TABLET PO (09:35)
--- NOTE | 2024-12-18 10:33 | P.PNNP_ITS ---
Progress Note: A&P Assessment and Plan (1) Acute kidney injury: Code(s): N17.9 - Acute kidney failure, unspecified Status: Acute Assessment and Plan: * resolved * as noted by admission labs (creatinine of 3.72mg/dL) * however, was noted 48 hours prior to admission by previous ER visit - creatinine 2.03mg/dL at that time * baseline creatinine runs around 0.98 - 1.2mg/dL in the last year or so * multifactorial etiology: * prerenal factors * infection (UTI + colitis) * diuretic use (spironolactone) * other (?) * evaluation to date noted: * CT of A/P without hydronephrosis * urine electrolytes consistent with prerenal azotemia * urine eosinophils * CK is normal * mild proteinuria * follow trend of repeat labs and UOP (2) Hypokalemia: Code(s): E87.6 - Hypokalemia Status: Acute Assessment and Plan: * noted by labs done earlier on 12/15 * due to GI loss/increased colostomy output(?) * stable at this itme * was she on spironolactone as an outpatient * may be due to potassium loss from the stool/colostomy (but she never had low K+ in the past) (3) Colitis: Code(s): K52.9 - Noninfective gastroenteritis and colitis, unspecified Status: Acute Assessment and Plan: * as suggested by admission CT scan * GI recommendations noted * advance diet as tolerated * follow culture data * continue antibiotics (4) UTI (urinary tract infection): Code(s): N39.0 - Urinary tract infection, site not specified Status: Acute Assessment and Plan: * admission UA highly suggestive * however, she is know to have an ileostomy * follow culture data * on antibiotics (5) Elevated liver function tests: Code(s): R79.89 - Other specified abnormal findings of blood chemistry Status: Acute Assessment and Plan: * resolved * admission CT suggesting liver cirrhosis - new finding * noted plan for outpatient testing per GI * liver enzymes have normalized (6) Hypertension: Code(s): I10 - Essential (primary) hypertension Status: Acute Assessment and Plan: * systolic still running 90-110 * holding BP medications at this time * follow trend of hemodynamics Not much else to add -- will continue to follow from a distance. L Subjective Date/time seen: 12/18/24 10:33 Interval history: Follow-up for acute kidney injury/acute renal failure. Chart reviewed since last seen -- weaned off IVFs and renal function/creatinine appears stable if not better; no apparent distress voiced at the time of my visit; no issues/events overnight or earlier this morning. Exam 2 Narrative: General: WD/WN female in NAD Heart: normal S1 and S2; no rub Lungs: clear to auscultation Abdomen: soft, nontender, nondistended, positive bowel sounds; + colostomy and ileostomy Extremities: no cyanosis or clubbing; no edema Skin: warm and dry Objective Data Vital Signs Vital Signs: Vital Signs Temp Pulse Resp BP Pulse Ox O2 Del Method 12/18/24 09:35 Room Air 12/18/24 06:00 97.8 F 63 18 105/53 L 97 12/17/24 22:00 97.9 F 51 L 20 101/47 L 98 12/17/24 20:00 51 L 20 98 Room Air 12/17/24 16:43 66 96/49 L 12/17/24 16:43 70 91/64 L 12/17/24 16:41 58 L 91/53 L 12/17/24 14:00 98.0 F 56 L 18 99/63 L 99 Intake/Output Intake/Output: Intake & Output 12/15/24 12/16/24 12/17/24 12/18/24 23:59 23:59 23:59 23:59 Intake Total 4238.8 5350 3700 240 Output Total 2395 1325 1425 1050 Balance 1843.8 4025 2275 -810 Meds/Results Medications: Active Medications Generic Name Dose Route Start Last Admin Trade Name Freq PRN Reason Stop Dose Admin Acetaminophen 650 mg 12/14/24 15:13 12/16/24 21:16 Acetaminophen 325 Mg Tablet PO 650 mg Q4H PRN Administration Mild Pain (1-3) or Fever Hydrocodone Bitart/Acetaminophen 1 tab 12/14/24 15:13 Hydrocodone/Acetaminophen (*Crx) 5-325 Mg Tablet PO Q4H PRN Moderate Pain (4-6) Atenolol 100 mg 12/15/24 09:00 12/18/24 09:35 Atenolol 50 Mg Tablet PO Not Given DAILY YAHAIRA Escitalopram Oxalate 10 mg 12/15/24 21:00 12/17/24 22:38 Escitalopram Oxalate 10 Mg Tablet PO 10 mg HS YAHAIRA Administration Heparin Sodium (Porcine) 5,000 units 12/15/24 09:00 12/18/24 09:35 Heparin Sodium 5,000 Units/Ml Vial SUB-Q Not Given Q12HR YAHAIRA Ceftriaxone Sodium 1 gm/ 50 mls @ 100 mls/hr 12/15/24 13:00 12/17/24 14:24 Sodium Chloride IVPB Infused Q24H YAHAIRA Infusion Metronidazole 500 mg in 100 mls @ 100 mls/hr 12/14/24 22:00 12/18/24 06:21 Flagyl 500 Mg/Iso Soln 100 Ml IVPB 100 mls/hr Q8H YAHAIRA Administration Lamotrigine 200 mg 12/15/24 21:00 12/17/24 22:38 Lamotrigine 100 Mg Tablet PO 200 mg HS YAHAIRA Administration Magnesium Oxide 400 mg 12/16/24 09:00 12/18/24 09:35 Magnesium Oxide 400 Mg Tablet PO 400 mg DAILY YAHAIRA Administration Sodium Chloride 10 ml 12/15/24 22:00 12/18/24 06:21 Central Line Flush IV PUSH 10 ml Q8HR YAHAIRA Administration Sodium Chloride 10 ml 12/15/24 15:56 Central Line Flush IV PUSH PRN PRN with TPN bag changes Sodium Chloride 20 ml 12/15/24 15:56 12/17/24 06:21 Central Line Flush IV PUSH 20 ml PRN PRN Administration after blood draws Radiology Results: ITS Impressions Chest X-Ray 12/14/24 10:49 IMPRESSION: 1. No acute cardiopulmonary findings. Abdomen/Pelvis CT 12/14/24 13:10 IMPRESSION: 1. Colitis of remnant proximal colon. 2. No other acute abnormality. 3. Additional findings as above. Labs Labs: Laboratory Tests 12/17/24 06:13 12/18/24 07:09 Calcium 8.0 L Phosphorus 2.9 Magnesium 1.2 L Microbiology 12/14/24 22:33 Stool Salmonella/Shigella Screen - Final 12/14/24 22:33 Stool Shiga Toxin (EIA) - Final
[2024-12-18 13:46] VITALS: BP 113/50; PULSE 63; RESP 16; TEMP 36.6; O2SAT 99
--- NOTE | 2024-12-18 13:52 | P.PNIM_ITS ---
Progress Note: A&P Assessment and Plan (1) Colitis: Code(s): K52.9 - Noninfective gastroenteritis and colitis, unspecified Status: Acute Assessment and Plan: GI consulted IV Flagyl Fluid bolus in IVF for hydration Okay for clear liquid diet gi consulted, appreciate recommendations -no inpt intervention will f/u as an oupt (2) CHARLI (acute kidney injury): Code(s): N17.9 - Acute kidney failure, unspecified Status: Acute Assessment and Plan: Nephrology consulted IVF BMP in the morning nephrology following IV fluids 12/16- nephrology note reviewed * CT of A/P without hydronephrosis * Urine sodium is low consistent with prerenal azotemia from GI fluid losses. * * urine output has improved * continue IVFs for another day * follow trend of repeat labs and UOP cr/bun- .11/22 today improving (3) Dehydration: Code(s): E86.0 - Dehydration Status: Acute Assessment and Plan: 3 L fluid bolus given in ED followed by IVF at 125 continue iv fluids for another day doing well- drinking and eating, ok to stop IV fluids (4) UTI (urinary tract infection): Code(s): N39.0 - Urinary tract infection, site not specified Status: Acute Assessment and Plan: IV Rocephin Culture and sensitivity pending iv replacement ordered mg replacement ordered (5) Elevated liver function tests: Code(s): R79.89 - Other specified abnormal findings of blood chemistry Status: Acute Assessment and Plan: CMP in the morning daily labs (6) Depression: Code(s): F32.A - Depression, unspecified Status: Acute Assessment and Plan: Continue citalopram, Lamictal and Lexapro (7) Hypertension: Code(s): I10 - Essential (primary) hypertension Status: Acute Assessment and Plan: Currently holding spironolactone due to acute dehydration Plan K is better today Subjective Date/time seen: 12/18/24 13:52 Interval history: Follow-up for acute kidne injury/acute renal failure. Review of Systems Review of Systems: 12 systems were reviewed and are negativ e except for as per HPI. Exam Narrative: General: well appearing, appears stated age. HEENT: normocephalic, atraumatic. Mucous membranes moist. EOMI, PERRLA, bilateral sclera anicteric, no conjunctival injection. Neck supple without JVD, lymphadenopathy, or bruit. Respiratory: clear to ascultation bilaterally. No rales/rhonic/wheezes. Cardiovascular: Regular rate and rhythm, normal S1-S2 upon ascultation. No murmurs, rubs, or clicks. PMI is nondisplaced, capillary refill less than 3 second. Abdomen: Soft, round, no pulsatile masses, nondistended and nontender. No rebound, no guarding. No CVA tenderness, no hepatosplenomegaly. Bowel sounds present to all four quadrants. No high pitch or tinkling sounds, resonant to percussion. Extremities: No cyanosis, clubbing, or edema present. Pulses are palpable 2/2. Active ROM to all four extremities. Neuro: Alert and orientated x 4. PERRLA. Cranial nerves 2-12 intact without focal deficit. Skin: Warm, dry, and intact, without rash, erythema, or lesion. Psych: pleasant, cooperative, normal speech, normal affect, no hallucinations, no dysarthia Const: General: comfortable Objective Data Vital Signs Vital Signs: Vital Signs - 24 hr 12/17/24 14:00 12/17/24 16:41 12/17/24 16:43 Temperature 98.0 F Pulse Rate 56 L 58 L 70 Respiratory Rate 18 Blood Pressure 99/63 L 91/53 L 91/64 L Pulse Oximetry 99 Oxygen Delivery 12/17/24 16:43 12/17/24 20:00 12/17/24 22:00 Temperature 97.9 F Pulse Rate 66 51 L 51 L Respiratory Rate 20 20 Blood Pressure 96/49 L 101/47 L Pulse Oximetry 98 98 Oxygen Delivery Room Air 12/18/24 06:00 12/18/24 09:35 12/18/24 13:46 Temperature 97.8 F 97.8 F Pulse Rate 63 63 Respiratory Rate 18 16 Blood Pressure 105/53 L 113/50 L Pulse Oximetry 97 99 Oxygen Delivery Room Air Intake/Output Intake/Output: Intake & Output 10/10/25 12/16/24 12/17/24 12/18/24 23:59 23:59 23:59 23:59 Intake Total 4238.8 5350 3700 720 Output Total 4132 1325 1425 1050 Balance 1843.8 1324 1261 -121 Meds/Results Medications: Active Medications Generic Name Dose Route Start Last Admin Trade Name Freq PRN Reason Stop Dose Admin Acetaminophen 650 mg 12/14/24 15:13 12/16/24 21:16 Acetaminophen 325 Mg Tablet PO 650 mg Q4H PRN Administration Mild Pain (1-3) or Fever Hydrocodone Bitart/Acetaminophen 1 tab 12/14/24 15:13 Hydrocodone/Acetaminophen (*Crx) 5-325 Mg Tablet PO Q4H PRN Moderate Pain (4-6) Atenolol 100 mg 12/15/24 09:00 12/18/24 09:35 Atenolol 50 Mg Tablet PO Not Given DAILY YAHAIRA Escitalopram Oxalate 10 mg 12/15/24 21:00 12/17/24 22:38 Escitalopram Oxalate 10 Mg Tablet PO 10 mg HS YAHAIRA Administration Heparin Sodium (Porcine) 5,000 units 12/15/24 09:00 12/18/24 09:35 Heparin Sodium 5,000 Units/Ml Vial SUB-Q Not Given Q12HR YAHAIRA Lamotrigine 200 mg 12/15/24 21:00 12/17/24 22:38 Lamotrigine 100 Mg Tablet PO 200 mg HS YAHAIRA Administration Levofloxacin 750 mg 12/19/24 14:00 Levofloxacin 750 Mg Tablet PO 12/21/24 14:01 Q48H YAHAIRA Magnesium Oxide 400 mg 12/16/24 09:00 12/18/24 09:35 Magnesium Oxide 400 Mg Tablet PO 400 mg DAILY YAHAIRA Administration Metronidazole 500 mg 12/18/24 14:00 Metronidazole 500 Mg Tablet PO 12/21/24 22:01 Q8HR YAHAIRA Sodium Chloride 10 ml 12/15/24 22:00 12/18/24 06:21 Central Line Flush IV PUSH 10 ml Q8HR YAHAIRA Administration Sodium Chloride 10 ml 12/15/24 15:56 Central Line Flush IV PUSH PRN PRN with TPN bag changes Sodium Chloride 20 ml 12/15/24 15:56 12/17/24 06:21 Central Line Flush IV PUSH 20 ml PRN PRN Administration after blood draws Radiology Results: ITS Impressions Chest X-Ray 12/14/24 10:49 IMPRESSION: 1. No acute cardiopulmonary findings. Abdomen/Pelvis CT 12/14/24 13:10 IMPRESSION: 1. Colitis of remnant proximal colon. 2. No other acute abnormality. 3. Additional findings as above. Labs Labs: Laboratory Results - last 24 hr 12/18/24 07:09 Sodium 137 Potassium 3.9 Chloride 102 Carbon Dioxide 29 Anion Gap 6 BUN 12 D Creatinine 0.96 Estim Creat Clear Calc 47 Estimated GFR 59 Glucose 92 Calcium 8.0 L Phosphorus 2.9 Magnesium 1.2 L Quality VTE Prophylaxis VTE prophylaxis: mechanical ordered and pharmacologic ordered
--- NOTE | 2024-12-18 13:52 | PM.DS ---
DS: Admitting Diagnosis Discharge Date 12/18 Admitting Diagnosis diarrhea DS: Discharge Diagnosis Discharge Diagnosis (1) Colitis: Code(s): K52.9 - Noninfective gastroenteritis and colitis, unspecified Status: Acute (2) CHARLI (acute kidney injury): Code(s): N17.9 - Acute kidney failure, unspecified Status: Acute (3) Dehydration: Code(s): E86.0 - Dehydration Status: Acute (4) UTI (urinary tract infection): Code(s): N39.0 - Urinary tract infection, site not specified Status: Acute (5) Elevated liver function tests: Code(s): R79.89 - Other specified abnormal findings of blood chemistry Status: Acute (6) Depression: Code(s): F32.A - Depression, unspecified Status: Acute (7) Hypertension: Code(s): I10 - Essential (primary) hypertension Status: Acute DS: Summary Hospital Course Hospital Course: 59-year-old female with past medical history of ovarian cancer with bowel and bladder removal with urostomy and 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 GI and nephrology consulted. # dehydration admitted with significant dehydration (hemoconcentrated, charli, hypokalemia, generalized weakness) better after fluid resuscitation and replacement k noted uti, also possible colitis but denies any abdominal pain or nausea continue with medical support # Colitis: no pain on medical treatment and better will go home with flagly/levaquin po to complete the course # Cirrhosis: noted in imaging had mild elevated liver enzymes but normalized after hydration she will follow-up in office # Elevated liver function tests # CHARLI (acute kidney injury) improved # Hypokalemia: # hypomg repleted stable mg is low today- will send rx for few days with recheck order # Colostomy in place: after XRT and previous surgeries she underwent colostomy years ago Status at Discharge Functional status at discharge: independent ambulation Overall status at discharge: patient is progressing back to baseline Time Spent with Patient Time attestation: Total time spent providing and/or coordinating discharge services: Time spent: Greater than 30 minutes Exam Narrative: General: well appearing, appears stated age. HEENT: normocephalic, atraumatic. Mucous membranes moist. EOMI, PERRLA, bilateral sclera anicteric, no conjunctival injection. Neck supple without JVD, lymphadenopathy, or bruit. Respiratory: clear to ascultation bilaterally. No rales/rhonic/wheezes. Cardiovascular: Regular rate and rhythm, normal S1-S2 upon ascultation. No murmurs, rubs, or clicks. PMI is nondisplaced, capillary refill less than 3 second. Abdomen: Soft, round, no pulsatile masses, nondistended and nontender. No rebound, no guarding. No CVA tenderness, no hepatosplenomegaly. Bowel sounds present to all four quadrants. No high pitch or tinkling sounds, resonant to percussion. Extremities: No cyanosis, clubbing, or edema present. Pulses are palpable 2/2. Active ROM to all four extremities. Neuro: Alert and orientated x 4. PERRLA. Cranial nerves 2-12 intact without focal deficit. Skin: Warm, dry, and intact, without rash, erythema, or lesion. Psych: pleasant, cooperative, normal speech, normal affect, no hallucinations, no dysarthia Const: General: comfortable DS: Data Data Completed and Pending Labs on day of discharge: Labs from last 24 hours 12/18/24 07:09 Sodium 137 Potassium 3.9 Chloride 102 Carbon Dioxide 29 Anion Gap 6 BUN 12 D Creatinine 0.96 Estim Creat Clear Calc 47 Estimated GFR 59 Glucose 92 Calcium 8.0 L Phosphorus 2.9 Magnesium 1.2 L Preliminary micro results at discharge 12/14/24 12:25 - Preliminary Urine Clean Catch Gram negative bacilli isolated Discharge Plan Discharge Attending physician on discharge: Rancho Falk Oca Consulting providers: Mikael Onofre Discharging Clinician: Nisha Suárez Patient Disposition: Home Activity: may shower Diet: heart healthy Discharge Instructions: Please take antibiotics to complete levaquin 750 mg- next dose on 12/19 at 2 pm, then 12/21 at 2 pm and done. Flagyl- 500 mg every 8 h- will need 10 more doses. Please f/u with PCP/nephrology within a week after discharge as we discussed. Patient Instructions: Antibiotic Form Patient Language: Mohawk Stand Alone Forms: General Discharge Information Follow-up/Referrals: Lesley Wilson MD [Primary Care Provider, Family Practice] - 1 Week Mikael Onofre MD [Physician, Nephrology] - 2 Weeks Alfa Acevedo MD [Physician, Gastroenterology] - 2 Weeks Discharge Medications: New magnesium oxide 400 mg (241.3 mg magnesium) Tablet 400 mg PO DAILY Qty: 5 0RF metronidazole 500 mg Tablet 500 mg PO Q8HR Qty: 10 0RF levofloxacin 750 mg tablet 750 mg PO Q48H 2 Days Qty: 2 0RF Rx Instructions: take a dose on 12/19, then 12/21 and be done Continued cyanocobalamin (vitamin B-12) 1,000 mcg/mL solution 100 mcg subcut MONTHLY lamotrigine 200 mg tablet 200 mg PO DAILY escitalopram oxalate 5 mg tablet 10 mg PO DAILY atenolol 100 mg tablet 100 mg PO DAILY Qty: 90 2RF ergocalciferol (vitamin D2) [Vitamin D2] 1,250 mcg (50,000 unit) capsule 1,250 mcg PO WEEKLY Qty: 12 2RF Held spironolactone 25 mg tablet See Rx Instructions .ROUTE .COMPLEX Qty: 90 1RF Hold Instructions: Resume on 01/01/25. please f/u with nephrology to see if you need to resume this medication Dose Instruction: TAKE 1 TABLET BY MOUTH EVERY DAY Rx Instructions: TAKE 1 TABLET BY MOUTH EVERY DAY Other Ambulatory Orders: Magnesium (Routine) Timeframe: 1 Week Location: Determined by Patient Ordered By: Nisha Suárez Date of admission: 12/16/24 16:39 Primary Care Provider: Lesley Wilson Admitting Provider: Rancho Falk Oca Attending physician on admission: Rancho Falk Oca Condition: Stable Quality VTE Prophylaxis VTE prophylaxis: mechanical ordered and pharmacologic ordered Hospitalist MIPS Heart Failure (Exclusion) Patient has history of Heart Transplant or Left Ventricular Assistive Device?: No IF YES, STOP HERE Heart Failure (Qualifier) Patient has current or prior documentation of LVEF less than or equal to 40%, or mod/servere depressed LVSF?: No IF NO, STOP HERE
== END 2024-12-18 16:15 | disposition home or self-care (01) | DRG 392 ==
LOC: ANHED 13:47 → ANH3MED 14:25
PROVIDERS: Internal Medicine; Internal Medicine Nephrology; Nurse Practitioner Gerontology; Admitting Provider Student in an Organized Health Care Education/Training Program; Emergency Provider Emergency Medicine; PCP Family Medicine; Visit Provider Nurse Practitioner
DX: K52.9 Noninfective gastroenteritis and colitis, unspecified (principal); N17.9 Acute kidney failure, unspecified; E87.1 Hypo-osmolality and hyponatremia; N39.0 Urinary tract infection, site not specified; E86.0 Dehydration; E87.6 Hypokalemia; E83.42 Hypomagnesemia; R79.89 Other specified abnormal findings of blood chemistry; F32.A Depression, unspecified; I10 Essential (primary) hypertension; K74.60 Unspecified cirrhosis of liver; K76.0 Fatty (change of) liver, not elsewhere classified; Z93.3 Colostomy status; Z93.6 Other artificial openings of urinary tract status; Z90.6 Acquired absence of other parts of urinary tract; Z85.43 Personal history of malignant neoplasm of ovary; Z86.711 Personal history of pulmonary embolism; Z90.49 Acquired absence of other specified parts of digestive tract; Z85.118 Personal history of other malignant neoplasm of bronchus and lung; Z85.830 Personal history of malignant neoplasm of bone
CPT/HCPCS: 36415; 36569; 71046; 74176; 80048; 80053; 80069; 81001; 82550; 82570; 83735; 84100; 84156; 84300; 84443; 84540; 85025; 85027; 85999; 87045; 87046; 87086; 87186; 87427; 93005; 96361; 96365; 96366; 96372; 96375; 99285; A9270; C1751; G0378; J0696; J1644; J1836; J2003; J3480; J7030; J7040; J7120

== ENCOUNTER 2024-12-20 19:28 | Emergency (ER) | payer OTHER, SELFPAY ==
--- OUTSIDE RECORDS SUMMARY | 2024-12-20 19:30 | XMS_ITS | Clinical Summary ---
Author Organization [address] Address [address] [place] [address] Care Team Providers Care Casino Manager Name Role Phone Lesley Wilson MD Primary Care Provider [phone] Allergies Active Allergy Reactions Criticality Noted Date [...] II [employer] CHOICE POS II Care Teams Casino Manager Relationship Specialty Start Date End Date Lesley Wilson MD [address] [place] [id number] PCP - General Family Practice 12/05/21
--- OUTSIDE RECORDS SUMMARY | 2024-12-20 19:30 | XMS_ITS | Clinical Summary ---
Author Organization [address] Address [address] [place] [id number] Care Team Providers Care Glass Calibrator Name Role Phone Ady Lock MD Unavailable [phone] Lesley Wilson MD Primary Care Provider Allergies Active Allergy Reactions Criticality Noted Date [...] (08/09/2019): Added automatically from request for surgery [id number] Incontinence of sphincter ani 08/30/2014 Overview (06/12/2016): [...] pelvic radiation. surgery by Dr. 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 Electronically signed by Andrew Seu M.D. Andrew Sue M.D. 08/28/2022 12:33:29 PM Number of Addenda: 0 Note Initiated On: 08/28/2022 11:44 AM Scope In: Scope Out: Andrew Sue MD ENDOSCOPY PROCEDURES Fin al Result from Last 3 Months or Most Recently Relevant to Health Maintenance Insurance [facility] Advance Directives For more information, please contact: [phone] * Full Code (Latest Code Status on File) Date Activated Date Inactivated Comments 08/28/2022 11:10 AM 08/28/2022 5:18 PM * Full Code Date Activated Date Inactivated Comments 09/15/2019 10:08 AM 09/15/2019 6:13 PM Care Teams Glass Calibrator Relationship Specialty Start Date End Date Lesley Wilson MD [address] [place] [address] PCP - General Family Medicine 08/19/22 Ady Lock MD [address] [place] [address] Referring Physician Psychiatry 10/14/21
[2024-12-20 19:59] VITALS: BP 115/65; PULSE 98; RESP 16; TEMP 36.4; O2SAT 98
[2024-12-20 22:41] VITALS: BP 117/62; PULSE 71; RESP 22; O2SAT 98
[2024-12-21] MEDS: SODIUM CHLORIDE 0.9% IV 1,000 ML 999 ML IV CONT ×2 (00:18→01:04)
[2024-12-21 00:20] LABS: Hematocrit 36.1 % (37.0-47.0); Hemoglobin 12.0 g/dL (12.0-15.0); Immature Granulocyte Percent A 1.3 % (0-0.5); Lymphocytes Absolute Auto 2.36 K/mm3 (0.9-3.2); Mean Corpuscular HGB Conc 33.2 g/dl (32-36); Mean Corpuscular Hemoglobin 32.2 pg (26-34); Mean Corpuscular Volume 96.8 fl (80-100); Nucleated Red Blood Cells Absolute Auto 0.000 K/mm3 (0.0-0.012); Nucleated Red Blood Cells Perc 0.0 % (0.0-0.2); Platelet Count Result 270 k/mm3 (150-375); Red Blood Count 3.73 M/mm3 (4.2-5.4); White Blood Count 8.4 K/mm3 (4.5-10.0)
[2024-12-21 00:45] LABS: Add Urine Microscopic? YES; Appearance Urine Cloudy (Clear); Glucose Urine UA Negative (Negative); Leukocyte Esterase Ur 1+ LEU/UL (Negative); Nitrate Urine Negative (Negative); Non Pathogenic Casts 0-2; Specific Grav Ur 1.015 (1.001-1.035)
[2024-12-21 00:47] LABS: Alanine Aminotransferase 32 U/L (6-35); Albumin Level 4.1 g/dL (3.5-5.1); Alkaline Phosphatase 58 U/L (38-126); Anion Gap 8 mmol/L (4-12); Aspartate Amino Transferase 42 U/L (14-36); Bilirubin,Total 0.5 mg/dL (0.2-1.3); Blood Urea Nitrogen 17 mg/dL (7-17); Calcium 8.6 mg/dL (8.4-10.2); Carbon Dioxide 26 mmol/L (22-30); Chloride 102 mmol/L (98-107); Estimated CRCL calculation 50 ml/min; Estimated Glomerular Filt Rate 54; Glucose 92 mg/dL (65-110); Magnesium 1.4 mg/dL (1.6-2.3); Potassium 4.6 mmol/L (3.4-5.0); Sodium 136 mmol/L (137-145); Total Protein 7.8 g/dL (6.3-8.2)
[2024-12-21] MEDS: MAGNESIUM SULF 2 GM/WATER 50ML 2 GM/50 ML BAG IVPB (01:03)
--- NOTE | 2024-12-21 01:10 | ED.GENADULT ---
HPI - General Adult General Chief complaint: Recheck/Abnormal Lab/Rx Stated complaint: stage 5 kidney failure Time Seen by Provider: 12/20/24 23:15 History of Present Illness HPI narrative: Patient is 59-year-old female who presents emergency department chief complaint of decreased urine output patient reports that she had 13 [address] [place] and in 100 out patient states that she is not taking her diuretic in a week patient states that she feels weak and run down patient states she was recently admitted for dehydration Related Data Home Medications ?Medication ?Instructions ?Recorded ?Confirmed ?Last Taken ?Type cyanocobalamin (vitamin B-12) 100 mcg subcut MONTHLY 11/24/21 12/20/24 11/22/24 History 1,000 mcg/mL injection solution escitalopram oxalate 5 mg tablet 10 mg PO DAILY 12/30/23 12/20/24 12/13/24 History lamotrigine 200 mg tablet 200 mg PO DAILY 05/02/24 12/20/24 12/13/24 History Allergies Allergy/AdvReac Type Severity Reaction Status Date / Time chlorpromazine Allergy Unknown Unknown Verified 12/20/24 16:37 Review of Systems Review of Systems: A 10 system review of systems was completed on the patient and is negative except for what is stated in the HPI. Nursing and ancillary documentation was reviewed. [facility] Past Medical History Medical History Kidney failure Hypokalemia Lumbar spine pain Tear of meniscus of left knee Postoperative pelvic peritoneal adhesions Hx of intestinal obstruction History of malignant neoplasm metastatic to lung History of cancer metastatic to bone Personal history of ovarian cancer Obesity (BMI 30-39.9) Pulmonary embolism Colostomy in place Ovarian cancer History of blood clots Surgical History Surgical History H/O hysterectomy with oophorectomy ~1980s Status post ileal conduit Cystectomy with ileal conduit related to radiation History of cholecystectomy Colostomy status History of carpal tunnel surgery History of cholecystectomy Family History Family History Father Heart disease Hypertension Cerebrovascular accident Cancer of kidney Mother Hypertension Heart disease Social History Social History Smoking status: Never smoker Second hand tobacco smoke exposure: No Alcohol intake: current Alcohol use details: once a month, maybe; socially only Substance use: never Substance use type: does not use Lack of Transportation: No Lack of Food: Never True Current Housing: I Have Housing Concerned About Future Housing: No Difficulty Paying Gas/Electric Bills: No Difficulty Paying for Meds: No Currently Unemployed: Decline to Answer Education: Master's Degree or Higher Difficulty w/ Childcare or Family Care: No Living arrangements: alone Additional living arrangements comments: Occupation/Education: retired Gender identity (if verbalized by the patient): Female Sexual Orientation (if Verbalized by the Patient): Lesbian, Gill, or Homosexual Spiritual care concerns: No Agree to blood products: Yes Exam Narrative: GENERAL: Well-appearing, well-nourished, and in no acute distress. HEAD: Normocephalic, atraumatic. EYES: PERRLA and EOMI. ENT: Nares clear, no rhinorrhea or epistaxis. Mucous membranes moist. NECK: Supple. CHEST: Clear to auscultation. No respiratory distress. HEART: Regular rate and rhythm. No murmur heard. Normal peripheral pulses. ABDOMEN: Soft, nontender, nondistended, normal active bowel sounds. EXTREMITIES: Normal range of motion. No edema. SKIN: Warm, dry, no rash. NEURO: No focal deficits. Alert and oriented x3. PSYCH: Normal mood and affect. Course Vital Signs Vital signs: Vital Signs Temperature 36.4 C 12/20/24 19:59 Pulse Rate 98 12/20/24 19:59 Respiratory Rate 16 12/20/24 19:59 Blood Pressure 115/65 12/20/24 19:59 Pulse Oximetry 98 12/20/24 19:59 Temperature 36.4 C 12/20/24 19:59 Pulse Rate 71 12/20/24 22:41 Respiratory Rate 22 H 12/20/24 22:41 Blood Pressure 117/62 12/20/24 22:41 Pulse Oximetry 98 12/20/24 22:41 Oxygen Delivery Room Air 12/20/24 22:41 Medical Decision Making MDM Narrative Medical decision making narrative: Differential diagnosis includes renal failure, electrolyte abnormality Patient's magnesium was 1.4 Creatinine was 1.04 with a GFR of 54 today potassium was 4.6 Vital Signs Vital Signs: Vital Signs Temperature 36.4 C 12/20/24 19:59 Pulse Rate 98 12/20/24 19:59 Respiratory Rate 16 12/20/24 19:59 Blood Pressure 115/65 12/20/24 19:59 Pulse Oximetry 98 12/20/24 19:59 Temperature 36.4 C 12/20/24 19:59 Pulse Rate 71 12/20/24 22:41 Respiratory Rate 22 H 12/20/24 22:41 Blood Pressure 117/62 12/20/24 22:41 Pulse Oximetry 98 12/20/24 22:41 Oxygen Delivery Room Air 12/20/24 22:41 Lab Data 12/21/24 00:11 12/21/24 00:11 Labs: Lab Results 12/21/24 Range/Units 00:11 WBC 8.4 (4.5-10.0) K/mm3 RBC 3.73 L (4.2-5.4) M/mm3 Hgb 12.0 (12.0-15.0) g/dL Hct 36.1 L (37.0-47.0) % MCV 96.8 (80-100) fl MCH 32.2 (26-34) pg MCHC 33.2 (32-36) g/dl RDW 12.3 (11.5-14.5) % Plt Count 270 (150-375) k/mm3 MPV 9.1 (7.4-10.4) fl Immature Gran % (Auto) 1.3 H (0-0.5) % Neut % (Auto) 59.7 (45.5-73.1) % Lymph % (Auto) 28.1 (18.3-44.2) % [place]dwell % (Auto) 8.3 (2.6-8.5) % Eos % (Auto) 1.9 (0-4.4) % Baso % (Auto) 0.7 (0.2-1.2) % Lymph # (Auto) 2.36 (0.9-3.2) K/mm3 Caldwell # (Auto) 0.7 H (0.1-0.6) K/mm3 Eos # (Auto) 0.2 (0-0.3) K/mm3 Baso # (Auto) 0.1 (0.0-0.1) K/mm3 Abs Immat Gran (auto) 0.11 H (0.00-0.031) K/mm3 Absolute Neuts (auto) 5.0 (1.3-6.7) K/mm3 Absolute Nucleated RBC 0.000 (0.0-0.012) K/mm3 Nucleated RBC % 0.0 (0.0-0.2) % Sodium 136 L (137-145) mmol/L Potassium 4.6 (3.4-5.0) mmol/L Chloride 102 (98-107) mmol/L Carbon Dioxide 26 (22-30) mmol/L Anion Gap 8 (4-12) mmol/L BUN 17 (7-17) mg/dL Creatinine 1.04 H (0.7-1.0) mg/dL Estim Creat Clear Calc 50 ml/min Estimated GFR 54 L (59 - ) Glucose 92 (65-110) mg/dL Calcium 8.6 (8.4-10.2) mg/dL Magnesium 1.4 L (1.6-2.3) mg/dL Total Bilirubin 0.5 (0.2-1.3) mg/dL AST 42 H (14-36) U/L ALT 32 (6-35) U/L Alkaline Phosphatase 58 (38-126) U/L Total Protein 7.8 (6.3-8.2) g/dL Albumin 4.1 (3.5-5.1) g/dL Urine Color Yellow (Yellow) Urine Appearance Cloudy H (Clear) Urine pH 7.0 (5.0-9.0) Ur Specific Marshall 1.015 (1.001-1.035) Urine Protein 1+ H (Negative) mg/dL Urine Glucose (UA) Negative (Negative) mg/dL Urine Ketones Negative (Negative) mg/dL Ur Blood (Man) Negative (Negative) Urine Nitrate Negative (Negative) Urine Bilirubin Negative (Negative) Urine Urobilinogen 0.2 (<2.0) mg/dL Leukocyte Esterase Rfl 1+ H (Negative) PRICILLA/UL Urine RBC 0-2 (0-2) /hpf Urine WBC 11-20 H (0-3) /hpf Ur Squamous Epith Cells Few (Few) /hpf Urine Bacteria None seen /hpf Urine Casts 0-2 Discharge Plan Discharge Clinical Impression: Hypomagnesemia Patient Disposition: Home Condition: Stable Instructions: Antibiotic Form, Hypomagnesemia (ED) Patient Language: Indonesian Prescriptions: No Action cyanocobalamin (vitamin B-12) 1,000 mcg/mL solution 100 mcg subcut MONTHLY lamotrigine 200 mg tablet 200 mg PO DAILY escitalopram oxalate 5 mg tablet 10 mg PO DAILY magnesium oxide 400 mg (241.3 mg magnesium) Tablet 400 mg PO DAILY Qty: 5 0RF metronidazole 500 mg Tablet 500 mg PO Q8HR Qty: 10 0RF levofloxacin 750 mg tablet 750 mg PO Q48H 2 Days Qty: 2 0RF Rx Instructions: take a dose on 12/19, then 12/21 and be done atenolol 100 mg tablet 100 mg PO DAILY Qty: 90 2RF ergocalciferol (vitamin D2) [Vitamin D2] 1,250 mcg (50,000 unit) capsule 1,250 mcg PO WEEKLY Qty: 12 2RF spironolactone 25 mg tablet See Rx Instructions .ROUTE .COMPLEX Qty: 90 1RF Dose Instruction: TAKE 1 TABLET BY MOUTH EVERY DAY Rx Instructions: TAKE 1 TABLET BY MOUTH EVERY DAY Follow-up/Referrals: Kentrell Otto MD [Primary Care Provider, Family Practice] Time of Disposition: 01:17
[2024-12-21 02:46] VITALS: BP 113/62; PULSE 80; RESP 19; O2SAT 99
== END 2024-12-21 02:47 | disposition home or self-care (01) ==
PROVIDERS: Emergency Provider Emergency Medicine; PCP Family Medicine Adolescent Medicine
DX: E83.42 Hypomagnesemia (principal); Z93.3 Colostomy status; Z85.118 Personal history of other malignant neoplasm of bronchus and lung; Z85.830 Personal history of malignant neoplasm of bone; Z85.43 Personal history of malignant neoplasm of ovary; Z86.711 Personal history of pulmonary embolism; Z90.710 Acquired absence of both cervix and uterus; Z90.49 Acquired absence of other specified parts of digestive tract; Z79.899 Other long term (current) drug therapy
CPT/HCPCS: 36415; 80053; 81001; 83735; 85025; 87086; 96365; 96366; 99284; J3475; J7030